=== PATIENT | male | born 1955 | race Caucasian/White ===

== ENCOUNTER 2016-09-16 05:36 | Inpatient (IN) | payer OTHER, MEDICARE ==
[2016-09-16] VITALS (20 sets, daily range): BP systolic 131–188; BP diastolic 74–99; PULSE 90–108; RESP 18–24; TEMP 98.3–101.5; O2SAT 94–100
[~2016-09-16] VITALS: Ht 170.2 cm; Wt 123.2 kg
[~2016-09-16 05:36] MED LIST: ALBU0.08 NEB; ASPI81CH CHEW; B-CO1TAB5 PO; CHOL1CAP24 PO; CYAN1CAP PO; FURO1TAB60 PO; GABA800T PO; IMDU60TA PO; IPRA0.02 NEB; KLON2TAB PO; NOVO7030P2 SQ; NOVORP2 SQ; OCEA0.653 EACH NARE; OMEP20TA PO; OXYGENTANK NAS.CANULA; OXYM.05%I EACH NARE; PAXI20TA PO; POTA-163 PO; PRED20 PO; SODI1TAB PO; ULTR50TA5 PO
[2016-09-16] MEDS ORDERED: SODIUM CHLORIDE 0.9% FLUSH 10 ML FLUSH IVF PRN (05:45)
--- NOTE | 2016-09-16 05:53 | PD ---
HPI Chief Complaint: Respiratory Distress Time Seen by Provider: 05:42 Travel History International Travel<30 days: No Contact w/Intl Traveler<30days: No Traveled to known affect area: No History of Present Illness HPI 61-year-old male with history of CAD, COPD, CHF, CABG, brought in by ambulance from home on CPAP for evaluation of shortness of breath. For last 5 days the patient has had progressively worsening shortness of breath, worsening pedal edema, and worsening abdominal distention. He is denying any chest pain. Shortness of breath is at rest. EMS noted that the patient was severely tachypneic with bibasilar rales and had an O2 saturation in the 70% on the arrived to his home. They started him on CPAP, administered IV morphine, as well as 100 mg of IV Lasix. Upon arrival to the emergency department the patient feels somewhat improved. He is still slightly tachypneic. He is denying chest pain. His submarine diver is Dr. Sanabria. Patient also reports that for the last several days he has had black/tarry stools. PFSH Past Medical History Hx Anticoagulant Therapy: No Arthritis: Yes Asthma: Yes Autoimmune Disease: No Blood Disorders: No Anxiety: Yes Depression: Yes Heart Rhythm Problems: No Cancer: No Cardiac Catheterization: Yes Cardiovascular Problems: Yes (CABG, MRSA) High Cholesterol: Yes Chemotherapy: No Chest Pain: Yes Congestive Heart Failure: Yes COPD: Yes Cerebrovascular Accident: Yes Coronary Artery Disease: Yes Diabetes: Yes (Type 2) Patient Takes Glucophage: No Diminished Hearing: No GERD: Yes Glaucoma: No Headaches: No Hepatitis: Yes Hiatal Hernia: No Hypertension: Yes Kidney Stones: Yes Musculoskeletal: Yes Neurologic: Yes Psychiatric: Yes Respiratory: Yes (Pneumonia) Myocardial Infarction: Yes Pneumonia: Yes Radiation Therapy: No Renal Failure: No Seizures: Yes Sickle Cell Disease: No Sleep Apnea: Yes Thyroid Disease: No Ulcer: No Past Surgical History Abdominal Surgery: Yes (GALBLADDER) AICD: No Cardiac Surgery: Yes Cholecystectomy: Yes Coronary Artery Bypass Graft: Yes Coronary Stent: Yes Ear Surgery: No Endocrine Surgery: No Eye Surgery: No Genitourinary Surgery: No Oral Surgery: No Pacemaker: No Thoracic Surgery: Yes Other Surgery: Yes (UVULA REMOVED PER PT) Social History Alcohol Use: Yes (ALCOHOLIC) Tobacco Use: Yes Substance Use: Yes Allergies-Medications (Allergen,Severity, Reaction): Coded Allergies: Bactrim (Verified Allergy, Severe, Hives, 04/07/16) Codeine (Verified Allergy, Severe, Hives, 04/07/16) Hydrocodone (Verified Allergy, Severe, ITCH, 04/07/16) Minocin (Verified Allergy, Severe, CLOSED THROAT, 04/07/16) Sulfa (Verified Allergy, Severe, Hives, 04/07/16) Vancomycin (Verified Allergy, Severe, Anaphylaxis, 04/07/16) Tetracycline (Verified Allergy, Unknown, Hives, 04/07/16) Reported Meds & Prescriptions Reported Meds & Active Scripts Active Oxygen tank (Oxygen) 1 Ea Tank 2 Liter CATALINA.CANULA CONTINUOUS Oxygen Concentrator Portable Gaseous 2 L/min via Nasal Cannula Continuous For 99 months Ultram (Tramadol HCl) 50 Mg Tab 50 Mg PO Q8H PRN 5 Days Potassium Chloride ER (Potassium Chloride) 20 Meq Tab 20 Meq PO DAILY Prednisone 20 Mg Tab 20 Mg PO DAILY 7 Days Lasix (Furosemide) 40 Mg Tab 40 Mg PO DAILY 30 Days Reported Afrin Nasal [place] (Oxymetazoline HCl) 0.05 % Spr 2 [place] EACH NARE BID [place] Nasal Lowes (Sodium Chloride) 0.65% Lowes 1 [place]es EACH NARE BID Aspirin 81 Mg Chew 81 Mg CHEW DAILY B-12 (Cyanocobalamin) 5,000 Mcg Cap 10,000 Mcg PO BID Vitamin D3 (Cholecalciferol) 10,000 Unit Cap 10,000 Units PO BID Super B-Complex (B-Complex W/Biotin & Folic Acid) 1 Tab 3 Tab PO TID Gabapentin 800 Mg Tab 800 Mg PO TID Klonopin (Clonazepam) 2 Mg Tab 2 Mg PO TID Paxil (Paroxetine HCl) 20 Mg Tab 20 Mg PO DAILY Novolin R Inj (Insulin Human Regular) 1,000 Unit/10 Ml Vial Unknown Dose SQ ACHS Max dose at bedtime:( )units; sugars less than 70,(0) units; sugars 150-199,(2)unit; sugars 200-249,(4)units; sugars 250-299,(7) units; sugars 300-349,(10)units; sugars greater than 349,(12)units Novolin 70-30 Inj (Insulin Human Isoph/Insulin Regular) 1,000 Unit/10 Ml Vial 45 Units SQ BID Omeprazole 20 Mg Tab 20 Mg PO BID Ipratropium Neb (Ipratropium Gordon) 0.5 Mg/2.5 Ml Amp 0.5 Mg NEB Q4HR NEB MIX WITH ALBUTEROL Albuterol Neb (Albuterol Sulfate) 2.5 Mg/3 Ml Neb 2.5 Mg NEB Q4HR NEB MIX WITH IPRATROPIUM Sodium Chloride 1 Gm Tab 1 Gm PO DAILY Review of Systems Except as stated in HPI: all other systems reviewed are Neg Physical Exam Narrative GENERAL: Well-developed, well-nourished, overweight, moderate respiratory distress, on CPAP, speaking a few words at a time. SKIN: Focused skin assessment warm/dry. Multiple abrasions to bilateral upper and lower extremities with areas of ecchymosis in various stages of healing on upper and lower extremities as well as anterior chest. HEAD: Atraumatic. Normocephalic. EYES: Pupils equal and round. No scleral icterus. No injection or drainage. ENT: Mucous membranes pink and moist. NECK: Trachea midline. No JVD. CARDIOVASCULAR: Regular rate and rhythm. RESPIRATORY: Moderate respiratory distress. Speaking a few words at a time. Tachypneic. Poor air movement bilaterally. Difficult to ascertain breath sounds secondary to body habitus. GASTROINTESTINAL: Abdomen soft, non-tender, distended. MUSCULOSKELETAL: No obvious deformities. No clubbing. No cyanosis. Significant bilateral lower extremity edema from foot to knee. NEUROLOGICAL: Awake and alert. No obvious cranial nerve deficits. Motor grossly within normal limits. Normal speech. PSYCHIATRIC: Appropriate mood and affect; insight and judgment normal. Data Data Last Documented VS Vital Signs Date Time Temp Pulse Resp B/P Pulse Ox O2 Delivery O2 Flow Rate FiO2 09/16/16 05:54 100 BiPAP 09/16/16 05:54 20 09/16/16 05:42 106 09/16/16 05:40 100 09/16/16 05:38 188/99 Orders Complete Blood Count With Diff (09/16/16 05:43) Comprehensive Metabolic Panel (09/16/16 05:43) B-Type Natriuretic Peptide (09/16/16 05:43) Act Partial Throm Time (Ptt) (09/16/16 05:43) Prothrombin Time / Inr (Pt) (09/16/16 05:43) Ckmb (Isoenzyme) Profile (09/16/16 05:43) Troponin I (09/16/16 05:43) Arterial Blood Gas (Abg) (09/16/16 05:43) Iv Access Insert/Monitor (09/16/16 05:43) Electrocardiogram (09/16/16 05:43) Ecg Monitoring (09/16/16 05:43) Oximetry (09/16/16 05:43) Oxygen Administration (09/16/16 05:43) Chest, Single Ap (09/16/16 05:43) Sodium Chloride 0.9% Flush (Ns Flush) (09/16/16 05:45) Lactic Acid (09/16/16 05:43) Blood Culture (09/16/16 05:43) Resp Bipap / Cpap Non Invas Vt (09/16/16 ) Type And Screen (09/16/16 05:43) Albuterol-Ipratropium Neb (Duoneb Neb) (09/16/16 06:00) Urinary Catheter Insert/Apply (09/16/16 06:00) CKMB (09/16/16 05:50) CKMB% (09/16/16 05:50) Labs Laboratory Tests Test 09/16/16 09/16/16 05:50 06:00 White Blood Count 9.9 TH/MM3 Red Blood Count 4.06 MIL/MM3 Hemoglobin 12.5 GM/DL Hematocrit 36.8 % Mean Corpuscular Volume 90.7 FL Mean Corpuscular Hemoglobin 30.9 PG Mean Corpuscular Hemoglobin 34.0 % Concent Red Cell Distribution Width 17.0 % Platelet Count 90 TH/MM3 Mean Platelet Volume 7.3 FL Neutrophils (%) (Auto) 90.8 % Lymphocytes (%) (Auto) 1.4 % Monocytes (%) (Auto) 7.1 % Eosinophils (%) (Auto) 0.0 % Basophils (%) (Auto) 0.7 % Neutrophils # (Auto) 9.0 TH/MM3 Lymphocytes # (Auto) 0.1 TH/MM3 Monocytes # (Auto) 0.7 TH/MM3 Eosinophils # (Auto) 0.0 TH/MM3 Basophils # (Auto) 0.1 TH/MM3 CBC Comment AUTO DIFF Prothrombin Time 15.5 SEC Prothromb Time International 1.4 RATIO Ratio Activated Partial 35.0 SEC Thromboplast Time Sodium Level 131 MEQ/L Potassium Level 3.9 MEQ/L Chloride Level 90 MEQ/L Carbon Dioxide Level 31.0 MEQ/L Anion Gap 10 MEQ/L Blood Urea Nitrogen 20 MG/DL Creatinine 1.25 MG/DL Estimat Glomerular Filtration 58 ML/MIN Rate Random Glucose 193 MG/DL Lactic Acid Level 1.8 mmol/L Calcium Level 8.4 MG/DL Total Bilirubin 2.1 MG/DL Aspartate Amino Transf 64 U/L (AST/SGOT) Alanine Aminotransferase 52 U/L (ALT/SGPT) Alkaline Phosphatase 33 U/L Total Creatine Kinase 162 U/L Creatine Kinase MB 16.0 NG/ML Troponin I 1.27 NG/ML B-Type Natriuretic Peptide 1839 PG/ML Total Protein 7.2 GM/DL Albumin 3.4 GM/DL Blood Type A NEGATIVE Antibody Screen NEGATIVE Blood Bank Comment Blood Gas Puncture Site LT RADIAL Blood Gas Patient Temperature 98.6 Blood Gas HCO3 30 mmol/L Blood Gas Base Excess 4.7 mmol/L Blood Gas Oxygen Saturation 98 % Arterial Blood pH 7.33 Arterial Blood Partial 59 mmHg Pressure CO2 Arterial Blood Partial 495 mmHG Pressure O2 Arterial Blood Oxygen Content 18.6 Vol % Arterial Blood 2.0 % Carboxyhemoglobin Arterial Blood Methemoglobin 0.6 % Blood Gas Hemoglobin 12.7 G/DL Oxygen Delivery Device BiPAP Blood Gas Inspired Oxygen 100 % MDM Medical Decision Making Medical Screen Exam Complete: Yes Emergency Medical Condition: Yes Medical Record Reviewed: Yes Interpretation(s) EKG: Sinus tachycardia, rate 106, left axis deviation, normal intervals, no acute ischemic abnormality. Differential Diagnosis Acute pulmonary edema, CHF, COPD, pneumothorax, pneumonia, anemia, ACS, PE Narrative Course Patient was switched from CPAP to BiPAP upon arrival to the emergency department. Stool is heme negative brown. Initial vital signs show heart rate 108, blood pressure 188/99 on 100% BiPAP 10/ 5. CBC shows WBC 9.9, hemoglobin 12.5, hematocrit 36.8, platelets 98, neutrophils 90.8%. CMP is remarkable for sodium 131, chloride 98, BUN 20, creatinine 1.28, GFR 58, random glucose 193, otherwise unremarkable. Lactic acid is 1.8. Troponin is 1.27. BNP is 1839. Chest x-ray: Cardiomegaly and findings of congestive heart failure. Small effusions. Troponin leak is likely secondary to CHF. The patient denies having chest pain. There are no signs of ischemia on his EKG. Patient has moderate improvement here in the emergency department on BiPAP. He is still requiring BiPAP. He'll be admitted to the ICU for further treatment and evaluation. His submarine diver is Dr. Sanabria. Case discussed with cigarette carton sealer Dr. Bailey who will admit the patient to her service. Critical Care Narrative Aggregate critical care time was 40 minutes. Time to perform other separately billable procedures was not included in the critical care time. My time did not include minutes spent treating any other patients simultaneously or on activities that did not directly contribute to the patient's treatment. The services I provided to this patient were to treat and/or prevent clinically significant deterioration that could result in: , permanent disability, worsening clinical condition, respiratory failure I provided critical care services requiring my management, as noted below: Chart data review, documentation time, medication orders and management, vital sign assessments/reviewing monitor data, ordering and reviewing lab tests, ordering and interpreting/reviewing x-rays and diagnostic studies, care of the patient and discussion of the patient with the admitting physicians. HemaPrompt Point of Care Internal Pos. & Neg. Controls: Passed Fecal Specimen Occult Blood: Negative Comment Heme-negative, brown Diagnosis Primary Impression: CHF exacerbation Qualified Code: I50.9 - Acute on chronic congestive heart failure, unspecified congestive heart failure type Additional Impression: Respiratory distress Admitting Information Admitting Physician Requests: Admit Nico Paige MD Sep 16, 2016 05:53
[2016-09-16] MEDS: RESP: ALBUTEROL 2.5 MG/IPRATROPIUM 0.5 MG NEB (SCH) INH ×6 (06:00→19:25)
[2016-09-16 06:06] LABS: BASOPHIL # 0.1 TH/MM3 (0-0.2); BASOPHIL % 0.7 % (0.0-2.0); HEMATOCRIT 36.8 % (39.0-51.0); LYMPH % 1.4 % (9.0-44.0); LYMPHOCYTE # 0.1 TH/MM3 (1.0-4.8); MEAN CELL VOLUME 90.7 FL (80.0-100.0); MEAN CORPUSCULAR HEMOGLOBIN 30.9 PG (27.0-34.0); MONO % 7.1 % (0.0-8.0); NEUT % 90.8 % (16.0-70.0); PLATELET COUNT 90 TH/MM3 (150-450); RED BLOOD COUNT 4.06 MIL/MM3 (4.50-5.90); WHITE BLOOD COUNT 9.9 TH/MM3 (4.0-11.0)
[2016-09-16 06:08] LABS: BLOOD GAS BASE EXCESS 4.7 mmol/L (-2-2); BLOOD GAS HCO3 30 mmol/L (22-26); BLOOD GAS METHEMOGLOBIN 0.6 % (0-2); BLOOD GAS O2 HGB SATURATION 98 % (90-100); BLOOD GAS OXYGEN CONTENT 18.6 Vol % (12.0-20.0); BLOOD GAS PCO2 59 mmHg (38-42); BLOOD GAS PO2 495 mmHG (61-120); BLOOD GAS TOTAL HGB 12.7 G/DL (12.0-16.0); CRITICAL VALUE YES; OXYGEN DEVICE BiPAP; TEMP CORR TO 98.6
[2016-09-16 06:09] LABS: DRAW SITE LT RADIAL; FIO2 100 %; NUMBER OF ARTERIAL PUNCTURES 1; STAT YES; ULNAR PULSE PRESENT
[2016-09-16 06:13] LABS: INTERNATIONAL NORMALIZED RATIO 1.4 RATIO; PROTHROMBIN TIME - PATIENT 15.5 SEC (9.8-11.6)
[2016-09-16 06:18] LABS: HEMO FLAGS AUTO DIFF
--- NOTE | 2016-09-16 06:21 | RADRPT ---
EXAM DATE/TIME: 09/16/2016 05:37 [facility] COMPARISON: CHEST SINGLE AP, April 16, 2016, 5:59. INDICATIONS : Shortness of breath. MEDICAL HISTORY : Hypertension. Myocardial infarction. Diabetes mellitus type II. CVA. CHF. Coronary artery disease . Liver disease. Hepatitis. COPD. SURGICAL HISTORY : CABG. Cardiac cath. Coronary stent. ENCOUNTER: Initial ACUITY: 1 day PAIN SCORE: 0/10 LOCATION: Bilateral chest FINDINGS: The cardiac silhouette is normal in transverse diameter. Median sternotomy wires are present. There a re findings of congestive heart failure with interstitial and alveolar opacity bilaterally. This is n ew when compared with the prior exam. Small bilateral pleural effusions are identified. CONCLUSION: 1. Cardiomegaly and findings of congestive heart failure. 2. Small effusions Maciel Araujo MD on September 16, 2016 at 6:19 Board Certified Radiologist. This report was verified electronically.
[2016-09-16 06:32] LABS: ANION GAP 10 MEQ/L (5-15); AST (GOT) 64 U/L (15-37); BLOOD UREA NITROGEN 20 MG/DL (7-18); CHLORIDE 90 MEQ/L (98-107); GLOMERULAR FILTRATION RATE 58 ML/MIN (>89); POTASSIUM 3.9 MEQ/L (3.5-5.1); SODIUM (NA) 131 MEQ/L (136-145)
[2016-09-16 06:36] LABS: ALKALINE PHOSPHATASE 33 U/L (45-117); ALT (GPT) 52 U/L (12-78); CREATINE KINASE 162 U/L (39-308); TOTAL BILIRUBIN ADULT 2.1 MG/DL (0.2-1.0)
[2016-09-16 07:08] LABS: PLATELET ESTIMATE SMEAR LOW (NORMAL); PLATELET MORPHOLOGY NORMAL (NORMAL); SCAN/DIFF AUTO DIFF CONFIRMED
[2016-09-16] MEDS ORDERED: MAGNESIUM SULFATE INJ 2 GM in SODIUM CHLORIDE 0.9% INJ 96 ML IV PRN (08:00)
[2016-09-16] MEDS ORDERED: RESP: ALBUTEROL 2.5 MG/IPRATROPIUM 0.5 MG NEB (PRN) INH (08:00)
[2016-09-16] MEDS ORDERED: MAGNESIUM OXIDE 400 MG TAB PO PRN (08:00)
[2016-09-16] MEDS ORDERED: ONDANSETRON HCL 4 MG/2 ML VIAL IV PRN (08:00)
[2016-09-16] MEDS ORDERED: POTASSIUM PHOSPHATE INJ 30 MMOL in SODIUM CHLOR 0.9% 250 ML INJ 250 ML IV PRN (08:00)
[2016-09-16] MEDS ORDERED: SODIUM PHOSPHATE INJ 30 MMOL in SODIUM CHLOR 0.9% 250 ML INJ 240 ML IV PRN (08:00)
[2016-09-16] MEDS ORDERED: POTASSIUM CHLOR 40 MEQ PREMIX 100 ML IV PRN ×2 (08:00)
[2016-09-16] MEDS ORDERED: POTASSIUM PHOSPHATE MONOBASIC 500 MG TAB PO/TUBE PRN (08:00)
[2016-09-16] MEDS ORDERED: MISCELLANEOUS NURSING INFORMATION XX SCH (08:00)
[2016-09-16] MEDS ORDERED: POTASSIUM CHLOR 20 MEQ PREMIX 100 ML IV PRN (08:00)
[2016-09-16] MEDS ORDERED: MAGNESIUM SULFATE INJ 4 GM in SODIUM CHLORIDE 0.9% INJ 92 ML IV PRN (08:00)
[2016-09-16] MEDS ORDERED: POTASSIUM PHOSPHATE MONOBASIC 500 MG TAB PO PRN (08:00)
[2016-09-16] MEDS ORDERED: CHLORHEXIDINE GLUCONATE 2 % 1 PACK (2 CLOTHS) TOP PRN (08:00)
[2016-09-16] MEDS ORDERED: POTASSIUM CHLORIDE 25 MEQ EFFERVESCENT TAB PO PRN (08:00)
[2016-09-16] MEDS ORDERED: GLUCAGON 1 MG/ML VIAL OTHER PRN (08:15)
[2016-09-16] MEDS ORDERED: DEXTROSE 50% IN WATER 50 ML VIAL(D50) IV PUSH PRN (08:15)
--- NOTE | 2016-09-16 08:43 | HHI.HP ---
HPI Service Critical Care Medicine Primary Care Physician Unknown Admission Diagnosis CHF exacerbation, respiratory distress Diagnosis: Travel History International Travel<30 Days: No Contact w/Intl Traveler <30 Da: No Traveled to Known Affected Are: No History of Present Illness This is a 61-year-old male with history of CAD, COPD, CHF, CABG, brought in by ambulance from home on CPAP for evaluation of shortness of breath. For last 5 days the patient had had progressive worsening SOB, worsening pedal edema, and worsening abdominal distention. He is denying any chest pain. Shortness of breath is at rest. EMS noted that the patient was severely tachypneic with bibasilar rales and had an O2 saturation in the 70% on the arrived to his home. They started him on CPAP, administered IV morphine, as well as 100 mg of IV Lasix. He had no chest pain. The patient diuresed several 100 cc, and was placed on BiPAP with an FiO2 of 50% . His airport operations officer is Dr. Sanabria. Patient also reports that for the last several days he has had black/tarry stools. Critical care medicine's consult for management. Upon arrival to the ED the patient was noted to be on BiPAP 10/550% with an O2 sat of 95%, BP 174/95 and a heart rate of 102. History PFSH Past Medical History Hx Anticoagulant Therapy: No Arthritis: Yes Asthma: Yes Autoimmune Disease: No Blood Disorders: No Anxiety: Yes Depression: Yes Heart Rhythm Problems: No Cancer: No Cardiac Catheterization: Yes Cardiovascular Problems: Yes (CABG, MRSA) High Cholesterol: Yes Chemotherapy: No Chest Pain: Yes Congestive Heart Failure: Yes COPD: Yes Cerebrovascular Accident: Yes Coronary Artery Disease: Yes Diabetes: Yes (Type 2) Patient Takes Glucophage: No Diminished Hearing: No GERD: Yes Glaucoma: No Headaches: No Hepatitis: Yes Hiatal Hernia: No Hypertension: Yes Kidney Stones: Yes Musculoskeletal: Yes Neurologic: Yes Psychiatric: Yes Respiratory: Yes (Pneumonia) Myocardial Infarction: Yes Pneumonia: Yes Radiation Therapy: No Renal Failure: No Seizures: Yes Sickle Cell Disease: No Sleep Apnea: Yes Thyroid Disease: No Ulcer: No Past Surgical History Abdominal Surgery: Yes (GALBLADDER) AICD: No Cardiac Surgery: Yes Cholecystectomy: Yes Coronary Artery Bypass Graft: Yes Coronary Stent: Yes Ear Surgery: No Endocrine Surgery: No Eye Surgery: No Genitourinary Surgery: No Oral Surgery: No Pacemaker: No Thoracic Surgery: Yes Other Surgery: Yes (UVULA REMOVED PER PT) Social History Alcohol Use: Yes (ALCOHOLIC) Tobacco Use: Yes Substance Use: Yes Allergies-Medications Allergies-Medications (Allergen,Severity, Reaction): Coded Allergies: Bactrim (Verified Allergy, Severe, Hives, 04/07/16) Codeine (Verified Allergy, Severe, Hives, 04/07/16) Hydrocodone (Verified Allergy, Severe, ITCH, 04/07/16) Minocin (Verified Allergy, Severe, CLOSED THROAT, 04/07/16) Sulfa (Verified Allergy, Severe, Hives, 04/07/16) Vancomycin (Verified Allergy, Severe, Anaphylaxis, 04/07/16) Tetracycline (Verified Allergy, Unknown, Hives, 04/07/16) Reported Meds & Prescriptions Reported Meds & Active Scripts Active Oxygen tank (Oxygen) 1 Ea Tank 2 Liter CATALINA.CANULA CONTINUOUS Oxygen Concentrator Portable Gaseous 2 L/min via Nasal Cannula Continuous For 99 months Ultram (Tramadol HCl) 50 Mg Tab 50 Mg PO Q8H PRN 5 Days Potassium Chloride ER (Potassium Chloride) 20 Meq Tab 20 Meq PO DAILY Prednisone 20 Mg Tab 20 Mg PO DAILY 7 Days Lasix (Furosemide) 40 Mg Tab 40 Mg PO DAILY 30 Days Reported Afrin Nasal [place] (Oxymetazoline HCl) 0.05 % Spr 2 Zap EACH NARE BID [place] Nasal Zap (Sodium Chloride) 0.65% Zap 1 Zap EACH NARE BID Aspirin 81 Mg Chew 81 Mg CHEW DAILY B-12 (Cyanocobalamin) 5,000 Mcg Cap 10,000 Mcg PO BID Vitamin D3 (Cholecalciferol) 10,000 Unit Cap 10,000 Units PO BID Super B-Complex (B-Complex W/Biotin & Folic Acid) 1 Tab 3 Tab PO TID Gabapentin 800 Mg Tab 800 Mg PO TID Klonopin (Clonazepam) 2 Mg Tab 2 Mg PO TID Paxil (Paroxetine HCl) 20 Mg Tab 20 Mg PO DAILY Novolin R Inj (Insulin Human Regular) 1,000 Unit/10 Ml Vial Unknown Dose SQ ACHS Max dose at bedtime:( )units; sugars less than 70,(0) units; sugars 150-199,(2)unit; sugars 200-249,(4)units; sugars 250-299,(7) units; sugars 300-349,(10)units; sugars greater than 349,(12)units Novolin 70-30 Inj (Insulin Human Isoph/Insulin Regular) 1,000 Unit/10 Ml Vial 45 Units SQ BID Omeprazole 20 Mg Tab 20 Mg PO BID Ipratropium Neb (Ipratropium [place]) 0.5 Mg/2.5 Ml Amp 0.5 Mg NEB Q4HR NEB MIX WITH ALBUTEROL Albuterol Neb (Albuterol Sulfate) 2.5 Mg/3 Ml Neb 2.5 Mg NEB Q4HR NEB MIX WITH IPRATROPIUM Sodium Chloride 1 Gm Tab 1 Gm PO DAILY ROS Review of Systems Except as stated in HPI: all other systems reviewed are Neg Physical Exam Vital Signs Vital Signs Date Time Temp Pulse Resp B/P Pulse Ox O2 Delivery O2 Flow Rate FiO2 09/16/16 08:01 100 35 09/16/16 07:50 96 Nasal Cannula 3.00 09/16/16 07:43 104 20 163/88 99 BiPAP 50 09/16/16 06:55 100 09/16/16 05:54 100 BiPAP 09/16/16 05:54 20 100 BiPAP 09/16/16 05:42 106 22 100 BiPAP 09/16/16 05:40 100 100 09/16/16 05:40 100 BiPAP 100 09/16/16 05:38 108 18 188/99 100 Physical Exam GENERAL: This is a obese gentleman appearing older than stated age in moderate respiratory distress SKIN: Warm and dry. Bilateral lower extremity cellulitis, ecchymotic bruising noted on extremities 4 HEAD: Atraumatic. Normocephalic. EYES: Pupils equal and round. No scleral icterus. No injection or drainage. ENT: No nasal bleeding or discharge. Mucous membranes pink and moist. NECK: Trachea midline. No JVD. CARDIOVASCULAR: Normal rate, regular rhythm. RESPIRATORY: No accessory muscle use. Coarse expiratory wheezing bilateral to auscultation. Breath sounds equal bilaterally. GASTROINTESTINAL: Abdomen soft, non-tender, distended. Ascites .No guarding. MUSCULOSKELETAL: Extremities without clubbing, cyanosis, or edema. No obvious deformities. NEUROLOGICAL: Awake and alert. RASS 0. No gross focal/sensory deficits. Follows commands in all 4 extremities. Laboratory Laboratory Tests Test 09/16/16 09/16/16 05:50 06:00 White Blood Count 9.9 Red Blood Count 4.06 Hemoglobin 12.5 Hematocrit 36.8 Mean Corpuscular Volume 90.7 Mean Corpuscular Hemoglobin 30.9 Mean Corpuscular Hemoglobin 34.0 Concent Red Cell Distribution Width 17.0 Platelet Count 90 Mean Platelet Volume 7.3 Neutrophils (%) (Auto) 90.8 Lymphocytes (%) (Auto) 1.4 Monocytes (%) (Auto) 7.1 Eosinophils (%) (Auto) 0.0 Basophils (%) (Auto) 0.7 Neutrophils # (Auto) 9.0 Lymphocytes # (Auto) 0.1 Monocytes # (Auto) 0.7 Eosinophils # (Auto) 0.0 Basophils # (Auto) 0.1 CBC Comment AUTO DIFF Differential Comment AUTO DIFF CONFIRMED Platelet Estimate LOW Platelet Morphology Comment NORMAL Prothrombin Time 15.5 Prothromb Time International 1.4 Ratio Activated Partial 35.0 Thromboplast Time Sodium Level 131 Potassium Level 3.9 Chloride Level 90 Carbon Dioxide Level 31.0 Anion Gap 10 Blood Urea Nitrogen 20 Creatinine 1.25 Estimat Glomerular Filtration 58 Rate Random Glucose 193 Lactic Acid Level 1.8 Calcium Level 8.4 Total Bilirubin 2.1 Aspartate Amino Transf 64 (AST/SGOT) Alanine Aminotransferase 52 (ALT/SGPT) Alkaline Phosphatase 33 Total Creatine Kinase 162 Creatine Kinase MB 16.0 Troponin I 1.27 B-Type Natriuretic Peptide 1839 Total Protein 7.2 Albumin 3.4 Blood Type A NEGATIVE Antibody Screen NEGATIVE Blood Bank Comment Blood Gas Puncture Site LT RADIAL Blood Gas Patient Temperature 98.6 Blood Gas HCO3 30 Blood Gas Base Excess 4.7 Blood Gas Oxygen Saturation 98 Arterial Blood pH 7.33 Arterial Blood Partial 59 Pressure CO2 Arterial Blood Partial 495 Pressure O2 Arterial Blood Oxygen Content 18.6 Arterial Blood 2.0 Carboxyhemoglobin Arterial Blood Methemoglobin 0.6 Blood Gas Hemoglobin 12.7 Oxygen Delivery Device BiPAP Blood Gas Inspired Oxygen 100 Date/Time Procedure Status Source Growth 09/16/16 05:55 Aerobic Blood Culture Received Blood Peripheral Pending 09/16/16 05:55 Anaerobic Blood Culture Received Blood Peripheral Pending Result Diagram: 09/16/16 0550 09/16/16 0550 Imaging Last Impressions Chest X-Ray 09/16/16 0543 Signed Impressions: Service Date/Time: Friday, September 16, 2016 05:37 - CONCLUSION: 1. Cardiomegaly and findings of congestive heart failure. 2. Small effusions Maciel Araujo MD Septic Shock Reassessment Heart: Regular rate and rhythm Lungs: Course Skin: Warm Peripheral Pulses: Bounding Right Radial Bounding Left Radial Assessment and Plan Assessment and Plan Plan by systems: Neurologic: Chronic pain syndrome Ankylosing spondylitis History of CVA Peripheral neuropathy Neurochecks per ICU protocol Patient currently takes fentanyl patches every 3 days 25 mcgs will resume Continue gabapentin 800 mg 3 times a day(home medication) Continue Klonopin 2 mg 3 times a day(home medication) Continue Paxil 20 mg daily (home medication) Respiratory: COPD exacerbation Respiratory insufficiency Hepatopulmonary syndrome Pulmonary hypertension Home O2 dependency Maintain O2 sat greater than 92% Maintain head of bed greater than 30 Currently on BiPAP 10/5/0.50, weaned to O2 via nasal cannula Bronchodilator scheduled every 6 hours, every 2 hours when necessary Since 04/2016 the patient currently is on O2 at 2 L nasal cannula at home Cardiovascular: Cardiomegaly History of CHF CAD- S/P CABG 2 Coronary stent Hypertension Cardiomegaly Will hold aspirin 81 mg daily in the setting of GI bleed 04/09/16-ECHO PASP 53mmHg. ejection fraction 55%. No RWMA Renal: Hepatorenal syndrome Insert [place] Lasix 40 mg daily IR consult for paracentesis -- Strict I/Os FEN/GI: Chronic Hyponatremia Hepatitis C Liver cirrhosis with ascites Melena GI consultedappreciate recommendations ASA 81mg held NPO except meds Monitor H&H Consider Rocephin for SBP prophylaxis Heme/ID: Anemia of chronic disease Thrombocytopenia Monitor CBC Platelet count 90, transfuse if less than 50,000 H&H q 12 hrs Endocrine: Diabetes mellitus 2 Glucose monitoring per ICU protocol, low-dose regimen Msk: Cellulitis Patient also has multiple abrasions from multiple falls bilateral lower extremity PT evaluation and treat -- SSI Prophylaxis: GI Prophylaxis Protonix DVT Prophylaxis -- SCDs No pharmacological DVT prophylaxis in the setting of GI bleeding Lines: Peripheral IVs 2. Central line if indicated Dispo: my billing statement This patient remains critically ill with one or more organ systems which are or may become a threat to life. I have spent in excess of 60 minutes discontinuously in the care and management of this patient. This time is exclusive of procedures, and includes, but is not limited to, evaluation of the patient, review of the medical record, discussions with family, consultants, nursing staff, or respiratory therapy, and documentation in the medical record. Code Status Full Discussed Condition With Dr. Paige ED physician, and patient at bedside Viv Bailey MD Sep 16, 2016 08:43
[2016-09-16] MEDS: clonazePAM 1 MG TAB PO SCH ×3 (09:00→18:00)
[2016-09-16] MEDS: PARoxetine HCL 20 MG TAB PO SCH (09:00)
[2016-09-16] MEDS: VITAMIN B CMPLX/VITC/FOLIC AC CAP PO SCH (09:00)
[2016-09-16] MEDS: GABAPENTIN 400 MG CAP PO SCH ×3 (09:00→18:00)
[2016-09-16] MEDS: CHOLECALCIFEROL (VIT D3) 5000 UNIT CAP PO SCH (09:00)
[2016-09-16] MEDS: CYANOCOBALAMIN 1,000 MCG TAB PO SCH (09:00)
[2016-09-16] MEDS: SODIUM CHLORIDE 0.9% FLUSH 10 ML FLUSH IV FLUSH SCH (09:00)
[2016-09-16] MEDS: PANTOPRAZOLE SODIUM 40 MG VIAL IV SCH (09:19)
--- NOTE | 2016-09-16 09:53 | PD.CONS ---
HPI History of Present Illness This is a 61 year old male with a past medical history of CHF, CAD, CABG X 2, COPD, O2 dependant at home, WALTER related cirrhosis, esophageal varices, anxiety , chronic hyponatremia, chronic lower extremity cellulitis, DM, GERD who presented with 5 days duration of progressively worsening shortness of breath. Patient tells me he hasn't been following with a GI physician on regular basis and it has been many years since he did that. By reports last EGD/colonoscopy was more than 2 years ago and was done by Dr. Gamble at [facility]. He had liver bx in and was told it was fatty liver. He states, he used to drink heavily but quit in April of last year. He reports black tarry stools on off for years, but he noticed predominantly few days ago, at first, they were black , hard then turn into loose and sticky, last time he had a Bm was last night. He reports nausea, but no vomiting, hematemesis, or hematochezia. He is on ASA at home. His abdomen distended. Last paracentesis was in 2012 by report. He is on diuretics at home. (Nilesh Erickson) PFSH Past Medical History CAD Chronic bronchitis Diabetes mellitus Cirrhosis and fatty liver disease Chronic lower extremity cellulitis GERD Anxiety/depression History of MRSA infection Chronic hyponatremia Past Surgical History 2 separate CABG surgeries Cardiac stents Paracentesis Cholecystectomy EGD/ colonoscopy (Nilesh Erickson) Coded Allergies: Bactrim (Verified Allergy, Severe, Hives, 04/07/16) Codeine (Verified Allergy, Severe, Hives, 04/07/16) Hydrocodone (Verified Allergy, Severe, ITCH, 04/07/16) Minocin (Verified Allergy, Severe, CLOSED THROAT, 04/07/16) Sulfa (Verified Allergy, Severe, Hives, 04/07/16) Vancomycin (Verified Allergy, Severe, Anaphylaxis, 04/07/16) Tetracycline (Verified Allergy, Unknown, Hives, 04/07/16) Medications Current Medications Medications (Trade) Dose Ordered Sig/Lyn Route Start Time Stop Time Status Last Admin (NS 1000 ml Inj) 1,000 ml @ 42 mls/hr [id number] IV 09/16/16 07:50 (NS Flush) 2 ml UNSCH PRN IV FLUSH 09/16/16 08:00 (NS Flush) 2 ml BID IV FLUSH 09/16/16 09:00 (Protonix Inj) 40 mg DAILY IV 09/16/16 09:00 09/16/16 09:19 (Zofran Inj) 4 mg Q6H PRN IV 09/16/16 08:00 Miscellaneous Information 1 [id number] XX 09/16/16 08:00 (Chlorhexidine 2% Cloth) 3 pack Taper DAILY@04 TOP 09/17/16 04:00 09/13/17 03:59 Chlorhexidine Gluconate 3 pack 3 pack UNSCH PRN TOP 09/16/16 08:00 Potassium Chloride 100 ml @ 50 mls/hr Q2H PRN IV 09/16/16 08:00 (KCl 20 Meq Premix Inj) 100 ml @ 50 mls/hr Q2H PRN IV 09/16/16 08:00 Potassium Bicarb/ Potassium Chloride 50 meq 50 meq UNSCH PRN PO 09/16/16 08:00 Potassium Chloride 100 ml @ 25 mls/hr UNSCH PRN IV 09/16/16 08:00 Potassium Chloride 100 ml @ 50 mls/hr Q2H PRN IV 09/16/16 08:00 (Magnesium Sulfate Inj/NS Inj) 100 ml @ 50 mls/hr UNSCH PRN IV 09/16/16 08:00 Magnesium Oxide 800 mg 800 mg UNSCH PRN PO 09/16/16 08:00 (Magnesium Sulfate Inj/NS Inj) 100 ml @ 50 mls/hr UNSCH PRN IV 09/16/16 08:00 Potassium Phosphate 2000 mg 2,000 mg Q4H PRN PO 09/16/16 08:00 (Sodium Phosphate Inj/NS 250 ml Inj) 250 ml @ 42 mls/hr UNSCH PRN IV 09/16/16 08:00 Potassium Phosphate 2000 mg 2,000 mg UNSCH PRN PO/TUBE 09/16/16 08:00 (Potassium Phosphate Inj/NS 250 ml Inj) 260 ml @ 42 mls/hr UNSCH PRN IV 09/16/16 08:00 (D50w (Vial) Inj) 25 ml UNSCH PRN IV PUSH 09/16/16 08:15 (Glucagon Inj) 1 mg UNSCH PRN OTHER 09/16/16 08:15 (Vitamin D3) 5,000 units DAILY PO 09/16/16 09:00 (KlonoPIN) 2 mg TID PO 09/16/16 09:00 (Vitamin B12) 1,000 mcg DAILY PO 09/16/16 09:00 (Neurontin) 800 mg TID PO 09/16/16 09:00 (Paxil) 20 mg DAILY PO 09/16/16 09:00 (Nephrocaps) 1 cap DAILY PO 09/16/16 09:00 (Duragesic 25 Mcg Patch.72 Hr) 1 patch Q3D T-DERMAL 09/17/16 09:00 (Lasix Inj) 40 mg DAILY IV PUSH 09/17/16 09:00 Miscellaneous Information 1 Q3D T-DERMAL 09/17/16 09:00 Family History Non contributory Social History used to be heavy drinker but quit in 04/2016 smokes occasional cigars No illicit drug use (Nilesh Erickson) Review of Systems Constitutional: COMPLAINS OF: Fatigue, DENIES: Chills Endocrine: DENIES: Polydipsia Eyes: DENIES: Photosensitivity Ears, nose, mouth, throat: DENIES: Hoarseness Respiratory: COMPLAINS OF: Shortness of breath Cardiovascular: COMPLAINS OF: Lower Extremity Edema Gastrointestinal: COMPLAINS OF: Black stools, Nausea, Swelling of Abdomen, Heartburn, DENIES: Abdominal pain, Bloody stools, Constipation, Diarrhea, Vomiting, Difficulty Swallowing, Anorexia, Odynophagia, Hematemesis Genitourinary: DENIES: Hematuria Musculoskeletal: COMPLAINS OF: Back pain Integumentary: DENIES: Jaundice Hematologic/lymphatic: DENIES: Bruising Immunologic/allergic: DENIES: Eczema Neurologic: DENIES: Abnormal gait Psychiatric: DENIES: Anxiety (Nilesh Erickson) GI Exam Vitals I&O Vital Signs Date Time Temp Pulse Resp B/P Pulse Ox O2 Delivery O2 Flow Rate FiO2 09/16/16 09:15 94 Nasal Cannula 4.00 09/16/16 08:01 100 35 09/16/16 07:50 96 Nasal Cannula 3.00 09/16/16 07:43 104 20 163/88 99 BiPAP 50 09/16/16 06:55 100 09/16/16 05:54 100 BiPAP 09/16/16 05:54 20 100 BiPAP 09/16/16 05:42 106 22 100 BiPAP 09/16/16 05:40 100 100 09/16/16 05:40 100 BiPAP 100 09/16/16 05:38 108 18 188/99 100 Imaging Last Impressions Chest X-Ray 09/16/16 0543 Signed Impressions: Service Date/Time: Friday, September 16, 2016 05:37 - CONCLUSION: 1. Cardiomegaly and findings of congestive heart failure. 2. Small effusions Maciel Araujo MD Laboratory Test 09/16/16 09/16/16 05:50 06:00 White Blood Count 9.9 TH/MM3 Red Blood Count 4.06 MIL/MM3 Hemoglobin 12.5 GM/DL Hematocrit 36.8 % Mean Corpuscular Volume 90.7 FL Mean Corpuscular Hemoglobin 30.9 PG Mean Corpuscular Hemoglobin 34.0 % Concent Red Cell Distribution Width 17.0 % Platelet Count 90 TH/MM3 Mean Platelet Volume 7.3 FL Neutrophils (%) (Auto) 90.8 % Lymphocytes (%) (Auto) 1.4 % Monocytes (%) (Auto) 7.1 % Eosinophils (%) (Auto) 0.0 % Basophils (%) (Auto) 0.7 % Neutrophils # (Auto) 9.0 TH/MM3 Lymphocytes # (Auto) 0.1 TH/MM3 Monocytes # (Auto) 0.7 TH/MM3 Eosinophils # (Auto) 0.0 TH/MM3 Basophils # (Auto) 0.1 TH/MM3 CBC Comment AUTO DIFF Differential Comment AUTO DIFF CONFIRMED Platelet Estimate LOW Platelet Morphology Comment NORMAL Prothrombin Time 15.5 SEC Prothromb Time International 1.4 RATIO Ratio Activated Partial 35.0 SEC Thromboplast Time Sodium Level 131 MEQ/L Potassium Level 3.9 MEQ/L Chloride Level 90 MEQ/L Carbon Dioxide Level 31.0 MEQ/L Anion Gap 10 MEQ/L Blood Urea Nitrogen 20 MG/DL Creatinine 1.25 MG/DL Estimat Glomerular Filtration 58 ML/MIN Rate Random Glucose 193 MG/DL Lactic Acid Level 1.8 mmol/L Calcium Level 8.4 MG/DL Total Bilirubin 2.1 MG/DL Aspartate Amino Transf 64 U/L (AST/SGOT) Alanine Aminotransferase 52 U/L (ALT/SGPT) Alkaline Phosphatase 33 U/L Total Creatine Kinase 162 U/L Creatine Kinase MB 16.0 NG/ML Troponin I 1.27 NG/ML B-Type Natriuretic Peptide 1839 PG/ML Total Protein 7.2 GM/DL Albumin 3.4 GM/DL Blood Type A NEGATIVE Antibody Screen NEGATIVE Blood Bank Comment Blood Gas Puncture Site LT RADIAL Blood Gas Patient Temperature 98.6 Blood Gas HCO3 30 mmol/L Blood Gas Base Excess 4.7 mmol/L Blood Gas Oxygen Saturation 98 % Arterial Blood pH 7.33 Arterial Blood Partial 59 mmHg Pressure CO2 Arterial Blood Partial 495 mmHG Pressure O2 Arterial Blood Oxygen Content 18.6 Vol % Arterial Blood 2.0 % Carboxyhemoglobin Arterial Blood Methemoglobin 0.6 % Blood Gas Hemoglobin 12.7 G/DL Oxygen Delivery Device BiPAP Blood Gas Inspired Oxygen 100 % Date/Time Procedure Status Source Growth 09/16/16 05:55 Aerobic Blood Culture Received Blood Peripheral Pending 09/16/16 05:55 Anaerobic Blood Culture Received Blood Peripheral Pending Physical Examination HEENT: normocephalic; atraumatic; no jaundice. Throat is clear. NECK: Neck is supple, no JVD, no lymphadenopathy. CHEST: Coarse expiratory wheezing bilateral to auscultation. CARDIAC: Regular rate and rhythm ABDOMEN: firm, distended, nontender;ascites; bowel sounds are present in all four quadrants. EXTREMITIES: Bilateral lower extremity cellulitis, ecchymotic bruising noted on extremities 4 SKIN: Bilateral lower extremity cellulitis, ecchymotic bruising noted on extremities 4 BIOLOGY FACULTY MEMBER: No focal deficits; alert and oriented times three. (Nilesh Erickson) Assessment and Plan Plan - Melena- 12.5/36.8. On off for years, more predominantly in the past few day , hx of WALTER related cirrhosis, hx of varices, last EGD was more than 2 years ago, on ASA at home, quit alcohol in April of last year. PPI - GERD- On Protonix - WALTER cirrhosis- On diuretics at home, no alcohol since April, AST 64, ALT 52, ALP 33, tot. bili 2.1, Lasix 40 mg daily - Thrombocytopenia/ coagulopathy due to cirrhosis. - Ascites- US ordered to assess for fluids - Multiple comorbidities, including DM, CHF, CABG, cardiac stents, COPD, hepatorenal syndrome, O2 dependant per [facility] Plan: - NPO - EGD in am if stable from respiratory stand point - US - CBC, CMP, Pt/inr, AFP in am - paracentesis therapeutic/diagnostic - Cont. Lasix - Cont. Protonix - Monitor hh - Transfuse as needed - Notify GI for active bleed - Patient seen and examined by Dr. Summers and myself and this note is written on his behalf. (Nilesh Erickson) Physician Comments patient was seen and examined, agree with above note, patient needs to be stabilized, maybe EGD Saturday unless actively bleeding (Amando Summers MD) Nilesh Erickson Sep 16, 2016 09:53 Amando Summers MD Sep 16, 2016 15:32
[2016-09-16 12:13] LABS: MAGNESIUM 1.2 MG/DL (1.5-2.5); POTASSIUM 3.5 MEQ/L (3.5-5.1)
[2016-09-16] MEDS: SODIUM CHLOR 0.9% 1000 ML INJ 1,000 ML IV SCH (12:20)
[2016-09-16 12:23] LABS: INDIRECT BILIRUBIN 0.5 MG/DL (0.0-0.8); TOTAL BILIRUBIN ADULT 1.4 MG/DL (0.2-1.0)
[2016-09-16] MEDS ORDERED: MAGNESIUM SULFATE 1 GM PREMIX 100 ML ONE (12:54)
--- NOTE | 2016-09-16 15:53 | RADRPT ---
EXAM DATE/TIME: 09/16/2016 14:53 [facility] COMPARISON: No previous studies available for comparison. INDICATIONS : Cirrhosis. MEDICAL HISTORY : Hypercholesterolemia. Gastroesophageal reflux disease. Hepatitis. CAD. COPD. CHF. HTN. CVA. Diab etic. Kidney stones. SURGICAL HISTORY : Cholecystectomy. Cardiac catheterization. Cardiac stent. Uvula removed. ENCOUNTER: Initial ACUITY: 3 days PAIN SCORE: 0/10 LOCATION: Bilateral upper quadrant MEASUREMENTS: LIVER: 18.6 cm length COMMON DUCT: 5 mm RIGHT KIDNEY: 12.4 x 5.7 x 4.3 cm SPLEEN: 17.9 cm length FINDINGS: There is a small amount of ascites. The pancreas is not well-visualized. The gallbladder has been rem vimal. Liver is heterogeneous and enlarged to 18.6 cm. Spleen is also enlarged to 17.9 cm. CONCLUSION: 1. Mild ascites with liver enlarged to 18.6 cm. Echogenic liver characteristic of hepatocellular dise ase or fatty infiltration. 2. Splenomegaly to 17.9 cm. Rl Uribe MD on September 16, 2016 at 15:48 Board Certified Radiologist. This report was verified electronically.
--- NOTE | 2016-09-16 15:54 | EKG ---
Date Performed: 09/16/2016 Time Performed: 05:42:52 PTAGE: 61 years EKG: SINUS TACHYCARDIA MARKED LEFT AXIS DEVIATION When compared to previous tracing, no signific ant change. ABNORMAL ECG PREVIOUS TRACING : 04/07/2016 13.06.52 DOCTOR: Chester Gregorio Interpretating Date/Time 09/16/2016 15:53:42
[2016-09-16 16:45] LABS: HEMATOCRIT 33.7 % (39.0-51.0)
[2016-09-16 16:49] LABS: REVIEW FLAG FINAL
[2016-09-16] MEDS ORDERED: NITROGLYCERIN 2% OINT 1 GM PACKET TOPICAL PRN (20:30)
[2016-09-16] MEDS ORDERED: ACETAMINOPHEN 325 MG TAB PO ONE (23:30)
[2016-09-17] VITALS (16 sets, daily range): BP systolic 127–194; BP diastolic 76–94; PULSE 76–96; RESP 19–22; TEMP 97.7–98.7; O2SAT 94–100
[2016-09-17] MEDS: SODIUM CHLORIDE 0.9% FLUSH 10 ML FLUSH IV FLUSH SCH ×3 (00:20→20:33)
[2016-09-17] MEDS: hydrALAZINE HCL 20 MG/ML VIAL IV PUSH PRN ×6 (01:22→23:36)
[2016-09-17 01:42] LABS: BLOOD, URINE LARGE (NEG); COMMENT (UR) CATH-CULTURE IND; CULTURE IF INDICATED CATH CULTURE IND; GLUCOSE,URINE NEG (NEG); KETONE, URINE TRACE mg/dL (NEG); NITRITE,URINE NEG (NEG); PH, URINE 6.5 (5.0-8.5); URINE COLOR DARK-RED (YELLW/STRAW)
[2016-09-17] MEDS: CHLORHEXIDINE GLUCONATE 2 % 1 PACK (2 CLOTHS) TOP SCH (03:01)
[2016-09-17] MEDS: RESP: ALBUTEROL 2.5 MG/IPRATROPIUM 0.5 MG NEB (SCH) INH ×4 (03:24→21:20)
[2016-09-17] MEDS: MORPHINE SULFATE 4 MG/ML INJ IV PUSH PRN (04:40)
[2016-09-17 05:58] LABS: AUTOMATED NEUTROPHIL # 5.4 TH/MM3 (1.8-7.7); EOSINOPHIL % 0.1 % (0.0-4.0); HEMATOCRIT 34.2 % (39.0-51.0); LYMPH % 3.5 % (9.0-44.0); LYMPHOCYTE # 0.2 TH/MM3 (1.0-4.8); MEAN CORPUSCULAR HEMOGLOBIN 29.6 PG (27.0-34.0); MEAN CORPUSCULAR HGB CONC 32.5 % (32.0-36.0); MONO % 10.1 % (0.0-8.0); NEUT % 86.3 % (16.0-70.0); PLATELET COUNT 60 TH/MM3 (150-450); RED BLOOD COUNT 3.76 MIL/MM3 (4.50-5.90); WHITE BLOOD COUNT 6.2 TH/MM3 (4.0-11.0)
[2016-09-17 06:02] LABS: HEMO FLAGS AUTO DIFF
[2016-09-17 06:11] LABS: ALKALINE PHOSPHATASE 28 U/L (45-117); ALT (GPT) 46 U/L (12-78); ANION GAP 9 MEQ/L (5-15); AST (GOT) 51 U/L (15-37); BICARBONATE 33.2 MEQ/L (21.0-32.0); BLOOD UREA NITROGEN 25 MG/DL (7-18); CHLORIDE 92 MEQ/L (98-107); GLOMERULAR FILTRATION RATE 73 ML/MIN (>89); POTASSIUM 3.4 MEQ/L (3.5-5.1); SODIUM (NA) 134 MEQ/L (136-145); TOTAL BILIRUBIN ADULT 1.6 MG/DL (0.2-1.0)
[2016-09-17 06:12] LABS: INTERNATIONAL NORMALIZED RATIO 1.2 RATIO; PROTHROMBIN TIME - PATIENT 13.2 SEC (9.8-11.6)
[2016-09-17] MEDS: POTASSIUM CHLOR 20 MEQ PREMIX 100 ML IV PRN ×2 (06:35→10:00)
[2016-09-17] MEDS: SODIUM CHLOR 0.9% 1000 ML INJ 1,000 ML IV SCH (07:39)
[2016-09-17 07:42] LABS: MAGNESIUM 1.9 MG/DL (1.5-2.5)
[2016-09-17 08:01] LABS: PLATELET ESTIMATE SMEAR LOW (NORMAL); PLATELET MORPHOLOGY NORMAL (NORMAL); SCAN/DIFF AUTO DIFF CONFIRMED
[2016-09-17] MEDS: PANTOPRAZOLE SODIUM 40 MG VIAL IV SCH (08:53)
[2016-09-17] MEDS: FUROSEMIDE 40 MG/4 ML VIAL IV PUSH SCH (08:53)
[2016-09-17] MEDS: fentaNYL 25 MCG/HR PATCH T-DERMAL SCH ×2 (08:55→10:54)
[2016-09-17] MEDS: GABAPENTIN 400 MG CAP PO SCH ×3 (09:00→18:00)
[2016-09-17] MEDS: VITAMIN B CMPLX/VITC/FOLIC AC CAP PO SCH (09:00)
[2016-09-17] MEDS: REMOVE OLD DURAGESIC (FENTANYL) PATCH T-DERMAL SCH (09:00)
[2016-09-17] MEDS: clonazePAM 1 MG TAB PO SCH ×3 (09:00→18:00)
[2016-09-17] MEDS: CHOLECALCIFEROL (VIT D3) 5000 UNIT CAP PO SCH (09:00)
[2016-09-17] MEDS: PARoxetine HCL 20 MG TAB PO SCH (09:00)
[2016-09-17] MEDS: CYANOCOBALAMIN 1,000 MCG TAB PO SCH (09:00)
--- NOTE | 2016-09-17 12:47 | HHI.CCPN ---
Subjective Remarks/Hospital Course This is a 61-year-old male with history of CAD, COPD, CHF, CABG, brought in by ambulance from home on CPAP for evaluation of shortness of breath. For last 5 days the patient had had progressive worsening SOB, worsening pedal edema, and worsening abdominal distention. He is denying any chest pain. Shortness of breath is at rest. EMS noted that the patient was severely tachypneic with bibasilar rales and had an O2 saturation in the 70% on the arrived to his home. They started him on CPAP, administered IV morphine, as well as 100 mg of IV Lasix. He had no chest pain. The patient diuresed several 100 cc, and was placed on BiPAP with an FiO2 of 50% . His massage therapy instructor is Dr. Sanabria. Patient also reports that for the last several days he has had black/tarry stools. Critical care medicine's consult for management. Upon arrival to the ED the patient was noted to be on BiPAP 10/550% with an O2 sat of 95%, BP 174/95 and a heart rate of 102. 09/17 Patient is on 3L oxygen with good sats. T:101.0 last night. For US guided thoracentesis today. Objective Vital Signs Date Time Temp Pulse Resp B/P Pulse Ox O2 Delivery O2 Flow Rate FiO2 09/17/16 08:47 97 Nasal Cannula 3.00 09/17/16 06:00 90 09/17/16 04:00 98.4 19 158/77 09/16/16 22:34 25 Intake and Output 09/16/16 09/16/16 09/17/16 08:00 16:00 00:00 Intake Total 585 ml 360 ml Output Total 1550 ml 900 ml Balance -965 ml -540 ml Result Diagram: 09/17/16 0436 09/17/16 0436 Other Results Laboratory Tests Test 09/16/16 09/17/16 09/17/16 16:09 00:00 04:36 Hemoglobin 11.2 GM/DL 11.1 GM/DL Hematocrit 33.7 % 34.2 % Urine Color DARK-RED Urine Turbidity HAZY Urine pH 6.5 Urine Specific [place] 1.022 Urine Protein 300 mg/dL Urine Glucose (UA) NEG mg/dL Urine Ketones TRACE mg/dL Urine Occult Blood LARGE Urine Nitrite NEG Urine Bilirubin NEG Urine Urobilinogen 2.0 MG/DL Urine Leukocyte Esterase LARGE Urine RBC /hpf Urine WBC 182 /hpf Microscopic Urinalysis Comment CATH-CULTURE IND White Blood Count 6.2 TH/MM3 Red Blood Count 3.76 MIL/MM3 Mean Corpuscular Volume 91.0 FL Mean Corpuscular Hemoglobin 29.6 PG Mean Corpuscular Hemoglobin 32.5 % Concent Red Cell Distribution Width 17.0 % Platelet Count 60 TH/MM3 Mean Platelet Volume 8.0 FL Neutrophils (%) (Auto) 86.3 % Lymphocytes (%) (Auto) 3.5 % Monocytes (%) (Auto) 10.1 % Eosinophils (%) (Auto) 0.1 % Basophils (%) (Auto) 0.0 % Neutrophils # (Auto) 5.4 TH/MM3 Lymphocytes # (Auto) 0.2 TH/MM3 Monocytes # (Auto) 0.6 TH/MM3 Eosinophils # (Auto) 0.0 TH/MM3 Basophils # (Auto) 0.0 TH/MM3 CBC Comment AUTO DIFF Differential Comment AUTO DIFF CONFIRMED Platelet Estimate LOW Platelet Morphology Comment NORMAL Prothrombin Time 13.2 SEC Prothromb Time International 1.2 RATIO Ratio Sodium Level 134 MEQ/L Potassium Level 3.4 MEQ/L Chloride Level 92 MEQ/L Carbon Dioxide Level 33.2 MEQ/L Anion Gap 9 MEQ/L Blood Urea Nitrogen 25 MG/DL Creatinine 1.03 MG/DL Estimat Glomerular Filtration 73 ML/MIN Rate Random Glucose 153 MG/DL Calcium Level 8.3 MG/DL Magnesium Level 1.9 MG/DL Total Bilirubin 1.6 MG/DL Aspartate Amino Transf 51 U/L (AST/SGOT) Alanine Aminotransferase 46 U/L (ALT/SGPT) Alkaline Phosphatase 28 U/L Total Protein 6.4 GM/DL Albumin 3.1 GM/DL Tumor Marker Alpha Fetoprotein 2.8 NG/ML Imaging Last Impressions Chest X-Ray 09/16/16 0543 Signed Impressions: Service Date/Time: Friday, September 16, 2016 05:37 - CONCLUSION: 1. Cardiomegaly and findings of congestive heart failure. 2. Small effusions Maciel Araujo MD Liver Ultrasound 09/16/16 0000 Signed Impressions: Service Date/Time: Friday, September 16, 2016 14:53 - CONCLUSION: 1. Mild ascites with liver enlarged to 18.6 cm. Echogenic liver characteristic of hepatocellular disease or fatty infiltration. 2. Splenomegaly to 17.9 cm. Rl Uribe MD Objective Remarks GENERAL: Patient is 61 yo lying in bed in NAD SKIN: Warm and dry. HEAD: Normocephalic. EYES: No scleral icterus. No injection or drainage. NECK: Supple, trachea midline. No JVD or lymphadenopathy. CARDIOVASCULAR: Regular rate and rhythm without murmurs, gallops, or rubs. RESPIRATORY: Breath sounds equal bilaterally. No accessory muscle use. GASTROINTESTINAL: Abdomen soft, non-tender, nondistended. MUSCULOSKELETAL: No cyanosis, trace edema. Neuro: Awake and alert. A/P Assessment and Plan Plan by systems: Neurologic: Chronic pain syndrome Ankylosing spondylitis History of CVA Peripheral neuropathy Neurochecks per ICU protocol Continue gabapentin 800 mg 3 times a day(home medication) Continue Klonopin 2 mg 3 times a day(home medication) Continue Paxil 20 mg daily (home medication) Respiratory: COPD exacerbation Respiratory insufficiency Hepatopulmonary syndrome Pulmonary hypertension Home O2 dependency Continue with oxygen keep sat > 92% Maintain head of bed greater than 30 NIPPV PRN for resp distress Bronchodilator scheduled every 6 hours, every 2 hours when necessary Cardiovascular: Cardiomegaly History of CHF CAD- S/P CABG 2 Coronary stent Hypertension Cardiomegaly Monitor HR and BP keep MAP>65mmHg 04/09/16-ECHO PASP 53mmHg. ejection fraction 55%. No RWMA Renal: Hepatorenal syndrome Monitor renal function, I/O's, electrolytes replacement as needed On Lasix 40mg daily FEN/GI: Chronic Hyponatremia Hepatitis C Liver cirrhosis with ascites [facility] is following, for possible EGD per GI Continue with Protonix Consider Rocephin for SBP prophylaxis Heme/ID: Anemia of chronic disease Thrombocytopenia Monitor CBC & Coags Endocrine: Diabetes mellitus 2 SSI ( Low scale) for glycemic control Msk: Cellulitis Patient also has multiple abrasions from multiple falls bilateral lower extremity PT evaluation and treat -- SSI Prophylaxis: GI Prophylaxis Protonix DVT Prophylaxis -- SCDs No pharmacological DVT prophylaxis in the setting of GI bleeding Lines: Peripheral IVs 2. Will sign off and transfer care to [facility] Level 3 Zay Og MD Sep 17, 2016 12:47
[2016-09-17] MEDS ORDERED: GLUCAGON 1 MG/ML VIAL OTHER PRN (13:15)
[2016-09-17] MEDS ORDERED: DEXTROSE 50% IN WATER 50 ML VIAL(D50) IV PUSH PRN (13:15)
--- NOTE | 2016-09-17 13:28 | RADRPT ---
EXAM DATE/TIME: 09/17/2016 11:07 [facility] COMPARISON: No previous studies available for comparison. INDICATIONS : Ascites. MEDICAL HISTORY : Myocardial infarction. CVA. Seizures. Arthritis. GERD. ETOH. SURGICAL HISTORY : CABG Cholecystectomy. Uvula removed. ENCOUNTER: Initial ACUITY: 1 day PAIN SCORE: 0/10 LOCATION: Right lower quadrant FLUID: Total volume of 2,700 cc of cloudy, yellow fluid was removed. Fluid was sent to lab for ordered studies. Post procedure scanning reveals no hematoma or other complication. TECHNIQUE: 1. Ultrasound guidance for abdominal paracentesis. 2. Paracentesis. The risks, benefits, and alternatives to ultrasound guided paracentesis were explained to the patient in detail including the risk of bleeding and infection. Written and verbal informed consent was obt ained. With the patient on the ultrasound table, ultrasound imaging was used to select the most appropriate approach for paracentesis. Overlying skin was prepped and draped in the usual sterile fashion and wi th a local anesthetic, a dermatotomy was made with an 11 blade scalpel. A 6 [place] [id number] ca theter was introduced into the peritoneal cavity and fluid was collected. The patient tolerated the procedure well and left the ultrasound suite in stable condition. CONCLUSION: Uncomplicated ultrasound guided paracentesis. Eliezer Sanders MD on September 17, 2016 at 13:26 Board Certified Radiologist. This report was verified electronically.
[2016-09-17 13:30] LABS: PERITONEAL WBC 545 /MM3 (0-10)
[2016-09-17 13:31] LABS: PERITONEAL HISTIOCYTES 24 %; PERITONEAL LYMPHS 28 %; PERITONEAL MESOTHELIAL 3 %; PERITONEAL MONOS 12 %; PERITONEAL POLYS(SEGS) 33 %
[2016-09-17] MEDS: INSULIN NovoLIN REGULAR SUPPLEMENTAL SCALE SQ SCH ×2 (14:00→20:25)
--- NOTE | 2016-09-17 16:45 | HHI.GIFU ---
Subjective Remarks Pt resting in bed. Confused, incoherent speech. Per RN no BM in 2 days, no sign of bleeding. He has red urine after repeatedly fussing with his goldstein. (Gris Red) Objective Vitals I&O Vital Signs Date Time Temp Pulse Resp B/P Pulse Ox O2 Delivery O2 Flow Rate FiO2 09/17/16 16:27 82 09/17/16 16:18 100 Nasal Cannula 4.00 09/17/16 14:00 80 09/17/16 12:00 82 09/17/16 12:00 95 Nasal Cannula 4.00 09/17/16 10:00 77 09/17/16 09:55 20 09/17/16 08:47 97 Nasal Cannula 3.00 09/17/16 08:00 76 09/17/16 08:00 95 Nasal Cannula 3.00 09/17/16 08:00 92 Nasal Cannula 4.00 09/17/16 06:00 90 09/17/16 04:00 98.4 88 19 158/77 98 09/17/16 04:00 88 09/17/16 04:00 98 Nasal Cannula 4.00 09/17/16 02:00 92 09/17/16 00:00 96 09/17/16 00:00 94 Nasal Cannula 3.00 09/17/16 00:00 98.4 96 22 161/83 94 09/16/16 23:47 97 Nasal Cannula 4.00 09/16/16 22:34 99 25 09/16/16 22:00 90 09/16/16 20:00 91 09/16/16 20:00 101.5 91 21 146/83 96 09/16/16 20:00 96 Nasal Cannula 3.00 09/16/16 19:25 95 35 09/16/16 19:00 96 Nasal Cannula 3.00 09/16/16 18:00 98 09/16/16 18:00 98 21 171/85 95 09/16/16 17:00 96 21 170/80 95 I/O 09/16/16 09/16/16 09/16/16 09/17/16 09/17/16 09/17/16 07:00 15:00 23:00 07:00 15:00 23:00 Intake Total 585 ml 360 ml 207 ml 800 ml Output Total 1550 ml 900 ml 250 ml 1900 ml Balance -965 ml -540 ml -43 ml -1100 ml Intake Oral 0 ml 0 ml 0 ml 480 ml IV Total 585 ml 360 ml 207 ml 320 ml Output Urine Total 1550 ml 900 ml 250 ml 1900 ml # Voids 0 # Bowel Movements 0 0 0 0 Laboratory Laboratory Tests Test 09/17/16 09/17/16 09/17/16 00:00 04:36 11:45 Urine Color DARK-RED Urine Turbidity HAZY Urine pH 6.5 Urine Specific Parmelee 1.022 Urine Protein 300 Urine Glucose (UA) NEG Urine Ketones TRACE Urine Occult Blood LARGE Urine Nitrite NEG Urine Bilirubin NEG Urine Urobilinogen 2.0 Urine Leukocyte Esterase LARGE Urine RBC Urine WBC 182 Microscopic Urinalysis Comment CATH-CULTURE IND White Blood Count 6.2 Red Blood Count 3.76 Hemoglobin 11.1 Hematocrit 34.2 Mean Corpuscular Volume 91.0 Mean Corpuscular Hemoglobin 29.6 Mean Corpuscular Hemoglobin 32.5 Concent Red Cell Distribution Width 17.0 Platelet Count 60 Mean Platelet Volume 8.0 Neutrophils (%) (Auto) 86.3 Lymphocytes (%) (Auto) 3.5 Monocytes (%) (Auto) 10.1 Eosinophils (%) (Auto) 0.1 Basophils (%) (Auto) 0.0 Neutrophils # (Auto) 5.4 Lymphocytes # (Auto) 0.2 Monocytes # (Auto) 0.6 Eosinophils # (Auto) 0.0 Basophils # (Auto) 0.0 CBC Comment AUTO DIFF Differential Comment AUTO DIFF CONFIRMED Platelet Estimate LOW Platelet Morphology Comment NORMAL Prothrombin Time 13.2 Prothromb Time International 1.2 Ratio Sodium Level 134 Potassium Level 3.4 Chloride Level 92 Carbon Dioxide Level 33.2 Anion Gap 9 Blood Urea Nitrogen 25 Creatinine 1.03 Estimat Glomerular Filtration 73 Rate Random Glucose 153 Calcium Level 8.3 Magnesium Level 1.9 Total Bilirubin 1.6 Aspartate Amino Transf 51 (AST/SGOT) Alanine Aminotransferase 46 (ALT/SGPT) Alkaline Phosphatase 28 Total Protein 6.4 Albumin 3.1 Tumor Marker Alpha Fetoprotein 2.8 Peritoneal Fluid WBC 545 Peritoneal Fluid RBC 1937 Peritoneal Fluid Neutrophils 33 Peritoneal Fluid Lymphocytes 28 Peritoneal Fluid Monocytes 12 Peritoneal Fluid Mesothelial 3 Cells Peritoneal Fluid Histiocytes 24 Peritoneal Fluid Total Protein 2.1 Peritoneal Fluid Albumin 1.2 Peritoneal Fluid LDH 84 Peritoneal Fluid Glucose 156 Peritoneal Fluid Amylase 5 Date/Time Procedure Status Source Growth 09/17/16 11:45 Gram Stain - Final Resulted Fluid Peritoneal Fluid 09/17/16 11:45 Body Fluid Culture Resulted Fluid Peritoneal Fluid Pending 09/17/16 00:00 Urine Culture Received Urine Catheterized Urine Pending 09/16/16 05:55 Aerobic Blood Culture - Preliminary Resulted Blood Peripheral Gram Positive Cocci 09/16/16 05:55 Anaerobic Blood Culture - Preliminary Resulted Gram Positive Cocci Imaging Last Impressions Cyst Biopsy Asp-Paracentesis US 09/17/16 0000 Signed Impressions: Service Date/Time: Saturday, September 17, 2016 11:07 - CONCLUSION: Uncomplicated ultrasound guided paracentesis. Eliezer Sanders MD Chest X-Ray 09/16/16 0543 Signed Impressions: Service Date/Time: Friday, September 16, 2016 05:37 - CONCLUSION: 1. Cardiomegaly and findings of congestive heart failure. 2. Small effusions Maciel Araujo MD Liver Ultrasound 09/16/16 0000 Signed Impressions: Service Date/Time: Friday, September 16, 2016 14:53 - CONCLUSION: 1. Mild ascites with liver enlarged to 18.6 cm. Echogenic liver characteristic of hepatocellular disease or fatty infiltration. 2. Splenomegaly to 17.9 cm. Rl Uribe MD Physical Exam HEENT: EOMI; normocephalic; atraumatic; no jaundice NECK: Neck is supple, CHEST: Congested, getting breathing treatment CARDIAC: Regular rate and rhythm with no murmur gallop or rubs. ABDOMEN: Soft, distended, nontender; bowel sounds are present in all four quadrants. EXTREMITIES: BLE cellulitis SKIN: Normal; no jaundice. ELOCUTION TEACHER: lethargic, oriented to self and location (Gris Red TOOL ANALYST) Assessment and Plan Plan - Melena- no BM in 2 days hh 11.1/34.2. On off for years, more predominantly in the past few day, hx of WALTER related cirrhosis, hx of varices, last EGD was more than 2 years ago, on ASA at home, quit alcohol in April of last year. PPI - GERD- On Protonix - WALTER cirrhosis- On diuretics at home, no alcohol since April, AST 46, ALT 51, ALP 28, tot. bili 1.6, Lasix 40 mg daily - Thrombocytopenia/ coagulopathy due to cirrhosis. AFP 2.8 - Ascites- s/p paracentesis 2.7L removed. Liver US 09/16/16 ---> 1. Mild ascites with liver enlarged to 18.6 cm. Echogenic liver characteristic of hepatocellular disease or fatty infiltration. 2. Splenomegaly to 17.9 cm. - Multiple comorbidities, including DM, CHF, CABG, cardiac stents, COPD, hepatorenal syndrome, O2 dependant per [facility] Plan: - NPO - EGD in am if stable from respiratory stand point - CBC, CMP - Cont. Lasix - Cont. Protonix - Monitor hh - Transfuse as needed - Notify GI for active bleed - Patient seen and examined by Dr. Schwartz and myself and this note is written on her behalf. (Gris Red) Physician Comments seen, examined agree with above (Deandra Schwartz MD) Gris Red Sep 17, 2016 16:45 Deandra Schwartz MD Sep 23, 2016 15:37
[2016-09-17 17:19] LABS: HEMATOCRIT 35.9 % (39.0-51.0)
[2016-09-17 17:23] LABS: REVIEW FLAG FINAL
[2016-09-18] VITALS (21 sets, daily range): BP systolic 134–200; BP diastolic 63–97; PULSE 61–101; RESP 20–28; TEMP 96.6–97.9; O2SAT 93–100
[2016-09-18] MEDS: INSULIN NovoLIN REGULAR SUPPLEMENTAL SCALE SQ SCH ×4 (02:00→20:00)
[2016-09-18] MEDS: MORPHINE SULFATE 4 MG/ML INJ IV PUSH PRN (02:01)
[2016-09-18] MEDS: hydrALAZINE HCL 20 MG/ML VIAL IV PUSH PRN ×3 (03:05→07:57)
[2016-09-18] MEDS: CHLORHEXIDINE GLUCONATE 2 % 1 PACK (2 CLOTHS) TOP SCH (04:00)
[2016-09-18] MEDS: RESP: ALBUTEROL 2.5 MG/IPRATROPIUM 0.5 MG NEB (SCH) INH ×4 (04:14→21:48)
[2016-09-18 04:17] LABS: AUTOMATED NEUTROPHIL # 5.1 TH/MM3 (1.8-7.7); BASOPHIL % 0.1 % (0.0-2.0); HEMATOCRIT 36.1 % (39.0-51.0); HEMATOCRIT 36.2 % (39.0-51.0); LYMPH % 2.4 % (9.0-44.0); LYMPHOCYTE # 0.1 TH/MM3 (1.0-4.8); MEAN CELL VOLUME 90.8 FL (80.0-100.0); MEAN CORPUSCULAR HEMOGLOBIN 30.4 PG (27.0-34.0); MEAN CORPUSCULAR HGB CONC 33.5 % (32.0-36.0); MONO % 11.7 % (0.0-8.0); NEUT % 85.8 % (16.0-70.0); PLATELET COUNT 64 TH/MM3 (150-450); RED BLOOD COUNT 3.98 MIL/MM3 (4.50-5.90); RED CELL DISTRIBUTION WIDTH 16.9 % (11.6-17.2)
[2016-09-18 04:24] LABS: HEMO FLAGS AUTO DIFF; REVIEW FLAG FINAL
[2016-09-18 04:46] LABS: ALKALINE PHOSPHATASE 32 U/L (45-117); ALT (GPT) 55 U/L (12-78); ANION GAP 8 MEQ/L (5-15); AST (GOT) 51 U/L (15-37); BICARBONATE 34.4 MEQ/L (21.0-32.0); BLOOD UREA NITROGEN 28 MG/DL (7-18); CHLORIDE 96 MEQ/L (98-107); GLOMERULAR FILTRATION RATE 86 ML/MIN (>89); MAGNESIUM 1.7 MG/DL (1.5-2.5); POTASSIUM 3.4 MEQ/L (3.5-5.1); SODIUM (NA) 138 MEQ/L (136-145); TOTAL BILIRUBIN ADULT 1.6 MG/DL (0.2-1.0)
[2016-09-18] MEDS: SODIUM CHLORIDE 0.9% FLUSH 10 ML FLUSH IV FLUSH PRN (05:28)
[2016-09-18] MEDS: POTASSIUM CHLOR 20 MEQ PREMIX 100 ML IV PRN ×2 (06:18→06:19)
[2016-09-18 07:07] LABS: PLATELET ESTIMATE SMEAR LOW (NORMAL); PLATELET MORPHOLOGY NORMAL (NORMAL); SCAN/DIFF AUTO DIFF CONFIRMED
[2016-09-18] MEDS: SODIUM CHLOR 0.9% 1000 ML INJ 1,000 ML IV SCH ×2 (07:28→13:38)
[2016-09-18] MEDS: traMADol HCL 50 MG TAB PO PRN (08:05)
[2016-09-18] MEDS: PANTOPRAZOLE SODIUM 40 MG VIAL IV SCH (08:10)
[2016-09-18] MEDS: clonazePAM 1 MG TAB PO SCH ×3 (08:10→17:32)
[2016-09-18] MEDS: PARoxetine HCL 20 MG TAB PO SCH (08:10)
[2016-09-18] MEDS: FUROSEMIDE 40 MG/4 ML VIAL IV PUSH SCH ×2 (08:10→17:32)
[2016-09-18] MEDS: GABAPENTIN 400 MG CAP PO SCH ×3 (08:10→17:33)
[2016-09-18] MEDS: CHOLECALCIFEROL (VIT D3) 5000 UNIT CAP PO SCH (08:10)
[2016-09-18] MEDS: SODIUM CHLORIDE 0.9% FLUSH 10 ML FLUSH IV FLUSH SCH ×2 (08:10→20:40)
[2016-09-18] MEDS: VITAMIN B CMPLX/VITC/FOLIC AC CAP PO SCH (08:11)
[2016-09-18] MEDS: CYANOCOBALAMIN 1,000 MCG TAB PO SCH (09:00)
[2016-09-18] MEDS ORDERED: LABETALOL HCL 100 MG/20 ML VIAL IV PUSH PRN (11:30)
[2016-09-18] MEDS ORDERED: ENALAPRILAT 1.25 MG/ML VIAL IV PUSH PRN (11:30)
[2016-09-18 13:33] LABS: BLOOD GAS BASE EXCESS 9.8 mmol/L (-2-2); BLOOD GAS HCO3 35 mmol/L (22-26); BLOOD GAS METHEMOGLOBIN 1.1 % (0-2); BLOOD GAS O2 HGB SATURATION 93 % (90-100); BLOOD GAS OXYGEN CONTENT 15.9 Vol % (12.0-20.0); BLOOD GAS PCO2 60 mmHg (38-42); BLOOD GAS PO2 89 mmHg (61-120); BLOOD GAS TOTAL HGB 12.1 G/DL (12.0-16.0); TEMP CORR TO 98.6
[2016-09-18 13:34] LABS: CRITICAL VALUE YES; DRAW SITE RT RADIAL; LITER FLOW 3 L/M; NUMBER OF ARTERIAL PUNCTURES 1; OXYGEN DEVICE NASAL CANNULA; STAT YES; ULNAR PULSE PRESENT
[2016-09-18] MEDS ORDERED: PROPOFOL 200 MG/20 ML AMP IV ONE (14:40)
--- NOTE | 2016-09-18 14:47 | GIPROC ---
[facility] [address] [facility]. [facility], [address] EGD PROCEDURE REPORT EXAM DATE: 09/18/2016 PATIENT NAME: Sawyer Badillo MR #: [id number] BIRTHDATE: 1955 ATTENDING: Deandra Schwartz MD ORDER #: [id number] SUPPORT REPRESENTATIVE: Martinez Armenta Schulman, Neal, and Rossi Martino STATUS: inpatient INDICATIONS: The patient is a 61 yr old male here for an EGD due to anemia PROCEDURE PERFORMED: EGD, diagnostic MEDICATIONS: Per Anesthesia and None. TOPICAL ANESTHETIC: none CONSENT: The patient understands the risks and benefits of the procedure and understands that these risks include, but are not limited to: sedation, allergic reaction, infection, perforation and/or bleeding. Alternative means of evaluation and treatment include, among others: physical exam, x-rays, and/or surgical intervention. The patient elects to proceed with this endoscopic procedure. medical equipment was checked for proper function. Hand hygiene and appropriate measures for infection prevention was taken. After the risks, benefits and alternatives of the procedure were thoroughly explained, Informed consent was verified, confirmed and timeout was successfully executed by the treatment team. The patient was anesthetized with topical anesthesia and the Pentax [id number] endoscope was introduced through the mouth and advanced to the second portion of the duodenum. Retroflexed views revealed a hiatal hernia The gastroscope was then slowly withdrawn and removed. Gastric varices short segments Mckinney's -no biopsy due to low platelets. ADVERSE EVENTS: There were no complications. IMPRESSIONS: 1. Gastric varices short segments Mckinney's -no biopsy due to low platelets 2. Retroflexed views revealed a hiatal hernia RECOMMENDATIONS: 1. Anti-reflux regimen 2. Continue PPI 3. Egd in 4-6 weeks PATIENT CONDITION: stable DISPOSITION: Inpatient REPEAT EXAM: Return 6 weeks EGD Deandra Schwartz MD eSigned: Deandra Schwartz MD 09/18/2016 2:46 PM cc:
[2016-09-18] MEDS ORDERED: DO NOT ADM ANY ANTICOAGULANT DRUGS PRN (14:56)
[2016-09-18] MEDS ORDERED: *RESP: ALBUTEROL 2.5 MG/3 ML NEB (PRN) PERIprocedural Use ONLY NEB ONE (14:59)
--- NOTE | 2016-09-18 16:25 | HHI.PR ---
Subjective Remarks Follow-up for respiratory distress Patient continues to have shortness of breathing. Positive for productive cough. Otherwise no other complaints besides his chronic lower back pain. Remains afebrile. Objective Vitals Vital Signs Date Time Temp Pulse Resp B/P Pulse Ox O2 Delivery O2 Flow Rate FiO2 09/18/16 15:15 75 24 145/79 94 Bi-Pap 35 09/18/16 15:03 93 35 09/18/16 15:00 77 24 124/79 88 Bi-Pap 35 09/18/16 14:53 97.4 76 24 124/72 86 Simple Mask 6 09/18/16 12:00 Bi-Pap 4.00 50 09/18/16 12:00 97.0 93 28 200/90 100 09/18/16 12:00 93 09/18/16 11:50 100 50 09/18/16 10:00 90 09/18/16 09:05 22 09/18/16 08:48 99 BiPAP 50 09/18/16 08:45 99 50 09/18/16 08:00 97 09/18/16 08:00 Bi-Pap 4.00 50 09/18/16 08:00 97.9 97 22 199/97 94 09/18/16 06:00 94 09/18/16 04:14 98 50 09/18/16 04:00 96.8 96 20 182/87 98 09/18/16 04:00 96 09/18/16 04:00 98 Bi-Pap 50 09/18/16 02:00 101 09/18/16 00:00 97.8 92 24 166/84 97 09/18/16 00:00 97 Nasal Cannula 4.00 09/18/16 00:00 92 09/17/16 23:00 95 Nasal Cannula 4.00 09/17/16 22:00 92 09/17/16 21:21 100 50 09/17/16 20:00 89 09/17/16 20:00 100 Bi-Pap 50 09/17/16 20:00 97.7 89 19 194/94 100 09/17/16 19:00 100 Bi-Pap 50 09/17/16 18:00 85 09/17/16 16:46 99 50 09/17/16 16:27 82 09/17/16 16:18 100 Nasal Cannula 4.00 I/O 4/1709/17/16 09/17/16 09/18/16 09/18/16 09/18/16 07:00 15:00 23:00 07:00 15:00 23:00 Intake Total 207 ml 800 ml 1259 ml 290 ml 682 ml 0 ml Output Total 250 ml 1900 ml 650 ml 450 ml 2000 ml 0 ml Balance -43 ml -1100 ml 609 ml -160 ml -1318 ml 0 ml Intake Oral 0 ml 480 ml 560 ml 0 ml 30 ml 0 ml IV Total 207 ml 320 ml 699 ml 290 ml 552 ml 0 ml Other 100 ml Output Urine Total 250 ml 1900 ml 650 ml 450 ml 2000 ml 0 ml Estimated Blood Loss 0 ml Other 0 ml # Bowel Movements 0 0 Result Diagram: 09/18/16 0355 09/18/16 0355 Objective Remarks GENERAL: Patient in bed in no acute distress NECK: Supple, trachea midline. No JVD or lymphadenopathy. CARDIOVASCULAR: Regular rate and rhythm without murmurs, gallops, or rubs. RESPIRATORY: Diffuse rhonchi and crackles GASTROINTESTINAL: Abdomen soft, non-tender, nondistended. MUSCULOSKELETAL: No cyanosis, trace edema. Neuro: Patient is awake but seems lethargic. He does answer questions you have to be very specific. Medications and IVs Current Medications Sodium Chloride (NS Flush) 2 ml UNSCH PRN IVF FLUSH AFTER USING IV ACCESS; Start 09/16/16 at 05:45; Stop 09/16/16 at 08:20; Status DC Albuterol/ Ipratropium 1 ampule 1 ampule Q15M INH Last administered on 06:21; Start 09/16/16 at 06:00; Stop 09/16/16 at 06:31; Status DC Sodium Chloride (NS 1000 ml Inj) 1,000 ml @ 42 mls/hr [id number] IV Last administered on 09/18/16 13:38; Start 09/16/16 at 07:50; Stop 09/18/16 at 14:22 ; Status DC Sodium Chloride (NS Flush) 2 ml UNSCH PRN IV FLUSH FLUSH AFTER USING IV ACCESS Last administered on 09/18/16 05:28; Start 09/16/16 at 08:00 Sodium Chloride (NS Flush) 2 ml BID IV FLUSH Last administered on 09/18/16 08: 10; Start 09/16/16 at 09:00 Pantoprazole Sodium (Protonix Inj) 40 mg DAILY IV Last administered on 08:10; Start 09/16/16 at 09:00 Ondansetron HCl (Zofran Inj) 4 mg Q6H PRN IV NAUSEA OR VOMITING; Start at 08:00 Albuterol/ Ipratropium (Duoneb Neb) 1 ampule Q6HR NEB INH Last administered on 09/18/16 08:35; Start 09/16/16 at 10:00 Albuterol/ Ipratropium (Duoneb Neb) 1 ampule Q2HR NEB PRN INH WHEEZING Last administered on 09/17/16 11:45; Start 09/16/16 at 08:00 Miscellaneous Information 1 Q361D XX ; Start 09/16/16 at 08:00 Chlorhexidine Gluconate (Chlorhexidine 2% Cloth) 3 pack Taper DAILY@04 TOP Last administered on 09/18/16 04:00; Start 09/17/16 at 04:00; Stop 09/13/17 at 03:59 Chlorhexidine Gluconate 3 pack 3 pack UNSCH PRN TOP HYGIENIC CARE; Start at 08:00 Potassium Chloride 100 ml @ 50 mls/hr Q2H PRN IV For Potassium 2.8 - 3.2 mEq/L ; Start 09/16/16 at 08:00 Potassium Chloride (KCl 20 Meq Premix Inj) 100 ml @ 50 mls/hr Q2H PRN IV For Potassium 2.8 - 3.2 mEq/L; Start 09/16/16 at 08:00 Potassium Bicarb/ Potassium Chloride 50 meq 50 meq UNSCH PRN PO For Potassium 3.3 - 3.5 mEq/L; Start 09/16/16 at 08:00 Potassium Chloride 100 ml @ 25 mls/hr UNSCH PRN IV For Potassium 3.3 - 3.5 mEq /L; Start 09/16/16 at 08:00 Potassium Chloride 100 ml @ 50 mls/hr Q2H PRN IV For Potassium 3.3 - 3.5 mEq/ L Last administered on 09/18/16 06:19; Start 09/16/16 at 08:00 Magnesium Sulfate/ Sodium Chloride (Magnesium Sulfate Inj/NS Inj) 100 ml @ 50 mls/hr UNSCH PRN IV For Magnesium 0.9 - 1.1 mg/dL; Start 09/16/16 at 08:00 Magnesium Oxide 800 mg 800 mg UNSCH PRN PO For Magnesium 1.2 - 1.6 mg/dL; Start 09/16/16 at 08:00 Magnesium Sulfate/ Sodium Chloride (Magnesium Sulfate Inj/NS Inj) 100 ml @ 50 mls/hr UNSCH PRN IV For Magnesium 1.2 - 1.6 mg/dL; Start 09/16/16 at 08:00 Potassium Phosphate 2000 mg 2,000 mg Q4H PRN PO For Phosphorus < 2.5 mg/dL; Start 09/16/16 at 08:00 Sodium Phosphate/ Sodium Chloride (Sodium Phosphate Inj/NS 250 ml Inj) 250 ml @ 42 mls/hr UNSCH PRN IV For Phosphorus < 2.5 mg/dL; Start 09/16/16 at 08:00 Potassium Phosphate 2000 mg 2,000 mg UNSCH PRN PO/TUBE SEE LABEL COMMENTS; Start 09/16/16 at 08:00 Potassium Phosphate/Sodium Chloride (Potassium Phosphate Inj/NS 250 ml Inj) 260 ml @ 42 mls/hr UNSCH PRN IV SEE LABEL COMMENTS; Start 09/16/16 at 08:00 Dextrose (D50w (Vial) Inj) 25 ml UNSCH PRN IV PUSH HYPOGLYCEMIA-SEE COMMENTS; Start 09/16/16 at 08:15; Stop 09/17/16 at 13:17; Status DC Glucagon (Glucagon Inj) 1 mg UNSCH PRN OTHER HYPOGLYCEMIA-SEE COMMENTS; Start 09/16/16 at 08:15; Stop 09/17/16 at 13:17; Status DC Cholecalciferol (Vitamin D3) 5,000 units DAILY PO Last administered on 08:10; Start 09/16/16 at 09:00 Clonazepam (KlonoPIN) 2 mg TID PO Last administered on 09/18/16 12:34; Start 09/16/16 at 09:00 Cyanocobalamin (Vitamin B12) 1,000 mcg DAILY PO ; Start 09/16/16 at 09:00 Gabapentin (Neurontin) 800 mg TID PO Last administered on 09/18/16 12:34; Start 09/16/16 at 09:00 Paroxetine HCl (Paxil) 20 mg DAILY PO Last administered on 09/18/16 08:10; Start 09/16/16 at 09:00 Vitamin B Complex/ Vit C/Folic Acid (Nephrocaps) 1 cap DAILY PO Last administered on 09/18/16 08:11; Start 09/16/16 at 09:00 Fentanyl (Duragesic 25 Mcg Patch.72 Hr) 1 patch Q3D T-DERMAL Last administered on 09/17/16 10:54; Start 09/17/16 at 09:00 Furosemide (Lasix Inj) 40 mg DAILY IV PUSH Last administered on 09/18/16 08:10 ; Start 09/17/16 at 09:00; Stop 09/18/16 at 14:23; Status DC Miscellaneous Information 1 1 Q3D T-DERMAL ; Start 09/17/16 at 09:00 Magnesium Sulfate/ Dextrose (Magnesium Sulfate 1 Gm Premix) 100 ml @ As Directed STK-MED ONCE .ROUTE Last administered on 09/16/16 12:54; Start at 12:54; Stop 09/16/16 at 12:55; Status DC Fentanyl Citrate (fentaNYL INJ) 50 mcg NOW ONCE IV Last administered on 13:30; Start 09/16/16 at 13:30; Stop 09/16/16 at 13:31; Status DC Hydralazine HCl (Apresoline Inj) 10 mg Q1HR PRN IV PUSH SBP>160, DBP>90 Last administered on 09/18/16 07:57; Start 09/16/16 at 20:30 Nitroglycerin (Nitroglycerin 2% Oint) 2 inch Q6HR PRN TOPICAL SBP>160, DBP>90; Start 09/16/16 at 20:30 Acetaminophen (Tylenol) 650 mg ONCE ONCE PO Last administered on 09/17/16 00: 21; Start 09/16/16 at 23:30; Stop 09/16/16 at 23:31; Status DC Tramadol HCl (Ultram) 50 mg Q8H PRN PO PAIN Last administered on 09/18/16 08: 05; Start 09/17/16 at 04:30 Morphine Sulfate (Morphine Inj) 2 mg Q3H PRN IV PUSH BREAKTHROUGH PAIN Last administered on 09/18/16 02:01; Start 09/17/16 at 04:30 Dextrose (D50w (Vial) Inj) 25 ml UNSCH PRN IV PUSH HYPOGLYCEMIA-SEE COMMENTS; Start 09/17/16 at 13:15 Glucagon (Glucagon Inj) 1 mg UNSCH PRN OTHER HYPOGLYCEMIA-SEE COMMENTS; Start 09/17/16 at 13:15 Insulin Human Regular (NovoLIN R SUPPLEMENTAL SCALE) 1 Q6H SQ Last administered on 09/18/16t 02:00; Start 09/17/16 at 14:00 Labetalol HCl (Trandate Inj) 10 mg Q4H PRN IV PUSH SBP>180 or DBP >100 Last administered on 09/18/16t 12:34; Start 09/18/16 at 11:30 Enalaprilat (Vasotec Inj) 1.25 mg Q6H PRN IV PUSH sbp>180 or DBP>100; Start at 11:30 Furosemide (Lasix Inj) 40 mg BID@,18 IV PUSH ; Start 09/18/16 at 18:00 Metoprolol Tartrate (Lopressor) 25 mg Q12HR PO ; Start 09/18/16 at 14:30 Lisinopril (Prinivil) 10 mg DAILY PO ; Start 09/18/16 at 14:30 Albuterol Sulfate (*ALBUTEROL NEB PERIprocedure ONLY) 2.5 mg STK-MED ONCE NEB ; Start 09/18/16 at 14:59; Stop 09/18/16 at 15:00; Status DC Miscellaneous Information ALL NURSING DEPARTME... UNSCH PRN .XX SEE LABEL COMMENTS; Start 09/18/16 at 14:56; Stop 09/19/16 at 14:55 A/P Assessment and Plan This is a 61-year-old male with a past medical history of CHF, cardiomegaly, coronary artery disease status post CABG, COPD who presented with respiratory failure Acute on chronic Respiratory failure with hypoxia -Most likely secondary due to combination of COPD exacerbation and CHF exacerbation. -Patient is on BiPAP when necessary. -ABG obtained with mild improvement. -See treatment as below. COPD exacerbation oxygen dependent -Continue with nebulizer. CHF exacerbation -Patient does have good urine output but he continues to be in respiratory distress. Will increase Lasix to 40 mg IV twice a day. -Strict ins and outs. -Continue to monitor closely. -Continue with BiPAP. Melena -Patient is going down for EGD today. -Continue her Protonix. Hepatitis C/liver cirrhosis with ascites -GI consulted Anemia of chronic disease -Continue to monitor. Patient will have a EGD done today. Thrombocytopenia -Most likely secondary to liver disease. -Continue to monitor. Type 2 diabetes complicated by peripheral neuropathy -on SSI ( Low scale) for glycemic control Peripheral neuropathy -Patient on gabapentin. Chronic pain syndrome -Patient on gabapentin, Klonopin, and Paxil. Pulmonary hypertension/Cardiomegaly/CAD- S/P CABG 2/Coronary stent/Hypertension /history of CVA. -Continue to Monitor HR and BP keep MAP>65mmHg -04/09/16-ECHO PASP 53mmHg. ejection fraction 55% -Blood pressure uncontrolled will add metoprolol and lisinopril. DVT Prophylaxis -At the moment chemoprophylaxis contraindicated secondary to possible GI bleed. -Continue with SCDs. Discharge Planning Patient continues to require close monitoring in the ICU. He continues to require BiPAP. Marisol Crowder MD Sep 18, 2016 16:25
[2016-09-18] MEDS: METOPROLOL TARTRATE 25 MG TAB PO SCH ×2 (17:32→20:40)
[2016-09-18] MEDS: LISINOPRIL 10 MG TAB PO SCH (17:32)
[2016-09-18 18:05] LABS: HEMATOCRIT 36.1 % (39.0-51.0)
[2016-09-18 18:06] LABS: REVIEW FLAG FINAL
[2016-09-19] VITALS (13 sets, daily range): BP systolic 145–166; BP diastolic 68–74; PULSE 62–76; RESP 19–26; TEMP 97.2–98.1; O2SAT 94–100
[2016-09-19] MEDS: MORPHINE SULFATE 4 MG/ML INJ IV PUSH PRN ×5 (00:23→20:38)
[2016-09-19] MEDS: INSULIN NovoLIN REGULAR SUPPLEMENTAL SCALE SQ SCH ×4 (02:00→20:00)
[2016-09-19] MEDS: CHLORHEXIDINE GLUCONATE 2 % 1 PACK (2 CLOTHS) TOP SCH (02:08)
[2016-09-19] MEDS: RESP: ALBUTEROL 2.5 MG/IPRATROPIUM 0.5 MG NEB (SCH) INH ×4 (03:48→20:24)
[2016-09-19 05:13] LABS: HEMATOCRIT 37.8 % (39.0-51.0); MEAN CELL VOLUME 91.9 FL (80.0-100.0); MEAN CORPUSCULAR HEMOGLOBIN 29.9 PG (27.0-34.0); MEAN CORPUSCULAR HGB CONC 32.6 % (32.0-36.0); PLATELET COUNT 69 TH/MM3 (150-450); RED BLOOD COUNT 4.12 MIL/MM3 (4.50-5.90); RED CELL DISTRIBUTION WIDTH 17.2 % (11.6-17.2); WHITE BLOOD COUNT 5.7 TH/MM3 (4.0-11.0)
[2016-09-19 05:16] LABS: REVIEW FLAG FINAL
[2016-09-19 05:40] LABS: BICARBONATE 37.9 MEQ/L (21.0-32.0); POTASSIUM 3.4 MEQ/L (3.5-5.1)
[2016-09-19] MEDS: POTASSIUM CHLOR 20 MEQ PREMIX 100 ML IV PRN ×2 (06:32→06:33)
[2016-09-19] MEDS: SODIUM CHLORIDE 0.9% FLUSH 10 ML FLUSH IV FLUSH PRN ×4 (06:43→18:41)
[2016-09-19] MEDS: FUROSEMIDE 40 MG/4 ML VIAL IV PUSH SCH ×2 (08:34→18:41)
[2016-09-19] MEDS: PANTOPRAZOLE SODIUM 40 MG VIAL IV SCH (08:34)
[2016-09-19] MEDS: VITAMIN B CMPLX/VITC/FOLIC AC CAP PO SCH (08:35)
[2016-09-19] MEDS: traMADol HCL 50 MG TAB PO PRN ×2 (08:35→18:38)
[2016-09-19] MEDS: CHOLECALCIFEROL (VIT D3) 5000 UNIT CAP PO SCH (08:35)
[2016-09-19] MEDS: clonazePAM 1 MG TAB PO SCH ×3 (08:36→18:39)
[2016-09-19] MEDS: PARoxetine HCL 20 MG TAB PO SCH (08:36)
[2016-09-19] MEDS: GABAPENTIN 400 MG CAP PO SCH ×3 (08:36→18:39)
[2016-09-19] MEDS: LISINOPRIL 10 MG TAB PO SCH (08:36)
[2016-09-19] MEDS: CYANOCOBALAMIN 1,000 MCG TAB PO SCH (08:36)
[2016-09-19] MEDS: SODIUM CHLORIDE 0.9% FLUSH 10 ML FLUSH IV FLUSH SCH ×2 (08:37→20:37)
--- NOTE | 2016-09-19 13:37 | HHI.PR ---
Subjective Remarks Follow-up for GI bleed, lethargy, and respiratory failure Patient stated that his breathing has improved a lot. He stated that he continues to have cough with sputum production. Patient showed me his sputum production which was yellow in color. Patient also complained about his chronic pain and is asking for pain medication. Otherwise no other complaints. Patient remains afebrile. Objective Vitals Vital Signs Date Time Temp Pulse Resp B/P Pulse Ox O2 Delivery O2 Flow Rate FiO2 09/19/16 10:38 94 Nasal Cannula 5.00 09/19/16 07:53 97.7 09/19/16 06:00 69 09/19/16 04:03 96 40 09/19/16 04:00 72 09/19/16 04:00 97.2 72 26 166/72 100 09/19/16 04:00 100 Bi-Pap 50 09/19/16 02:00 66 09/19/16 00:00 98 Bi-Pap 50 09/19/16 00:00 72 09/19/16 00:00 97.5 72 22 147/74 98 09/18/16 22:04 96 40 09/18/16 22:00 61 09/18/16 21:49 96 BiPAP 40 09/18/16 20:00 64 09/18/16 20:00 100 Bi-Pap 50 09/18/16 20:00 96.6 64 20 134/63 100 09/18/16 19:06 100 50 09/18/16 18:00 76 09/18/16 16:52 96 35 09/18/16 16:00 97.0 79 26 146/78 94 09/18/16 16:00 Bi-Pap 6.00 35 09/18/16 16:00 79 09/18/16 15:15 75 24 145/79 94 Bi-Pap 35 09/18/16 15:03 93 35 09/18/16 15:00 77 24 124/79 88 Bi-Pap 35 09/18/16 14:53 97.4 76 24 124/72 86 Simple Mask 6 09/18/16 14:00 76 I/O 09/18/16 09/18/16 09/18/16 09/19/16 09/19/16 09/19/16 07:00 15:00 23:00 07:00 15:00 23:00 Intake Total 290 ml 707 ml 100 ml 100 ml Output Total 450 ml 2000 ml 1000 ml 400 ml Balance -160 ml -1293 ml -900 ml -300 ml Intake Oral 0 ml 55 ml 100 ml 100 ml IV Total 290 ml 552 ml 0 ml Other 100 ml Output Urine Total 450 ml 2000 ml 1000 ml 400 ml Estimated Blood Loss 0 ml Other 0 ml Result Diagram: 09/19/169 09/19/16328 Objective Remarks GENERAL: Patient in bed in no acute distress NECK: Supple, trachea midline. No JVD or lymphadenopathy. CARDIOVASCULAR: Regular rate and rhythm without murmurs, gallops, or rubs. RESPIRATORY: Diffuse rhonchi and expiratory wheezing. GASTROINTESTINAL: Abdomen soft, non-tender, nondistended. MUSCULOSKELETAL: No cyanosis, trace edema. Neuro: Patient is awake and alert and AAO 3. Medications and IVs Current Medications Sodium Chloride (NS Flush) 2 ml UNSCH PRN IVF FLUSH AFTER USING IV ACCESS; Start 09/16/16 at 05:45; Stop 09/16/16 at 08:20; Status DC Albuterol/ Ipratropium 1 ampule 1 ampule Q15M INH Last administered on 06:21; Start 09/16/16 at 06:00; Stop 09/16/16 at 06:31; Status DC Sodium Chloride (NS 1000 ml Inj) 1,000 ml @ 42 mls/hr [id number] IV Last administered on 09/18/16 13:38; Start 09/16/16 at 07:50; Stop 09/18/16 at 14:22 ; Status DC Sodium Chloride (NS Flush) 2 ml UNSCH PRN IV FLUSH FLUSH AFTER USING IV ACCESS Last administered on 09/19/16 10:44; Start 09/16/16 at 08:00 Sodium Chloride (NS Flush) 2 ml BID IV FLUSH Last administered on 09/19/16 08: 37; Start 09/16/16 at 09:00 Pantoprazole Sodium (Protonix Inj) 40 mg DAILY IV Last administered on 08:34; Start 09/16/16 at 09:00 Ondansetron HCl (Zofran Inj) 4 mg Q6H PRN IV NAUSEA OR VOMITING; Start at 08:00 Albuterol/ Ipratropium (Duoneb Neb) 1 ampule Q6HR NEB INH Last administered on 09/19/16 10:37; Start 09/16/16 at 10:00; Stop 09/19/16 at 13:27; Status DC Albuterol/ Ipratropium (Duoneb Neb) 1 ampule Q2HR NEB PRN INH WHEEZING Last administered on 09/17/16 11:45; Start 09/16/16 at 08:00; Stop 09/19/16 at 13:27 ; Status DC Miscellaneous Information 1 Q361D XX ; Start 09/16/16 at 08:00 Chlorhexidine Gluconate (Chlorhexidine 2% Cloth) 3 pack Taper DAILY@04 TOP Last administered on 09/19/16 02:08; Start 09/17/16 at 04:00; Stop 09/13/17 at 03:59 Chlorhexidine Gluconate 3 pack 3 pack UNSCH PRN TOP HYGIENIC CARE; Start at 08:00 Potassium Chloride 100 ml @ 50 mls/hr Q2H PRN IV For Potassium 2.8 - 3.2 mEq/L ; Start 09/16/16 at 08:00 Potassium Chloride (KCl 20 Meq Premix Inj) 100 ml @ 50 mls/hr Q2H PRN IV For Potassium 2.8 - 3.2 mEq/L; Start 09/16/16 at 08:00 Potassium Bicarb/ Potassium Chloride 50 meq 50 meq UNSCH PRN PO For Potassium 3.3 - 3.5 mEq/L; Start 09/16/16 at 08:00 Potassium Chloride 100 ml @ 25 mls/hr UNSCH PRN IV For Potassium 3.3 - 3.5 mEq /L; Start 09/16/16 at 08:00 Potassium Chloride 100 ml @ 50 mls/hr Q2H PRN IV For Potassium 3.3 - 3.5 mEq/ L Last administered on 09/19/16 06:33; Start 09/16/16 at 08:00 Magnesium Sulfate/ Sodium Chloride (Magnesium Sulfate Inj/NS Inj) 100 ml @ 50 mls/hr UNSCH PRN IV For Magnesium 0.9 - 1.1 mg/dL; Start 09/16/16 at 08:00 Magnesium Oxide 800 mg 800 mg UNSCH PRN PO For Magnesium 1.2 - 1.6 mg/dL; Start 09/16/16 at 08:00 Magnesium Sulfate/ Sodium Chloride (Magnesium Sulfate Inj/NS Inj) 100 ml @ 50 mls/hr UNSCH PRN IV For Magnesium 1.2 - 1.6 mg/dL; Start 09/16/16 at 08:00 Potassium Phosphate 2000 mg 2,000 mg Q4H PRN PO For Phosphorus < 2.5 mg/dL; Start 09/16/16 at 08:00 Sodium Phosphate/ Sodium Chloride (Sodium Phosphate Inj/NS 250 ml Inj) 250 ml @ 42 mls/hr UNSCH PRN IV For Phosphorus < 2.5 mg/dL; Start 09/16/16 at 08:00 Potassium Phosphate 2000 mg 2,000 mg UNSCH PRN PO/TUBE SEE LABEL COMMENTS; Start 09/16/16 at 08:00 Potassium Phosphate/Sodium Chloride (Potassium Phosphate Inj/NS 250 ml Inj) 260 ml @ 42 mls/hr UNSCH PRN IV SEE LABEL COMMENTS; Start 09/16/16 at 08:00 Dextrose (D50w (Vial) Inj) 25 ml UNSCH PRN IV PUSH HYPOGLYCEMIA-SEE COMMENTS; Start 09/16/16 at 08:15; Stop 09/17/16 at 13:17; Status DC Glucagon (Glucagon Inj) 1 mg UNSCH PRN OTHER HYPOGLYCEMIA-SEE COMMENTS; Start 09/16/16 at 08:15; Stop 09/17/16 at 13:17; Status DC Cholecalciferol (Vitamin D3) 5,000 units DAILY PO Last administered on 08:35; Start 09/16/16 at 09:00 Clonazepam (KlonoPIN) 2 mg TID PO Last administered on 09/19/16 08:36; Start 09/16/16 at 09:00 Cyanocobalamin (Vitamin B12) 1,000 mcg DAILY PO Last administered on 09/19/16 08:36; Start 09/16/16 at 09:00 Gabapentin (Neurontin) 800 mg TID PO Last administered on 09/19/16 08:36; Start 09/16/16 at 09:00 Paroxetine HCl (Paxil) 20 mg DAILY PO Last administered on 09/19/16 08:36; Start 09/16/16 at 09:00 Vitamin B Complex/ Vit C/Folic Acid (Nephrocaps) 1 cap DAILY PO Last administered on 09/19/16 08:35; Start 09/16/16 at 09:00 Fentanyl (Duragesic 25 Mcg Patch.72 Hr) 1 patch Q3D T-DERMAL Last administered on 09/17/16 10:54; Start 09/17/16 at 09:00 Furosemide (Lasix Inj) 40 mg DAILY IV PUSH Last administered on 09/18/16 08:10 ; Start 09/17/16 at 09:00; Stop 09/18/16 at 14:23; Status DC Miscellaneous Information 1 1 Q3D T-DERMAL ; Start 09/17/16 at 09:00 Magnesium Sulfate/ Dextrose (Magnesium Sulfate 1 Gm Premix) 100 ml @ As Directed STK-MED ONCE .ROUTE Last administered on 09/16/16 12:54; Start at 12:54; Stop 09/16/16 at 12:55; Status DC Fentanyl Citrate (fentaNYL INJ) 50 mcg NOW ONCE IV Last administered on 13:30; Start 09/16/16 at 13:30; Stop 09/16/16 at 13:31; Status DC Hydralazine HCl (Apresoline Inj) 10 mg Q1HR PRN IV PUSH SBP>160, DBP>90 Last administered on 09/18/16 07:57; Start 09/16/16 at 20:30 Nitroglycerin (Nitroglycerin 2% Oint) 2 inch Q6HR PRN TOPICAL SBP>160, DBP>90; Start 09/16/16 at 20:30 Acetaminophen (Tylenol) 650 mg ONCE ONCE PO Last administered on 09/17/16 00: 21; Start 09/16/16 at 23:30; Stop 09/16/16 at 23:31; Status DC Tramadol HCl (Ultram) 50 mg Q8H PRN PO PAIN Last administered on 09/19/16 08: 35; Start 09/17/16 at 04:30 Morphine Sulfate (Morphine Inj) 2 mg Q3H PRN IV PUSH BREAKTHROUGH PAIN Last administered on 09/19/16 10:44; Start 09/17/16 at 04:30 Dextrose (D50w (Vial) Inj) 25 ml UNSCH PRN IV PUSH HYPOGLYCEMIA-SEE COMMENTS; Start 09/17/16 at 13:15 Glucagon (Glucagon Inj) 1 mg UNSCH PRN OTHER HYPOGLYCEMIA-SEE COMMENTS; Start 09/17/16 at 13:15 Insulin Human Regular (NovoLIN R SUPPLEMENTAL SCALE) 1 Q6H SQ Last administered on 09/18/16 02:00; Start 09/17/16 at 14:00 Labetalol HCl (Trandate Inj) 10 mg Q4H PRN IV PUSH SBP>180 or DBP >100 Last administered on 09/18/16 12:34; Start 09/18/16 at 11:30 Enalaprilat (Vasotec Inj) 1.25 mg Q6H PRN IV PUSH sbp>180 or DBP>100; Start at 11:30 Furosemide (Lasix Inj) 40 mg BID@,18 IV PUSH Last administered on 09/19/16 08:34; Start 09/18/16 at 18:00 Metoprolol Tartrate (Lopressor) 25 mg Q12HR PO Last administered on 09/18/16 20:40; Start 09/18/16 at 14:30 Lisinopril (Prinivil) 10 mg DAILY PO Last administered on 09/19/16 08:36; Start 09/18/16 at 14:30 Albuterol Sulfate (*ALBUTEROL NEB PERIprocedure ONLY) 2.5 mg STK-MED ONCE NEB ; Start 09/18/16 at 14:59; Stop 09/18/16 at 15:00; Status DC Miscellaneous Information ALL NURSING DEPARTME... UNSCH PRN .XX SEE LABEL COMMENTS; Start 09/18/16 at 14:56; Stop 09/19/16 at 14:55 Propofol (Diprivan 200 Mg/20 ml Inj) 50 mg STK-MED ONCE IV ; Start 09/18/16 at 14:40; Stop 09/18/16 at 17:43; Status DC Acetaminophen (Tylenol) 500 mg Q4H PRN PO pain 1-10; Start 09/19/16 at 13:30; Status UNV Albuterol/ Ipratropium (Duoneb Neb) 1 ampule Q4HR WHILE AWAKE NEB INH ; Start 09/19/16 at 16:00; Status UNV Albuterol Sulfate (Albuterol Neb) 2.5 mg Q2HR NEB PRN NEB wheezing; Start 09/19 at 13:30; Status UNV A/P Assessment and Plan This is a 61-year-old male with a past medical history of CHF, cardiomegaly, coronary artery disease status post CABG, COPD who presented with respiratory failure Acute on chronic Respiratory failure with hypoxia -Most likely secondary due to combination of COPD exacerbation and CHF exacerbation. -Patient is on BiPAP when necessary. -ABG obtained with mild improvement. -See treatment as below. COPD exacerbation oxygen dependent -Patient does have increased sputum production from his baseline and continue to have rhonchi/wheezing. -Will add azithromycin. Chest x-ray suggests CHF. Will get a sputum Gram stain and culture. -Patient declined any treatment with steroids due to side effects and stated that since his breathing is improving he wants to hold off on any steroid treatment. -We will increase frequency of DuoNeb nebs to every 4 hours. Albuterol every 2 hours when necessary for wheezing. CHF exacerbation -Patient has good urine output. The increased dose of Lasix yesterday did improve his respiratory status. -Continue with current dosage and may consider decreasing dose tomorrow if he continues to do well. -Strict ins and outs. -Continue to monitor closely. -Continue with BiPAP. Melena -Status post EGD done on 09/18/16 showing gastric varices with short Mckinney's. Unable to do biopsy due to thrombocytopenia. -At the moment asymptomatic and hemoglobin is stable. -Continue to trend H&H. Hepatitis C/liver cirrhosis with ascites -GI consulted -Status post paracentesis with peritoneal fluid culture so far negative. Anemia of chronic disease -Continue to monitor. -Stable. Continue to monitor H&H. Thrombocytopenia -Most likely secondary to liver disease. -Stable. -Continue to monitor. Type 2 diabetes complicated by peripheral neuropathy -on SSI ( Low scale) for glycemic control Peripheral neuropathy -Patient on gabapentin. Chronic pain syndrome -Patient on gabapentin, Klonopin, and Paxil. -Patient told that this is chronic pain and is to be managed as outpatient. Will add Tylenol. Pulmonary hypertension/Cardiomegaly/CAD- S/P CABG 2/Coronary stent/Hypertension /history of CVA. -Continue to Monitor HR and BP keep MAP>65mmHg -04/09/16-ECHO PASP 53mmHg. ejection fraction 55% -Blood pressure improving with lisinopril and metoprolol. Will increase metoprolol to 50 mg by mouth twice a day. DVT Prophylaxis -Continue with SCDs. Discharge Planning Patient continues to require intermittent use of BiPAP will continue to monitor in ICU and he continues to well can downgrade tomorrow. Marisol Crowder MD Sep 19, 2016 13:37
[2016-09-19] MEDS ORDERED: RESP: ALBUTEROL 2.5 MG/3 ML NEB (PRN) INH (13:45)
[2016-09-19] MEDS ORDERED: AZITHROMYCIN 250 MG TAB PO ONE (14:00)
[2016-09-19] MEDS: METOPROLOL TARTRATE 50 MG TAB PO SCH (20:37)
[2016-09-20] VITALS (11 sets, daily range): BP systolic 120–169; BP diastolic 56–74; PULSE 63–69; RESP 16–22; TEMP 96.7–98.8; O2SAT 93–100
[2016-09-20] MEDS: MORPHINE SULFATE 4 MG/ML INJ IV PUSH PRN ×7 (00:35→23:14)
[2016-09-20] MEDS: ACETAMINOPHEN 500 MG CPLT PO PRN ×2 (00:35→05:44)
[2016-09-20] MEDS: INSULIN NovoLIN REGULAR SUPPLEMENTAL SCALE SQ SCH ×4 (02:00→20:00)
[2016-09-20] MEDS: CHLORHEXIDINE GLUCONATE 2 % 1 PACK (2 CLOTHS) TOP SCH (04:00)
[2016-09-20] MEDS: RESP: ALBUTEROL 2.5 MG/IPRATROPIUM 0.5 MG NEB (SCH) INH ×4 (06:32→19:54)
[2016-09-20 06:43] LABS: HEMATOCRIT 36.5 % (39.0-51.0); MEAN CELL VOLUME 91.9 FL (80.0-100.0); MEAN CORPUSCULAR HEMOGLOBIN 30.2 PG (27.0-34.0); MEAN CORPUSCULAR HGB CONC 32.9 % (32.0-36.0); PLATELET COUNT 62 TH/MM3 (150-450); RED BLOOD COUNT 3.97 MIL/MM3 (4.50-5.90); RED CELL DISTRIBUTION WIDTH 16.9 % (11.6-17.2); WHITE BLOOD COUNT 4.3 TH/MM3 (4.0-11.0)
[2016-09-20 07:02] LABS: BICARBONATE 41.3 MEQ/L (21.0-32.0); POTASSIUM 3.3 MEQ/L (3.5-5.1)
[2016-09-20 07:06] LABS: REVIEW FLAG FINAL
[2016-09-20] MEDS: fentaNYL 25 MCG/HR PATCH T-DERMAL SCH (08:28)
[2016-09-20] MEDS: REMOVE OLD DURAGESIC (FENTANYL) PATCH T-DERMAL SCH (08:28)
[2016-09-20] MEDS: PANTOPRAZOLE SODIUM 40 MG VIAL IV SCH (08:28)
[2016-09-20] MEDS: PARoxetine HCL 20 MG TAB PO SCH (08:29)
[2016-09-20] MEDS: clonazePAM 1 MG TAB PO SCH ×3 (08:29→17:28)
[2016-09-20] MEDS: METOPROLOL TARTRATE 50 MG TAB PO SCH ×2 (08:29→20:39)
[2016-09-20] MEDS: CYANOCOBALAMIN 1,000 MCG TAB PO SCH (08:29)
[2016-09-20] MEDS: VITAMIN B CMPLX/VITC/FOLIC AC CAP PO SCH (08:29)
[2016-09-20] MEDS: GABAPENTIN 400 MG CAP PO SCH ×3 (08:29→17:28)
[2016-09-20] MEDS: AZITHROMYCIN 250 MG TAB PO SCH (08:29)
[2016-09-20] MEDS: LISINOPRIL 10 MG TAB PO SCH (08:29)
[2016-09-20] MEDS: CHOLECALCIFEROL (VIT D3) 5000 UNIT CAP PO SCH (08:29)
[2016-09-20] MEDS: FUROSEMIDE 40 MG/4 ML VIAL IV PUSH SCH ×2 (08:30→17:28)
[2016-09-20] MEDS: POTASSIUM CHLOR 20 MEQ PREMIX 100 ML IV PRN ×2 (08:30→10:27)
[2016-09-20] MEDS: SODIUM CHLORIDE 0.9% FLUSH 10 ML FLUSH IV FLUSH SCH ×2 (08:31→20:39)
[2016-09-20] MEDS: traMADol HCL 50 MG TAB PO PRN ×2 (08:38→16:16)
--- NOTE | 2016-09-20 13:59 | HHI.PR ---
Subjective Remarks Patient reports that he is feeling better today. He is breathing easier. No chest pain. Eating well. Objective Vitals Vital Signs Date Time Temp Pulse Resp B/P Pulse Ox O2 Delivery O2 Flow Rate FiO2 09/20/16 12:00 66 09/20/16 12:00 98.0 63 21 145/67 98 09/20/16 10:28 96 Nasal Cannula 2.00 09/20/16 10:00 64 09/20/16 08:00 63 09/20/16 08:00 95 Nasal Cannula 4.00 09/20/16 08:00 97.9 67 16 144/72 95 09/20/16 06:00 69 09/20/16 04:00 64 09/20/16 04:00 98 Nasal Cannula 4.00 09/20/16 04:00 98.8 64 22 154/74 98 09/20/16 02:00 63 09/20/16 00:00 63 09/20/16 00:00 98.1 63 19 148/74 100 09/20/16 00:00 100 Nasal Cannula 4.00 09/19/16 22:00 62 09/19/16 20:24 97 Nasal Cannula 4.00 09/19/16 20:00 72 09/19/16 20:00 98 Nasal Cannula 4.00 09/19/16 20:00 98.1 72 19 149/70 98 09/19/16 16:00 Nasal Cannula 4.00 09/19/16 16:00 97.8 72 26 145/68 99 I/O 09/19/16 09/19/16 09/19/16 09/20/16 09/20/16 09/20/16 07:00 15:00 23:00 07:00 15:00 23:00 Intake Total 100 ml 480 ml 500 ml 850 ml Output Total 400 ml 1350 ml 1000 ml 550 ml Balance -300 ml -870 ml -500 ml 300 ml Intake Oral 100 ml 480 ml 500 ml 850 ml Output Urine Total 400 ml 1350 ml 1000 ml 550 ml # Bowel Movements 0 Result Diagram: 09/20/16 0540 09/20/16 0540 Imaging Last Impressions Cyst Biopsy Asp-Paracentesis US 09/17/16 0000 Signed Impressions: Service Date/Time: Saturday, September 17, 2016 11:07 - CONCLUSION: Uncomplicated ultrasound guided paracentesis. Eliezer Sanders MD Chest X-Ray 09/16/16 0543 Signed Impressions: Service Date/Time: Friday, September 16, 2016 05:37 - CONCLUSION: 1. Cardiomegaly and findings of congestive heart failure. 2. Small effusions Maciel Araujo MD Liver Ultrasound 09/16/16 0000 Signed Impressions: Service Date/Time: Friday, September 16, 2016 14:53 - CONCLUSION: 1. Mild ascites with liver enlarged to 18.6 cm. Echogenic liver characteristic of hepatocellular disease or fatty infiltration. 2. Splenomegaly to 17.9 cm. Rl Uribe MD Objective Remarks GENERAL: Obese male in no acute distress. CARDIOVASCULAR: Normal rate and regular rhythm without murmurs, gallops, or rubs. RESPIRATORY: Air movement is fair. There is diffuse rhonchi and faint expiratory wheezing. GASTROINTESTINAL: Abdomen soft, non-tender, non-distended. Normal active bowel sounds MUSCULOSKELETAL: Bilateral lower extremity with 1+ edema. NEURO: Alert & Oriented x4 to person, place, time, situation. Moves all ext x4 PSYCH: Appropriate mood and affect. A/P Assessment and Plan 61-year-old male with a past medical history of CHF, cardiomegaly, coronary artery disease status post CABG, COPD who presented with respiratory failure Acute on chronic Respiratory failure with hypoxia -Most likely secondary due to combination of COPD exacerbation and CHF exacerbation. -Patient improving. No longer requiring Bipap -See treatment as below. COPD exacerbation oxygen dependent -Patient does have increased sputum production from his baseline and continue to have rhonchi/wheezing. -On azithromycin. Chest x-ray suggests CHF. Sputum Gram stain and culture ordered. -Patient declined any treatment with steroids due to side effects and stated that since his breathing is improving he wants to hold off on any steroid treatment. -Continue DuoNeb nebs to every 4 hours. Albuterol every 2 hours when necessary for wheezing. CHF exacerbation -Patient has good urine output. Continue IV Lasix today. Consider transitioning to whole tomorrow. -Strict ins and outs. -Continue to monitor closely. Melena -Status post EGD done on 09/18/16 showing gastric varices with short Mckinney's. Unable to do biopsy due to thrombocytopenia. -At the moment asymptomatic and hemoglobin is stable. -Monitor. Hepatitis C/liver cirrhosis with ascites -GI consulted -Status post paracentesis with peritoneal fluid culture so far negative. Anemia of chronic disease -Continue to monitor. -Stable. Continue to monitor H&H. Thrombocytopenia -Most likely secondary to liver disease. -Stable. -Continue to monitor. Type 2 diabetes complicated by peripheral neuropathy -on SSI ( Low scale) for glycemic control Peripheral neuropathy -Patient on gabapentin. Hypokalemia: Replace and monitor. Scheduled K replacement for Lasix Chronic pain syndrome -Patient on gabapentin, Klonopin, and Paxil. -Patient told that this is chronic pain and is to be managed as outpatient. Tylenol. Pulmonary hypertension/Cardiomegaly/CAD- S/P CABG 2/Coronary stent/Hypertension /history of CVA. -Continue to Monitor HR and BP keep MAP>65mmHg -04/09/16-ECHO PASP 53mmHg. ejection fraction 55% -Blood pressure improving with lisinopril and metoprolol. metoprolol to 50 mg by mouth twice a day. DVT Prophylaxis -Continue with SCDs. Discharge Planning Transferred to medical floor today. Discharge pending clinical improvement. Will likely need SNF placement. Corie Gallo MD Sep 20, 2016 13:59
[2016-09-21] VITALS (8 sets, daily range): BP systolic 138–151; BP diastolic 60–76; PULSE 57–70; RESP 16–18; TEMP 96.8–98; O2SAT 93–100
[2016-09-21] MEDS: INSULIN NovoLIN REGULAR SUPPLEMENTAL SCALE SQ SCH ×3 (03:36→22:32)
[2016-09-21] MEDS: traMADol HCL 50 MG TAB PO PRN ×2 (03:39→16:27)
[2016-09-21] MEDS: CHLORHEXIDINE GLUCONATE 2 % 1 PACK (2 CLOTHS) TOP SCH (04:00)
[2016-09-21] MEDS: MORPHINE SULFATE 4 MG/ML INJ IV PUSH PRN ×5 (04:38→22:28)
[2016-09-21 07:46] LABS: HEMATOCRIT 36.7 % (39.0-51.0); MEAN CELL VOLUME 91.7 FL (80.0-100.0); MEAN CORPUSCULAR HEMOGLOBIN 29.1 PG (27.0-34.0); MEAN CORPUSCULAR HGB CONC 31.8 % (32.0-36.0); PLATELET COUNT 57 TH/MM3 (150-450); RED CELL DISTRIBUTION WIDTH 16.5 % (11.6-17.2); WHITE BLOOD COUNT 3.7 TH/MM3 (4.0-11.0)
[2016-09-21 07:52] LABS: REVIEW FLAG FINAL
[2016-09-21] MEDS: RESP: ALBUTEROL 2.5 MG/IPRATROPIUM 0.5 MG NEB (SCH) INH ×4 (08:07→20:32)
[2016-09-21] MEDS ORDERED: AZIT250T3 PO (08:16)
[2016-09-21] MEDS ORDERED: FENT25T T-DERMAL (08:16)
[2016-09-21] MEDS ORDERED: LISI10TA3 PO (08:16)
[2016-09-21] MEDS ORDERED: ULTR50TA5 PO (08:16)
[2016-09-21] MEDS ORDERED: KLON2TAB PO (08:16)
[2016-09-21 08:43] LABS: BICARBONATE 38.9 MEQ/L (21.0-32.0); POTASSIUM 3.5 MEQ/L (3.5-5.1)
[2016-09-21] MEDS: POTASSIUM CHLORIDE 20 MEQ CONTROLLED RELEASE TAB PO SCH ×2 (09:00→22:28)
[2016-09-21] MEDS: AZITHROMYCIN 250 MG TAB PO SCH (09:28)
[2016-09-21] MEDS: PANTOPRAZOLE SODIUM 40 MG VIAL IV SCH (09:28)
[2016-09-21] MEDS: VITAMIN B CMPLX/VITC/FOLIC AC CAP PO SCH (09:28)
[2016-09-21] MEDS: SODIUM CHLORIDE 0.9% FLUSH 10 ML FLUSH IV FLUSH SCH ×2 (09:28→22:28)
[2016-09-21] MEDS: FUROSEMIDE 40 MG/4 ML VIAL IV PUSH SCH ×2 (09:28→17:41)
[2016-09-21] MEDS: LISINOPRIL 10 MG TAB PO SCH (09:29)
[2016-09-21] MEDS: GABAPENTIN 400 MG CAP PO SCH ×3 (09:29→17:40)
[2016-09-21] MEDS: PARoxetine HCL 20 MG TAB PO SCH (09:29)
[2016-09-21] MEDS: METOPROLOL TARTRATE 50 MG TAB PO SCH ×2 (09:29→21:00)
[2016-09-21] MEDS: CHOLECALCIFEROL (VIT D3) 5000 UNIT CAP PO SCH (09:29)
[2016-09-21] MEDS: CYANOCOBALAMIN 1,000 MCG TAB PO SCH (09:29)
[2016-09-21] MEDS: clonazePAM 1 MG TAB PO SCH ×3 (09:29→17:40)
--- NOTE | 2016-09-21 12:43 | HHI.PR ---
Subjective Remarks Seen earlier today. Patient says she wants more pain meds asking for dilaudid. However he appears comfortable in not acute distress. Coughing less, no much sputum production. No cp, sob, n/v. Has constipation. No fevers or chills. Objective Vitals Vital Signs Date Time Temp Pulse Resp B/P Pulse Ox O2 Delivery O2 Flow Rate FiO2 09/21/16 08:07 97 Nasal Cannula 3.00 09/21/16 04:41 19 09/21/16 04:00 97.7 66 16 151/69 97 09/21/16 00:00 96.8 70 17 141/76 100 09/20/16 20:00 67 09/20/16 20:00 96.7 67 17 120/56 97 09/20/16 19:55 93 Nasal Cannula 3.00 09/20/16 16:00 63 09/20/16 16:00 98.0 63 22 169/70 100 09/20/16 15:00 95 Nasal Cannula 2.00 I/O 09/20/16 09/20/16 09/20/16 09/21/16 09/21/16 09/21/16 07:00 15:00 23:00 07:00 15:00 23:00 Intake Total 850 ml 860 ml 240 ml 480 ml Output Total 550 ml 1300 ml 1000 ml Balance 300 ml -440 ml -760 ml 480 ml Intake Oral 850 ml 600 ml 240 ml 480 ml IV Total 260 ml 0 ml Output Urine Total 550 ml 1300 ml 1000 ml # Bowel Movements 0 Result Diagram: 09/21/16 0720 09/21/16 0720 Imaging Last Impressions Cyst Biopsy Asp-Paracentesis US 09/17/16 0000 Signed Impressions: Service Date/Time: Saturday, September 17, 2016 11:07 - CONCLUSION: Uncomplicated ultrasound guided paracentesis. Eliezer Sanders MD Chest X-Ray 09/16/16 0543 Signed Impressions: Service Date/Time: Friday, September 16, 2016 05:37 - CONCLUSION: 1. Cardiomegaly and findings of congestive heart failure. 2. Small effusions Maciel Aruajo MD Liver Ultrasound 09/16/16 0000 Signed Impressions: Service Date/Time: Friday, September 16, 2016 14:53 - CONCLUSION: 1. Mild ascites with liver enlarged to 18.6 cm. Echogenic liver characteristic of hepatocellular disease or fatty infiltration. 2. Splenomegaly to 17.9 cm. Rl Uribe MD Objective Remarks GENERAL: Obese male appearing older than the stated age, in no acute distress. CARDIOVASCULAR: Normal rate and regular rhythm without murmurs, gallops, or rubs. RESPIRATORY: On NC. Decreased breath sounds. There is diffuse rhonchi and faint expiratory wheezing. GASTROINTESTINAL: Abdomen soft, non-tender, non-distended. Normal active bowel sounds MUSCULOSKELETAL: Bilateral lower extremity with 1+ edema. NEURO: Alert & Oriented x4 to person, place, time, situation. Moves all ext x4 PSYCH: Appropriate mood and affect. A/P Assessment and Plan 61-year-old male with a past medical history of CHF, cardiomegaly, coronary artery disease status post CABG, COPD who presented with respiratory failure Acute on chronic Respiratory failure with hypoxia -Most likely secondary due to combination of COPD exacerbation and CHF exacerbation. -Patient improving. No longer requiring Bipap -See treatment as below. COPD exacerbation oxygen dependent -Patient does have increased sputum production from his baseline and continue to have rhonchi/wheezing. -On azithromycin. Chest x-ray suggests CHF. Sputum Gram stain and culture ordered. -Patient declined any treatment with steroids due to side effects and stated that since his breathing is improving he wants to hold off on any steroid treatment. -Continue DuoNeb nebs to every 4 hours. Albuterol every 2 hours when necessary for wheezing. Bacteremia: noted blood cx positive staph coagulase 09/16/16. Will ask ID specialist for abx recommendations. Will repeat blood cx. 09/21. CHF exacerbation -Patient has good urine output. Continue IV Lasix today. Consider transitioning to whole tomorrow. -Strict ins and outs. -Continue to monitor closely. Melena -Status post EGD done on 09/18/16 showing gastric varices with short Mckinney's. Unable to do biopsy due to thrombocytopenia. -At the moment asymptomatic and hemoglobin is stable. -Monitor. Hepatitis C/liver cirrhosis with ascites -GI consulted -Status post paracentesis with peritoneal fluid culture so far negative. Anemia of chronic disease -Continue to monitor. -Stable. Continue to monitor H&H. Thrombocytopenia -Most likely secondary to liver disease. -Stable. -Continue to monitor. Type 2 diabetes complicated by peripheral neuropathy -on SSI ( Low scale) for glycemic control Peripheral neuropathy -Patient on gabapentin. Hypokalemia: Replace and monitor. Scheduled K replacement for Lasix Chronic pain syndrome -Patient on gabapentin, Klonopin, and Paxil. -Patient told that this is chronic pain and is to be managed as outpatient. Tylenol. Pulmonary hypertension/Cardiomegaly/CAD- S/P CABG 2/Coronary stent/Hypertension /history of CVA. -Continue to Monitor HR and BP keep MAP>65mmHg -04/09/16-ECHO PASP 53mmHg. ejection fraction 55% -Blood pressure improving with lisinopril and metoprolol. metoprolol to 50 mg by mouth twice a day. DVT Prophylaxis -Continue with SCDs. Discharge Planning Discharge pending clinical improvement. Will likely need SNF placement. Rosa Guo MD Sep 21, 2016 12:43
--- NOTE | 2016-09-21 21:07 | PD.ID.CON ---
History of Present Illness Service ID Consult Requested By Dr Guo Reason for Consult bacteremia, sepsis Primary Care Physician Unknown Diagnoses: History of Present Illness This is a 61-year-old male with history of CAD, COPD, CHF, CABG, brought in by ambulance from home on CPAP for evaluation of shortness of breath. He is a very poor historian and tells me he came to the hospital because he cant walk x 6 mos He also having SOB, productive cough with thick yellow phlegm Pt had a fever on admission up to 101.5 and had blood clx done which are all + for coag neg staph Pt is on azithromycin He is currently afebrile and has normal WBC He was found to have ascites and it was tapped Pt has no growth on his asctic fluid clx Review of Systems Respiratory: COMPLAINS OF: Cough, Sputum production, Shortness of breath Neurologic: COMPLAINS OF: Abnormal gait, Poor Balance Except as stated in HPI: all other systems reviewed are Neg Past Family Social History Allergies: Coded Allergies: Bactrim (Verified Allergy, Severe, Hives, 04/07/16) Codeine (Verified Allergy, Severe, Hives, 04/07/16) Hydrocodone (Verified Allergy, Severe, ITCH, 04/07/16) Minocin (Verified Allergy, Severe, CLOSED THROAT, 04/07/16) Sulfa (Verified Allergy, Severe, Hives, 04/07/16) Vancomycin (Verified Allergy, Severe, Anaphylaxis, 04/07/16) Tetracycline (Verified Allergy, Unknown, Hives, 04/07/16) Past Medical History CAD Chronic bronchitis Diabetes mellitus Cirrhosis and fatty liver disease Chronic lower extremity cellulitis GERD Anxiety/depression History of MRSA infection Chronic hyponatremia Past Surgical History 2 separate CABG surgeries Cardiac stents Paracentesis Cholecystectomy EGD/ colonoscopy Active Ordered Medications Medications where reviewed in EMR Antibiotics Include: azithromycin Family History Non contributory Social History used to be heavy drinker quit 6 mos ago smokes occasional cigars No illicit drug use Physical Exam Vital Signs Vital Signs Date Time Temp Pulse Resp B/P Pulse Ox O2 Delivery O2 Flow Rate FiO2 09/21/16 20:33 98 Nasal Cannula 3.00 09/21/16 16:00 98.0 60 18 150/68 96 09/21/16 12:00 97.9 70 18 143/60 93 09/21/16 09:26 3.00 09/21/16 08:07 97 Nasal Cannula 3.00 4/21/17 08:00 97.6 63 18 146/71 94 09/21/16 04:41 19 09/21/16 04:00 97.7 66 16 151/69 97 09/21/16 00:30 97 Nasal Cannula 3.00 50 09/21/16 00:00 96.8 70 17 141/76 100 Physical Exam CONSTITUTIONAL/GENERAL: This is an obese patient, in no apparent distress. TUBES/LINES/DRAINS: SKIN: No jaundice, rashes, or lesions. Skin temperature appropriate. Not diaphoretic. HEAD: Atraumatic. Normocephalic. EYES: Pupils equal and round and reactive. Extraocular motions intact. No scleral icterus. No injection or drainage. Fundi not examined. ENT: Hearing grossly normal. Nose without bleeding or purulent drainage. Oral mucosae moist NECK: Trachea midline. Supple, nontender. CARDIOVASCULAR: Regular rate and rhythm without murmurs, gallops, or rubs. No JVD. Peripheral pulses symmetric. RESPIRATORY/CHEST: Symmetric, unlabored respirations. Clear to auscultation. Breath sounds equally diminished bilaterally. No wheezes, rales, or rhonchi. GASTROINTESTINAL: Abdomen soft, non-tender, markedly distended. No hepato- splenomegaly, or palpable masses. No guarding. Bowel sounds present. GENITOURINARY: Without palpable bladder distension. Calabrese catheter in place with clear yellow urine MUSCULOSKELETAL: Extremities without clubbing, cyanosis, + 1+ BLE edema with chronic discoloration No joint tenderness or effusion noted. No calf tenderness. No mottling or clubbing. LYMPHATICS: No palpable cervical or supraclavicular adenopathy. NEUROLOGICAL: Awake and alert. Motor and sensory grossly within normal limits. Follows commands. Normal speech. Moves all extremities. PSYCHIATRIC: No obvious anxiety/depression. no apparent hallucinations or other psychotic thought process. Laboratory Laboratory Tests Test 09/21/16 07:20 White Blood Count 3.7 Red Blood Count 4.00 Hemoglobin 11.6 Hematocrit 36.7 Mean Corpuscular Volume 91.7 Mean Corpuscular Hemoglobin 29.1 Mean Corpuscular Hemoglobin 31.8 Concent Red Cell Distribution Width 16.5 Platelet Count 57 Mean Platelet Volume 8.2 Sodium Level 138 Potassium Level 3.5 Chloride Level 92 Carbon Dioxide Level 38.9 Anion Gap 7 Blood Urea Nitrogen 35 Creatinine 1.11 Estimat Glomerular Filtration 67 Rate Random Glucose 194 Calcium Level 8.7 B-Type Natriuretic Peptide 1511 Date/Time Procedure Status Source Growth 09/21/16 12:26 Aerobic Blood Culture Received Blood Peripheral Pending 09/21/16 12:26 Anaerobic Blood Culture Received Blood Peripheral Pending 09/17/16 11:45 Gram Stain - Final Complete Fluid Peritoneal Fluid 09/17/16 11:45 Body Fluid Culture - Final Complete Fluid Peritoneal Fluid NO GROWTH IN 72 HRS.--AEROBICALLY OR ... 09/17/16 00:00 Urine Culture - Final Complete Urine Catheterized Urine NO GROWTH IN 48 HOURS. Result Diagram: 09/21/1620 09/21/16 0720 Imaging Last Impressions Cyst Biopsy Asp-Paracentesis US 09/17/16 0000 Signed Impressions: Service Date/Time: Saturday, September 17, 2016 11:07 - CONCLUSION: Uncomplicated ultrasound guided paracentesis. Eliezer Sanders MD Chest X-Ray 09/16/16 0543 Signed Impressions: Service Date/Time: Friday, September 16, 2016 05:37 - CONCLUSION: 1. Cardiomegaly and findings of congestive heart failure. 2. Small effusions Maciel Araujo MD Liver Ultrasound 09/16/16 0000 Signed Impressions: Service Date/Time: Friday, September 16, 2016 14:53 - CONCLUSION: 1. Mild ascites with liver enlarged to 18.6 cm. Echogenic liver characteristic of hepatocellular disease or fatty infiltration. 2. Splenomegaly to 17.9 cm. Rl Uribe MD Assessment and Plan Assessment and Plan Multiple med problems Probably AECB with productive cough - presenting fever likely 2/2 bronchtis Coag - neg stgaph bacteremia, different morphologies, no presdiposing condiitons (no central lines, prosthetic valves or paceer/AICD) cw contamination Sterile ascites, PMN<250 and Gstain/clx neg - cont azithro for AECB - no need to Rx pseudobacfteremia - fu repeat blood clx Madhuri Dawn MD Sep 21, 2016 21:07
[2016-09-22] VITALS (7 sets, daily range): BP systolic 134–153; BP diastolic 61–75; PULSE 63–74; RESP 16–19; TEMP 96.5–98; O2SAT 95–98
[2016-09-22] MEDS: MORPHINE SULFATE 4 MG/ML INJ IV PUSH PRN ×3 (01:52→15:29)
[2016-09-22] MEDS: SODIUM CHLORIDE 0.9% FLUSH 10 ML FLUSH IV FLUSH PRN ×2 (01:52→06:25)
[2016-09-22] MEDS: INSULIN NovoLIN REGULAR SUPPLEMENTAL SCALE SQ SCH ×4 (01:52→20:34)
[2016-09-22] MEDS: CHLORHEXIDINE GLUCONATE 2 % 1 PACK (2 CLOTHS) TOP SCH (03:31)
[2016-09-22 07:38] LABS: AUTOMATED NEUTROPHIL # 2.3 TH/MM3 (1.8-7.7); BASOPHIL % 0.2 % (0.0-2.0); EOSINOPHIL # 0.1 TH/MM3 (0-0.4); EOSINOPHIL % 2.5 % (0.0-4.0); HEMATOCRIT 35.9 % (39.0-51.0); LYMPH % 9.4 % (9.0-44.0); LYMPHOCYTE # 0.3 TH/MM3 (1.0-4.8); MEAN CELL VOLUME 91.6 FL (80.0-100.0); MEAN CORPUSCULAR HEMOGLOBIN 29.2 PG (27.0-34.0); MEAN CORPUSCULAR HGB CONC 31.9 % (32.0-36.0); MONO % 20.2 % (0.0-8.0); NEUT % 67.7 % (16.0-70.0); PLATELET COUNT 55 TH/MM3 (150-450); RED BLOOD COUNT 3.92 MIL/MM3 (4.50-5.90); RED CELL DISTRIBUTION WIDTH 16.3 % (11.6-17.2); WHITE BLOOD COUNT 3.4 TH/MM3 (4.0-11.0)
[2016-09-22 07:46] LABS: HEMO FLAGS AUTO DIFF
[2016-09-22 08:12] LABS: BICARBONATE 41.6 MEQ/L (21.0-32.0); MAGNESIUM 1.2 MG/DL (1.5-2.5); POTASSIUM 3.6 MEQ/L (3.5-5.1)
[2016-09-22] MEDS: RESP: ALBUTEROL 2.5 MG/IPRATROPIUM 0.5 MG NEB (SCH) INH ×4 (08:22→20:44)
[2016-09-22 09:18] LABS: PLATELET ESTIMATE SMEAR LOW (NORMAL); PLATELET MORPHOLOGY NORMAL (NORMAL); SCAN/DIFF AUTO DIFF CONFIRMED
[2016-09-22] MEDS: METOPROLOL TARTRATE 50 MG TAB PO SCH ×2 (09:47→20:28)
[2016-09-22] MEDS: clonazePAM 1 MG TAB PO SCH ×3 (09:47→17:41)
[2016-09-22] MEDS: GABAPENTIN 400 MG CAP PO SCH ×3 (09:47→17:42)
[2016-09-22] MEDS: CHOLECALCIFEROL (VIT D3) 5000 UNIT CAP PO SCH (09:47)
[2016-09-22] MEDS: AZITHROMYCIN 250 MG TAB PO SCH (09:47)
[2016-09-22] MEDS: PARoxetine HCL 20 MG TAB PO SCH (09:47)
[2016-09-22] MEDS: FUROSEMIDE 40 MG/4 ML VIAL IV PUSH SCH ×2 (09:47→17:41)
[2016-09-22] MEDS: POTASSIUM CHLORIDE 20 MEQ CONTROLLED RELEASE TAB PO SCH ×2 (09:47→20:28)
[2016-09-22] MEDS: VITAMIN B CMPLX/VITC/FOLIC AC CAP PO SCH (09:47)
[2016-09-22] MEDS: PANTOPRAZOLE SODIUM 40 MG VIAL IV SCH (09:47)
[2016-09-22] MEDS: CYANOCOBALAMIN 1,000 MCG TAB PO SCH (09:47)
[2016-09-22] MEDS: LISINOPRIL 10 MG TAB PO SCH (09:48)
[2016-09-22] MEDS: SODIUM CHLORIDE 0.9% FLUSH 10 ML FLUSH IV FLUSH SCH ×2 (09:48→20:29)
--- NOTE | 2016-09-22 11:50 | HHI.DS ---
Discharge Summary Admission Date Sep 16, 2016 at 07:11 Discharge Date: Sep 25, 2016 Admitting Diagnosis CHF exacerbation, respiratory distress (1) Respiratory distress ICD Code: R06.00 Diagnosis: Principal (2) Pleural effusion ICD Code: J90 Diagnosis: Secondary (3) CHF exacerbation ICD Code: I50.9 Diagnosis: Principal (4) COPD exacerbation ICD Code: J44.1 Diagnosis: Principal (5) Cirrhosis of liver with ascites ICD Code: K74.60 Diagnosis: Secondary (6) Diabetes ICD Code: E11.9 Diagnosis: Secondary (7) Lactic acidosis ICD Code: E87.2 Diagnosis: Secondary (8) Coronary artery disease ICD Code: I25.10 Diagnosis: Secondary (9) Back pain ICD Code: M54.9 Diagnosis: Secondary (10) Chronic pain ICD Code: G89.29 Diagnosis: Secondary Procedures none Brief History - From Admission This is a 61-year-old male with history of CAD, COPD, CHF, CABG, brought in by ambulance from home on CPAP for evaluation of shortness of breath. For last 5 days the patient had had progressive worsening SOB, worsening pedal edema, and worsening abdominal distention. He is denying any chest pain. Shortness of breath is at rest. EMS noted that the patient was severely tachypneic with bibasilar rales and had an O2 saturation in the 70% on the arrived to his home. They started him on CPAP, administered IV morphine, as well as 100 mg of IV Lasix. He had no chest pain. The patient diuresed several 100 cc, and was placed on BiPAP with an FiO2 of 50% . His hairspring assembler is Dr. Sanabria. Patient also reports that for the last several days he has had black/tarry stools. Critical care medicine's consult for management. Upon arrival to the ED the patient was noted to be on BiPAP 10/550% with an O2 sat of 95%, BP 174/95 and a heart rate of 102. History PFSH Past Medical History Hx Anticoagulant Therapy: No Arthritis: Yes Asthma: Yes Autoimmune Disease: No Blood Disorders: No Anxiety: Yes Depression: Yes Heart Rhythm Problems: No Cancer: No Cardiac Catheterization: Yes Cardiovascular Problems: Yes (CABG, MRSA) High Cholesterol: Yes Chemotherapy: No Chest Pain: Yes Congestive Heart Failure: Yes COPD: Yes Cerebrovascular Accident: Yes Coronary Artery Disease: Yes Diabetes: Yes (Type 2) Patient Takes Glucophage: No Diminished Hearing: No GERD: Yes Glaucoma: No Headaches: No Hepatitis: Yes Hiatal Hernia: No Hypertension: Yes Kidney Stones: Yes Musculoskeletal: Yes Neurologic: Yes Psychiatric: Yes Respiratory: Yes (Pneumonia) Myocardial Infarction: Yes Pneumonia: Yes Radiation Therapy: No Renal Failure: No Seizures: Yes Sickle Cell Disease: No Sleep Apnea: Yes Thyroid Disease: No Ulcer: No Past Surgical History Abdominal Surgery: Yes (GALBLADDER) AICD: No Cardiac Surgery: Yes Cholecystectomy: Yes Coronary Artery Bypass Graft: Yes Coronary Stent: Yes Ear Surgery: No Endocrine Surgery: No Eye Surgery: No Genitourinary Surgery: No Oral Surgery: No Pacemaker: No Thoracic Surgery: Yes Other Surgery: Yes (UVULA REMOVED PER PT) Social History Alcohol Use: Yes (ALCOHOLIC) Tobacco Use: Yes Substance Use: Yes Allergies-Medications Allergies-Medications (Allergen,Severity, Reaction): Coded Allergies: Bactrim (Verified Allergy, Severe, Hives, 04/07/16) Codeine (Verified Allergy, Severe, Hives, 04/07/16) Hydrocodone (Verified Allergy, Severe, ITCH, 04/07/16) Minocin (Verified Allergy, Severe, CLOSED THROAT, 04/07/16) Sulfa (Verified Allergy, Severe, Hives, 04/07/16) Vancomycin (Verified Allergy, Severe, Anaphylaxis, 04/07/16) Tetracycline (Verified Allergy, Unknown, Hives, 04/07/16) Reported Meds & Prescriptions Reported Meds & Active Scripts Active Oxygen tank (Oxygen) 1 Ea Tank 2 Liter CATALINA.CANULA CONTINUOUS Oxygen Concentrator Portable Gaseous 2 L/min via Nasal Cannula Continuous For 99 months Ultram (Tramadol HCl) 50 Mg Tab 50 Mg PO Q8H PRN 5 Days Potassium Chloride ER (Potassium Chloride) 20 Meq Tab 20 Meq PO DAILY Prednisone 20 Mg Tab 20 Mg PO DAILY 7 Days Lasix (Furosemide) 40 Mg Tab 40 Mg PO DAILY 30 Days Reported Afrin Nasal [place] (Oxymetazoline HCl) 0.05 % Spr 2 [place] EACH NARE BID [place] Nasal [place] (Sodium Chloride) 0.65% [place] 1 [place] EACH NARE BID Aspirin 81 Mg Chew 81 Mg CHEW DAILY B-12 (Cyanocobalamin) 5,000 Mcg Cap 10,000 Mcg PO BID Vitamin D3 (Cholecalciferol) 10,000 Unit Cap 10,000 Units PO BID Super B-Complex (B-Complex W/Biotin & Folic Acid) 1 Tab 3 Tab PO TID Gabapentin 800 Mg Tab 800 Mg PO TID Klonopin (Clonazepam) 2 Mg Tab 2 Mg PO TID Paxil (Paroxetine HCl) 20 Mg Tab 20 Mg PO DAILY Novolin R Inj (Insulin Human Regular) 1,000 Unit/10 Ml Vial Unknown Dose SQ ACHS Max dose at bedtime:( )units; sugars less than 70,(0) units; sugars 150-199,(2)unit; sugars 200-249,(4)units; sugars 250-299,(7) units; sugars 300-349,(10)units; sugars greater than 349,(12)units Novolin 70-30 Inj (Insulin Human Isoph/Insulin Regular) 1,000 Unit/10 Ml Vial 45 Units SQ BID Omeprazole 20 Mg Tab 20 Mg PO BID Ipratropium Neb (Ipratropium [place]) 0.5 Mg/2.5 Ml Amp 0.5 Mg NEB Q4HR NEB MIX WITH ALBUTEROL Albuterol Neb (Albuterol Sulfate) 2.5 Mg/3 Ml Neb 2.5 Mg NEB Q4HR NEB MIX WITH IPRATROPIUM Sodium Chloride 1 Gm Tab 1 Gm PO DAILY ROS Review of Systems Except as stated in HPI: all other systems reviewed are Neg CBC/BMP: 09/22/16 0656 09/22/16 0656 Significant Findings Laboratory Tests Test 09/20/16 09/21/16 09/22/16 05:40 07:20 06:56 Red Blood Count 3.97 MIL/MM3 4.00 MIL/MM3 3.92 MIL/MM3 (4.50-5.90) (4.50-5.90) (4.50-5.90) Hemoglobin 12.0 GM/DL 11.6 GM/DL 11.4 GM/DL (13.0-17.0) (13.0-17.0) (13.0-17.0) Hematocrit 36.5 % 36.7 % 35.9 % (39.0-51.0) (39.0-51.0) (39.0-51.0) Platelet Count 62 TH/MM3 57 TH/MM3 55 TH/MM3 (150-450) (150-450) (150-450) Potassium Level 3.3 MEQ/L (3.5-5.1) Chloride Level 94 MEQ/L 92 MEQ/L 90 MEQ/L (98-107) (98-107) (98-107) Carbon Dioxide Level 41.3 MEQ/L 38.9 MEQ/L 41.6 MEQ/L (21.0-32.0) (21.0-32.0) (21.0-32.0) Anion Gap 4 MEQ/L (5-15) Blood Urea Nitrogen 39 MG/DL (7-18) 35 MG/DL (7-18) 31 MG/DL (7-18) Estimat Glomerular Filtration 69 ML/MIN (>89) 67 ML/MIN (>89) 77 ML/MIN (>89) Rate Random Glucose 138 MG/DL 194 MG/DL 131 MG/DL (74-106) (74-106) (74-106) Calcium Level 8.3 MG/DL (8.5-10.1) White Blood Count 3.7 TH/MM3 3.4 TH/MM3 (4.0-11.0) (4.0-11.0) Mean Corpuscular Hemoglobin 31.8 % 31.9 % Concent (32.0-36.0) (32.0-36.0) B-Type Natriuretic Peptide 1511 PG/ML (0-100) Monocytes (%) (Auto) 20.2 % (0.0-8.0) Lymphocytes # (Auto) 0.3 TH/MM3 (1.0-4.8) Platelet Estimate LOW (NORMAL) Magnesium Level 1.2 MG/DL (1.5-2.5) Imaging Last Impressions Abdomen/Pelvis CT 09/23/16 0000 Signed Impressions: Service Date/Time: Friday, September 23, 2016 20:15 - CONCLUSION: 1. Findings are characteristic of cirrhosis with enlargement left lobe liver, nodular surface to the right lower liver, marked splenomegaly, a few esophageal varices, and marked ascites. 2. Bilateral pleural effusions, right significantly greater than left. 3. No dilated loops of small or large bowel. 4. Fractures of the left 1st through 3rd transverse processes. Mati Mahajan MD Cyst Biopsy Asp-Paracentesis US 09/17/16 0000 Signed Impressions: Service Date/Time: Saturday, September 17, 2016 11:07 - CONCLUSION: Uncomplicated ultrasound guided paracentesis. Eliezer Sanders MD Chest X-Ray 09/16/16 0543 Signed Impressions: Service Date/Time: Friday, September 16, 2016 05:37 - CONCLUSION: 1. Cardiomegaly and findings of congestive heart failure. 2. Small effusions Maciel Araujo MD Liver Ultrasound 09/16/16 0000 Signed Impressions: Service Date/Time: Friday, September 16, 2016 14:53 - CONCLUSION: 1. Mild ascites with liver enlarged to 18.6 cm. Echogenic liver characteristic of hepatocellular disease or fatty infiltration. 2. Splenomegaly to 17.9 cm. Rl Uribe MD PE at Discharge GENERAL: Obese male appearing older than the stated age, in no acute distress. CARDIOVASCULAR: Normal rate and regular rhythm without murmurs, gallops, or rubs. RESPIRATORY: On NC. Decreased breath sounds. There is diffuse rhonchi and faint expiratory wheezing. GASTROINTESTINAL: Abdomen soft, non-tender, non-distended. Normal active bowel sounds MUSCULOSKELETAL: Bilateral lower extremity with 1+ edema. NEURO: Alert & Oriented x4 to person, place, time, situation. Moves all ext x4 PSYCH: Appropriate mood and affect. Hospital Course 61-year-old male with a past medical history of CHF, cardiomegaly, coronary artery disease status post CABG, COPD who presented with respiratory failure Acute on chronic Respiratory failure with hypoxia. Resolving -Most likely secondary due to combination of COPD exacerbation and CHF exacerbation. -Patient improving. No longer requiring Bipap -See treatment as below. COPD exacerbation oxygen dependent pleural effusions -Patient does have increased sputum production from his baseline and continue to have rhonchi/wheezing. -On azithromycin. Chest x-ray suggests CHF. -Patient declined any treatment with steroids due to side effects and stated that since his breathing is improving he wants to hold off on any steroid treatment. -Continue DuoNeb for wheezing. To follow up as OP with pulm Bacteremia: noted blood cx positive staph coagulase 09/16/16. ID specialist for abx recommendations. Repeat blood cx. 09/21. ID recommends azithromycin CHF exacerbation Pleural effusions -Patient has good urine output. Continue lasix, and aldactone -Strict ins and outs. -Continue to monitor closely. Melena -Status post EGD done on 09/18/16 showing gastric varices with short Mckinney's. Unable to do biopsy due to thrombocytopenia. Has gastric varices as well. -At the moment asymptomatic and hemoglobin is stable. -Monitor. Hepatitis C/liver cirrhosis with ascites -GI consulted -Status post paracentesis with peritoneal fluid culture so far negative. - Lasix and aldactone Anemia of chronic disease -Continue to monitor. -Stable. Continue to monitor H&H. Thrombocytopenia -Most likely secondary to liver disease. -Stable. -Continue to monitor. Type 2 diabetes complicated by peripheral neuropathy -on SSI ( Low scale) for glycemic control Peripheral neuropathy -Patient on gabapentin. Hypokalemia: Replace and monitor. Scheduled K replacement for Lasix Chronic pain syndrome Transverse process fracture -Patient on gabapentin, fentanyl patch, toradol, patient also with cirrhosis. Also on Klonopin, and Paxil. -Patient follows as OP with pain management. Adviced to follow up as OP Pulmonary hypertension/Cardiomegaly/CAD- S/P CABG 2/Coronary stent/Hypertension /history of CVA. -Continue to Monitor HR and BP keep MAP>65mmHg -04/09/16-ECHO PASP 53mmHg. ejection fraction 55% -Blood pressure improving with lisinopril and metoprolol. metoprolol to 50 mg by mouth twice a day. DVT Prophylaxis -Continue with SCDs. Discharge Planning Plan to DC to SNF. To follow up as OP with PCP and consultants Discussed with Dr Purcell neurosurgery, cleared the patient for DC . To follow as OP with pain management Pt Condition on Discharge: Stable Discharge Disposition: Discharge to SNF Discharge Time: > 30 minutes Discharge Instructions DIET: Follow Instructions for: Heart Healthy Diet, Diabetic Diet Activities you can perform: Regular-No Restrictions Follow up Referrals: Gastroenterology - 2 Weeks Pain Management - 3-5 Days PCP Follow-up - 3-5 Days Pulmonology - 2-3 Days New Medications: Magnesium Oxide (Magnesium Oxide) 400 Mg Tab 400 MG PO DAILY Nutritional Supplement #7 Ref 0 TAB Spironolactone (Aldactone) 100 Mg Tab 100 MG PO DAILY ascites #30 Ref 0 TAB Azithromycin (Azithromycin) 250 Mg Tab 250 MG PO DAILY pna #5 TAB Fentanyl Patch 72 HR (Duragesic Patch 72 HR) 25 Mcg/Hr Patch 1 PATCH T-DERMAL Q3D Pain Management #6 PATCH Lisinopril (Lisinopril) 10 Mg Tab 10 MG PO DAILY Blood Pressure Management #10 TAB Continued Medications: Albuterol Neb (Albuterol Neb) 2.5 Mg/3 Ml Neb 2.5 MG NEB Q4HR NEB MIX WITH IPRATROPIUM NEBULE Aspirin (Aspirin) 81 Mg Chew 81 MG CHEW DAILY TAB B-Complex W/Biotin & Folic Acid (Super B-Complex) 1 Tab 3 TAB PO TID Cholecalciferol (Vitamin D3) 10,000 Unit Cap 75420 UNITS PO BID Nutritional Supplement Clonazepam (Klonopin) 2 Mg Tab 2 MG PO TID Anxiety and/or Insomnia #20 TAB (This prescription has been renewed) Cyanocobalamin (B-12) 5,000 Mcg Cap 46036 MCG PO BID Nutritional Supplement Furosemide (Lasix) 40 Mg Tab 40 MG PO DAILY ascites Days 30 TAB Gabapentin (Gabapentin) 800 Mg Tab 800 MG PO TID TAB Insulin Human Isophane-Regular 70-30 Inj (Novolin 70-30 Inj) 1,000 Unit/10 Ml Vial 45 UNITS SQ BID Blood Sugar Management ML Insulin Human Regular Inj (Novolin R Inj) 1,000 Unit/10 Ml Vial Unknown Dose SQ ACHS Max dose at bedtime:( )units; sugars less than 70,(0) units ; sugars 150-199,(2)unit; sugars 200-249,(4)units; sugars 250-299,(7) units; sugars 300-349,(10)units; sugars greater than 349,(12)units Blood Sugar Management ML Ipratropium Neb (Ipratropium Neb) 0.5 Mg/2.5 Ml Amp 0.5 MG NEB Q4HR NEB MIX WITH ALBUTEROL NEBULE Omeprazole (Omeprazole) 20 Mg Tab 20 MG PO BID TAB Oxymetazoline Hcl (Afrin Nasal [place]) 0.05 % Spr 2 [place] EACH NARE BID Paroxetine (Paxil) 20 Mg Tab 20 MG PO DAILY TAB Potassium Chloride ER (Potassium Chloride ER) 20 Meq Tab 20 MEQ PO DAILY Electrolyte Replacement #30 Ref 0 TAB Prednisone (Prednisone) 20 Mg Tab 20 MG PO DAILY copd Days 7 TAB Saline Nasal ([place] Nasal [place]) 0.65% [place] 1 SPRAY EACH NARE BID NASAL CONGESTION BOTTLE Sodium Chloride (Sodium Chloride) 1 Gm Tab 1 GM PO DAILY Electrolyte Replacement TAB Tramadol (Ultram) 50 Mg Tab 50 MG PO Q8H PRN pain 5-10 #20 TAB (This prescription has been renewed) Rosa Guo MD Sep 22, 2016 11:50
[2016-09-22] MEDS ORDERED: ALDA100T PO (11:55)
[2016-09-22] MEDS ORDERED: MAGNESIUM OXIDE 400 MG TAB PO ONE (12:00)
[2016-09-22] MEDS ORDERED: SPIRONOLACTONE 100 MG TAB PO ONE (12:15)
[2016-09-22] MEDS: traMADol HCL 50 MG TAB PO PRN ×2 (12:37→20:53)
[2016-09-22] MEDS: MAGNESIUM OXIDE 400 MG TAB PO SCH ×2 (12:39→20:31)
--- NOTE | 2016-09-22 19:10 | HHI.PR ---
Subjective Remarks Patient is taling only IV pain meds, discussed with the ni=calvin and the patient , will taper down IV pain meds. Patient is breathing better. No chest pain. Has sob, however improving. No n/v/d/c. Had chronic joint pain. Objective Vitals Vital Signs Date Time Temp Pulse Resp B/P Pulse Ox O2 Delivery O2 Flow Rate FiO2 09/22/16 18:06 99 Nasal Cannula 3.00 09/22/16 17:11 22 09/22/16 16:00 98.0 64 18 153/75 95 09/22/16 14:00 22 09/22/16 12:00 97.9 74 16 142/70 96 09/22/16 08:22 98 Nasal Cannula 3.00 09/22/16 08:00 97.6 65 18 138/61 97 09/22/16 04:00 96.5 63 16 134/70 97 09/22/16 00:00 96.7 63 16 146/67 97 09/21/16 23:00 98 Nasal Cannula 3.00 09/21/16 20:33 98 Nasal Cannula 3.00 09/21/16 20:00 97.0 57 16 138/63 97 I/O 09/21/16 09/21/16 09/21/16 09/22/16 09/22/16 09/22/16 07:00 15:00 23:00 07:00 15:00 23:00 Intake Total 480 ml 840 ml 480 ml 720 ml 960 ml Output Total 1100 ml 1000 ml 1050 ml 1500 ml Balance 480 ml -260 ml -520 ml -330 ml -540 ml Intake Oral 480 ml 840 ml 480 ml 720 ml 960 ml Output Urine Total 1100 ml 1000 ml 1050 ml 1500 ml # Bowel Movements 1 0 Result Diagram: 09/22/16 0656 09/22/16 0656 Imaging Last Impressions Cyst Biopsy Asp-Paracentesis US 09/17/16 0000 Signed Impressions: Service Date/Time: Saturday, September 17, 2016 11:07 - CONCLUSION: Uncomplicated ultrasound guided paracentesis. Eliezer Sanders MD Chest X-Ray 09/16/16 0543 Signed Impressions: Service Date/Time: Friday, September 16, 2016 05:37 - CONCLUSION: 1. Cardiomegaly and findings of congestive heart failure. 2. Small effusions Maciel Araujo MD Liver Ultrasound 09/16/16 0000 Signed Impressions: Service Date/Time: Friday, September 16, 2016 14:53 - CONCLUSION: 1. Mild ascites with liver enlarged to 18.6 cm. Echogenic liver characteristic of hepatocellular disease or fatty infiltration. 2. Splenomegaly to 17.9 cm. Rl Uribe MD Objective Remarks GENERAL: Obese male appearing older than the stated age, in no acute distress. CARDIOVASCULAR: Normal rate and regular rhythm without murmurs, gallops, or rubs. RESPIRATORY: On NC. Decreased breath sounds. There is diffuse rhonchi and faint expiratory wheezing. GASTROINTESTINAL: Abdomen soft, non-tender, non-distended. Normal active bowel sounds MUSCULOSKELETAL: Bilateral lower extremity with 1+ edema. NEURO: Alert & Oriented x4 to person, place, time, situation. Moves all ext x4 PSYCH: Appropriate mood and affect. A/P Assessment and Plan 61-year-old male with a past medical history of CHF, cardiomegaly, coronary artery disease status post CABG, COPD who presented with respiratory failure Acute on chronic Respiratory failure with hypoxia. Resolving -Most likely secondary due to combination of COPD exacerbation and CHF exacerbation. -Patient improving. No longer requiring Bipap -See treatment as below. COPD exacerbation oxygen dependent -Patient does have increased sputum production from his baseline and continue to have rhonchi/wheezing. -On azithromycin. Chest x-ray suggests CHF. Sputum Gram stain and culture ordered. -Patient declined any treatment with steroids due to side effects and stated that since his breathing is improving he wants to hold off on any steroid treatment. -Continue DuoNeb for wheezing. Bacteremia: noted blood cx positive staph coagulase 09/16/16. Will ask ID specialist for abx recommendations. Will repeat blood cx. 09/21. ID recommends azithromycin CHF exacerbation -Patient has good urine output. Continue lasix. -Strict ins and outs. -Continue to monitor closely. Melena -Status post EGD done on 09/18/16 showing gastric varices with short Mckinney's. Unable to do biopsy due to thrombocytopenia. Has gastric varices as well. -At the moment asymptomatic and hemoglobin is stable. -Monitor. Hepatitis C/liver cirrhosis with ascites -GI consulted -Status post paracentesis with peritoneal fluid culture so far negative. - Lasix and aldactone Anemia of chronic disease -Continue to monitor. -Stable. Continue to monitor H&H. Thrombocytopenia -Most likely secondary to liver disease. -Stable. -Continue to monitor. Type 2 diabetes complicated by peripheral neuropathy -on SSI ( Low scale) for glycemic control Peripheral neuropathy -Patient on gabapentin. Hypokalemia: Replace and monitor. Scheduled K replacement for Lasix Chronic pain syndrome -Patient on gabapentin, Klonopin, and Paxil. -Patient told that this is chronic pain and is to be managed as outpatient. Tylenol. Pulmonary hypertension/Cardiomegaly/CAD- S/P CABG 2/Coronary stent/Hypertension /history of CVA. -Continue to Monitor HR and BP keep MAP>65mmHg -04/09/16-ECHO PASP 53mmHg. ejection fraction 55% -Blood pressure improving with lisinopril and metoprolol. metoprolol to 50 mg by mouth twice a day. DVT Prophylaxis -Continue with SCDs. Discharge Planning Discharge pending clinical improvement. Plan to DC to SNF. Case management following for DC plan Rosa Guo MD Sep 22, 2016 19:10
[2016-09-23] VITALS (8 sets, daily range): BP systolic 139–167; BP diastolic 62–88; PULSE 60–72; RESP 17–19; TEMP 97.4–98.6; O2SAT 93–97
[2016-09-23] MEDS: MORPHINE SULFATE 4 MG/ML INJ IV PUSH PRN ×3 (01:03→17:13)
[2016-09-23] MEDS: INSULIN NovoLIN REGULAR SUPPLEMENTAL SCALE SQ SCH ×4 (02:25→19:30)
[2016-09-23] MEDS: CHLORHEXIDINE GLUCONATE 2 % 1 PACK (2 CLOTHS) TOP SCH (04:00)
[2016-09-23] MEDS: traMADol HCL 50 MG TAB PO PRN ×2 (05:23→15:44)
[2016-09-23 07:22] LABS: AUTOMATED NEUTROPHIL # 2.6 TH/MM3 (1.8-7.7); BASOPHIL % 0.3 % (0.0-2.0); EOSINOPHIL # 0.1 TH/MM3 (0-0.4); EOSINOPHIL % 1.5 % (0.0-4.0); HEMATOCRIT 33.6 % (39.0-51.0); LYMPH % 8.4 % (9.0-44.0); LYMPHOCYTE # 0.3 TH/MM3 (1.0-4.8); MEAN CELL VOLUME 90.1 FL (80.0-100.0); MEAN CORPUSCULAR HEMOGLOBIN 29.8 PG (27.0-34.0); MEAN CORPUSCULAR HGB CONC 33.1 % (32.0-36.0); MONO % 19.8 % (0.0-8.0); PLATELET COUNT 56 TH/MM3 (150-450); RED BLOOD COUNT 3.73 MIL/MM3 (4.50-5.90); RED CELL DISTRIBUTION WIDTH 16.5 % (11.6-17.2); WHITE BLOOD COUNT 3.8 TH/MM3 (4.0-11.0)
[2016-09-23 07:25] LABS: HEMO FLAGS AUTO DIFF
[2016-09-23 07:42] LABS: BICARBONATE 41.6 MEQ/L (21.0-32.0); MAGNESIUM 1.2 MG/DL (1.5-2.5); POTASSIUM 3.9 MEQ/L (3.5-5.1)
--- NOTE | 2016-09-23 08:14 | HHI.PR ---
Subjective Remarks Patient appears in nad. Denies chest pain. SOB at baseline. No n/v. Pain at baseline, will continue to taper down IV pain meds. With on/offf wheezing. He is refusing steroid use. Cough nonproductive. Objective Vitals Vital Signs Date Time Temp Pulse Resp B/P Pulse Ox O2 Delivery O2 Flow Rate FiO2 09/23/16 04:00 97.6 72 17 152/73 96 09/23/16 00:00 97.6 66 18 150/73 97 09/22/16 20:48 Nasal Cannula 3.00 09/22/16 20:00 97.5 64 19 152/69 97 09/22/16 20:00 Nasal Cannula 3.00 09/22/16 18:06 99 Nasal Cannula 3.00 09/22/16 17:11 22 09/22/16 16:00 98.0 64 18 153/75 95 09/22/16 14:00 22 09/22/16 12:00 97.9 74 16 142/70 96 09/22/16 08:22 98 Nasal Cannula 3.00 I/O 09/22/16 09/22/16 09/22/16 09/23/16 09/23/16 09/23/16 07:00 15:00 23:00 07:00 15:00 23:00 Intake Total 720 ml 960 ml 240 ml 480 ml Output Total 1050 ml 1500 ml 1200 ml 350 ml Balance -330 ml -540 ml -960 ml 130 ml Intake Oral 720 ml 960 ml 240 ml 480 ml Output Urine Total 1050 ml 1500 ml 1200 ml 350 ml # Bowel Movements 0 0 0 Result Diagram: 09/23/16 0650 09/23/16 0650 Imaging Last Impressions Cyst Biopsy Asp-Paracentesis US 09/17/16 0000 Signed Impressions: Service Date/Time: Saturday, September 17, 2016 11:07 - CONCLUSION: Uncomplicated ultrasound guided paracentesis. Eliezer Sanders MD Chest X-Ray 09/16/16 0543 Signed Impressions: Service Date/Time: Friday, September 16, 2016 05:37 - CONCLUSION: 1. Cardiomegaly and findings of congestive heart failure. 2. Small effusions Maciel Araujo MD Liver Ultrasound 09/16/16 0000 Signed Impressions: Service Date/Time: Friday, September 16, 2016 14:53 - CONCLUSION: 1. Mild ascites with liver enlarged to 18.6 cm. Echogenic liver characteristic of hepatocellular disease or fatty infiltration. 2. Splenomegaly to 17.9 cm. Rl Uribe MD Objective Remarks GENERAL: Obese male appearing older than the stated age, in no acute distress. CARDIOVASCULAR: Normal rate and regular rhythm without murmurs, gallops, or rubs. RESPIRATORY: On NC. Decreased breath sounds. There is diffuse rhonchi and faint expiratory wheezing. GASTROINTESTINAL: Abdomen soft, non-tender, non-distended. Normal active bowel sounds MUSCULOSKELETAL: Bilateral lower extremity with 1+ edema. NEURO: Alert & Oriented x4 to person, place, time, situation. Moves all ext x4 PSYCH: Appropriate mood and affect. A/P Assessment and Plan 61-year-old male with a past medical history of CHF, cardiomegaly, coronary artery disease status post CABG, COPD who presented with respiratory failure Acute on chronic Respiratory failure with hypoxia. Resolving -Most likely secondary due to combination of COPD exacerbation and CHF exacerbation. -Patient improving. No longer requiring Bipap -See treatment as below. COPD exacerbation oxygen dependent -Patient does have increased sputum production from his baseline and continue to have rhonchi/wheezing. -On azithromycin. Chest x-ray suggests CHF. Sputum Gram stain and culture ordered. -Patient declined any treatment with steroids due to side effects and stated that since his breathing is improving he wants to hold off on any steroid treatment. -Continue DuoNeb for wheezing. Bacteremia: noted blood cx positive staph coagulase 09/16/16. Will ask ID specialist for abx recommendations. Will repeat blood cx. 09/21. ID recommends azithromycin CHF exacerbation -Patient has good urine output. Continue lasix. -Strict ins and outs. -Continue to monitor closely. Melena -Status post EGD done on 09/18/16 showing gastric varices with short Mckinney's. Unable to do biopsy due to thrombocytopenia. Has gastric varices as well. -At the moment asymptomatic and hemoglobin is stable. -Monitor. Hepatitis C/liver cirrhosis with ascites -GI consulted -Status post paracentesis with peritoneal fluid culture so far negative. - Lasix and aldactone Anemia of chronic disease -Continue to monitor. -Stable. Continue to monitor H&H. Thrombocytopenia -Most likely secondary to liver disease. -Stable. -Continue to monitor. Type 2 diabetes complicated by peripheral neuropathy -on SSI ( Low scale) for glycemic control Peripheral neuropathy -Patient on gabapentin. Hypokalemia: Replace and monitor. Scheduled K replacement for Lasix Chronic pain syndrome -Patient on gabapentin, Klonopin, and Paxil. -Patient told that this is chronic pain and is to be managed as outpatient. Tylenol. Pulmonary hypertension/Cardiomegaly/CAD- S/P CABG 2/Coronary stent/Hypertension /history of CVA. -Continue to Monitor HR and BP keep MAP>65mmHg -04/09/16-ECHO PASP 53mmHg. ejection fraction 55% -Blood pressure improving with lisinopril and metoprolol. metoprolol to 50 mg by mouth twice a day. DVT Prophylaxis -Continue with SCDs. Discharge Planning Plan to DC to SNF. Case management following for DC plan Rosa Guo MD Sep 23, 2016 08:13
[2016-09-23 08:41] LABS: PLATELET ESTIMATE SMEAR LOW (NORMAL); PLATELET MORPHOLOGY NORMAL (NORMAL); SCAN/DIFF AUTO DIFF CONFIRMED
[2016-09-23] MEDS: REMOVE OLD DURAGESIC (FENTANYL) PATCH T-DERMAL SCH (09:00)
[2016-09-23] MEDS: SODIUM CHLORIDE 0.9% FLUSH 10 ML FLUSH IV FLUSH SCH ×2 (09:00→19:30)
[2016-09-23] MEDS: RESP: ALBUTEROL 2.5 MG/IPRATROPIUM 0.5 MG NEB (SCH) INH ×2 (09:06→12:10)
[2016-09-23] MEDS: CYANOCOBALAMIN 1,000 MCG TAB PO SCH (09:11)
[2016-09-23] MEDS: VITAMIN B CMPLX/VITC/FOLIC AC CAP PO SCH (09:12)
[2016-09-23] MEDS: MAGNESIUM OXIDE 400 MG TAB PO SCH ×2 (09:12→19:30)
[2016-09-23] MEDS: PARoxetine HCL 20 MG TAB PO SCH (09:12)
[2016-09-23] MEDS: clonazePAM 1 MG TAB PO SCH ×3 (09:12→17:05)
[2016-09-23] MEDS: METOPROLOL TARTRATE 50 MG TAB PO SCH ×2 (09:12→19:29)
[2016-09-23] MEDS: POTASSIUM CHLORIDE 20 MEQ CONTROLLED RELEASE TAB PO SCH ×2 (09:12→19:29)
[2016-09-23] MEDS: LISINOPRIL 10 MG TAB PO SCH (09:13)
[2016-09-23] MEDS: GABAPENTIN 400 MG CAP PO SCH ×3 (09:13→17:05)
[2016-09-23] MEDS: FUROSEMIDE 40 MG/4 ML VIAL IV PUSH SCH ×2 (09:13→17:08)
[2016-09-23] MEDS: PANTOPRAZOLE SODIUM 40 MG VIAL IV SCH (09:13)
[2016-09-23] MEDS: AZITHROMYCIN 250 MG TAB PO SCH (09:13)
[2016-09-23] MEDS: fentaNYL 25 MCG/HR PATCH T-DERMAL SCH (09:19)
[2016-09-23] MEDS: CHOLECALCIFEROL (VIT D3) 5000 UNIT CAP PO SCH (09:32)
[2016-09-23] MEDS: SPIRONOLACTONE 100 MG TAB PO SCH (09:32)
[2016-09-23] MEDS ORDERED: MAGN400T2 PO (10:33)
[2016-09-23] MEDS: MAGNESIUM SULFATE 1 GM PREMIX 100 ML IV SCH ×2 (11:18→12:38)
--- NOTE | 2016-09-23 15:51 | HHI.GIFU ---
GI Follow-up Note Consult Follow-up Subjective: Patient laying in bed comfortably, more alert, asking for pain medications.Ascites s/p paracentesis, portal hypertension, no sbp.EGD -gastric varices, no indication of active gi bleeding.Feeling better, no nausea, vomiting , abdominal pain Objective: PHYSICAL EXAMINATION: Vitals signs stable No fever Vital Signs Date Time Temp Pulse Resp B/P Pulse Ox O2 Delivery O2 Flow Rate FiO2 09/23/16 12:14 Nasal Cannula 3.00 50 09/23/16 12:00 98.6 66 18 162/88 97 09/23/16 09:06 97 Nasal Cannula 3.00 09/23/16 08:00 97.4 64 18 167/72 93 HEENT: Pupils round and reactive to light; normocephalic; atraumatic; no jaundice. Throat is clear. NECK: Neck is supple, no JVD, no lymphadenopathy. CHEST: Chest is clear to auscultation and percussion. CARDIAC: Regular rate and rhythm with no murmur gallop or rubs. ABDOMEN: Soft, nondistended, nontender; hepatomegaly-indurate ; bowel sounds are present in all four quadrants, obese EXTREMITIES: No clubbing, cyanosis, or edema. 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 Available Data (labs, X- Rays, Procedues) : Laboratory Tests Test 09/22/16 09/23/16 09/23/16 06:56 06:50 14:10 White Blood Count 3.4 TH/MM3 3.8 TH/MM3 Red Blood Count 3.92 MIL/MM3 3.73 MIL/MM3 Hemoglobin 11.4 GM/DL 11.1 GM/DL Hematocrit 35.9 % 33.6 % Mean Corpuscular Volume 91.6 FL 90.1 FL Mean Corpuscular Hemoglobin 29.2 PG 29.8 PG Mean Corpuscular Hemoglobin 31.9 % 33.1 % Concent Red Cell Distribution Width 16.3 % 16.5 % Platelet Count 55 TH/MM3 56 TH/MM3 Mean Platelet Volume 9.7 FL 9.2 FL Neutrophils (%) (Auto) 67.7 % 70.0 % Lymphocytes (%) (Auto) 9.4 % 8.4 % Monocytes (%) (Auto) 20.2 % 19.8 % Eosinophils (%) (Auto) 2.5 % 1.5 % Basophils (%) (Auto) 0.2 % 0.3 % Neutrophils # (Auto) 2.3 TH/MM3 2.6 TH/MM3 Lymphocytes # (Auto) 0.3 TH/MM3 0.3 TH/MM3 Monocytes # (Auto) 0.7 TH/MM3 0.7 TH/MM3 Eosinophils # (Auto) 0.1 TH/MM3 0.1 TH/MM3 Basophils # (Auto) 0.0 TH/MM3 0.0 TH/MM3 CBC Comment AUTO DIFF AUTO DIFF Differential Comment AUTO DIFF AUTO DIFF CONFIRMED CONFIRMED Platelet Estimate LOW LOW Platelet Morphology Comment NORMAL NORMAL Sodium Level 138 MEQ/L 137 MEQ/L Potassium Level 3.6 MEQ/L 3.9 MEQ/L Chloride Level 90 MEQ/L 91 MEQ/L Carbon Dioxide Level 41.6 MEQ/L 41.6 MEQ/L Anion Gap 6 MEQ/L 4 MEQ/L Blood Urea Nitrogen 31 MG/DL 29 MG/DL Creatinine 0.98 MG/DL 0.91 MG/DL Estimat Glomerular Filtration 77 ML/MIN 84 ML/MIN Rate Random Glucose 131 MG/DL 149 MG/DL Calcium Level 9.1 MG/DL 8.9 MG/DL Magnesium Level 1.2 MG/DL 1.2 MG/DL Phosphorus Level 3.8 MG/DL 3.4 MG/DL ASSESSMENT/PLAN: liver cirrhosis secondary etoh abuse melena-egd gastric varices -no active bleeding -hb stable ascites-portal hypertension multiple comorbidities Recommendations 2 gm sodium diet avoid etoh/hepatotoxics alfafetoprotein ct abdomen/pelvis -indurated liver/gastric varices It was a pleasure seeing Sawyer Badillo Thank you for this consult. Entered by: Deandra Lala MD Sep 23, 2016 15:51
[2016-09-23] MEDS ORDERED: DIATRIZOATE MEGLUM/DIATRIZOATE SOD 9 ML CUP PO ONE (16:30)
[2016-09-23] MEDS ORDERED: IOHEXOL 350 MG/ML 10 ML VIAL (for RAD DIAG) IV ONE (20:20)
--- NOTE | 2016-09-23 21:14 | RADRPT ---
EXAM DATE/TIME: 09/23/2016 20:15 [facility] COMPARISON: No previous studies available for comparison. INDICATIONS : Cirrhosis, indurated liver. IV CONTRAST: 95 cc Omnipaque 350 (iohexol) IV ORAL CONTRAST: Prescribed oral contrast ingested. RADIATION DOSE: 21.68 CTDIvol (mGy) MEDICAL HISTORY : Hepatitis. Cardiovascular disease Seizures.Hypertension. Diabetes. Liver disease. CVA. Congestive hea rt failure. SURGICAL HISTORY : CABG Cholecystectomy. ENCOUNTER: Initial ACUITY: 1 day PAIN SCALE: 3/10 LOCATION: Right upper quadrant TECHNIQUE: Volumetric scanning of the abdomen and pelvis was performed. Using automated exposure control and ad justment of the mA and/or kV according to patient size, radiation dose was kept as low as reasonably achievable to obtain optimal diagnostic quality images. FINDINGS: There is a large right pleural effusion and moderate-sized left pleural effusion with a right pleural effusion measuring almost 8 cm in AP dimension. There is associated segmental collapse in the right lower lung and compressive atelectasis of the posterior left lower lobe. In the abdomen, there is moderate ascites tracking along liver, down both paracolic gutters mesentery and a significant amount of ascites in the pelvis causing protuberant abdomen. Oral contrast passes through to the right colon. No dilated loops of small or large bowel. There is enlargement of the left lobe liver and a nodular consistency to the surface of the right lob e of the liver. No focal lesions seen with in the liver. Cholecystectomy. Marked splenomegaly with superior/inferior dimension of the spleen measuring 18.7 cm. No significant retroperitoneal varices seen. There are a few small paraesophageal varices. The pancreas is normal in configuration. The left kidney is inferiorly displaced from the splenomega ly. No evidence of mass or hydronephrosis in either kidney. Old catheter present within a nondisten ded urinary bladder. Inguinal region is unremarkable. Wide windows for bony detail demonstrate minimally displaced fractures of the left 1st, 2nd, and 3rd transverse processes. No bridging callus and no surrounding soft tissue thickening. CONCLUSION: 1. Findings are characteristic of cirrhosis with enlargement left lobe liver, nodular surface to the right lower liver, marked splenomegaly, a few esophageal varices, and marked ascites. 2. Bilateral pleural effusions, right significantly greater than left. 3. No dilated loops of small or large bowel. 4. Fractures of the left 1st through 3rd transverse processes. Mati Mahajan MD on September 23, 2016 at 21:05 Board Certified Radiologist. This report was verified electronically.
[2016-09-23] MEDS ORDERED: RESP: ALBUTEROL 2.5 MG/3 ML NEB (PRN) INH (21:45)
[2016-09-24] VITALS (8 sets, daily range): BP systolic 117–169; BP diastolic 57–77; PULSE 58–75; RESP 17–22; TEMP 96.9–97.7; O2SAT 92–98
[2016-09-24] MEDS: INSULIN NovoLIN REGULAR SUPPLEMENTAL SCALE SQ SCH ×4 (02:08→21:12)
[2016-09-24] MEDS: traMADol HCL 50 MG TAB PO PRN ×3 (02:10→18:24)
[2016-09-24] MEDS: MORPHINE SULFATE 4 MG/ML INJ IV PUSH PRN (03:21)
[2016-09-24] MEDS: CHLORHEXIDINE GLUCONATE 2 % 1 PACK (2 CLOTHS) TOP SCH (03:24)
--- NOTE | 2016-09-24 07:13 | HHI.PR ---
Subjective Remarks Says he has back pain. SOB improved, no cough. Denies chest pain or lightheadedness. No n/v/d/c. Objective Vitals Vital Signs Date Time Temp Pulse Resp B/P Pulse Ox O2 Delivery O2 Flow Rate FiO2 09/24/16 04:00 97.2 64 17 169/70 98 09/24/16 00:00 97.2 62 18 140/66 97 09/23/16 21:30 96 Nasal Cannula 3.00 09/23/16 20:00 3.00 09/23/16 20:00 97.4 60 19 143/62 97 09/23/16 17:57 Nasal Cannula 3.00 50 09/23/16 16:00 97.4 69 18 139/63 94 09/23/16 12:14 Nasal Cannula 3.00 50 09/23/16 12:00 98.6 66 18 162/88 97 09/23/16 09:06 97 Nasal Cannula 3.00 09/23/16 08:00 97.4 64 18 167/72 93 I/O 09/23/16 09/23/16 09/23/16 09/24/16 09/24/16 09/24/16 07:00 15:00 23:00 07:00 15:00 23:00 Intake Total 480 ml 1080 ml 960 ml 480 ml Output Total 350 ml 1500 ml 2000 ml 800 ml Balance 130 ml -420 ml -1040 ml -320 ml Intake Oral 480 ml 1080 ml 960 ml 480 ml Output Urine Total 350 ml 1500 ml 2000 ml 800 ml # Bowel Movements 0 0 1 0 Result Diagram: 09/23/16 0650 09/23/16 0650 Imaging Last Impressions Abdomen/Pelvis CT 09/23/16 0000 Signed Impressions: Service Date/Time: Friday, September 23, 2016 20:15 - CONCLUSION: 1. Findings are characteristic of cirrhosis with enlargement left lobe liver, nodular surface to the right lower liver, marked splenomegaly, a few esophageal varices, and marked ascites. 2. Bilateral pleural effusions, right significantly greater than left. 3. No dilated loops of small or large bowel. 4. Fractures of the left 1st through 3rd transverse processes. Mati Mahajan MD Cyst Biopsy Asp-Paracentesis US 09/17/16 0000 Signed Impressions: Service Date/Time: Saturday, September 17, 2016 11:07 - CONCLUSION: Uncomplicated ultrasound guided paracentesis. Eliezer Sanders MD Chest X-Ray 09/16/16 0543 Signed Impressions: Service Date/Time: Friday, September 16, 2016 05:37 - CONCLUSION: 1. Cardiomegaly and findings of congestive heart failure. 2. Small effusions Maciel Araujo MD Liver Ultrasound 09/16/16 0000 Signed Impressions: Service Date/Time: Friday, September 16, 2016 14:53 - CONCLUSION: 1. Mild ascites with liver enlarged to 18.6 cm. Echogenic liver characteristic of hepatocellular disease or fatty infiltration. 2. Splenomegaly to 17.9 cm. Rl Uribe MD Objective Remarks GENERAL: Obese male appearing older than the stated age, in no acute distress. CARDIOVASCULAR: Normal rate and regular rhythm without murmurs, gallops, or rubs. RESPIRATORY: On NC. Decreased breath sounds. There is diffuse rhonchi and faint expiratory wheezing. GASTROINTESTINAL: Abdomen soft, non-tender, non-distended. Normal active bowel sounds MUSCULOSKELETAL: Bilateral lower extremity with 1+ edema. NEURO: Alert & Oriented x4 to person, place, time, situation. Moves all ext x4 PSYCH: Appropriate mood and affect. A/P Assessment and Plan 61-year-old male with a past medical history of CHF, cardiomegaly, coronary artery disease status post CABG, COPD who presented with respiratory failure Acute on chronic Respiratory failure with hypoxia. Resolving -Most likely secondary due to combination of COPD exacerbation and CHF exacerbation. -Patient improving. No longer requiring Bipap -See treatment as below. COPD exacerbation oxygen dependent -Patient does have increased sputum production from his baseline and continue to have rhonchi/wheezing. -On azithromycin. Chest x-ray suggests CHF. Sputum Gram stain and culture ordered. -Patient declined any treatment with steroids due to side effects and stated that since his breathing is improving he wants to hold off on any steroid treatment. -Continue DuoNeb for wheezing. Bacteremia: noted blood cx positive staph coagulase 09/16/16. Will ask ID specialist for abx recommendations. Will repeat blood cx. 09/21. ID recommends azithromycin CHF exacerbation -Patient has good urine output. Continue lasix. -Strict ins and outs. -Continue to monitor closely. Melena -Status post EGD done on 09/18/16 showing gastric varices with short Mckinney's. Unable to do biopsy due to thrombocytopenia. Has gastric varices as well. -At the moment asymptomatic and hemoglobin is stable. -Monitor. Hepatitis C/liver cirrhosis with ascites -GI consulted -Status post paracentesis with peritoneal fluid culture so far negative. - Lasix and aldactone Anemia of chronic disease -Continue to monitor. -Stable. Continue to monitor H&H. Thrombocytopenia -Most likely secondary to liver disease. -Stable. -Continue to monitor. Type 2 diabetes complicated by peripheral neuropathy -on SSI ( Low scale) for glycemic control Peripheral neuropathy -Patient on gabapentin. Hypokalemia: Replace and monitor. Scheduled K replacement for Lasix Chronic pain syndrome -Patient on gabapentin, Klonopin, and Paxil. -Patient told that this is chronic pain and is to be managed as outpatient. Tylenol. Pulmonary hypertension/Cardiomegaly/CAD- S/P CABG 2/Coronary stent/Hypertension /history of CVA. -Continue to Monitor HR and BP keep MAP>65mmHg -04/09/16-ECHO PASP 53mmHg. ejection fraction 55% -Blood pressure improving with lisinopril and metoprolol. metoprolol to 50 mg by mouth twice a day. DVT Prophylaxis -Continue with SCDs. Discharge Planning Plan to DC to SNF. Case management following for DC plan Rosa Guo MD Sep 24, 2016 07:13
[2016-09-24] MEDS: RESP: ALBUTEROL 2.5 MG/IPRATROPIUM 0.5 MG NEB (SCH) NEB ×4 (08:52→19:10)
[2016-09-24] MEDS: SODIUM CHLORIDE 0.9% FLUSH 10 ML FLUSH IV FLUSH SCH ×2 (08:57→19:57)
[2016-09-24] MEDS: PANTOPRAZOLE SOD 40 MG DELAYED RELEASE TAB PO SCH (08:57)
[2016-09-24] MEDS: GABAPENTIN 400 MG CAP PO SCH ×3 (08:58→18:25)
[2016-09-24] MEDS: POTASSIUM CHLORIDE 20 MEQ CONTROLLED RELEASE TAB PO SCH ×2 (08:58→19:57)
[2016-09-24] MEDS: VITAMIN B CMPLX/VITC/FOLIC AC CAP PO SCH (08:58)
[2016-09-24] MEDS: clonazePAM 1 MG TAB PO SCH ×3 (08:58→18:24)
[2016-09-24] MEDS: CYANOCOBALAMIN 1,000 MCG TAB PO SCH (08:59)
[2016-09-24] MEDS: CHOLECALCIFEROL (VIT D3) 5000 UNIT CAP PO SCH (08:59)
[2016-09-24] MEDS: PARoxetine HCL 20 MG TAB PO SCH (08:59)
[2016-09-24] MEDS: MAGNESIUM OXIDE 400 MG TAB PO SCH ×2 (08:59→19:57)
[2016-09-24] MEDS: FUROSEMIDE 40 MG/4 ML VIAL IV PUSH SCH ×2 (08:59→18:24)
[2016-09-24] MEDS: AZITHROMYCIN 250 MG TAB PO SCH (08:59)
[2016-09-24] MEDS: SPIRONOLACTONE 100 MG TAB PO SCH (09:07)
[2016-09-24] MEDS: METOPROLOL TARTRATE 50 MG TAB PO SCH ×2 (09:07→19:57)
[2016-09-24] MEDS: LISINOPRIL 10 MG TAB PO SCH (09:08)
[2016-09-24 09:48] LABS: AUTOMATED NEUTROPHIL # 2.3 TH/MM3 (1.8-7.7); BASOPHIL % 0.2 % (0.0-2.0); EOSINOPHIL # 0.1 TH/MM3 (0-0.4); EOSINOPHIL % 2.2 % (0.0-4.0); HEMATOCRIT 33.5 % (39.0-51.0); LYMPH % 10.8 % (9.0-44.0); LYMPHOCYTE # 0.4 TH/MM3 (1.0-4.8); MEAN CELL VOLUME 90.1 FL (80.0-100.0); MEAN CORPUSCULAR HEMOGLOBIN 30.2 PG (27.0-34.0); MEAN CORPUSCULAR HGB CONC 33.5 % (32.0-36.0); MONO % 22.5 % (0.0-8.0); NEUT % 64.3 % (16.0-70.0); PLATELET COUNT 64 TH/MM3 (150-450); RED BLOOD COUNT 3.72 MIL/MM3 (4.50-5.90); RED CELL DISTRIBUTION WIDTH 16.2 % (11.6-17.2); WHITE BLOOD COUNT 3.5 TH/MM3 (4.0-11.0)
[2016-09-24 09:51] LABS: HEMO FLAGS AUTO DIFF
[2016-09-24 10:00] LABS: BICARBONATE 40.2 MEQ/L (21.0-32.0); MAGNESIUM 1.4 MG/DL (1.5-2.5)
[2016-09-24 10:24] LABS: PLATELET ESTIMATE SMEAR LOW (NORMAL); PLATELET MORPHOLOGY NORMAL (NORMAL); SCAN/DIFF AUTO DIFF CONFIRMED
[2016-09-24] MEDS: MAGNESIUM SULFATE 1 GM PREMIX 100 ML IV SCH ×2 (19:57→21:12)
[2016-09-24] MEDS ORDERED: MORPHINE SULFATE 4 MG/ML INJ IV PUSH ONE (20:00)
--- NOTE | 2016-09-24 21:07 | HHI.GIFU ---
Subjective Remarks Patient comfortable in bed denies any bleeding denies any pain Objective Vitals I&O Vital Signs Date Time Temp Pulse Resp B/P Pulse Ox O2 Delivery O2 Flow Rate FiO2 09/24/16 16:00 97.7 58 22 138/65 92 09/24/16 15:26 98 Nasal Cannula 3.00 09/24/16 12:00 97.1 75 22 136/63 94 09/24/16 09:15 97 Nasal Cannula 3.00 50 09/24/16 08:52 98 Nasal Cannula 3.00 09/24/16 08:00 96.9 64 20 169/77 95 09/24/16 04:00 97.2 64 17 169/70 98 09/24/16 00:00 97.2 62 18 140/66 97 09/23/16 21:30 96 Nasal Cannula 3.00 I/O 09/23/16 09/23/16 09/23/16 09/24/16 09/24/16 09/24/16 07:00 15:00 23:00 07:00 15:00 23:00 Intake Total 480 ml 1080 ml 960 ml 480 ml 840 ml 720 ml Output Total 350 ml 1500 ml 2000 ml 800 ml 2500 ml 3500 ml Balance 130 ml -420 ml -1040 ml -320 ml -1660 ml -2780 ml Intake Oral 480 ml 1080 ml 960 ml 480 ml 840 ml 720 ml Output Urine Total 350 ml 1500 ml 2000 ml 800 ml 2500 ml 3500 ml # Bowel Movements 0 0 1 0 1 1 Laboratory Laboratory Tests Test 09/24/16 07:53 White Blood Count 3.5 Red Blood Count 3.72 Hemoglobin 11.2 Hematocrit 33.5 Mean Corpuscular Volume 90.1 Mean Corpuscular Hemoglobin 30.2 Mean Corpuscular Hemoglobin 33.5 Concent Red Cell Distribution Width 16.2 Platelet Count 64 Mean Platelet Volume 9.6 Neutrophils (%) (Auto) 64.3 Lymphocytes (%) (Auto) 10.8 Monocytes (%) (Auto) 22.5 Eosinophils (%) (Auto) 2.2 Basophils (%) (Auto) 0.2 Neutrophils # (Auto) 2.3 Lymphocytes # (Auto) 0.4 Monocytes # (Auto) 0.8 Eosinophils # (Auto) 0.1 Basophils # (Auto) 0.0 CBC Comment AUTO DIFF Differential Comment AUTO DIFF CONFIRMED Platelet Estimate LOW Platelet Morphology Comment NORMAL Sodium Level 134 Potassium Level 4.0 Chloride Level 86 Carbon Dioxide Level 40.2 Anion Gap 8 Blood Urea Nitrogen 24 Creatinine 0.96 Estimat Glomerular Filtration 79 Rate Random Glucose 129 Calcium Level 9.5 Phosphorus Level 3.9 Magnesium Level 1.4 B-Type Natriuretic Peptide 885 Date/Time Procedure Status Source Growth 09/21/16 12:26 Aerobic Blood Culture - Preliminary Resulted Blood Peripheral NO GROWTH IN 3 DAYS 09/21/16 12:26 Anaerobic Blood Culture - Preliminary Resulted Blood Peripheral NO GROWTH IN 3 DAYS Imaging Last Impressions Abdomen/Pelvis CT 09/23/16 0000 Signed Impressions: Service Date/Time: Friday, September 23, 2016 20:15 - CONCLUSION: 1. Findings are characteristic of cirrhosis with enlargement left lobe liver, nodular surface to the right lower liver, marked splenomegaly, a few esophageal varices, and marked ascites. 2. Bilateral pleural effusions, right significantly greater than left. 3. No dilated loops of small or large bowel. 4. Fractures of the left 1st through 3rd transverse processes. Mati Mahajan MD Cyst Biopsy Asp-Paracentesis US 09/17/16 0000 Signed Impressions: Service Date/Time: Saturday, September 17, 2016 11:07 - CONCLUSION: Uncomplicated ultrasound guided paracentesis. Eliezer Sanders MD Chest X-Ray 09/16/16 0543 Signed Impressions: Service Date/Time: Friday, September 16, 2016 05:37 - CONCLUSION: 1. Cardiomegaly and findings of congestive heart failure. 2. Small effusions Maciel Araujo MD Liver Ultrasound 09/16/16 0000 Signed Impressions: Service Date/Time: Friday, September 16, 2016 14:53 - CONCLUSION: 1. Mild ascites with liver enlarged to 18.6 cm. Echogenic liver characteristic of hepatocellular disease or fatty infiltration. 2. Splenomegaly to 17.9 cm. Rl Uribe MD Physical Exam HEENT: Normocephalic clear throat NECK: Neck is supple, CHEST: Congested, getting breathing treatment CARDIAC: Regular rate and rhythm with no murmur gallop or rubs. ABDOMEN: Soft, nondistended, nontender; bowel sounds are present in all four quadrants. EXTREMITIES: BLE cellulitis SKIN: Normal; no jaundice. 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 bili 1.6, Lasix 40 mg daily - Thrombocytopenia/ coagulopathy due to cirrhosis. AFP 2.8 - Ascites- s/p paracentesis - Multiple comorbidities, including DM, CHF, CABG, cardiac stents, COPD, hepatorenal syndrome, O2 dependant per [facility] Plan: -Low-salt diet -Continue with current supportive care -Monitor labs - Cont. diuretics - Cont. Protonix - Transfuse as needed - Notify GI for active bleed -Patient follow up with GI post discharge -Recommend nonselective beta ganesh -We will sign off Dustin El MD Sep 24, 2016 21:06
[2016-09-25] VITALS: BP 130/62; PULSE 59; RESP 20; TEMP 96.3; O2SAT 94
[2016-09-25] MEDS: INSULIN NovoLIN REGULAR SUPPLEMENTAL SCALE SQ SCH ×2 (01:27→08:00)
[2016-09-25] MEDS: traMADol HCL 50 MG TAB PO PRN (01:33)
[2016-09-25] MEDS ORDERED: MORPHINE SULFATE 4 MG/ML INJ IV PUSH ONE (02:30)
[2016-09-25] MEDS: CHLORHEXIDINE GLUCONATE 2 % 1 PACK (2 CLOTHS) TOP SCH (03:44)
[2016-09-25 04:00] VITALS: BP 153/66; PULSE 58; RESP 18; TEMP 96.3; O2SAT 93
[2016-09-25] MEDS: MORPHINE SULFATE 4 MG/ML INJ IV PUSH PRN (06:32)
[2016-09-25 07:26] LABS: AUTOMATED NEUTROPHIL # 2.5 TH/MM3 (1.8-7.7); BASOPHIL % 0.4 % (0.0-2.0); EOSINOPHIL # 0.1 TH/MM3 (0-0.4); EOSINOPHIL % 1.8 % (0.0-4.0); HEMATOCRIT 33.4 % (39.0-51.0); LYMPH % 11.4 % (9.0-44.0); LYMPHOCYTE # 0.4 TH/MM3 (1.0-4.8); MEAN CELL VOLUME 88.9 FL (80.0-100.0); MEAN CORPUSCULAR HEMOGLOBIN 29.5 PG (27.0-34.0); MEAN CORPUSCULAR HGB CONC 33.2 % (32.0-36.0); MONO % 22.1 % (0.0-8.0); NEUT % 64.3 % (16.0-70.0); PLATELET COUNT 64 TH/MM3 (150-450); RED BLOOD COUNT 3.76 MIL/MM3 (4.50-5.90); RED CELL DISTRIBUTION WIDTH 16.5 % (11.6-17.2); WHITE BLOOD COUNT 3.9 TH/MM3 (4.0-11.0)
[2016-09-25 07:30] LABS: HEMO FLAGS AUTO DIFF
--- NOTE | 2016-09-25 07:48 | HHI.PR ---
Subjective Remarks Patient is sleepy. Per overnight nurse, he was asking for pain meds morphine IV only all night. Denies chest pain. SOB is improving. Less wheezing. No fevers or chills. Some nonproductive cough. Objective Vitals Vital Signs Date Time Temp Pulse Resp B/P Pulse Ox O2 Delivery O2 Flow Rate FiO2 09/25/16 04:00 96.3 58 18 153/66 93 09/25/16 00:00 96.3 59 20 130/62 94 09/24/16 20:00 96.9 60 20 117/57 92 09/24/16 20:00 Nasal Cannula 3.00 09/24/16 16:00 97.7 58 22 138/65 92 09/24/16 15:26 98 Nasal Cannula 3.00 09/24/16 12:00 97.1 75 22 136/63 94 09/24/16 09:15 97 Nasal Cannula 3.00 50 09/24/16 08:52 98 Nasal Cannula 3.00 09/24/16 08:00 96.9 64 20 169/77 95 I/O 09/24/16 09/24/16 09/24/16 09/25/16 09/25/16 09/25/16 07:00 15:00 23:00 07:00 15:00 23:00 Intake Total 480 ml 840 ml 1200 ml 720 ml Output Total 800 ml 2500 ml 4200 ml 750 ml Balance -320 ml -1660 ml -3000 ml -30 ml Intake Oral 480 ml 840 ml 1200 ml 720 ml Output Urine Total 800 ml 2500 ml 4200 ml 750 ml # Bowel Movements 0 1 1 Result Diagram: 09/25/16 0647 09/24/16 0753 Imaging Last Impressions Abdomen/Pelvis CT 09/23/16 0000 Signed Impressions: Service Date/Time: Friday, September 23, 2016 20:15 - CONCLUSION: 1. Findings are characteristic of cirrhosis with enlargement left lobe liver, nodular surface to the right lower liver, marked splenomegaly, a few esophageal varices, and marked ascites. 2. Bilateral pleural effusions, right significantly greater than left. 3. No dilated loops of small or large bowel. 4. Fractures of the left 1st through 3rd transverse processes. Mati Mahajan MD Cyst Biopsy Asp-Paracentesis US 09/17/16 0000 Signed Impressions: Service Date/Time: Saturday, September 17, 2016 11:07 - CONCLUSION: Uncomplicated ultrasound guided paracentesis. Eliezer Sanders MD Chest X-Ray 09/16/16 0543 Signed Impressions: Service Date/Time: Friday, September 16, 2016 05:37 - CONCLUSION: 1. Cardiomegaly and findings of congestive heart failure. 2. Small effusions Maciel Araujo MD Liver Ultrasound 09/16/16 0000 Signed Impressions: Service Date/Time: Friday, September 16, 2016 14:53 - CONCLUSION: 1. Mild ascites with liver enlarged to 18.6 cm. Echogenic liver characteristic of hepatocellular disease or fatty infiltration. 2. Splenomegaly to 17.9 cm. Rl Uribe MD Objective Remarks GENERAL: Obese male appearing older than the stated age, in no acute distress. CARDIOVASCULAR: Normal rate and regular rhythm without murmurs, gallops, or rubs. RESPIRATORY: On NC. Decreased breath sounds. There is diffuse rhonchi and faint expiratory wheezing. GASTROINTESTINAL: Abdomen soft, non-tender, non-distended. Normal active bowel sounds MUSCULOSKELETAL: Bilateral lower extremity with 1+ edema. NEURO: Alert & Oriented x4 to person, place, time, situation. Moves all ext x4 PSYCH: Appropriate mood and affect. A/P Assessment and Plan 61-year-old male with a past medical history of CHF, cardiomegaly, coronary artery disease status post CABG, COPD who presented with respiratory failure Acute on chronic Respiratory failure with hypoxia. Resolving -Most likely secondary due to combination of COPD exacerbation and CHF exacerbation. -Patient improving. No longer requiring Bipap -See treatment as below. COPD exacerbation oxygen dependent pleural effusions -Patient does have increased sputum production from his baseline and continue to have rhonchi/wheezing. -On azithromycin. Chest x-ray suggests CHF. Sputum Gram stain and culture ordered. -Patient declined any treatment with steroids due to side effects and stated that since his breathing is improving he wants to hold off on any steroid treatment. -Continue DuoNeb for wheezing. To follow up as OP with pulm Bacteremia: noted blood cx positive staph coagulase 09/16/16. Will ask ID specialist for abx recommendations. Will repeat blood cx. 09/21. ID recommends azithromycin CHF exacerbation Pleural effusions -Patient has good urine output. Continue lasix, and aldactone -Strict ins and outs. -Continue to monitor closely. Melena -Status post EGD done on 09/18/16 showing gastric varices with short Mckinney's. Unable to do biopsy due to thrombocytopenia. Has gastric varices as well. -At the moment asymptomatic and hemoglobin is stable. -Monitor. Hepatitis C/liver cirrhosis with ascites -GI consulted -Status post paracentesis with peritoneal fluid culture so far negative. - Lasix and aldactone Anemia of chronic disease -Continue to monitor. -Stable. Continue to monitor H&H. Thrombocytopenia -Most likely secondary to liver disease. -Stable. -Continue to monitor. Type 2 diabetes complicated by peripheral neuropathy -on SSI ( Low scale) for glycemic control Peripheral neuropathy -Patient on gabapentin. Hypokalemia: Replace and monitor. Scheduled K replacement for Lasix Chronic pain syndrome Transverse process fracture -Patient on gabapentin, fentanyl patch, toradol, patient also with cirrhosis. Also on Klonopin, and Paxil. -Patient follows as OP with pain management. Adviced to follow up as OP Pulmonary hypertension/Cardiomegaly/CAD- S/P CABG 2/Coronary stent/Hypertension /history of CVA. -Continue to Monitor HR and BP keep MAP>65mmHg -04/09/16-ECHO PASP 53mmHg. ejection fraction 55% -Blood pressure improving with lisinopril and metoprolol. metoprolol to 50 mg by mouth twice a day. DVT Prophylaxis -Continue with SCDs. Discharge Planning Plan to DC to SNF. To follow up as OP with PCP and consultants Rosa Guo MD Sep 25, 2016 07:48
[2016-09-25 07:52] LABS: BICARBONATE 38.1 MEQ/L (21.0-32.0); MAGNESIUM 1.5 MG/DL (1.5-2.5); POTASSIUM 4.1 MEQ/L (3.5-5.1)
[2016-09-25 07:54] VITALS: O2SAT 98
[2016-09-25] MEDS: RESP: ALBUTEROL 2.5 MG/IPRATROPIUM 0.5 MG NEB (SCH) NEB ×2 (07:54→11:35)
[2016-09-25 08:00] VITALS: BP 120/59; PULSE 60; RESP 18; TEMP 96.6; O2SAT 94
[2016-09-25 08:22] LABS: PLATELET ESTIMATE SMEAR LOW (NORMAL); PLATELET MORPHOLOGY NORMAL (NORMAL); SCAN/DIFF AUTO DIFF CONFIRMED
[2016-09-25] MEDS: METOPROLOL TARTRATE 50 MG TAB PO SCH (08:47)
[2016-09-25] MEDS: PARoxetine HCL 20 MG TAB PO SCH (08:47)
[2016-09-25] MEDS: PANTOPRAZOLE SOD 40 MG DELAYED RELEASE TAB PO SCH (08:47)
[2016-09-25] MEDS: POTASSIUM CHLORIDE 20 MEQ CONTROLLED RELEASE TAB PO SCH (08:47)
[2016-09-25] MEDS: MAGNESIUM OXIDE 400 MG TAB PO SCH (08:47)
[2016-09-25] MEDS: VITAMIN B CMPLX/VITC/FOLIC AC CAP PO SCH (08:47)
[2016-09-25] MEDS: clonazePAM 1 MG TAB PO SCH (08:47)
[2016-09-25] MEDS: AZITHROMYCIN 250 MG TAB PO SCH (08:47)
[2016-09-25] MEDS: LISINOPRIL 10 MG TAB PO SCH (08:47)
[2016-09-25] MEDS: CHOLECALCIFEROL (VIT D3) 5000 UNIT CAP PO SCH (08:47)
[2016-09-25] MEDS: GABAPENTIN 400 MG CAP PO SCH (08:47)
[2016-09-25] MEDS: CYANOCOBALAMIN 1,000 MCG TAB PO SCH (08:47)
[2016-09-25] MEDS: SPIRONOLACTONE 100 MG TAB PO SCH (08:47)
[2016-09-25] MEDS: SODIUM CHLORIDE 0.9% FLUSH 10 ML FLUSH IV FLUSH SCH (08:48)
[2016-09-25] MEDS: FUROSEMIDE 40 MG/4 ML VIAL IV PUSH SCH (08:48)
[2016-09-25] MEDS ORDERED: MORPHINE SULFATE 4 MG/ML INJ IV PUSH PRN (09:00)
--- NOTE | 2016-09-25 09:38 | MB ---
cc: CATHERINEBEKAH DATE OF CONSULTATION 09/24/2016 REASON FOR CONSULTATION Lumbar transverse process fractures. HISTORY OF PRESENT ILLNESS A 61-year-old obese gentleman with multiple medical problems admitted on 09/16/2016 after presenting to the emergency room with dyspnea. He was found to have severe ascites which was tapped. He also relates chronic low back pain and informs us that he was diagnosed with ankylosing spondylitis. He also suffers from peripheral neuropathy and dysesthesias and paresthesias and numbness in his feet. He has had multiple falls the last few months and has chronic back pain. His main complaint is that he is not getting enough pain medications and states that he is taking Dilaudid at home regularly and they are giving me morphine sparingly in the hospital. He has cirrhosis along with severe thrombocytopenia and has had some GI bleeding also but is not a candidate for any intervention given his thrombocytopenia. Abdomen and pelvis CT scan obtained, also reviewed the spine and shows left L1, L2 and L3 transverse process fractures. The spinal alignment is maintained. No vertebral body or facet fractures are noted. Neurosurgery is consulted for the transverse process fractures. PAST MEDICAL HISTORY 1. Congestive heart failure. 2. Coronary artery disease. 3. COPD. Home C-PAP. 4. Ascites with liver failure. 5. Ankylosing spondylitis. 6. Diabetic peripheral neuropathy. 7. Diabetes mellitus. 8. Chronic lower extremity cellulitis. 9. Gastroesophageal reflux. CURRENT MEDICATIONS 1. Morphine 2 mg IV q. 12 hours p.r.n. 2. Protonix. 3. Albuterol. 4. Spironolactone. 5. Magnesium oxide. 6. Potassium chloride. 7. Zithromax. 8. Metoprolol. 9. Lasix. 10. Lisinopril. 11. Insulin sliding scale. 12. Fentanyl 25 mcg patch. 13. Tramadol p.r.n. 14. Klonopin. 15. Gabapentin. 16. Paxil. ALLERGIES CODEINE. HYDROCODONE. BACTRIM. MINOCIN. SULFA. TETRACYCLINE. VANCOMYCIN. LABORATORY FINDINGS White blood cell count 3.9, hemoglobin 11.1, platelet count 64. Sodium 134, potassium 4.1, BUN 22, creatinine 1.01, glucose 109. PHYSICAL EXAMINATION VITAL SIGNS: Temperature 97.7, pulse 58, rest rate 22, blood pressure 138/65, ox saturation 92% on 3 liters nasal cannula. HEAD: Normocephalic, atraumatic. NECK: Supple. CHEST: Scattered rhonchi and decreased bowel sounds. HEART: Regular rate and rhythm, normal S1 and S2. ABDOMEN: Distended although soft and nontender. EXTREMITIES: She has edema. NEUROLOGIC: He is awake, alert. Cranial nerves intact. Motor strength in the upper and lower extremities overall is 5/5. He is ambulating to the bathroom. Decreased sensation distally in a stocking format. Negative Babinski. Speech is fluent. IMPRESSION 1. Left L1, L2 and L3 transverse process fractures likely after a fall which is a stable injury. 2. Multiple medical comorbidities as mentioned above. PLAN The patient does not require any intervention for his lumbar transverse process fractures which is a stable injury. Recommend symptomatic management and would benefit from physical therapy and rehabilitation. Neurosurgery will sign off. MD ANA Johnson/BEBETO /8:29 AM /9:28 AM
[2016-09-25 12:00] VITALS: BP 136/63; PULSE 58; RESP 20; TEMP 97.3; O2SAT 95
== END 2016-09-25 13:48 | DRG 291 ==
LOC: NEPE 05:36 → NEDA 07:11 → HIMW 10:00 → HOCB 09-20 23:55
PROVIDERS: ADMIT Hospitalist; ATTEND Hospitalist
PROC: 5A09457 Assistance with Respiratory Ventilation, 24-96 Consecutive Hours, Continuous Positive Airway Pressure (ICD-10-PCS; 2016-09-16)
PROC: 0W9G3ZZ Drainage of Peritoneal Cavity, Percutaneous Approach (ICD-10-PCS; principal; 2016-09-17)
PROC: 0DJ08ZZ Inspection of Upper Intestinal Tract, Via Natural or Artificial Opening Endoscopic (ICD-10-PCS; 2016-09-18)
PROC: 0DJ08ZZ Inspection of Upper Intestinal Tract, Via Natural or Artificial Opening Endoscopic (ICD-10-PCS; 2016-09-18)
DX: I11.0 Hypertensive heart disease with heart failure (principal); J96.21 Acute and chronic respiratory failure with hypoxia; K76.7 Hepatorenal syndrome; R78.81 Bacteremia; S32.039A Unspecified fracture of third lumbar vertebra, initial encounter for closed fracture; K76.6 Portal hypertension; E87.2 Acidosis; E87.1 Hypo-osmolality and hyponatremia; J44.1 Chronic obstructive pulmonary disease with (acute) exacerbation; K92.1 Melena; L03.116 Cellulitis of left lower limb; L03.115 Cellulitis of right lower limb; Z68.41 Body mass index [BMI] 40.0-44.9, adult; E11.42 Type 2 diabetes mellitus with diabetic polyneuropathy; E11.40 Type 2 diabetes mellitus with diabetic neuropathy, unspecified; D69.6 Thrombocytopenia, unspecified; K76.81 Hepatopulmonary syndrome; G89.4 Chronic pain syndrome; I50.9 Heart failure, unspecified; I27.2 Other secondary pulmonary hypertension; Z99.81 Dependence on supplemental oxygen; I25.10 Atherosclerotic heart disease of native coronary artery without angina pectoris; B19.20 Unspecified viral hepatitis C without hepatic coma; D63.8 Anemia in other chronic diseases classified elsewhere; J45.909 Unspecified asthma, uncomplicated; M45.9 Ankylosing spondylitis of unspecified sites in spine; I86.4 Gastric varices; K21.9 Gastro-esophageal reflux disease without esophagitis; K22.70 Barrett's esophagus without dysplasia; K44.9 Diaphragmatic hernia without obstruction or gangrene; I25.2 Old myocardial infarction; K70.31 Alcoholic cirrhosis of liver with ascites; R16.1 Splenomegaly, not elsewhere classified; E87.6 Hypokalemia; G47.30 Sleep apnea, unspecified; F10.10 Alcohol abuse, uncomplicated; F32.9 Major depressive disorder, single episode, unspecified; F41.9 Anxiety disorder, unspecified; E66.9 Obesity, unspecified; R29.6 Repeated falls; Z72.0 Tobacco use; Z79.4 Long term (current) use of insulin; Z86.14 Personal history of Methicillin resistant Staphylococcus aureus infection; Z86.73 Personal history of transient ischemic attack (TIA), and cerebral infarction without residual deficits; Z88.1 Allergy status to other antibiotic agents; Z88.2 Allergy status to sulfonamides; Z88.5 Allergy status to narcotic agent; Z95.1 Presence of aortocoronary bypass graft; Z95.5 Presence of coronary angioplasty implant and graft
CPT/HCPCS: 36600; 49083; 71010; 74177; 76705; 76937; 80048; 80053; 80076; 81001; 82042; 82105; 82140; 82150; 82550; 82552; 82805; 82945; 82948; 83605; 83615; 83735; 83880; 84100; 84132; 84157; 84484; 85014; 85018; 85025; 85027; 85610; 85730; 86403; 86850; 86900; 86901; 87040; 87070; 87086; 87205; 87641; 88112; 88305; 89051; 93005; 94002; 94003; 94640; 94664; C1729; C9113; J0360; J1940; J2270; J3010; J3475; J3480; J7030; J7613; Q9963; Q9967

== ENCOUNTER 2016-11-11 21:43 | Inpatient (IN) | payer OTHER, MEDICARE ==
[~2016-11-11] VITALS: Ht 172.7 cm; Wt 104.0 kg
[~2016-11-11 21:43] MED LIST changes: +ALDA100T PO; +AZIT250T3 PO; +FENT25T T-DERMAL; -IMDU60TA PO; +LISI10TA3 PO; +MAGN400T2 PO
[2016-11-11 21:46] VITALS: BP 128/68; PULSE 100; RESP 14; O2SAT 100
[2016-11-11] MEDS ORDERED: FUROSEMIDE 100 MG/10 ML VIAL IV PUSH ONE (22:00)
[2016-11-11] MEDS ORDERED: SODIUM CHLORIDE 0.9% FLUSH 10 ML FLUSH IV FLUSH PRN (22:00)
[2016-11-11 22:11] VITALS: BP 171/81; PULSE 99; RESP 15; O2SAT 99
--- NOTE | 2016-11-11 22:22 | RADRPT ---
EXAM DATE/TIME: 11/11/2016 21:58 [facility] COMPARISON: CHEST SINGLE AP, April 09, 2016, 4:30. CHEST SINGLE AP, April 13, 2016, 2:57. CHEST SINGLE AP , September 16, 2016, 5:37. INDICATIONS : Short of breath MEDICAL HISTORY : Hypertension. Myocardial infarction. Diabetes mellitus type II. CVA. CHF. Coronary artery disease . Liver disease. Hepatitis. COPD SURGICAL HISTORY : CABG. Cardiac cath. Coronary stent. ENCOUNTER: Initial ACUITY: 1 day PAIN SCORE: 0/10 LOCATION: Bilateral chest FINDINGS: Stable cardiomegaly. The costophrenic angles are fairly well delineated. There is some patchy linea r opacities in the mid and lower lungs bilaterally similar to prior examination. Prior median sterno joss. CONCLUSION: No evidence of pleural effusion. Bilateral linear opacities in both lungs is similar to prior examin ation 09/16/16. Mati Mahajan MD on November 11, 2016 at 22:19 Board Certified Radiologist. This report was verified electronically.
[2016-11-11 22:35] LABS: AUTOMATED NEUTROPHIL # 3.6 TH/MM3 (1.8-7.7); BASOPHIL % 0.2 % (0.0-2.0); EOSINOPHIL % 0.4 % (0.0-4.0); HEMATOCRIT 29.9 % (39.0-51.0); LYMPH % 6.5 % (9.0-44.0); LYMPHOCYTE # 0.3 TH/MM3 (1.0-4.8); MEAN CELL VOLUME 90.1 FL (80.0-100.0); MEAN CORPUSCULAR HEMOGLOBIN 29.1 PG (27.0-34.0); MEAN CORPUSCULAR HGB CONC 32.3 % (32.0-36.0); MONO % 11.5 % (0.0-8.0); NEUT % 81.4 % (16.0-70.0); PLATELET COUNT 47 TH/MM3 (150-450); RED BLOOD COUNT 3.32 MIL/MM3 (4.50-5.90); RED CELL DISTRIBUTION WIDTH 21.1 % (11.6-17.2); WHITE BLOOD COUNT 4.4 TH/MM3 (4.0-11.0)
[2016-11-11 22:37] LABS: HEMO FLAGS AUTO DIFF
[2016-11-11 22:46] LABS: APTT (PATIENT) 28.2 SEC (24.3-30.1); INTERNATIONAL NORMALIZED RATIO 1.1 RATIO; PROTHROMBIN TIME - PATIENT 12.2 SEC (9.8-11.6)
[2016-11-11 23:03] LABS: ALT (GPT) 30 U/L (12-78); ANION GAP 10 MEQ/L (5-15); AST (GOT) 24 U/L (15-37); BICARBONATE 30.1 MEQ/L (21.0-32.0); BLOOD UREA NITROGEN 14 MG/DL (7-18); CHLORIDE 97 MEQ/L (98-107); GLOMERULAR FILTRATION RATE 96 ML/MIN (>89); POTASSIUM 3.9 MEQ/L (3.5-5.1); SODIUM (NA) 137 MEQ/L (136-145)
[2016-11-11 23:05] LABS: ALKALINE PHOSPHATASE 27 U/L (45-117); OVALOCYTES 1+ (NORMAL); PLATELET ESTIMATE SMEAR LOW (NORMAL); PLATELET MORPHOLOGY NORMAL (NORMAL); SCAN/DIFF AUTO DIFF CONFIRMED; TOTAL BILIRUBIN ADULT 1.7 MG/DL (0.2-1.0)
--- NOTE | 2016-11-11 23:58 | PD ---
HPI Chief Complaint: Respiratory Symptoms Time Seen by Provider: 21:54 Travel History International Travel<30 days: No Contact w/Intl Traveler<30days: No Traveled to known affect area: No History of Present Illness HPI Patient 61-year-old male with a history of CHF liver disease presents emergency Department with swelling in his leg swelling in his abdomen stating that he is short of breath. Patient states this happened to him before his had to be admitted to have his abdomen drained, states she's been following with his regular physicians and has not had any outpatient drainage. States taking his water pills as prescribed. He denies any chest pain denies any abdominal pain but complains of severe "ankylosing spondylitis" pain in his been taking ibuprofen at home without any relief. Denies any injuries. Denies any fevers. PFSH Past Medical History Hx Anticoagulant Therapy: No Arthritis: Yes Asthma: Yes Autoimmune Disease: No Blood Disorders: No Anxiety: Yes Depression: Yes Heart Rhythm Problems: Yes Cancer: No Cardiac Catheterization: Yes Cardiovascular Problems: Yes (CABG, MRSA) High Cholesterol: Yes Chemotherapy: No Chest Pain: Yes Congestive Heart Failure: Yes COPD: Yes Cerebrovascular Accident: Yes Coronary Artery Disease: Yes Diabetes: Yes (Type 2) Patient Takes Glucophage: No Diminished Hearing: No GERD: Yes Glaucoma: No Genitourinary: Yes (prostate) Headaches: No Hepatitis: Yes Hiatal Hernia: No Hypertension: Yes Kidney Stones: Yes Musculoskeletal: Yes Neurologic: Yes Psychiatric: Yes Respiratory: Yes (Pneumonia) Myocardial Infarction: Yes Pneumonia: Yes Radiation Therapy: No Renal Failure: No Seizures: Yes Sickle Cell Disease: No Sleep Apnea: Yes Thyroid Disease: No Ulcer: No Past Surgical History Abdominal Surgery: Yes (GALBLADDER) AICD: No Cardiac Surgery: Yes Cholecystectomy: Yes Coronary Artery Bypass Graft: Yes (x 2 with total 7 vessels) Coronary Stent: Yes (5) Ear Surgery: No Endocrine Surgery: No Eye Surgery: No Genitourinary Surgery: No Oral Surgery: No Pacemaker: No Thoracic Surgery: Yes Other Surgery: Yes (UVULA REMOVED PER PT) Social History Alcohol Use: No (ALCOHOLIC) Tobacco Use: Yes (4-5 cig daily) Substance Use: Yes Allergies-Medications (Allergen,Severity, Reaction): Coded Allergies: Bactrim (Verified Allergy, Severe, Hives, 04/07/16) Codeine (Verified Allergy, Severe, Hives, 04/07/16) Hydrocodone (Verified Allergy, Severe, ITCH, 04/07/16) Minocin (Verified Allergy, Severe, CLOSED THROAT, 04/07/16) Sulfa (Verified Allergy, Severe, Hives, 04/07/16) Vancomycin (Verified Allergy, Severe, Anaphylaxis, 04/07/16) Tetracycline (Verified Allergy, Unknown, Hives, 04/07/16) Reported Meds & Prescriptions Reported Meds & Active Scripts Active Magnesium Oxide 400 Mg Tab 400 Mg PO DAILY Aldactone (Spironolactone) 100 Mg Tab 100 Mg PO DAILY Lisinopril 10 Mg Tab 10 Mg PO DAILY Duragesic Patch 72 HR (Fentanyl) 25 Mcg/Hr Patch 1 Patch T-DERMAL Q3D Azithromycin 250 Mg Tab 250 Mg PO DAILY Ultram (Tramadol HCl) 50 Mg Tab 50 Mg PO Q8H PRN Klonopin (Clonazepam) 2 Mg Tab 2 Mg PO TID Oxygen tank (Oxygen) 1 Ea Tank 2 Liter [place]ALINA.CANULA CONTINUOUS Oxygen Concentrator Portable Gaseous 2 L/min via Nasal Cannula Continuous For 99 months Potassium Chloride ER (Potassium Chloride) 20 Meq Tab 20 Meq PO DAILY Prednisone 20 Mg Tab 20 Mg PO DAILY 7 Days Lasix (Furosemide) 40 Mg Tab 40 Mg PO DAILY 30 Days Reported Afrin Nasal Myrtle (Oxymetazoline HCl) 0.05 % Spr 2 Myrtle EACH NARE BID [place] Nasal Myrtle (Sodium Chloride) 0.65% Myrtle 1 Myrtle EACH NARE BID Aspirin 81 Mg Chew 81 Mg CHEW DAILY B-12 (Cyanocobalamin) 5,000 Mcg Cap 10,000 Mcg PO BID Vitamin D3 (Cholecalciferol) 10,000 Unit Cap 10,000 Units PO BID Super B-Complex (B-Complex W/Biotin & Folic Acid) 1 Tab 3 Tab PO TID Gabapentin 800 Mg Tab 800 Mg PO TID Paxil (Paroxetine HCl) 20 Mg Tab 20 Mg PO DAILY Novolin R Inj (Insulin Human Regular) 1,000 Unit/10 Ml Vial Unknown Dose SQ ACHS Max dose at bedtime:( )units; sugars less than 70,(0) units; sugars 150-199,(2)unit; sugars 200-249,(4)units; sugars 250-299,(7) units; sugars 300-349,(10)units; sugars greater than 349,(12)units Novolin 70-30 Inj (Insulin Human Isoph/Insulin Regular) 1,000 Unit/10 Ml Vial 45 Units SQ BID Omeprazole 20 Mg Tab 20 Mg PO BID Ipratropium Neb (Ipratropium [place]) 0.5 Mg/2.5 Ml Amp 0.5 Mg NEB Q4HR NEB MIX WITH ALBUTEROL Albuterol Neb (Albuterol Sulfate) 2.5 Mg/3 Ml Neb 2.5 Mg NEB Q4HR NEB MIX WITH IPRATROPIUM Sodium Chloride 1 Gm Tab 1 Gm PO DAILY Review of Systems Except as stated in HPI: all other systems reviewed are Neg Physical Exam Narrative GENERAL: Well-developed well-nourished no apparent distress. SKIN: No rash no wound, no jaundice. HEAD: Atraumatic. Normocephalic. EYES: Pupils equal and round. Minimal scleral icterus. No injection or drainage. ENT: No nasal bleeding or discharge. Mucous membranes pink and moist. NECK: Trachea midline. No JVD. CARDIOVASCULAR: Regular rate and rhythm. No murmur appreciated. 2+ bilateral equal pulses in all 4 extremities. RESPIRATORY: No accessory muscle use. Clear to auscultation. Breath sounds equal bilaterally. Minimally tachypneic GASTROINTESTINAL: Abdomen soft, massively distended but nontender. Positive fluid wave. Hepatic and splenic margins not palpable. MUSCULOSKELETAL: No obvious deformities. No clubbing. No cyanosis. Progressive edema bilateral lower extremities all the way to his proximal femur. NEUROLOGICAL: Awake and alert. No obvious cranial nerve deficits. Motor grossly within normal limits. Normal speech. PSYCHIATRIC: Appropriate mood and affect; insight and judgment normal. Data Data Last Documented VS Vital Signs Date Time Temp Pulse Resp B/P Pulse Ox O2 Delivery O2 Flow Rate FiO2 11/11/16 22:11 99 15 171/81 99 Nasal Cannula Orders Complete Blood Count With Diff (11/11/16 22:00) Comprehensive Metabolic Panel (11/11/16 22:00) Lipase (11/11/16 22:00) Prothrombin Time / Inr (Pt) (11/11/16 22:00) Act Partial Throm Time (Ptt) (11/11/16 22:00) Urinalysis - C+S If Indicated (11/11/16 22:00) Iv Access Insert/Monitor (11/11/16 22:00) Ecg Monitoring (11/11/16 22:00) Oximetry (11/11/16 22:00) Sodium Chloride 0.9% Flush (Ns Flush) (11/11/16 22:00) Electrocardiogram (11/11/16 22:00) Chest, Single Ap (11/11/16 22:00) Ammonia (11/11/16 22:00) Furosemide Inj (Lasix Inj) (11/11/16 22:00) Admit Order (Ed Use Only) (11/12/16 ) Labs Laboratory Tests Test 11/11/16 22:00 White Blood Count 4.4 TH/MM3 Red Blood Count 3.32 MIL/MM3 Hemoglobin 9.6 GM/DL Hematocrit 29.9 % Mean Corpuscular Volume 90.1 FL Mean Corpuscular Hemoglobin 29.1 PG Mean Corpuscular Hemoglobin 32.3 % Concent Red Cell Distribution Width 21.1 % Platelet Count 47 TH/MM3 Mean Platelet Volume 7.7 FL Neutrophils (%) (Auto) 81.4 % Lymphocytes (%) (Auto) 6.5 % Monocytes (%) (Auto) 11.5 % Eosinophils (%) (Auto) 0.4 % Basophils (%) (Auto) 0.2 % Neutrophils # (Auto) 3.6 TH/MM3 Lymphocytes # (Auto) 0.3 TH/MM3 Monocytes # (Auto) 0.5 TH/MM3 Eosinophils # (Auto) 0.0 TH/MM3 Basophils # (Auto) 0.0 TH/MM3 CBC Comment AUTO DIFF Differential Comment AUTO DIFF CONFIRMED Platelet Estimate LOW Platelet Morphology Comment NORMAL Ovalocytes 1+ Prothrombin Time 12.2 SEC Prothromb Time International 1.1 RATIO Ratio Activated Partial 28.2 SEC Thromboplast Time Sodium Level 137 MEQ/L Potassium Level 3.9 MEQ/L Chloride Level 97 MEQ/L Carbon Dioxide Level 30.1 MEQ/L Anion Gap 10 MEQ/L Blood Urea Nitrogen 14 MG/DL Creatinine 0.81 MG/DL Estimat Glomerular Filtration 96 ML/MIN Rate Random Glucose 144 MG/DL Calcium Level 8.7 MG/DL Total Bilirubin 1.7 MG/DL Aspartate Amino Transf 24 U/L (AST/SGOT) Alanine Aminotransferase 30 U/L (ALT/SGPT) Alkaline Phosphatase 27 U/L Ammonia 22 MCMOL/L Total Protein 6.2 GM/DL Albumin 2.9 GM/DL Lipase 75 U/L B-Type Natriuretic Peptide 448 PG/ML MDM Medical Decision Making Medical Screen Exam Complete: Yes Emergency Medical Condition: Yes Differential Diagnosis Anasarca, chronic liver failure, spontaneous bacterial peritonitis is unlikely, CHF exacerbation, electrolyte abnormality, chronic pain. Narrative Course Patient was roomed in the emergency department, workup was initiated and then the patient began complaining of pain in his neck. This was conveyed to me by nursing, I went to revisit the patient is sleeping soundly. When he is awoken I have offered ibuprofen and he declined. The patient is fairly fluid overloaded but does not not have indications for emergent paracentesis in patient would benefit from having a paracentesis done on a more controlled urgent setting in the interventional radiology suite. Neurologically he is stable to his oxygen saturations have been acceptable in the emergency department. Recommended him for admission for consideration of our drainage and medical management of his anasarca multiple medical Court morbidities and he is agreeable. Patient was discussed with Dr. Posada for admission. Patient after learning about his observation status became quite irate stating that he doesn't get taken care of well and he is on observation status. We have explained to him multiple times that unfortunately he does not meet full admission criteria ultimately he was agreeable. Diagnosis Primary Impression: Anasarca Additional Impressions: Chronic liver disease Neck pain Admitting Information Admitting Physician Requests: Observation Condition: Stable Eliezer Arroyo MD Nov 11, 2016 23:58
[2016-11-12] VITALS (9 sets, daily range): BP systolic 118–184; BP diastolic 58–90; PULSE 58–101; RESP 16–21; TEMP 97.6–98.6; O2SAT 94–100
[2016-11-12] MEDS ORDERED: BISACODYL 10 MG SUPP RECTAL PRN (00:30)
[2016-11-12] MEDS ORDERED: SODIUM CHLORIDE 0.9% FLUSH 10 ML FLUSH IV FLUSH PRN (00:30)
[2016-11-12] MEDS ORDERED: MAGNESIUM HYDROXIDE SUSP 30 ML CUP PO PRN (00:30)
[2016-11-12] MEDS ORDERED: ONDANSETRON HCL 4 MG/2 ML VIAL IVP PRN (00:30)
[2016-11-12] MEDS ORDERED: LACTULOSE SYRUP 20 GM/30 ML CUP PO PRN (00:30)
[2016-11-12] MEDS ORDERED: SENNOSIDES 8.6 MG TAB PO PRN (00:30)
--- NOTE | 2016-11-12 00:52 | HHI.HP ---
HPI Service [facility] Primary Care Physician Non-Staff Admission Diagnosis Anasarca, Chronic liver disease. Diagnoses: Chief Complaint: sob, edema Travel History International Travel<30 Days: No Contact w/Intl Traveler <30 Da: No Traveled to Known Affected Are: No History of Present Illness 61-year-old male with a past medical history of CAD, COPD, cirrhosis, anxiety, chronic hyponatremia, chronic lower extremity cellulitis, DM, GERD who presented with worsening bilateral lower extremity edema and associated sob. Says he usually has sob, however is worse today. He has a scant nonproductive cough. No n/v/d/c. No chest pain. He complaints of chronic back pain. Says he is also not able to ambulate much because of sob and his chronic pain. Denies fever or chills. No palpitations or lightheadedness. No urinary complaints. Says he id following with pain management for chronic pain. Review of Systems Except as stated in HPI: all other systems reviewed are Neg Past Family Social History Past Medical History CAD Chronic bronchitis Diabetes mellitus Cirrhosis and fatty liver disease Chronic lower extremity cellulitis GERD Anxiety/depression History of MRSA infection Chronic hyponatremia Past Surgical History 2 separate CABG surgeries Paracentesis Cholecystectomy Reported Medications Reported Meds & Active Scripts Active Magnesium Oxide 400 Mg Tab 400 Mg PO DAILY Aldactone (Spironolactone) 100 Mg Tab 100 Mg PO DAILY Lisinopril 10 Mg Tab 10 Mg PO DAILY Duragesic Patch 72 HR (Fentanyl) 25 Mcg/Hr Patch 1 Patch T-DERMAL Q3D Azithromycin 250 Mg Tab 250 Mg PO DAILY Ultram (Tramadol HCl) 50 Mg Tab 50 Mg PO Q8H PRN Klonopin (Clonazepam) 2 Mg Tab 2 Mg PO TID Oxygen tank (Oxygen) 1 Ea Tank 2 Liter CATALINA.CANULA CONTINUOUS Oxygen Concentrator Portable Gaseous 2 L/min via Nasal Cannula Continuous For 99 months Potassium Chloride ER (Potassium Chloride) 20 Meq Tab 20 Meq PO DAILY Prednisone 20 Mg Tab 20 Mg PO DAILY 7 Days Lasix (Furosemide) 40 Mg Tab 40 Mg PO DAILY 30 Days Reported Afrin Nasal [place] (Oxymetazoline HCl) 0.05 % Spr 2 [place] EACH NARE BID [place] Nasal [place] (Sodium Chloride) 0.65% [place] 1 [place] EACH NARE BID Aspirin 81 Mg Chew 81 Mg CHEW DAILY B-12 (Cyanocobalamin) 5,000 Mcg Cap 10,000 Mcg PO BID Vitamin D3 (Cholecalciferol) 10,000 Unit Cap 10,000 Units PO BID Super B-Complex (B-Complex W/Biotin & Folic Acid) 1 Tab 3 Tab PO TID Gabapentin 800 Mg Tab 800 Mg PO TID Paxil (Paroxetine HCl) 20 Mg Tab 20 Mg PO DAILY Novolin R Inj (Insulin Human Regular) 1,000 Unit/10 Ml Vial Unknown Dose SQ ACHS Max dose at bedtime:( )units; sugars less than 70,(0) units; sugars 150-199,(2)unit; sugars 200-249,(4)units; sugars 250-299,(7) units; sugars 300-349,(10)units; sugars greater than 349,(12)units Novolin 70-30 Inj (Insulin Human Isoph/Insulin Regular) 1,000 Unit/10 Ml Vial 45 Units SQ BID Omeprazole 20 Mg Tab 20 Mg PO BID Ipratropium Neb (Ipratropium [place]) 0.5 Mg/2.5 Ml Amp 0.5 Mg NEB Q4HR NEB MIX WITH ALBUTEROL Albuterol Neb (Albuterol Sulfate) 2.5 Mg/3 Ml Neb 2.5 Mg NEB Q4HR NEB MIX WITH IPRATROPIUM Sodium Chloride 1 Gm Tab 1 Gm PO DAILY Allergies: Coded Allergies: Bactrim (Verified Allergy, Severe, Hives, 04/07/16) Codeine (Verified Allergy, Severe, Hives, 04/07/16) Hydrocodone (Verified Allergy, Severe, ITCH, 04/07/16) Minocin (Verified Allergy, Severe, CLOSED THROAT, 04/07/16) Sulfa (Verified Allergy, Severe, Hives, 04/07/16) Vancomycin (Verified Allergy, Severe, Anaphylaxis, 04/07/16) Tetracycline (Verified Allergy, Unknown, Hives, 04/07/16) Family History Father with CAD Social History Continues to smoke Occasional alcohol use Denies illicit drug use Physical Exam Vital Signs Vital Signs Date Time Temp Pulse Resp B/P Pulse Ox O2 Delivery O2 Flow Rate FiO2 11/11/16 22:11 99 15 171/81 99 Nasal Cannula 11/11/16 21:46 100 14 128/68 100 Physical Exam GENERAL: This is a 61 yo male appearing older than the stated age, well- nourished, well-developed patient, sitting up in the bed, with some sob SKIN: No rashes, ecchymoses or lesions. Cool and dry. HEAD: Atraumatic. Normocephalic. No temporal or scalp tenderness. EYES: Pupils equal round and reactive. Extraocular motions intact. No scleral icterus. No injection or drainage. ENT: Nose without bleeding, purulent drainage or septal hematoma. Throat without erythema, tonsillar hypertrophy or exudate. Uvula midline. Airway patent. NECK: Trachea midline. No JVD or lymphadenopathy. Supple, nontender, no meningeal signs. CARDIOVASCULAR: Regular rate and rhythm without murmurs, gallops, or rubs. RESPIRATORY: Decreased breath sounds bilaterally, scattered crackles. No wheezes, rales, or rhonchi. GASTROINTESTINAL: Abdomen soft, non-tender, nondistended. No hepato-splenomegaly , or palpable masses. No guarding. MUSCULOSKELETAL: Extremities without clubbing, cyanosis. There is 3+ bilateral LE edema. No joint tenderness, effusion, or edema noted. No calf tenderness. Negative Homans sign bilaterally. NEUROLOGICAL: Awake and alert. Cranial nerves II through XII intact. Motor and sensory grossly within normal limits. Five out of 5 muscle strength in all muscle groups. Normal speech. Laboratory Laboratory Tests Test 11/11/16 22:00 White Blood Count 4.4 Red Blood Count 3.32 Hemoglobin 9.6 Hematocrit 29.9 Mean Corpuscular Volume 90.1 Mean Corpuscular Hemoglobin 29.1 Mean Corpuscular Hemoglobin 32.3 Concent Red Cell Distribution Width 21.1 Platelet Count 47 Mean Platelet Volume 7.7 Neutrophils (%) (Auto) 81.4 Lymphocytes (%) (Auto) 6.5 Monocytes (%) (Auto) 11.5 Eosinophils (%) (Auto) 0.4 Basophils (%) (Auto) 0.2 Neutrophils # (Auto) 3.6 Lymphocytes # (Auto) 0.3 Monocytes # (Auto) 0.5 Eosinophils # (Auto) 0.0 Basophils # (Auto) 0.0 CBC Comment AUTO DIFF Differential Comment AUTO DIFF CONFIRMED Platelet Estimate LOW Platelet Morphology Comment NORMAL Ovalocytes 1+ Prothrombin Time 12.2 Prothromb Time International 1.1 Ratio Activated Partial 28.2 Thromboplast Time Sodium Level 137 Potassium Level 3.9 Chloride Level 97 Carbon Dioxide Level 30.1 Anion Gap 10 Blood Urea Nitrogen 14 Creatinine 0.81 Estimat Glomerular Filtration 96 Rate Random Glucose 144 Calcium Level 8.7 Total Bilirubin 1.7 Aspartate Amino Transf 24 (AST/SGOT) Alanine Aminotransferase 30 (ALT/SGPT) Alkaline Phosphatase 27 Ammonia 22 Total Protein 6.2 Albumin 2.9 Lipase 75 Result Diagram: 11/11/16219911/11/162199 Imaging Last Impressions Chest X-Ray 11/11/162199 Signed Impressions: Service Date/Time: Friday, November 11, 2016 21:58 - CONCLUSION: No evidence of pleural effusion. Bilateral linear opacities in both lungs is similar to prior examination 09/16/16. Mati Mahajan MD Assessment and Plan Assessment and Plan 61-year-old male with a past medical history of CAD, COPD, cirrhosis, anxiety, chronic hyponatremia, chronic lower extremity cellulitis, DM, GERD who presented with worsening bilateral lower extremity edema and associated sob. CHF with preserved EF 50% (per ECHO 04/18) CHF with exacerbation BNP is 448 however improved comparing with previous. Start lasix 40 mg bid IV . Monitor closely UOP. Will check 2dECHO. COPD, chronic not with exacerbation at his time. As needed nebs. O2 as needed. Cirrhosis with ascites: continue lasix and spironolactone Hypertension: Continue home antihypertensives. Monitor BP. Diabetes mellitus: SSI with Accu-Cheks. Monitor and adjust as need. Thrombocytopenia: Chronic per patient. Secondary to cirrhosis/EtOH . Monitor. Other chronic medical conditions include CAD, anxiety, GERD: Stable of this time , continue home medications as indicated DVT prophylaxis: No chemical prophylaxis due to thrombocytopenia. Teds. Discussed Condition With patient, nurse, ED physician Rosa Guo MD Nov 12, 2016 00:52
[2016-11-12 02:21] LABS: BLOOD, URINE NEG (NEG); COMMENT (UR) CULT NOT INDICATED; CULTURE IF INDICATED CULT NOT INDICATED; GLUCOSE,URINE NEG (NEG); KETONE, URINE NEG (NEG); MUCUS URINE FEW /lpf (OCC); NITRITE,URINE NEG (NEG); SQUAMOUS EPITHELIAL CELL URINE <1 /hpf (0-5); URINE COLOR LIGHT-YELLOW (YELLW/STRAW)
[2016-11-12] MEDS ORDERED: DEXTROSE 50% IN WATER 50 ML VIAL(D50) IV PRN (02:30)
[2016-11-12] MEDS ORDERED: GLUCAGON 1 MG/ML VIAL OTHER PRN (02:30)
[2016-11-12] MEDS: MORPHINE SULFATE 4 MG/ML INJ IV PUSH PRN ×2 (02:42→06:46)
[2016-11-12] MEDS: fentaNYL 25 MCG/HR PATCH T-DERMAL SCH (02:53)
[2016-11-12] MEDS: RESP: ALBUTEROL 2.5 MG/IPRATROPIUM 0.5 MG NEB (PRN) NEB ×2 (04:19→07:30)
[2016-11-12] MEDS ORDERED: INSULIN ASPART SUPPLEMENTAL SCALE SQ SCH (07:00)
[2016-11-12] MEDS: GABAPENTIN 400 MG CAP PO SCH ×3 (09:41→17:47)
[2016-11-12] MEDS: SODIUM CHLORIDE 0.9% FLUSH 10 ML FLUSH IV FLUSH SCH ×2 (09:41→21:00)
[2016-11-12] MEDS: clonazePAM 1 MG TAB PO SCH ×3 (09:42→17:46)
[2016-11-12] MEDS: FUROSEMIDE 40 MG/4 ML VIAL IV PUSH SCH ×2 (09:42→17:47)
[2016-11-12] MEDS: DOCUSATE SODIUM 50 MG/SENNA 8.6 MG TAB PO SCH ×2 (09:42→20:57)
[2016-11-12] MEDS: POTASSIUM CHLORIDE 20 MEQ CONTROLLED RELEASE TAB PO SCH (09:42)
[2016-11-12] MEDS: LISINOPRIL 10 MG TAB PO SCH (09:42)
[2016-11-12 11:02] LABS: POTASSIUM 3.5 MEQ/L (3.5-5.1)
[2016-11-12] MEDS ORDERED: MORPHINE SULFATE 4 MG/ML INJ IM PRN (11:15)
--- NOTE | 2016-11-12 11:26 | HHI.PR ---
Subjective Remarks Follow-up for shortness of breath. The patient is been trying to ambulate in his room today and gets very dyspneic with even a few steps. Shortness of breath is improved with rest. He states that he had a recent admission for CHF exacerbation and had similar symptoms at that time. He is on 3-1/2 L of oxygen at home. He does not follow with a cartography/mapping technician. He does continue to smoke a few cigarettes daily. He feels like his legs have been swelling since his previous admission. He states his left leg is normally more swollen than his right, but his right is significantly larger at this time. Upon questioning, he does feel like his right calf has been painful. He does have chronic pain in his neck, back, hips, knees. He states she's been getting morphine IV and rather given IM because it could affect his breathing. His civil division deputy sheriff is Dr. Sanabria. Objective Vitals Vital Signs Date Time Temp Pulse Resp B/P Pulse Ox O2 Delivery O2 Flow Rate FiO2 11/12/16 08:26 98.0 92 18 169/79 94 11/12/16 07:34 99 Nasal Cannula 3.00 11/12/16 04:19 99 Nasal Cannula 3.00 11/12/16 04:10 99 Nasal Cannula 3.00 11/12/16 01:07 101 18 178/90 100 Room Air 11/11/16 22:11 99 15 171/81 99 Nasal Cannula 11/11/16 21:46 100 14 128/68 100 Result Diagram: 11/11/16 2200 11/12/16 1003 Other Results Laboratory Tests Test 11/11/16 11/12/16 11/12/16 22:00 01:10 10:03 White Blood Count 4.4 TH/MM3 Red Blood Count 3.32 MIL/MM3 Hemoglobin 9.6 GM/DL Hematocrit 29.9 % Mean Corpuscular Volume 90.1 FL Mean Corpuscular Hemoglobin 29.1 PG Mean Corpuscular Hemoglobin 32.3 % Concent Red Cell Distribution Width 21.1 % Platelet Count 47 TH/MM3 Mean Platelet Volume 7.7 FL Neutrophils (%) (Auto) 81.4 % Lymphocytes (%) (Auto) 6.5 % Monocytes (%) (Auto) 11.5 % Eosinophils (%) (Auto) 0.4 % Basophils (%) (Auto) 0.2 % Neutrophils # (Auto) 3.6 TH/MM3 Lymphocytes # (Auto) 0.3 TH/MM3 Monocytes # (Auto) 0.5 TH/MM3 Eosinophils # (Auto) 0.0 TH/MM3 Basophils # (Auto) 0.0 TH/MM3 CBC Comment AUTO DIFF Differential Comment AUTO DIFF CONFIRMED Platelet Estimate LOW Platelet Morphology Comment NORMAL Ovalocytes 1+ Prothrombin Time 12.2 SEC Prothromb Time International 1.1 RATIO Ratio Activated Partial 28.2 SEC Thromboplast Time Total Bilirubin 1.7 MG/DL Aspartate Amino Transf 24 U/L (AST/SGOT) Alanine Aminotransferase 30 U/L (ALT/SGPT) Alkaline Phosphatase 27 U/L Ammonia 22 MCMOL/L Total Protein 6.2 GM/DL Albumin 2.9 GM/DL Lipase 75 U/L B-Type Natriuretic Peptide 448 PG/ML Urine Color LIGHT-YELLOW Urine Turbidity CLEAR Urine pH 5.0 Urine Specific [place] 1.005 Urine Protein NEG mg/dL Urine Glucose (UA) NEG mg/dL Urine Ketones NEG mg/dL Urine Occult Blood NEG Urine Nitrite NEG Urine Bilirubin NEG Urine Urobilinogen LESS THAN 2.0 MG/DL Urine Leukocyte Esterase NEG Urine RBC 1 /hpf Urine WBC 1 /hpf Urine Squamous Epithelial <1 /hpf Cells Urine Mucus FEW /lpf Microscopic Urinalysis Comment CULT NOT INDICATED Sodium Level 135 MEQ/L Potassium Level 3.5 MEQ/L Chloride Level 97 MEQ/L Carbon Dioxide Level 31.0 MEQ/L Anion Gap 7 MEQ/L Blood Urea Nitrogen 22 MG/DL Creatinine 0.96 MG/DL Estimat Glomerular Filtration 79 ML/MIN Rate Random Glucose 270 MG/DL Calcium Level 8.7 MG/DL Imaging Last Impressions Chest X-Ray 11/11/16 2200 Signed Impressions: Service Date/Time: Friday, November 11, 2016 21:58 - CONCLUSION: No evidence of pleural effusion. Bilateral linear opacities in both lungs is similar to prior examination 09/16/16. Mati Mahajan MD Objective Remarks GENERAL: Well-developed well-nourished. Obese. In no acute distress. SKIN: Warm and dry. Multiple well-healed surgical scars of the chest, abdomen, lower extremity. HEENT: Normocephalic. Pupils equal and round. Mucous membranes pink and moist. CARDIOVASCULAR: Regular rate and rhythm. No murmur appreciated. RESPIRATORY: No accessory muscle use. Clear to auscultation. Occasional end expiratory wheezing, worse in the bases. No crackles. GASTROINTESTINAL: Abdomen soft, non-tender, nondistended. Bowel sounds x4. Umbilical hernia. MUSCULOSKELETAL: Bilateral lower extremity with 3+ pitting edema, R>L. TTP. No clubbing or cyanosis. NEUROLOGICAL: Awake and alert. No focal neurological deficits. Moves upper and lower extremities spontaneously. Normal speech. PSYCHIATRIC: Appropriate mood and affect; insight and judgment normal. Procedures No procedures. Medications and IVs Current Medications Medications (Trade) Dose Ordered Sig/Lyn Route Start Time Stop Time Status Last Admin (NS Flush) 2 ml UNSCH PRN IV FLUSH 11/12/16 00:30 (NS Flush) 2 ml BID IV FLUSH 11/12/16 09:00 11/12/16 09:41 (Tylenol) 650 mg Q4H PRN PO 11/12/16 00:30 (Zofran Inj) 4 mg Q6H PRN IVP 11/12/16 00:30 (Melissa-Colace) 1 tab BID PO 11/12/16 09:00 11/12/16 09:42 (Milk Of Magnesia Liq) 30 ml Q12H PRN PO 11/12/16 00:30 (Senokot) 17.2 mg Q12H PRN PO 11/12/16 00:30 (Dulcolax Supp) 10 mg DAILY PRN RECTAL 11/12/16 00:30 (Lactulose Liq) 30 ml DAILY PRN PO 11/12/16 00:30 (Lasix Inj) 40 mg BID@09,18 IV PUSH 11/12/16 09:00 11/12/16 09:42 (KlonoPIN) 2 mg TID PO 11/12/16 09:00 11/12/16 12:16 (Duragesic 25 Mcg Patch.72 Hr) 1 patch Q3D T-DERMAL 11/12/16 02:30 11/12/16 02:53 (Neurontin) 800 mg TID PO 11/12/16 09:00 11/12/16 12:16 (Prinivil) 10 mg DAILY PO 11/12/16 09:00 11/12/16 09:42 (KCl) 20 meq DAILY PO 11/12/16 09:00 11/12/16 09:42 (D50w (Vial) Inj) 50 ml UNSCH PRN IV 11/12/16 02:30 (Glucagon Inj) 1 mg UNSCH PRN OTHER 11/12/16 02:30 (Vasotec Inj) 2.5 mg Q6H PRN IV PUSH 11/12/16 02:45 (NovoLIN 70/30 INJ) 45 units BID SQ 11/12/16 21:00 (SoluMEDROL INJ) 40 mg Q8HR IV PUSH 11/12/16 14:00 11/12/16 14:00 (Msir) 7.5 mg Q6H PRN PO 11/12/16 13:45 Urinary Catheter: No Vascular Central Line Catheter: No A/P Assessment and Plan 61-year-old male with a past medical history of CAD, COPD, cirrhosis, anxiety, chronic hyponatremia, chronic lower extremity cellulitis, DM, GERD who presented with worsening bilateral lower extremity edema and associated sob. Acute exacerbation of chronic diastolic CHF. Preserved EF 50% (per ECHO 04/18) . BNP is 448 however improved compared with previous. Continue Lasix 40 mg bid IV and monitor I's and O. Check 2dECHO. Consult cardiology. Acute exacerbation of COPD with chronic respiratory failure: On 3/2 L O2 at home. Wheezing on exam. Chest x-ray reviewed and unremarkable. Scheduled and as needed nebs. IV Solu-Medrol. O2 as needed. Consult pulmonology. Cirrhosis with ascites/anasarca: Liver ultrasound 09/17 with hepatosplenomegaly and echogenic liver cannot receive penicillin disease or fatty infiltration. Bilirubin 1.7, previously 1.6 on 09/18/16. Continue lasix and spironolactone. Right lower extremity swelling: Possibly secondary to anasarca/ascites. Check Doppler to rule out DVT. Hypertension: Continue home antihypertensives. Monitor BP. Diabetes mellitus: With hyperglycemia. Increase sliding scale with steroid use. Resume home 70/30 twice daily. Check hemoglobin A1c. Monitor Accu-Cheks. Thrombocytopenia: Chronic. Platelets 47, previously 60 form 09/25/16. Secondary to cirrhosis/EtOH. Monitor. Chronic pain: Continue fentanyl patch and gabapentin. Morphine IM for breakthrough. Other chronic medical conditions include CAD, anxiety, GERD: Stable at this time , continue home medications as indicated. DVT prophylaxis: No chemical prophylaxis due to thrombocytopenia. Teds. Discharge Planning Monitor for clinical improvement and follow-up specialist recommendations. Attending Statement discussed with PA and evaluated the potassium low replaced and following. following specialist recommendations. Hawk Ang Nov 12, 2016 11:26 Filiberto Dan MD Nov 12, 2016 16:48
--- NOTE | 2016-11-12 12:11 | ECHRPT ---
Indication: Shortness of breath CONCLUSIONS Normal left ventricular size. Wall thickness is measured at the upper limits of normal. The left ventricular systolic function is normal with an estimated ejection fraction in the range of 55-60%. No regional wall motion abnormalities are present. Doppler parameters are consistent with impaired left ventricular relaxtion (grade 1 diastolic dysfun ction). The left atrial size is mildly dilated. Mild thickening of the mitral valve leaflets. [id number] mitral valve regurgitation. Moderate mitral annular calcification. No mitral valve stenosis. There is trace tricuspid valve regurgitation. Normal estimated pulmonary pressures. BP: 171 / 81 HR: 99 Rhythm: MEASUREMENTS (Male / Female) Normal Values Technical Quality:Good 2D ECHO LV Diastolic Diameter PLAX 5.6 cm 4.2 - 5.9 / 3.9 - 5.3 cm LV Systolic Diameter PLAX 4.1 cm IVS Diastolic Thickness 1.0 cm 0.6 - 1.0 / 0.6 - 0.9 cm LVPW Diastolic Thickness 1.3 cm 0.6 - 1.0 / 0.6 - 0.9 cm LV Relative Wall Thickness 0.4 RV Internal Dim ED PLAX 3.6 cm M-MODE Aortic Root Diameter MM 5.5 cm LA Systolic Diameter MM 3.5 cm LA Ao Ratio MM 0.6 AV Cusp Separation MM 2.0 cm DOPPLER Mitral E Point Velocity 86.9 cm/s Mitral A Point Velocity 100.0 cm/s Mitral E to A Ratio 0.9 LV E' Lateral Velocity 5.0 cm/s Mitral E to LV E' Lateral Ratio 17.5 LV E' Septal Velocity 5.9 cm/s Mitral E to LV E' Septal Ratio 14.9 TR Peak Velocity 213.0 cm/s TR Peak Gradient 18.1 mmHg FINDINGS LEFT VENTRICLE Normal left ventricular size. Wall thickness is measured at the upper limits of normal. The left ventricular systolic function is normal with an estimated ejection fraction in the range of 55-60%. No regional wall motion abnormalities are present. Doppler parameters are consistent with impaired left ventricular relaxtion (grade 1 diastolic dysfun ction). RIGHT VENTRICLE Normal right ventricular size and systolic function. LEFT ATRIUM The left atrial size is mildly dilated. RIGHT ATRIUM The right atrial size is normal. ATRIAL SEPTUM Normal atrial septal thickness without atrial level shunting by limited color doppler interrogation. AORTA The aortic root and proximal ascending aorta are not well visualized. The aortic root and proximal ascending aorta are normal in size on limited imaging. MITRAL VALVE Mild thickening of the mitral valve leaflets. [id number] mitral valve regurgitation. Moderate mitral annular calcification. No mitral valve stenosis. AORTIC VALVE Trileaflet aortic valve. TRICUSPID VALVE There is trace tricuspid valve regurgitation. Normal estimated pulmonary pressures. PULMONARY VALVE The pulmonary valve is not well visualized. VESSELS The inferior vena cava is normal in size. PERICARDIUM No pericardial effusion. Garret Quiles MD, FACC (Electronically Signed) Final Date:12 November 2016 12:11
--- NOTE | 2016-11-12 12:53 | RADRPT ---
EXAM DATE/TIME: 11/12/2016 12:22 [facility] COMPARISON: No previous studies available for comparison. INDICATIONS : Right leg swelling. MEDICAL HISTORY : Myocardial infarction. Congestive heart failure. Hypercholesterolemia. Cataract. CVA. Seizures. CA D. Chest pain. HTN. COPD. Asthma. Pneumonia. Sleep apnea. Dyspnea. Cirrhosis. GERD. Renal calculi. Ar thritis. Diabetes. Liver disease. Jaundice. Hepatitis. PTSD. Substance use. SURGICAL HISTORY : CABG Coronary artery stent. Cholecystectomy. Cardiac cath. Uvula removal. Blood transfusions. ENCOUNTER: Initial ACUITY: 4 - 6 days PAIN SCORE: 10/10 LOCATION: Right leg. TECHNIQUE: Venous ultrasound of the leg was performed from the inguinal ligament to the proximal calf. Real-isadora e, color Doppler and spectral tracing, compression and augmentation techniques were used. FINDINGS: There is normal compressibility of the deep venous system from the inguinal region to the proximal ca lf. No echogenic clot is seen in the lumen of the common femoral, femoral, popliteal, and posterior tibial veins. There is a normal response of the venous system to proximal and distal augmentation an d respiration. CONCLUSION: No evidence of deep venous thrombosis within the right lower extremity. Eliezer Sanders MD on November 12, 2016 at 12:47 Board Certified Radiologist. This report was verified electronically.
[2016-11-12] MEDS: RESP: ALBUTEROL 2.5 MG/IPRATROPIUM 0.5 MG NEB (SCH) NEB ×2 (13:46→21:23)
[2016-11-12] MEDS: methylPREDNISolone SOD SUCC 40 MG/1 ML VIAL IV PUSH SCH ×2 (14:00→23:51)
[2016-11-12] MEDS ORDERED: POTASSIUM CHLORIDE 20 MEQ CONTROLLED RELEASE TAB PO ONE (17:30)
[2016-11-12] MEDS: MORPHINE SULFATE 15 MG TAB PO PRN ×2 (17:47→23:52)
[2016-11-12] MEDS: INSULIN ASPART SUPPLEMENTAL SCALE SQ SCH ×2 (18:01→21:01)
--- NOTE | 2016-11-12 18:41 | EKG ---
Date Performed: 11/11/2016 Time Performed: 21:55:15 PTAGE: 61 years EKG: Sinus rhythm Since previous tracing, no significant change noted. NORMAL ECG PREVIOUS TRACING : 09/16/2016 05.42 DOCTOR: Alexy Drummond Interpretating Date/Time 11/12/2016 18:41:12
[2016-11-12 19:40] LABS: BLOOD GAS BASE EXCESS 6.4 mmol/L (-2-2); BLOOD GAS HCO3 30 mmol/L (22-26); BLOOD GAS METHEMOGLOBIN 0.5 % (0-2); BLOOD GAS O2 HGB SATURATION 95 % (90-100); BLOOD GAS OXYGEN CONTENT 12.7 Vol % (12.0-20.0); BLOOD GAS PCO2 39 mmHg (38-42); BLOOD GAS PO2 90 mmHG (61-120); BLOOD GAS TOTAL HGB 9.5 G/DL (12.0-16.0); CRITICAL VALUE NO; DRAW SITE RT RADIAL; LITER FLOW 3 L/M; NUMBER OF ARTERIAL PUNCTURES 2; OXYGEN DEVICE NASAL CANNULA; STAT YES; TEMP CORR TO 98.6; ULNAR PULSE PRESENT
[2016-11-12] MEDS: INSULIN HUMAN NPH/R 70/30 1,000 UNITS/10 ML VIAL SQ SCH (21:05)
[2016-11-12 22:16] LABS: HEMOGLOBIN LA1C 3.1 %; HEMOGLOBIN P3 4.5 %
[2016-11-12 22:27] LABS: HEMOGLOBIN A1a 1.7 %; HEMOGLOBIN A1b 1.9 %; HEMOGLOBIN Ao 82.2 %
[2016-11-13] VITALS (8 sets, daily range): BP systolic 142–197; BP diastolic 71–98; PULSE 79–96; RESP 18–22; TEMP 97.5–98.8; O2SAT 94–99
[2016-11-13 05:24] LABS: AUTOMATED NEUTROPHIL # 2.8 TH/MM3 (1.8-7.7); HEMATOCRIT 26.9 % (39.0-51.0); LYMPH % 4.3 % (9.0-44.0); LYMPHOCYTE # 0.1 TH/MM3 (1.0-4.8); MEAN CELL VOLUME 89.6 FL (80.0-100.0); MEAN CORPUSCULAR HGB CONC 33.5 % (32.0-36.0); MONO % 6.3 % (0.0-8.0); NEUT % 89.4 % (16.0-70.0); PLATELET COUNT 45 TH/MM3 (150-450); RED CELL DISTRIBUTION WIDTH 21.8 % (11.6-17.2); WHITE BLOOD COUNT 3.1 TH/MM3 (4.0-11.0)
[2016-11-13 05:26] LABS: HEMO FLAGS DIFF FINAL
[2016-11-13 05:34] LABS: ANION GAP 11 MEQ/L (5-15); AST (GOT) 20 U/L (15-37); BICARBONATE 30.4 MEQ/L (21.0-32.0); BLOOD UREA NITROGEN 30 MG/DL (7-18); CHLORIDE 93 MEQ/L (98-107); GLOMERULAR FILTRATION RATE 69 ML/MIN (>89); MAGNESIUM 1.3 MG/DL (1.5-2.5); POTASSIUM 3.8 MEQ/L (3.5-5.1); SODIUM (NA) 134 MEQ/L (136-145)
[2016-11-13 05:42] LABS: ALKALINE PHOSPHATASE 21 U/L (45-117); ALT (GPT) 29 U/L (12-78); TOTAL BILIRUBIN ADULT 0.8 MG/DL (0.2-1.0)
[2016-11-13] MEDS: RESP: ALBUTEROL 2.5 MG/IPRATROPIUM 0.5 MG NEB (PRN) NEB (06:08)
[2016-11-13] MEDS: MORPHINE SULFATE 15 MG TAB PO PRN ×3 (06:08→18:13)
[2016-11-13] MEDS: methylPREDNISolone SOD SUCC 40 MG/1 ML VIAL IV PUSH SCH ×3 (06:09→22:00)
--- NOTE | 2016-11-13 07:34 | MB ---
cc: [facility] [place] DATE OF CONSULTATION 11/12/[address] Rosa Guo REASON FOR CONSULTATION Shortness of breath. HISTORY OF PRESENT ILLNESS Mr. Badillo is a 61-year-old obese male with history of COPD, congestive heart failure and chronic sinusitis. He came to the hospital with worsening of his shortness of breath. He feels that he can barely walk 12 feet and starts getting short of breath and starts shaking because of his shortness of breath. He did not have any fever or chills, no night sweats. He feels that he has gained 20 pounds weight over the last few days. He denies any excess use of liquids or salt. Because of worsening of symptoms he came to the hospital. He had a workup done. He had an ultrasound of the lower extremity which shows no DVT. Chest x-ray shows no evidence of pleural effusion. He had similar linear opacities bilaterally, not changed. His CBC showed WBC count of 4.4, hemoglobin 9.6, hematocrit 29.9, MCV 90, platelet count 47. Sodium 135, potassium 3.55, chloride 97, CO2 31, BUN 22, creatinine 0.9. BNP 448. PAST MEDICAL HISTORY Significant for - 1. History of COPD. 2. Diabetes mellitus. 3. Coronary disease status post CABG. 4. Cirrhosis of the liver. 5. Chronic hyponatremia. 6. GERD. 7. Anxiety depression. 8. Cholecystectomy. MEDICATIONS He is currently taking - 1. Insulin 45 units twice a day. 2. Solu-Medrol 40 mg q. 8-hours. 3. Albuterol/Atrovent nebulizer treatment. 4. Morphine for pain. 5. Lasix 40 mg twice a day. 6. Clonazepam 2 mg three times a day. 7. Neurontin 800 mg three times. 8. Lisinopril 10 mg a day. 9. Potassium 20 mEq a day. 10. Enalapril p.r.n. ALLERGIES BACTRIM. CODEINE. HYDROCODONE. MINOCIN. SULFA. TETRACYCLINE. VANCOMYCIN. SOCIAL HISTORY He is . He has a lady friend with him. He has history of smoking which he has cut down to few cigarettes a day. He drinks wine occasionally. 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 FAMILY HISTORY He has three children. He lives alone. REVIEW OF SYSTEMS He walks only a short distance and he starts huffing and puffing and starts shaking. Occasional diaphoresis. No chest pain. No headache or dizziness. No malignancy. PHYSICAL EXAMINATION GENERAL: Obese male, mildly short of breath even at rest. VITAL SIGNS: Blood pressure 164/83, heart rate 92, respiration 18, temperature 98.6. HEENT EXAMINATION: Pupils are equal and reactive to light. Oral mucosa and nasal mucosa normal. NECK: Supple. JVP not raised. CHEST: He has decreased breath sounds at the bases and a few basilar rales. CV: S1 and S2 normal. ABDOMEN: Obese, nontender. Bowel sounds are present. EXTREMITIES: 2+ pedal edema with redness of the skin. IMPRESSION 1. COPD. 1. History of congestive heart failure. 2. Cellulitis. 3. Cirrhosis of liver. 4. Diabetes mellitus. 5. Coronary artery disease status post CABG. PLAN I will check his blood gas, supplement his oxygen, diurese him with Lasix. He is on IV Solu-Medrol. We will monitor his blood sugar. Further treatment will depend on the course in the hospital. Thank you Dr. Rosa Guo for this consult. Spring Novak MD ADA/SSB /7:13 PM /7:23 AM
[2016-11-13] MEDS: MAGNESIUM SULFATE 1 GM PREMIX 100 ML IV SCH ×2 (08:19→10:12)
[2016-11-13] MEDS: DOCUSATE SODIUM 50 MG/SENNA 8.6 MG TAB PO SCH ×2 (08:27→20:17)
[2016-11-13] MEDS: POTASSIUM CHLORIDE 20 MEQ CONTROLLED RELEASE TAB PO SCH (08:28)
[2016-11-13] MEDS: GABAPENTIN 400 MG CAP PO SCH ×3 (08:28→17:43)
[2016-11-13] MEDS: clonazePAM 1 MG TAB PO SCH ×3 (08:28→17:43)
[2016-11-13] MEDS: LISINOPRIL 10 MG TAB PO SCH (08:28)
[2016-11-13] MEDS: FUROSEMIDE 40 MG/4 ML VIAL IV PUSH SCH ×2 (08:29→17:44)
[2016-11-13] MEDS: SODIUM CHLORIDE 0.9% FLUSH 10 ML FLUSH IV FLUSH SCH ×2 (08:29→20:18)
[2016-11-13] MEDS: INSULIN ASPART SUPPLEMENTAL SCALE SQ SCH ×4 (08:35→21:07)
[2016-11-13] MEDS: INSULIN HUMAN NPH/R 70/30 1,000 UNITS/10 ML VIAL SQ SCH ×2 (08:40→17:49)
[2016-11-13] MEDS: RESP: ALBUTEROL 2.5 MG/IPRATROPIUM 0.5 MG NEB (SCH) NEB ×4 (08:45→19:57)
--- NOTE | 2016-11-13 09:12 | HHI.PR ---
Subjective Remarks Follow-up for shortness of breath. The patient denies any improvement in his shortness of breath today. He states that normally he gets nebulizers more frequently at home. He does report that the oral morphine has helped his back pain significantly, and is requesting a prescription until he can see his pain management physician. He reports good urine output overnight. He states that he is only able to walk a few steps still before he gets extremely dyspneic. He continues report lower extremity swelling. Objective Vitals Vital Signs Date Time Temp Pulse Resp B/P Pulse Ox O2 Delivery O2 Flow Rate FiO2 11/13/16 08:48 94 Nasal Cannula 3.00 11/13/16 07:48 97.5 87 22 166/86 95 11/13/16 00:23 16 11/13/16 00:08 98.7 93 18 142/71 96 11/12/16 21:26 97 Nasal Cannula 3.00 11/12/16 20:31 98.2 91 21 184/86 97 11/12/16 20:00 97.6 58 16 118/58 94 11/12/16 13:07 22 11/12/16 12:19 98.6 92 18 164/83 95 I/O 11/12/16 11/12/16 11/12/16 11/13/16 11/13/16 11/13/16 07:00 15:00 23:00 07:00 15:00 23:00 Intake Total 480 ml 300 ml 200 ml Output Total 1500 ml 500 ml Balance 480 ml -1200 ml -500 ml 200 ml Intake Oral 480 ml 300 ml 200 ml Output Urine Total 1500 ml 500 ml # Voids 3 Result Diagram: 11/13/16 0420 11/13/16 0420 Imaging Last Impressions Lower Extremity Ultrasound 11/12/16 0000 Signed Impressions: Service Date/Time: Saturday, November 12, 2016 12:22 - CONCLUSION: No evidence of deep venous thrombosis within the right lower extremity. Eliezer Sanders MD Chest X-Ray 11/11/160 Signed Impressions: Service Date/Time: Friday, November 11, 2016 21:58 - CONCLUSION: No evidence of pleural effusion. Bilateral linear opacities in both lungs is similar to prior examination 09/16/16. Mati Mahajan MD Objective Remarks GENERAL: Well-developed well-nourished. Obese. In no acute distress. SKIN: Warm and dry. Multiple well-healed surgical scars of the chest, abdomen, lower extremity. HEENT: Normocephalic. Pupils equal and round. Mucous membranes pink and moist. CARDIOVASCULAR: Regular rate and rhythm. No murmur appreciated. RESPIRATORY: No accessory muscle use. Clear to auscultation. Occasional expiratory wheezing with transmitted upper respiratory sounds. No crackles. GASTROINTESTINAL: Abdomen soft, non-tender, nondistended. Bowel sounds x4. Umbilical hernia. MUSCULOSKELETAL: Bilateral lower extremity with 3+ pitting edema, R>L. No clubbing or cyanosis. NEUROLOGICAL: Awake and alert. No focal neurological deficits. Moves upper and lower extremities spontaneously. Normal speech. PSYCHIATRIC: Appropriate mood and affect; insight and judgment normal. Procedures No procedures. A/P Assessment and Plan 61-year-old male with a past medical history of CAD, COPD, cirrhosis, anxiety, chronic hyponatremia, chronic lower extremity cellulitis, DM, GERD who presented with worsening bilateral lower extremity edema and associated sob. Acute exacerbation of chronic diastolic CHF. Echocardiogram reviewed with normal systolic function, EF 5560 %, and grade 1 diastolic dysfunction. BNP is elevated at 448 however improved compared with previous. Continue Lasix 40 mg bid IV and add albumin with diuresis. Replace electrolytes as needed, IV mag today. Monitor I's and O. Consulted cardiology, discussed with Dr. Drummond, recommended treating for cirrhosis with fluid restriction and treating COPD. Acute exacerbation of COPD with chronic respiratory failure: On 3.5 L O2 at home. Wheezing on exam. Chest x-ray reviewed and unremarkable. Scheduled and as needed nebs. IV Solu-Medrol, caution with hyperglycemia. O2 as needed. Consulted pulmonology who recommended ABG, steroids, and diuresis. ABG results reviewed. Cirrhosis with ascites/anasarca: Liver ultrasound 09/17 with hepatosplenomegaly and echogenic liver cannot receive penicillin disease or fatty infiltration. Bilirubin 1.3, previously 1.6 on 09/18/16. Continue lasix and spironolactone. Right lower extremity swelling: Likely secondary to anasarca/ascites. Ultrasound showed no DVT. Hypertension: Continue home antihypertensives. Monitor BP. Diabetes mellitus: With hyperglycemia on steroids. Well-controlled at home with A1c 6.4. Continue home 70/30 twice daily. SSI coverage. Monitor Accu- Cheks. Thrombocytopenia: Chronic. Platelets 45, previously 60 form 09/25/16. Secondary to cirrhosis/EtOH. Monitor. Chronic pain: Continue fentanyl patch and gabapentin. Oral morphine as needed for breakthrough. Instructed patient to follow-up with pain management discharge. Other chronic medical conditions include CAD, anxiety, GERD: Stable at this time , continue home medications as indicated. DVT prophylaxis: No chemical prophylaxis due to thrombocytopenia. Teds. Discharge Planning Monitor for continued clinical improvement and follow-up specialist recommendations. Continue ambulation with PT while admitted. The patient has a caregiver at home. May need HHC or SNF at discharge, discussed with case management. Attending Statement Stable discussed with [facility] will continue to replace her Electrolytes and follow following specialist recommendations. Hawk Ang Nov 13, 2016 09:12 Filiberto Dan MD Nov 13, 2016 17:11
[2016-11-13] MEDS: PARoxetine HCL 20 MG TAB PO SCH (10:00)
[2016-11-13] MEDS: ACETAMINOPHEN 325 MG TAB PO PRN ×2 (10:51→12:00)
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
[2016-11-13 12:25] LABS: AMPHETAMINE, URINE NEG (NEG); BARBITURATES, URINE NEG (NEG); COCAINE, URINE NEG (NEG)
[2016-11-13] MEDS: ALBUMIN HUMAN 5% 12.5 GM/250 ML BOTTLE IV SCH (17:44)
--- NOTE | 2016-11-13 20:16 | HHI.PR ---
Subjective Remarks 61 YOWM with Cirrhosis, COPD,CAD has sob Started IV Albumin Diureasing On VM Objective Vital Signs Vital Signs Date Time Temp Pulse Resp B/P Pulse Ox O2 Delivery O2 Flow Rate FiO2 11/13/16 19:59 99 Nasal Cannula 3.00 11/13/16 19:13 18 11/13/16 18:00 151/78 11/13/16 15:45 98.2 79 20 162/78 96 11/13/16 11:50 98.4 96 22 177/83 96 11/13/16 08:48 94 Nasal Cannula 3.00 11/13/16 07:48 97.5 87 22 166/86 95 11/13/16 00:08 98.7 93 18 142/71 96 11/12/16 21:26 97 Nasal Cannula 3.00 11/12/16 20:31 98.2 91 21 184/86 97 I/O 11/12/16 11/12/16 11/12/16 11/13/16 11/13/16 11/13/16 07:00 15:00 23:00 07:00 15:00 23:00 Intake Total 480 ml 300 ml 200 ml 900 ml Output Total 1500 ml 500 ml 1200 ml Balance 480 ml -1200 ml -500 ml 200 ml -300 ml Intake Oral 480 ml 300 ml 200 ml 500 ml IV Total 400 ml Output Urine Total 1500 ml 500 ml 1200 ml # Voids 3 6 Result Diagram: 11/13/1641911/13/16419 Objective Remarks GENERAL: WBWN Obese male, mild sob SKIN: Warm and dry. HEAD: Normocephalic. EYES: No scleral icterus. No injection or drainage. NECK: Supple, trachea midline. No JVD or lymphadenopathy. CARDIOVASCULAR: Regular rate and rhythm without murmurs, gallops, or rubs. RESPIRATORY: Breath sounds equal bilaterally. No accessory muscle use. basal rales GASTROINTESTINAL: Abdomen soft, non-tender, nondistended. MUSCULOSKELETAL: No cyanosis, ++ edema. BACK: Nontender without obvious deformity. No CVA tenderness. A/P Assessment and Plan COPD CAD Cirrhosis of Liver Cellulitis GERD PLAN: Aerosol nebs IV Solumedrol Diurease IV Albumin Supplement 02 to keep sat >90% Hector Jones MD Nov 13, 2016 20:16
[2016-11-14] VITALS (10 sets, daily range): BP systolic 141–182; BP diastolic 68–95; PULSE 74–87; RESP 18–20; TEMP 97.6–98.8; O2SAT 95–99
[2016-11-14] MEDS: ENALAPRILAT 2.5 MG/2 ML VIAL IV PUSH PRN ×3 (00:14→22:43)
[2016-11-14] MEDS: MORPHINE SULFATE 15 MG TAB PO PRN ×4 (00:56→18:18)
[2016-11-14] MEDS: RESP: ALBUTEROL 2.5 MG/IPRATROPIUM 0.5 MG NEB (PRN) NEB (03:40)
[2016-11-14] MEDS: methylPREDNISolone SOD SUCC 40 MG/1 ML VIAL IV PUSH SCH ×3 (06:24→22:43)
[2016-11-14 07:24] LABS: ANION GAP 9 MEQ/L (5-15); AST (GOT) 30 U/L (15-37); BICARBONATE 31.5 MEQ/L (21.0-32.0); BLOOD UREA NITROGEN 32 MG/DL (7-18); CHLORIDE 93 MEQ/L (98-107); GLOMERULAR FILTRATION RATE 89 ML/MIN (>89); MAGNESIUM 1.8 MG/DL (1.5-2.5); POTASSIUM 3.7 MEQ/L (3.5-5.1); SODIUM (NA) 133 MEQ/L (136-145)
[2016-11-14 07:25] LABS: ALT (GPT) 35 U/L (12-78)
[2016-11-14 07:26] LABS: ALKALINE PHOSPHATASE 20 U/L (45-117); TOTAL BILIRUBIN ADULT 0.8 MG/DL (0.2-1.0)
[2016-11-14] MEDS: RESP: ALBUTEROL 2.5 MG/IPRATROPIUM 0.5 MG NEB (SCH) NEB ×4 (07:45→19:41)
[2016-11-14] MEDS ORDERED: POTASSIUM CHLORIDE 20 MEQ CONTROLLED RELEASE TAB PO ONE (08:15)
[2016-11-14] MEDS: INSULIN HUMAN NPH/R 70/30 1,000 UNITS/10 ML VIAL SQ SCH ×2 (08:56→18:11)
[2016-11-14] MEDS: clonazePAM 1 MG TAB PO SCH ×3 (08:57→18:09)
[2016-11-14] MEDS: INSULIN ASPART SUPPLEMENTAL SCALE SQ SCH ×4 (08:57→22:46)
[2016-11-14] MEDS: DOCUSATE SODIUM 50 MG/SENNA 8.6 MG TAB PO SCH ×2 (08:58→22:43)
[2016-11-14] MEDS: LISINOPRIL 10 MG TAB PO SCH (08:58)
[2016-11-14] MEDS: MAGNESIUM OXIDE 400 MG TAB PO SCH (08:58)
[2016-11-14] MEDS: GABAPENTIN 400 MG CAP PO SCH ×3 (08:58→18:08)
[2016-11-14] MEDS: FUROSEMIDE 40 MG/4 ML VIAL IV PUSH SCH ×2 (08:59→18:09)
[2016-11-14] MEDS: PARoxetine HCL 20 MG TAB PO SCH (08:59)
[2016-11-14] MEDS: SODIUM CHLORIDE 0.9% FLUSH 10 ML FLUSH IV FLUSH SCH ×2 (08:59→22:42)
[2016-11-14] MEDS: ALBUMIN HUMAN 5% 12.5 GM/250 ML BOTTLE IV SCH (09:00)
[2016-11-14] MEDS: POTASSIUM CHLORIDE 20 MEQ CONTROLLED RELEASE TAB PO SCH (09:03)
--- NOTE | 2016-11-14 10:23 | HHI.PR ---
Subjective Remarks Follow up for shortness of breath. The patient states he's miserable today. He reports continued shortness of breath, productive cough, wheezing, and dyspnea on exertion. He reports only minimal improvement since his arrival to the ER. He reports continued bilateral leg swelling, not improved. He does not feel ready for discharge. He reports generalized weakness and states he needs rehab. He is requesting a decongestant for his cough and a nasal spray for his allergies. Objective Vitals Vital Signs Date Time Temp Pulse Resp B/P Pulse Ox O2 Delivery O2 Flow Rate FiO2 11/14/16 07:49 98.1 81 20 182/95 97 11/14/16 07:46 97 Nasal Cannula 3.00 11/14/16 07:27 98.4 74 18 141/68 98 11/14/16 02:51 16 11/14/16 00:00 98.0 74 18 167/88 97 11/13/16 20:00 98.8 88 18 197/98 98 11/13/16 19:59 99 Nasal Cannula 3.00 11/13/16 18:00 151/78 11/13/16 15:45 98.2 79 20 162/78 96 11/13/16 11:50 98.4 96 22 177/83 96 I/O 11/13/16 11/13/16 11/13/16 11/14/16 11/14/16 11/14/16 07:00 15:00 23:00 07:00 15:00 23:00 Intake Total 200 ml 1100 ml 200 ml Output Total 500 ml 1600 ml Balance -500 ml 200 ml -500 ml 200 ml Intake Oral 200 ml 700 ml 200 ml IV Total 400 ml Output Urine Total 500 ml 1600 ml # Voids 6 Result Diagram: 11/13/16 0420 11/14/16 0615 Imaging Last Impressions Lower Extremity Ultrasound 11/12/16 0000 Signed Impressions: Service Date/Time: Saturday, November 12, 2016 12:22 - CONCLUSION: No evidence of deep venous thrombosis within the right lower extremity. Eliezer Sanders MD Chest X-Ray 11/11/16 2200 Signed Impressions: Service Date/Time: Friday, November 11, 2016 21:58 - CONCLUSION: No evidence of pleural effusion. Bilateral linear opacities in both lungs is similar to prior examination 09/16/16. Mati Mahajan MD Objective Remarks GENERAL: Well-nourished, well-developed obese male patient in NAD. SKIN: Warm and dry. No rash. HEENT: Normocephalic. Atraumatic. Pupils equal and round. Mucous membranes pink and moist. NECK: Supple. Trachea midline. CARDIOVASCULAR: Regular rate and rhythm. S1, S2 noted. No murmur appreciated. RESPIRATORY: No accessory muscle use. Poor air movement throughout all lung lopez, with diffuse expiratory wheezing. Breath sounds equal bilaterally. GASTROINTESTINAL: Abdomen soft, non-tender, nondistended. Normoactive bowel sounds x4. MUSCULOSKELETAL: No obvious deformities. 3+ bilateral lower extremity pitting edema. NEUROLOGICAL: Awake and alert. No obvious cranial nerve deficits. Motor grossly within normal limits. Normal speech. PSYCHIATRIC: Appropriate mood and affect; insight and judgment normal. Procedures No procedures. Medications and IVs Current Medications Medications (Trade) Dose Ordered Sig/Lyn Route Start Time Stop Time Status Last Admin (NS Flush) 2 ml UNSCH PRN IV FLUSH 11/12/16 00:30 (NS Flush) 2 ml BID IV FLUSH 11/12/16 09:00 11/14/16 08:59 (Tylenol) 650 mg Q4H PRN PO 11/12/16 00:30 11/13/16 12:00 (Zofran Inj) 4 mg Q6H PRN IVP 11/12/16 00:30 (Melissa-Colace) 1 tab BID PO 11/12/16 09:00 11/14/16 08:58 (Milk Of Magnesia Liq) 30 ml Q12H PRN PO 11/12/16 00:30 (Senokot) 17.2 mg Q12H PRN PO 11/12/16 00:30 (Dulcolax Supp) 10 mg DAILY PRN RECTAL 11/12/16 00:30 (Lactulose Liq) 30 ml DAILY PRN PO 11/12/16 00:30 (Lasix Inj) 40 mg BID@,18 IV PUSH 11/12/16 09:00 11/14/16 08:59 (KlonoPIN) 2 mg TID PO 11/12/16 09:00 11/14/16 08:57 (Duragesic 25 Mcg Patch.72 Hr) 1 patch Q3D T-DERMAL 11/12/16 02:30 11/12/16 02:53 (Neurontin) 800 mg TID PO 11/12/16 09:00 11/14/16 08:58 (Prinivil) 10 mg DAILY PO 11/12/16 09:00 11/14/16 08:58 (KCl) 20 meq DAILY PO 11/12/16 09:00 11/14/16 09:03 (D50w (Vial) Inj) 50 ml UNSCH PRN IV 11/12/16 02:30 (Glucagon Inj) 1 mg UNSCH PRN OTHER 11/12/16 02:30 (Vasotec Inj) 2.5 mg Q6H PRN IV PUSH 11/12/16 02:45 11/14/16 00:14 (SoluMEDROL INJ) 40 mg Q8HR IV PUSH 11/12/16 14:00 11/14/16 06:24 (Msir) 7.5 mg Q6H PRN PO 11/12/16 13:45 11/14/16 07:14 (Mag-Ox) 400 mg DAILY PO 11/14/16 09:00 11/14/16 08:58 (Paxil) 20 mg DAILY PO 11/13/16 10:00 11/14/16 08:59 (Albumin 5% Inj) 12.5 gm BID@,18 IV 11/13/16 18:00 11/14/16 09:00 (NovoLIN 70/30 INJ) 45 units BIDAC SQ 11/13/16 16:00 11/14/16 08:56 (Mucinex Er) 600 mg BID PO 11/14/16 21:00 UNV (Mucinex Er) 600 mg ONCE ONCE PO 11/14/16 10:15 11/14/16 10:16 UNV (Flonase Phil Spr) 2 spray DAILY EACH NARE 11/14/16 10:15 UNV A/P Assessment and Plan 61-year-old male with a past medical history of CAD, COPD, cirrhosis, anxiety, chronic hyponatremia, chronic lower extremity cellulitis, DM, GERD who presented with worsening bilateral lower extremity edema and associated sob. Acute exacerbation of chronic diastolic CHF. Echocardiogram reviewed with normal systolic function, EF 5560 %, and grade 1 diastolic dysfunction. BNP elevated at 448 however improved compared with previous. Continue Lasix 40 mg bid IV and added albumin with diuresis. Replace electrolytes. Monitor I's & Os. Consulted cardiology, Dr. Drummond recommended treating for cirrhosis with fluid restriction and treating COPD. Acute exacerbation of COPD with chronic respiratory failure: On 3.5 L O2 at home. +Wheezing on exam. CXR reviewed and unremarkable. Scheduled and as needed nebs. IV Solu-Medrol, caution with hyperglycemia. O2 as needed. Consulted pulmonology who recommended ABG, steroids, and diuresis. ABG results reviewed. Check CT-PA to rule out pulmonary embolism as patient still significantly short of breath. Cirrhosis with ascites/anasarca: Liver ultrasound 09/16/16 with mild ascites, liver enlarged to 18.6cm, echogenic liver characteristic of hepatocellular disease or fatty infiltration; splenomegaly 17.9cm. \Bilirubin 1.3, previously 1.6 on 09/18/16. Continue lasix and spironolactone. Right lower extremity swelling: Likely secondary to anasarca/ascites. Doppler Ultrasound negative for DVT. Hypertension: Continue home lisinopril. Monitor BP. Still elevated today, will increase lisinopril to 20mg daily. Diabetes mellitus: With hyperglycemia on steroids. Well-controlled at home with A1c 6.4. Continue home 70/30 twice daily. SSI coverage. Monitor Accu- Cheks. Thrombocytopenia: Chronic. Platelets 45, previously 60 form 09/25/16. Secondary to cirrhosis/EtOH. Monitor. Chronic pain: Continue fentanyl patch and gabapentin. Oral morphine as needed for breakthrough. Instructed patient to follow-up with pain management discharge. Other chronic medical conditions include CAD, anxiety, GERD: Stable at this time , continue home medications as indicated. DVT prophylaxis: No chemical prophylaxis due to thrombocytopenia. Teds. Discharge Planning Not yet ready for discharge. Admit to inpatient. Failed 3days observation treatment. Likely needs SNF at discharge. Attending Statement Patient seen in his bedroom, discussed with [facility] Gabriella Neli Pham will add Spironolactone 50 mg daily. following specialist recommendations. Moderate Ascites, will follow for probable Paracentesis. Neli hPam PA-C Nov 14, 2016 10:23 Filiberto Dan MD Nov 14, 2016 17:00
[2016-11-14] MEDS ORDERED: guaiFENesin E.R. 600 MG TAB PO ONE (10:30)
[2016-11-14] MEDS: FLUTICASONE PROPIONATE 50 MCG/ACT 16 GM NASAL SPRAY EACH NARE SCH (12:43)
[2016-11-14] MEDS ORDERED: IOHEXOL 350 MG/ML 10 ML VIAL (for RAD DIAG) IV ONE (13:32)
--- NOTE | 2016-11-14 14:27 | RADRPT ---
EXAM DATE/TIME: 11/14/2016 13:32 [facility] COMPARISON: No previous studies available for comparison. INDICATIONS : Dyspnea. IV CONTRAST: 70 cc Omnipaque 350 (iohexol) IV RADIATION DOSE: 23.35 CTDIvol (mGy) MEDICAL HISTORY : Cardiovascular disease. Hypertension. SURGICAL HISTORY : CABG ENCOUNTER: Initial ACUITY: 1 day PAIN SCALE: 0/10 LOCATION: chest TECHNIQUE: Volumetric scanning of the chest was performed using a pulmonary embolism protocol MIP images were re constructed. Using automated exposure control and adjustment of the mA and/or kV according to patien t size, radiation dose was kept as low as reasonably achievable to obtain optimal diagnostic quality images. FINDINGS: There is cardiomegaly with evidence for previous bypass. There is no pericardial effusion identified . There is a small right pleural effusion with minimal pleural thickening evident. There is good vi sualization of the central pulmonary vessels. There is no evidence for central pulmonary emboli. Liver is small and shrunken with moderate ascites evident. CONCLUSION: 1. There is no evidence for central pulmonary emboli. 2. Small right pleural effusion. 3. Moderate ascites. 4. There is no adenopathy. Brendan Tripathi MD FACR on November 14, 2016 at 13:44 Board Certified Radiologist. This report was verified electronically.
[2016-11-14] MEDS ORDERED: LISINOPRIL 10 MG TAB PO ONE (16:30)
[2016-11-14] MEDS: ALBUMIN HUMAN 25% 12.5 GM/50 ML BAGP IV SCH (17:00)
[2016-11-14] MEDS ORDERED: SPIRONOLACTONE 50 MG TAB PO SCH (18:00)
--- NOTE | 2016-11-14 18:27 | HHI.PR ---
Subjective Remarks 61 YOWM with Cirrhosis, COPD,CAD has sob Started IV Albumin Diureasing On VM Had CTA, no PE, small Pl effusion Objective Vital Signs Vital Signs Date Time Temp Pulse Resp B/P Pulse Ox O2 Delivery O2 Flow Rate FiO2 11/14/16 18:26 148/78 11/14/16 15:54 97.9 84 20 168/80 95 11/14/16 14:35 97.8 82 18 152/74 96 11/14/16 12:26 97.6 87 20 180/79 97 11/14/16 07:49 98.1 81 20 182/95 97 11/14/16 07:46 97 Nasal Cannula 3.00 11/14/16 07:27 98.4 74 18 141/68 98 11/14/16 02:51 16 11/14/16 00:00 98.0 74 18 167/88 97 11/13/16 20:00 98.8 88 18 197/98 98 11/13/16 19:59 99 Nasal Cannula 3.00 I/O 11/13/16 11/13/16 11/13/16 11/14/16 11/14/16 11/14/16 07:00 15:00 23:00 07:00 15:00 23:00 Intake Total 200 ml 1100 ml 200 ml 600 ml Output Total 500 ml 1600 ml 3100 ml Balance -500 ml 200 ml -500 ml 200 ml -2500 ml Intake Oral 200 ml 700 ml 200 ml 600 ml IV Total 400 ml Output Urine Total 500 ml 1600 ml 3100 ml # Voids 6 Result Diagram: 11/13/16 0420 11/14/16 0615 Objective Remarks GENERAL: WBWN Obese male, mild sob SKIN: Warm and dry. HEAD: Normocephalic. EYES: No scleral icterus. No injection or drainage. NECK: Supple, trachea midline. No JVD or lymphadenopathy. CARDIOVASCULAR: Regular rate and rhythm without murmurs, gallops, or rubs. RESPIRATORY: Breath sounds equal bilaterally. No accessory muscle use. basal rales GASTROINTESTINAL: Abdomen soft, non-tender, nondistended. MUSCULOSKELETAL: No cyanosis, ++ edema. BACK: Nontender without obvious deformity. No CVA tenderness. A/P Assessment and Plan COPD CAD Cirrhosis of Liver Cellulitis GERD Pleural effusion PLAN: Aerosol nebs IV Solumedrol Diurease IV Albumin Supplement 02 to keep sat >90% Hector Jones MD Nov 14, 2016 18:27
[2016-11-14] MEDS: guaiFENesin E.R. 600 MG TAB PO SCH (22:43)
[2016-11-15] VITALS: BP 181/87; PULSE 88; RESP 18; TEMP 98; O2SAT 97
[2016-11-15] MEDS: MORPHINE SULFATE 15 MG TAB PO PRN ×2 (01:13→06:50)
[2016-11-15] MEDS: fentaNYL 25 MCG/HR PATCH T-DERMAL SCH (03:16)
[2016-11-15 04:00] VITALS: BP 191/90; PULSE 88; RESP 18; TEMP 98; O2SAT 96
[2016-11-15] MEDS: RESP: ALBUTEROL 2.5 MG/IPRATROPIUM 0.5 MG NEB (PRN) NEB (05:30)
[2016-11-15] MEDS: methylPREDNISolone SOD SUCC 40 MG/1 ML VIAL IV PUSH SCH (06:46)
[2016-11-15] MEDS: INSULIN ASPART SUPPLEMENTAL SCALE SQ SCH (06:49)
[2016-11-15] MEDS: INSULIN HUMAN NPH/R 70/30 1,000 UNITS/10 ML VIAL SQ SCH (06:50)
[2016-11-15] MEDS: RESP: ALBUTEROL 2.5 MG/IPRATROPIUM 0.5 MG NEB (SCH) NEB (07:44)
[2016-11-15 07:45] LABS: AUTOMATED NEUTROPHIL # 1.3 TH/MM3 (1.8-7.7); BASOPHIL % 0.4 % (0.0-2.0); HEMATOCRIT 29.1 % (39.0-51.0); LYMPH % 7.1 % (9.0-44.0); LYMPHOCYTE # 0.1 TH/MM3 (1.0-4.8); MEAN CELL VOLUME 90.6 FL (80.0-100.0); MEAN CORPUSCULAR HEMOGLOBIN 29.2 PG (27.0-34.0); MEAN CORPUSCULAR HGB CONC 32.2 % (32.0-36.0); MONO % 9.7 % (0.0-8.0); NEUT % 82.8 % (16.0-70.0); PLATELET COUNT 49 TH/MM3 (150-450); RED BLOOD COUNT 3.22 MIL/MM3 (4.50-5.90); RED CELL DISTRIBUTION WIDTH 20.8 % (11.6-17.2); WHITE BLOOD COUNT 1.6 TH/MM3 (4.0-11.0)
[2016-11-15 07:50] LABS: HEMO FLAGS AUTO DIFF
[2016-11-15] MEDS ORDERED: FURO1TAB60 PO (08:03)
[2016-11-15] MEDS ORDERED: guaiFENesin ER PO (08:04)
[2016-11-15] MEDS ORDERED: SENN1TAB PO (08:04)
[2016-11-15] MEDS ORDERED: ALBU0.08 NEB (08:04)
[2016-11-15] MEDS ORDERED: POTA-163 PO (08:04)
[2016-11-15] MEDS ORDERED: LISI10TA3 PO (08:04)
[2016-11-15] MEDS ORDERED: IPRASOL NEB (08:04)
[2016-11-15] MEDS ORDERED: PRED20 PO (08:04)
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
[2016-11-15 08:09] LABS: POTASSIUM 4.1 MEQ/L (3.5-5.1)
[2016-11-15] MEDS: ALBUMIN HUMAN 25% 12.5 GM/50 ML BAGP IV SCH (08:09)
[2016-11-15] MEDS: FLUTICASONE PROPIONATE 50 MCG/ACT 16 GM NASAL SPRAY EACH NARE SCH (08:10)
[2016-11-15] MEDS: GABAPENTIN 400 MG CAP PO SCH (08:14)
[2016-11-15] MEDS: guaiFENesin E.R. 600 MG TAB PO SCH (08:14)
--- NOTE | 2016-11-15 08:14 | HHI.DS ---
Discharge Summary Admission Date Nov 12, 2016 at 00:20 am Discharge Date: Nov 15, 2016 Admitting Diagnosis Anasarca, Chronic liver disease. (1) COPD exacerbation ICD Code: J44.1 Diagnosis: Principal (2) CHF exacerbation ICD Code: I50.9 Diagnosis: Secondary (3) Cirrhosis of liver with ascites ICD Code: K74.60 Diagnosis: Principal (4) Anasarca ICD Code: R60.1 Diagnosis: Principal (5) Diabetes ICD Code: E11.9 Diagnosis: Secondary (6) Pleural effusion ICD Code: J90 Diagnosis: Secondary (7) Chronic back pain ICD Code: M54.9 Diagnosis: Secondary (8) Benign hypertension ICD Code: I10 Diagnosis: Secondary (9) Chronic liver disease ICD Code: K76.9 Diagnosis: Secondary Procedures No procedures. Brief History - From Admission 61-year-old male with a past medical history of CAD, COPD, cirrhosis, anxiety, chronic hyponatremia, chronic lower extremity cellulitis, DM, GERD who presented with worsening bilateral lower extremity edema and associated sob. Says he usually has sob, however is worse today. He has a scant nonproductive cough. No n/v/d/c. No chest pain. He complaints of chronic back pain. Says he is also not able to ambulate much because of sob and his chronic pain. Denies fever or chills. No palpitations or lightheadedness. No urinary complaints. Says he id following with pain management for chronic pain. CBC/BMP: 11/15/16 0625 11/14/16 0615 Significant Findings Laboratory Tests Test 11/12/16 11/12/16 11/12/16 11/13/16 10:03 14:50 19:29 04:20 Sodium Level 135 MEQ/L 134 MEQ/L (136-145) (136-145) Chloride Level 97 MEQ/L 93 MEQ/L (98-107) (98-107) Blood Urea Nitrogen 22 MG/DL (7-18) 30 MG/DL (7-18) Estimat Glomerular Filtration 79 ML/MIN (>89) 69 ML/MIN (>89) Rate Random Glucose 270 MG/DL 233 MG/DL (74-106) (74-106) Hemoglobin A1c 6.4 % (4.3-6.0) Blood Gas HCO3 30 mmol/L (22-26) Blood Gas Base Excess 6.4 mmol/L (-2-2) Arterial Blood pH 7.49 (7.380-7.420) Blood Gas Hemoglobin 9.5 G/DL (12.0-16.0) White Blood Count 3.1 TH/MM3 (4.0-11.0) Red Blood Count 3.00 MIL/MM3 (4.50-5.90) Hemoglobin 9.0 GM/DL (13.0-17.0) Hematocrit 26.9 % (39.0-51.0) Red Cell Distribution Width 21.8 % (11.6-17.2) Platelet Count 45 TH/MM3 (150-450) Neutrophils (%) (Auto) 89.4 % (16.0-70.0) Lymphocytes (%) (Auto) 4.3 % (9.0-44.0) Lymphocytes # (Auto) 0.1 TH/MM3 (1.0-4.8) Calcium Level 8.4 MG/DL (8.5-10.1) Magnesium Level 1.3 MG/DL (1.5-2.5) Alkaline Phosphatase 21 U/L (45-117) Total Protein 6.2 GM/DL (6.4-8.2) Albumin 2.8 GM/DL (3.4-5.0) Test 11/14/16 11/15/16 06:15 06:25 Sodium Level 133 MEQ/L (136-145) Chloride Level 93 MEQ/L (98-107) Blood Urea Nitrogen 32 MG/DL (7-18) Random Glucose 165 MG/DL (74-106) Alkaline Phosphatase 20 U/L (45-117) Total Protein 6.0 GM/DL (6.4-8.2) Albumin 2.9 GM/DL (3.4-5.0) White Blood Count 1.6 TH/MM3 (4.0-11.0) Red Blood Count 3.22 MIL/MM3 (4.50-5.90) Hemoglobin 9.4 GM/DL (13.0-17.0) Hematocrit 29.1 % (39.0-51.0) Red Cell Distribution Width 20.8 % (11.6-17.2) Platelet Count 49 TH/MM3 (150-450) Neutrophils (%) (Auto) 82.8 % (16.0-70.0) Lymphocytes (%) (Auto) 7.1 % (9.0-44.0) Monocytes (%) (Auto) 9.7 % (0.0-8.0) Neutrophils # (Auto) 1.3 TH/MM3 (1.8-7.7) Lymphocytes # (Auto) 0.1 TH/MM3 (1.0-4.8) Imaging Last Impressions CT Angiography 11/14/16 0000 Signed Impressions: Service Date/Time: Monday, November 14, 2016 13:32 - CONCLUSION: 1. There is no evidence for central pulmonary emboli. 2. Small right pleural effusion. 3. Moderate ascites. 4. There is no adenopathy. Brendan Tripathi MD FACR Lower Extremity Ultrasound 11/12/16 0000 Signed Impressions: Service Date/Time: Saturday, November 12, 2016 12:22 - CONCLUSION: No evidence of deep venous thrombosis within the right lower extremity. Eliezer Sanders MD Chest X-Ray 11/11/16 2200 Signed Impressions: Service Date/Time: Friday, November 11, 2016 21:58 - CONCLUSION: No evidence of pleural effusion. Bilateral linear opacities in both lungs is similar to prior examination 09/16/16. Mati Mahajan MD PE at Discharge GENERAL: Well-nourished, well-developed obese male patient in [facility]. SKIN: Warm and dry. No rash. HEENT: Normocephalic. Atraumatic. Pupils equal and round. Mucous membranes pink and moist. NECK: Supple. Trachea midline. CARDIOVASCULAR: Regular rate and rhythm. S1, S2 noted. No murmur appreciated. RESPIRATORY: No accessory muscle use. Minimal expiratory wheezing, otherwise clear to auscultation. Breath sounds equal bilaterally. GASTROINTESTINAL: Abdomen soft, non-tender, nondistended. Normoactive bowel sounds x4. MUSCULOSKELETAL: No obvious deformities. 2+ bilateral lower extremity pitting edema. NEUROLOGICAL: Awake and alert. No obvious cranial nerve deficits. Motor grossly within normal limits. Normal speech. PSYCHIATRIC: Appropriate mood and affect; insight and judgment normal. Pt update on day of discharge Follow for COPD exacerbation, anasarca. Patient reports feeling much better today. He believes his breathing has improved. He reports less wheezing and coughing. O2 sat 96% on 3 L nasal cannula which is his baseline oxygen. His lower extremity edema has improved. He feels well to go to rehabilitation today. Hospital Course 61-year-old male with a past medical history of CAD, COPD, cirrhosis, anxiety, chronic hyponatremia, chronic lower extremity cellulitis, DM, GERD who presented with worsening bilateral lower extremity edema and associated sob. Acute exacerbation of chronic diastolic CHF. Echocardiogram reviewed with normal systolic function, EF 5560 %, and grade 1 diastolic dysfunction. BNP elevated at 448 however improved compared with previous. Continue Lasix 40 mg bid IV and added albumin with diuresis. Replace electrolytes. Monitor I's & Os. Consulted cardiology, Dr. Drummond recommended treating for cirrhosis with fluid restriction and treating COPD. Improved. Acute exacerbation of COPD with chronic respiratory failure: On 3.5 L O2 at home. +Wheezing on exam. CXR reviewed and unremarkable. Scheduled and as needed nebs. IV Solu-Medrol, caution with hyperglycemia. O2 as needed. Consulted pulmonology who recommended ABG, steroids, and diuresis. ABG results reviewed. CT-PA negative for PE. Breathing much improved, appears back to baseline. Cirrhosis with ascites/anasarca: Liver ultrasound 09/16/16 with mild ascites, liver enlarged to 18.6cm, echogenic liver characteristic of hepatocellular disease or fatty infiltration; splenomegaly 17.9cm. Bilirubin 1.3, previously 1.6 on 09/18/16. Continue lasix and spironolactone. Anasarca improving. Right lower extremity swelling: Likely secondary to anasarca/ascites. Doppler Ultrasound negative for DVT. Hypertension: Continue home lisinopril. Monitor BP. Still elevated today, increased lisinopril to 20mg daily. Diabetes mellitus: With hyperglycemia on steroids. Well-controlled at home with A1c 6.4. Continue home 70/30 twice daily. SSI coverage. Monitor Accu- Cheks. Thrombocytopenia: Chronic. Platelets 45, previously 60 form 09/25/16. Secondary to cirrhosis/EtOH. Monitor. Chronic pain: Continue fentanyl patch and gabapentin. Oral morphine as needed for breakthrough. Instructed patient to follow-up with pain management discharge. Other chronic medical conditions include CAD, anxiety, GERD: Stable at this time , continue home medications as indicated. DVT prophylaxis: No chemical prophylaxis due to thrombocytopenia. Teds. Patient stable on his chronic condition, discussed with PA . Neli Pham will discharge patient to Rehab and follow as per beef specialist and PCP as outpatient. The patient asked for Pain medicines and was refilled for one week. Pt Condition on Discharge: Stable Discharge Disposition: Discharge to SNF Discharge Time: > 30 minutes Discharge Instructions DIET: Follow Instructions for: Heart Healthy Diet, Diabetic Diet Activities you can perform: Regular-No Restrictions Follow up Referrals: PCP Follow-up - 2-3 Days Pulmonology - 1 Week with Hector Jones MD New Medications: Albuterol Neb (Albuterol Neb) 2.5 Mg/3 Ml Neb 2.5 MG NEB Q4HR NEB PRN SHORTNESS OF BREATH #60 Ref 0 NEBULE Clonazepam (Clonazepam) 1 Mg Tab 1 MG PO TID DO NOT TAKE THIS MEDICINE IF YOU WILL DRIVE A CAR OR USE A MACHINE, ONLY USE IT WHEN RESTING AT HOME. #20 Ref 0 TAB Prednisone (Prednisone) 20 Mg Tab 20 MG PO DIRECTED Take 40 MG twice a day x4days, then 20mg twice a day x4days , then 20mg once a day x4days COPD #28 Ref 0 TAB Ipratropium-Albuterol Neb (Duoneb) 0.5-2.5 Mg/3 Ml Neb 1 AMPULE NEB Q6HR NEB COPD #120 ML Lisinopril (Lisinopril) 10 Mg Tab 20 MG PO DAILY Blood Pressure Management #60 TAB Morphine IR (Morphine IR) 15 Mg Tab 7.5 MG PO Q6H do not take this medicine if you will drive a car or use a machine , only use it when resting at home. PRN PAIN #12 Ref 0 TAB Sennosides-Docusate Sodium (Senna Plus 8.6-50 mg) 1 Tab Tab 1 TAB PO BID Prevent Constipation #60 TAB ([guaiFENesin ER]) 600 MG TABCR 600 MG PO BID Chest Congestion/Cough #20 TAB.SR Changed Medications: Furosemide (Lasix) 40 Mg Tab 40 MG PO BID@09,18 ascites Days 30 TAB (Changed from: DAILY) Continued Medications: Aspirin (Aspirin) 81 Mg Chew 81 MG CHEW DAILY TAB B-Complex W/Biotin & Folic Acid (Super B-Complex) 1 Tab 3 TAB PO TID Cholecalciferol (Vitamin D3) 10,000 Unit Cap 68089 UNITS PO BID Nutritional Supplement Cyanocobalamin (B-12) 5,000 Mcg Cap 41032 MCG PO BID Nutritional Supplement Fentanyl Patch 72 HR (Duragesic Patch 72 HR) 25 Mcg/Hr Patch 1 PATCH T-DERMAL Q3D Pain Management #6 PATCH Gabapentin (Gabapentin) 800 Mg Tab 800 MG PO TID TAB Insulin Human Isophane-Regular 70-30 Inj (Novolin 70-30 Inj) 1,000 Unit/10 Ml Vial 45 UNITS SQ BID Blood Sugar Management ML Insulin Human Regular Inj (Novolin R Inj) 1,000 Unit/10 Ml Vial Unknown Dose SQ ACHS Max dose at bedtime:( )units; sugars less than 70,(0) units ; sugars 150-199,(2)unit; sugars 200-249,(4)units; sugars 250-299,(7) units; sugars 300-349,(10)units; sugars greater than 349,(12)units Blood Sugar Management ML Magnesium Oxide (Magnesium Oxide) 400 Mg Tab 400 MG PO DAILY Nutritional Supplement #7 Ref 0 TAB Omeprazole (Omeprazole) 20 Mg Tab 20 MG PO BID TAB Oxygen tank (Oxygen tank) 1 Ea Tank 2 LITER [place].CANULA CONTINUOUS Oxygen Concentrator Portable Gaseous 2 L/min via Nasal Cannula Continuous For 99 months HYPOXEMIA PREVENTION #1 CYLINDER Paroxetine (Paroxetine) 20 Mg Tab 20 MG PO DAILY Control Depression #30 Ref 0 TAB Potassium Chloride ER (Potassium Chloride ER) 20 Meq Tab 20 MEQ PO DAILY Electrolyte Replacement #30 Ref 0 TAB (This prescription has been renewed) Saline Nasal ([place] Nasal [place]) 0.65% [place] 1 SPRAY EACH NARE BID NASAL CONGESTION BOTTLE Spironolactone (Aldactone) 100 Mg Tab 100 MG PO DAILY ascites #30 Ref 0 TAB Discontinued Medications: Albuterol Neb (Albuterol Neb) 2.5 Mg/3 Ml Neb 2.5 MG NEB Q4HR NEB MIX WITH IPRATROPIUM NEBULE Azithromycin (Azithromycin) 250 Mg Tab 250 MG PO DAILY pna #5 TAB Clonazepam (Klonopin) 2 Mg Tab 2 MG PO TID Anxiety and/or Insomnia #20 TAB Ipratropium Neb (Ipratropium Neb) 0.5 Mg/2.5 Ml Amp 0.5 MG NEB Q4HR NEB MIX WITH ALBUTEROL NEBULE Lisinopril (Lisinopril) 10 Mg Tab 10 MG PO DAILY Blood Pressure Management #10 TAB Oxymetazoline Hcl (Afrin Nasal [place]) 0.05 % Spr 2 SPRAY EACH NARE BID Prednisone (Prednisone) 20 Mg Tab 20 MG PO DAILY copd Days 7 TAB Sodium Chloride (Sodium Chloride) 1 Gm Tab 1 GM PO DAILY Electrolyte Replacement TAB Tramadol (Ultram) 50 Mg Tab 50 MG PO Q8H PRN pain 5-10 #20 TAB Neli Pham PA-C Nov 15, 2016 8:14 am Filiebrto Dan MD Nov 15, 2016 9:13 am
[2016-11-15] MEDS: PARoxetine HCL 20 MG TAB PO SCH (08:15)
[2016-11-15] MEDS: clonazePAM 1 MG TAB PO SCH (08:15)
[2016-11-15] MEDS: DOCUSATE SODIUM 50 MG/SENNA 8.6 MG TAB PO SCH (08:15)
[2016-11-15] MEDS: MAGNESIUM OXIDE 400 MG TAB PO SCH (08:15)
[2016-11-15] MEDS: SODIUM CHLORIDE 0.9% FLUSH 10 ML FLUSH IV FLUSH SCH (08:16)
[2016-11-15] MEDS: POTASSIUM CHLORIDE 20 MEQ CONTROLLED RELEASE TAB PO SCH (08:18)
[2016-11-15] MEDS: FUROSEMIDE 40 MG/4 ML VIAL IV PUSH SCH (08:19)
[2016-11-15] MEDS ORDERED: MSIR15 PO (08:19)
[2016-11-15 08:37] LABS: BANDS 7 % (0-6); NEUTROPHIL # MANUAL DIFF 1.4 TH/MM3 (1.8-7.7); PLATELET ESTIMATE SMEAR LOW (NORMAL); PLATELET MORPHOLOGY NORMAL (NORMAL); POLYS (SEG NEUTROPHILS) 80 % (16-70); SCAN/DIFF FINAL DIFF MANUAL; WBC DIFF SAMPLE 100
[2016-11-15] MEDS ORDERED: LISINOPRIL 10 MG TAB PO SCH (09:00)
[2016-11-15] MEDS ORDERED: SPIRONOLACTONE 50 MG TAB PO SCH (09:00)
[2016-11-15 10:13] VITALS: BP 145/75; PULSE 93
[2016-11-15] MEDS ORDERED: CLON1TAB PO (12:13)
[2016-11-15] MEDS ORDERED: PARO20TA2 PO (12:26)
== END 2016-11-15 14:43 | disposition short-term general hospital (02) | DRG 292 ==
LOC: NEPC 21:43 → NEDA 11-12 00:21 → NEPGCP 11-12 02:11 → NEDH 11-13 09:38 → NEPGCP 11-13 09:40 → OBSVTOIN 11-14 10:07
PROVIDERS: ADMIT Internal Medicine; ATTEND Internal Medicine
DX: I11.0 Hypertensive heart disease with heart failure (principal); E87.1 Hypo-osmolality and hyponatremia; J96.10 Chronic respiratory failure, unspecified whether with hypoxia or hypercapnia; D69.59 Other secondary thrombocytopenia; R18.8 Other ascites; E11.65 Type 2 diabetes mellitus with hyperglycemia; K74.60 Unspecified cirrhosis of liver; J44.1 Chronic obstructive pulmonary disease with (acute) exacerbation; G89.29 Other chronic pain; G47.00 Insomnia, unspecified; J32.9 Chronic sinusitis, unspecified; E66.9 Obesity, unspecified; K22.70 Barrett's esophagus without dysplasia; I50.33 Acute on chronic diastolic (congestive) heart failure; F32.9 Major depressive disorder, single episode, unspecified; F41.9 Anxiety disorder, unspecified; I25.10 Atherosclerotic heart disease of native coronary artery without angina pectoris; K21.9 Gastro-esophageal reflux disease without esophagitis; F17.210 Nicotine dependence, cigarettes, uncomplicated; T38.0X5A Adverse effect of glucocorticoids and synthetic analogues, initial encounter; Z99.81 Dependence on supplemental oxygen; Z95.1 Presence of aortocoronary bypass graft; Z95.5 Presence of coronary angioplasty implant and graft; Z79.4 Long term (current) use of insulin; Z86.14 Personal history of Methicillin resistant Staphylococcus aureus infection; Z68.34 Body mass index [BMI] 34.0-34.9, adult
CPT/HCPCS: 36600; 71010; 71275; 76937; 80048; 80053; 80307; 81001; 82140; 82805; 82948; 83036; 83690; 83735; 83880; 84100; 85007; 85025; 85027; 85610; 85730; 93005; 93306; 93971; 94640; 94664; 96365; 96372; 96375; 96376; G0378; G8987-GP; G8988-GP; J1815; J1940; J2270; J2920; J3475; P9045; P9047; Q9967

== ENCOUNTER 2016-11-29 14:16 | Emergency (ER) | payer OTHER ==
[~2016-11-29] VITALS: Ht 172.7 cm; Wt 101.8 kg
[~2016-11-29 14:16] MED LIST changes: -AZIT250T3 PO; +CLON1TAB PO; -IPRA0.02 NEB; +IPRASOL NEB; -KLON2TAB PO; +MSIR15 PO; -OXYM.05%I EACH NARE; +PARO20TA2 PO; -PAXI20TA PO; +SENN1TAB PO; -SODI1TAB PO; -ULTR50TA5 PO; +guaiFENesin ER PO
[2016-11-29 14:36] VITALS: BP 154/74; PULSE 101; RESP 18; TEMP 98.6; O2SAT 94
--- NOTE | 2016-11-29 14:56 | PD ---
HPI Chief Complaint: Psychiatric Symptoms Time Seen by Provider: 14:56 Travel History International Travel<30 days: No Contact w/Intl Traveler<30days: No Traveled to known affect area: No History of Present Illness HPI Patient is a 61-year-old male that was brought into the emergency Department under [place] act. Patient allegedly was talking to the doctor's office on the phone and threatened to shoot up if he didn't get the medications that he wanted. He stated that he would blow his brains out. Patient admitted to making these statements but states he is [employer] and would never follow through on them. He states that he was frustrated because the medication was not prescribed correctly. Patient states he is normally on morphine 15 mg and was prescribed 7.5 milligrams and it doesn't come like this. He reports making multiple attempts to the doctor's office over the last few days and not making any progress. Patient states that he is in pain from his ankylosing spondylosis. He reports chronic neck, back and hip pain. He has no new physical complaints at this time. He denies any chest pain, shortness of breath , headaches, nausea, vomiting, suicidal ideations, homicidal ideations, visual or auditory hallucinations. PFSH Past Medical History Hx Anticoagulant Therapy: No Arthritis: Yes Asthma: Yes Autoimmune Disease: No Blood Disorders: No Anxiety: No Depression: No Heart Rhythm Problems: No Cancer: No Cardiac Catheterization: Yes Cardiovascular Problems: Yes High Cholesterol: Yes Chemotherapy: No Chest Pain: Yes Congestive Heart Failure: Yes COPD: Yes Cerebrovascular Accident: Yes Coronary Artery Disease: Yes Diabetes: Yes Diminished Hearing: No Endocrine: Yes GERD: Yes Glaucoma: No Genitourinary: No Headaches: No Hepatitis: Yes Hiatal Hernia: No Hypertension: Yes Immune Disorder: No Kidney Stones: Yes Musculoskeletal: Yes (ARTHRITIS) Neurologic: Yes (CVA) Psychiatric: Yes Reproductive: No Respiratory: Yes Myocardial Infarction: Yes Pneumonia: Yes Radiation Therapy: No Renal Failure: No Seizures: Yes Sickle Cell Disease: No Sleep Apnea: Yes Thyroid Disease: No Ulcer: No Past Surgical History Abdominal Surgery: Yes (GALBLADDER) AICD: No Body Medical Devices: STENTS Cardiac Surgery: Yes Cholecystectomy: Yes Coronary Artery Bypass Graft: Yes (x 2 with total 7 vessels) Coronary Stent: Yes (5) Ear Surgery: No Endocrine Surgery: No Eye Surgery: No Genitourinary Surgery: No Oral Surgery: No Pacemaker: No Thoracic Surgery: Yes Other Surgery: Yes (UVULA REMOVED PER PT) Social History Alcohol Use: No (ALCOHOLIC) Tobacco Use: Yes (4-5 cig daily) Substance Use: Yes Allergies-Medications (Allergen,Severity, Reaction): Coded Allergies: Bactrim (Verified Allergy, Severe, Hives, 04/07/16) Codeine (Verified Allergy, Severe, Hives, 04/07/16) Hydrocodone (Verified Allergy, Severe, ITCH, 04/07/16) Minocin (Verified Allergy, Severe, CLOSED THROAT, 04/07/16) Sulfa (Verified Allergy, Severe, Hives, 04/07/16) Vancomycin (Verified Allergy, Severe, Anaphylaxis, 04/07/16) Tetracycline (Verified Allergy, Unknown, Hives, 04/07/16) Reported Meds & Prescriptions Reported Meds & Active Scripts Active Paroxetine (Paroxetine HCl) 20 Mg Tab 20 Mg PO DAILY Clonazepam 1 Mg Tab 1 Mg PO TID DO NOT TAKE THIS MEDICINE IF YOU WILL DRIVE A CAR OR USE A MACHINE, ONLY USE IT WHEN RESTING AT HOME. Morphine IR (Morphine Sulfate) 15 Mg Tab 7.5 Mg PO Q6H PRN do not take this medicine if you will drive a car or use a machine, only use it when resting at home. Prednisone 20 Mg Tab 20 Mg PO DIRECTED Take 40 MG twice a day x4days, then 20mg twice a day x4days, then 20mg once a day x4days Albuterol Neb (Albuterol Sulfate) 2.5 Mg/3 Ml Neb 2.5 Mg NEB Q4HR NEB PRN Duoneb (Ipratropium-Albuterol Neb) 0.5-2.5 Mg/3 Ml Neb 1 Ampule NEB Q6HR NEB [guaiFENesin ER] 600 MG Tabcr 600 Mg PO BID Senna Plus 8.6-50 mg (Sennosides-Docusate Sodium) 1 Tab Tab 1 Tab PO BID Lisinopril 10 Mg Tab 20 Mg PO DAILY Potassium Chloride ER (Potassium Chloride) 20 Meq Tab 20 Meq PO DAILY Lasix (Furosemide) 40 Mg Tab 40 Mg PO BID@09,18 30 Days Magnesium Oxide 400 Mg Tab 400 Mg PO DAILY Aldactone (Spironolactone) 100 Mg Tab 100 Mg PO DAILY Duragesic Patch 72 HR (Fentanyl) 25 Mcg/Hr Patch 1 Patch T-DERMAL Q3D Oxygen tank (Oxygen) 1 Ea Tank 2 Liter [place].CANULA CONTINUOUS Oxygen Concentrator Portable Gaseous 2 L/min via Nasal Cannula Continuous For 99 months Reported [place] Nasal [place] (Sodium Chloride) 0.65% [place] 1 [place] EACH NARE BID Aspirin 81 Mg Chew 81 Mg CHEW DAILY B-12 (Cyanocobalamin) 5,000 Mcg Cap 10,000 Mcg PO BID Vitamin D3 (Cholecalciferol) 10,000 Unit Cap 10,000 Units PO BID Super B-Complex (B-Complex W/Biotin & Folic Acid) 1 Tab 3 Tab PO TID Gabapentin 800 Mg Tab 800 Mg PO TID Novolin R Inj (Insulin Human Regular) 1,000 Unit/10 Ml Vial Unknown Dose SQ ACHS Max dose at bedtime:( )units; sugars less than 70,(0) units; sugars 150-199,(2)unit; sugars 200-249,(4)units; sugars 250-299,(7) units; sugars 300-349,(10)units; sugars greater than 349,(12)units Novolin 70-30 Inj (Insulin Human Isoph/Insulin Regular) 1,000 Unit/10 Ml Vial 45 Units SQ BID Omeprazole 20 Mg Tab 20 Mg PO BID Review of Systems Except as stated in HPI: all other systems reviewed are Neg Psychiatric: Positive: Homicidal Ideation Physical Exam Narrative GENERAL: Overweight, alert male. Resting comfortably in no acute distress. SKIN: Focused skin assessment warm/dry. Chronic venous changes to bilateral lower extremities. HEAD: Atraumatic. Normocephalic. EYES: Pupils equal and round. No scleral icterus. No injection or drainage. ENT: No nasal bleeding or discharge. Mucous membranes pink and moist. NECK: Trachea midline. No JVD. CARDIOVASCULAR: Regular rate and rhythm. 2/6 systolic murmur appreciated. RESPIRATORY: No accessory muscle use. Clear to auscultation. Breath sounds equal bilaterally. GASTROINTESTINAL: Abdomen obese, soft, non-tender, nondistended. Hepatic and splenic margins not palpable. 2 cm umbilical hernia. Easily reducible. MUSCULOSKELETAL: No obvious deformities. No clubbing. No cyanosis. No edema. NEUROLOGICAL: Awake and alert. No obvious cranial nerve deficits. Motor grossly within normal limits. Normal speech. PSYCHIATRIC: Appropriate mood and affect; insight and judgment normal. Data Data Last Documented VS Vital Signs Date Time Temp Pulse Resp B/P Pulse Ox O2 Delivery O2 Flow Rate FiO2 11/29/16 14:36 98.6 101 18 154/74 94 Orders MDM Medical Decision Making Medical Screen Exam Complete: Yes Emergency Medical Condition: Yes Interpretation(s) Vital Signs Date Time Temp Pulse Resp B/P Pulse Ox O2 Delivery O2 Flow Rate FiO2 11/29/16 14:36 98.6 101 18 154/74 94 Differential Diagnosis Mood disorder versus substance abuse versus homicidal ideations or suicidal ideations versus chronic pain versus other Narrative Course Patient is a 61-year-old male presenting to emergency from under [place] act for making statements to the doctor's office that he would shoot up and would blow his own brains out. He admits to making these statements but states he was not feeling suicidal or homicidal, he was just frustrated. Patient denies any previous psychiatric history. Psychiatrist has evaluated patient in the ambulance all, [place] act has been lifted. Patient has no physical complaints at this time, he is advised to follow-up with his primary doctor. He was encouraged to return to emergency department for any new or worsening symptoms. Patient stable for discharge. Diagnosis Primary Impression: Medical clearance for psychiatric admission Referrals: Primary Care Physician Patient Instructions: General Instructions Additional Instructions: Follow-up with your primary doctor Return to emergency department for any new or worsening symptoms Med/Other Pt SpecificInfo: No Change to Meds Disposition: 01 DISCHARGE HOME Condition: Stable JonyRosemarie BRUNNER Nov 29, 2016 14:56
--- NOTE | 2016-11-29 15:14 | PD ---
History of Present Illness Chief Complaint: Psychiatric Symptoms Time Seen by Provider: 15:00 Travel History International Travel<30 Days: No Contact w/Intl Traveler<30days: No Known affected area: No Legal Status Legal Status: Gardner Act History of Present Illness: This is a 61-year-old male who was Gardner acted for allegedly making suicidal threats and threatening to shoot up the doctor's office. According to the Gardner act, initiated by law enforcement, the patient was upset and made these threats because he was unable to get the pain medications he wanted. Additionally, while in the presence of the business law teacher, the patient advised "oh, so I can fight in the war but can't commit suicide". This physician spoke to the patient, reviewed the emergency room clinicians note and spoke with the patient's nurse. Mr. Badillo is obviously calm and competent. He exhibits no psychotic symptoms and his cognition is intact. He denies any suicidal or homicidal ideation, plan or intent. He is verbally karla for safety and states he would never do anything to harm someone else. He is apparently upset because his dose of morphine has been cut in half. He takes pain medicine because of a history of ankylosing spondylitis. PFSH Past Medical History Hx Anticoagulant Therapy: No Arthritis: Yes Asthma: Yes Autoimmune Disease: No Blood Disorders: No Anxiety: No Depression: No Heart Rhythm Problems: No Cancer: No Cardiac Catheterization: Yes Cardiovascular Problems: Yes High Cholesterol: Yes Chemotherapy: No Chest Pain: Yes Congestive Heart Failure: Yes COPD: Yes Cerebrovascular Accident: Yes Coronary Artery Disease: Yes Diabetes: Yes Diminished Hearing: No Endocrine: Yes GERD: Yes Glaucoma: No Genitourinary: No Headaches: No Hepatitis: Yes Hiatal Hernia: No Hypertension: Yes Immune Disorder: No Kidney Stones: Yes Musculoskeletal: Yes (ARTHRITIS) Neurologic: Yes (CVA) Psychiatric: Yes Reproductive: No Respiratory: Yes Myocardial Infarction: Yes Pneumonia: Yes Radiation Therapy: No Renal Failure: No Seizures: Yes Sickle Cell Disease: No Sleep Apnea: Yes Thyroid Disease: No Ulcer: No Past Surgical History Abdominal Surgery: Yes (GALBLADDER) AICD: No Body Medical Devices: STENTS Cardiac Surgery: Yes Cholecystectomy: Yes Coronary Artery Bypass Graft: Yes (x 2 with total 7 vessels) Coronary Stent: Yes (5) Ear Surgery: No Endocrine Surgery: No Eye Surgery: No Genitourinary Surgery: No Oral Surgery: No Pacemaker: No Thoracic Surgery: Yes Other Surgery: Yes (UVULA REMOVED PER PT) Psychiatric History Psychiatric History Hx Psychiatric Treatment: Patient does not have a history of psychiatric treatment at this institution. History of Inpatient Treatment: No Guns or firearms in home: No Social History Hx Alcohol Use: No (ALCOHOLIC) Hx Tobacco Use: Yes (4-5 cig daily) Hx Substance Use: Yes Substance Use Type: Alcohol Hx of Substance Use Treatment: No Allergies-Medications (Allergen,Severity, Reaction): Coded Allergies: Bactrim (Verified Allergy, Severe, Hives, 04/07/16) Codeine (Verified Allergy, Severe, Hives, 04/07/16) Hydrocodone (Verified Allergy, Severe, ITCH, 04/07/16) Minocin (Verified Allergy, Severe, CLOSED THROAT, 04/07/16) Sulfa (Verified Allergy, Severe, Hives, 04/07/16) Vancomycin (Verified Allergy, Severe, Anaphylaxis, 04/07/16) Tetracycline (Verified Allergy, Unknown, Hives, 04/07/16) Reported Meds & Prescriptions Reported Meds & Active Scripts Active Paroxetine (Paroxetine HCl) 20 Mg Tab 20 Mg PO DAILY Clonazepam 1 Mg Tab 1 Mg PO TID DO NOT TAKE THIS MEDICINE IF YOU WILL DRIVE A CAR OR USE A MACHINE, ONLY USE IT WHEN RESTING AT HOME. Morphine IR (Morphine Sulfate) 15 Mg Tab 7.5 Mg PO Q6H PRN do not take this medicine if you will drive a car or use a machine, only use it when resting at home. Prednisone 20 Mg Tab 20 Mg PO DIRECTED Take 40 MG twice a day x4days, then 20mg twice a day x4days, then 20mg once a day x4days Albuterol Neb (Albuterol Sulfate) 2.5 Mg/3 Ml Neb 2.5 Mg NEB Q4HR NEB PRN Duoneb (Ipratropium-Albuterol Neb) 0.5-2.5 Mg/3 Ml Neb 1 Ampule NEB Q6HR NEB [guaiFENesin ER] 600 MG Tabcr 600 Mg PO BID Senna Plus 8.6-50 mg (Sennosides-Docusate Sodium) 1 Tab Tab 1 Tab PO BID Lisinopril 10 Mg Tab 20 Mg PO DAILY Potassium Chloride ER (Potassium Chloride) 20 Meq Tab 20 Meq PO DAILY Lasix (Furosemide) 40 Mg Tab 40 Mg PO BID@09,18 30 Days Magnesium Oxide 400 Mg Tab 400 Mg PO DAILY Aldactone (Spironolactone) 100 Mg Tab 100 Mg PO DAILY Duragesic Patch 72 HR (Fentanyl) 25 Mcg/Hr Patch 1 Patch T-DERMAL Q3D Oxygen tank (Oxygen) 1 Ea Tank 2 Liter CATALINA.CANULA CONTINUOUS Oxygen Concentrator Portable Gaseous 2 L/min via Nasal Cannula Continuous For 99 months Reported [place] Nasal [place] (Sodium Chloride) 0.65% [place] 1 [place] EACH NARE BID Aspirin 81 Mg Chew 81 Mg CHEW DAILY B-12 (Cyanocobalamin) 5,000 Mcg Cap 10,000 Mcg PO BID Vitamin D3 (Cholecalciferol) 10,000 Unit Cap 10,000 Units PO BID Super B-Complex (B-Complex W/Biotin & Folic Acid) 1 Tab 3 Tab PO TID Gabapentin 800 Mg Tab 800 Mg PO TID Novolin R Inj (Insulin Human Regular) 1,000 Unit/10 Ml Vial Unknown Dose SQ ACHS Max dose at bedtime:( )units; sugars less than 70,(0) units; sugars 150-199,(2)unit; sugars 200-249,(4)units; sugars 250-299,(7) units; sugars 300-349,(10)units; sugars greater than 349,(12)units Novolin 70-30 Inj (Insulin Human Isoph/Insulin Regular) 1,000 Unit/10 Ml Vial 45 Units SQ BID Omeprazole 20 Mg Tab 20 Mg PO BID Review of Systems Except as stated in HPI: all other systems reviewed are Neg Exam Alert: Yes [place]: Person, Place, Date, Situation Mood: Calm Affect: Appropriate Speech: Clear, Logical Eye Contact: Normal Memory Intact: Immediate, Recent, Remote Insight/Judgement Adequate MDM Medical Decision Making Medical Record Reviewed: Yes Assessment/Plan Although the patient made foolish remarks threatening to shoot the doctor's office and threatening to kill himself, he apparently made these remarks out of frustration because his opiate pain medicine was being halved. The chronic pain he experiences as a result of ankylosing spondylitis is what caused his adjustment disorder reaction. At the time he was evaluated by this physician he was no longer suicidal or homicidal. In fact, he was calm, pleasant and cooperative. Although he is at some risk for harm to self and others due to likely chronic pain and opiate addiction, least restrictive alternative implies the patient may be treated on an outpatient basis. This physician referred the patient to [facility] for antidepressant medication to assist with pain control. The patient can also seek treatment from a physician specializing in pain management. The patient does not currently meet criteria for Gardner act or for inpatient psychiatric hospitalization. Orders Psych Screen (11/29/16 15:02) Results Vital Signs Date Time Temp Pulse Resp B/P Pulse Ox O2 Delivery O2 Flow Rate FiO2 11/29/16 14:36 98.6 101 18 154/74 94 Diagnosis Primary Impression: Adjustment disorder with mixed disturbance of emotions and conduct Additional Impression: Ankylosing spondylitis Referrals: Primary Care Physician Departure Forms: Tests/Procedures Patient Instructions: General Instructions, Medical Clearance for Psychiatric Care (ED) Additional Instructions: Follow-up with your primary doctor Return to emergency department for any new or worsening symptoms Disposition: 01 DISCHARGE HOME Condition: Stable Problem Qualifiers Chester Zurita MD Nov 29, 2016 15:14
== END 2016-11-29 15:39 | disposition home or self-care (01) ==
LOC: NEDAMB 14:16
DX: F43.25 Adjustment disorder with mixed disturbance of emotions and conduct (principal); M45.9 Ankylosing spondylitis of unspecified sites in spine; M13.80 Other specified arthritis, unspecified site; J45.909 Unspecified asthma, uncomplicated; E78.00 Pure hypercholesterolemia, unspecified; I50.9 Heart failure, unspecified; J44.9 Chronic obstructive pulmonary disease, unspecified; I25.10 Atherosclerotic heart disease of native coronary artery without angina pectoris; E11.9 Type 2 diabetes mellitus without complications; I10 Essential (primary) hypertension
CPT/HCPCS: 99283

== ENCOUNTER 2016-12-26 17:25 | Inpatient (IN) | payer OTHER, MEDICARE ==
[~2016-12-26] VITALS: Ht 172.7 cm; Wt 102.7 kg
[2016-12-26] MEDS ORDERED: SODIUM CHLORIDE 0.9% FLUSH 10 ML FLUSH IV FLUSH PRN ×2 (17:45→20:15)
[2016-12-26] MEDS ORDERED: FUROSEMIDE 40 MG/4 ML VIAL IV PUSH ONE (17:45)
--- NOTE | 2016-12-26 17:52 | PD ---
HPI Chief Complaint: leg pain, abdominal distention Time Seen by Provider: 17:38 Travel History International Travel<30 days: No Contact w/Intl Traveler<30days: No Traveled to known affect area: No History of Present Illness HPI 60-year-old male smoker with history of cirrhosis, CHF, coronary artery disease , COPD, on 4 L oxygen at home, presents via EMS for evaluation. For the past 3 weeks he has had left leg pain, swelling, redness, wound on the anterior left cruz. Symptoms have been progressively worsening. Over the course of the past 5 days he has had abdominal pain, abdominal distention which has been progressing. He does admit that he quit taking his Lasix about 1 week ago because he was tired of getting up to go to the bathroom. He reports that he is currently prescribed Lasix 40 mg twice daily as well as spironolactone. He reports that recently his primary care physician quit prescribing him pain medication and so to cope with the pain he has been drinking more alcohol, approximately 3-4 shots of vodka a day. He endorses chronic dyspnea. He reports chills at home as well as nausea. Denies vomiting, diarrhea or constipation, chest pain, headache. He has no other complaints. PFSH Past Medical History Hx Anticoagulant Therapy: No Arthritis: Yes Asthma: Yes Autoimmune Disease: No Blood Disorders: No Anxiety: No Depression: No Heart Rhythm Problems: No Cancer: No Cardiac Catheterization: Yes Cardiovascular Problems: Yes High Cholesterol: Yes Chemotherapy: No Chest Pain: Yes Congestive Heart Failure: Yes COPD: Yes Cerebrovascular Accident: Yes Coronary Artery Disease: Yes Diabetes: Yes Diminished Hearing: No Endocrine: Yes GERD: Yes Glaucoma: No Genitourinary: No Headaches: No Hepatitis: Yes Hiatal Hernia: No Hypertension: Yes Immune Disorder: No Kidney Stones: Yes Musculoskeletal: Yes (ARTHRITIS) Neurologic: Yes (CVA) Psychiatric: Yes Reproductive: No Respiratory: Yes Myocardial Infarction: Yes Pneumonia: Yes Radiation Therapy: No Renal Failure: No Seizures: Yes Sickle Cell Disease: No Sleep Apnea: Yes Thyroid Disease: No Ulcer: No Past Surgical History Abdominal Surgery: Yes (GALBLADDER) AICD: No Body Medical Devices: STENTS Cardiac Surgery: Yes Cholecystectomy: Yes Coronary Artery Bypass Graft: Yes (x 2 with total 7 vessels) Coronary Stent: Yes (5) Ear Surgery: No Endocrine Surgery: No Eye Surgery: No Genitourinary Surgery: No Oral Surgery: No Pacemaker: No Thoracic Surgery: Yes Other Surgery: Yes (UVULA REMOVED PER PT) Social History Alcohol Use: No (ALCOHOLIC) Tobacco Use: Yes (4-5 cig daily) Substance Use: Yes Allergies-Medications (Allergen,Severity, Reaction): Coded Allergies: Bactrim (Verified Allergy, Severe, Hives, 04/07/16) Codeine (Verified Allergy, Severe, Hives, 04/07/16) Hydrocodone (Verified Allergy, Severe, ITCH, 04/07/16) Minocin (Verified Allergy, Severe, CLOSED THROAT, 04/07/16) Sulfa (Verified Allergy, Severe, Hives, 04/07/16) Vancomycin (Verified Allergy, Severe, Anaphylaxis, 04/07/16) Tetracycline (Verified Allergy, Unknown, Hives, 04/07/16) Reported Meds & Prescriptions Reported Meds & Active Scripts Active Paroxetine (Paroxetine HCl) 20 Mg Tab 20 Mg PO DAILY Clonazepam 1 Mg Tab 1 Mg PO TID DO NOT TAKE THIS MEDICINE IF YOU WILL DRIVE A CAR OR USE A MACHINE, ONLY USE IT WHEN RESTING AT HOME. Morphine IR (Morphine Sulfate) 15 Mg Tab 7.5 Mg PO Q6H PRN do not take this medicine if you will drive a car or use a machine, only use it when resting at home. Prednisone 20 Mg Tab 20 Mg PO DIRECTED Take 40 MG twice a day x4days, then 20mg twice a day x4days, then 20mg once a day x4days Albuterol Neb (Albuterol Sulfate) 2.5 Mg/3 Ml Neb 2.5 Mg NEB Q4HR NEB PRN Duoneb (Ipratropium-Albuterol Neb) 0.5-2.5 Mg/3 Ml Neb 1 Ampule NEB Q6HR NEB [guaiFENesin ER] 600 MG Tabcr 600 Mg PO BID Senna Plus 8.6-50 mg (Sennosides-Docusate Sodium) 1 Tab Tab 1 Tab PO BID Lisinopril 10 Mg Tab 20 Mg PO DAILY Potassium Chloride ER (Potassium Chloride) 20 Meq Tab 20 Meq PO DAILY Lasix (Furosemide) 40 Mg Tab 40 Mg PO BID@09,18 30 Days Magnesium Oxide 400 Mg Tab 400 Mg PO DAILY Aldactone (Spironolactone) 100 Mg Tab 100 Mg PO DAILY Duragesic Patch 72 HR (Fentanyl) 25 Mcg/Hr Patch 1 Patch T-DERMAL Q3D Oxygen tank (Oxygen) 1 Ea Tank 2 Liter [place].CANULA CONTINUOUS Oxygen Concentrator Portable Gaseous 2 L/min via Nasal Cannula Continuous For 99 months Reported [place] Nasal [place] (Sodium Chloride) 0.65% [place] 1 [place] EACH NARE BID Aspirin 81 Mg Chew 81 Mg CHEW DAILY B-12 (Cyanocobalamin) 5,000 Mcg Cap 10,000 Mcg PO BID Vitamin D3 (Cholecalciferol) 10,000 Unit Cap 10,000 Units PO BID Super B-Complex (B-Complex W/Biotin & Folic Acid) 1 Tab 3 Tab PO TID Gabapentin 800 Mg Tab 800 Mg PO TID Novolin R Inj (Insulin Human Regular) 1,000 Unit/10 Ml Vial Unknown Dose SQ ACHS Max dose at bedtime:( )units; sugars less than 70,(0) units; sugars 150-199,(2)unit; sugars 200-249,(4)units; sugars 250-299,(7) units; sugars 300-349,(10)units; sugars greater than 349,(12)units Novolin 70-30 Inj (Insulin Human Isoph/Insulin Regular) 1,000 Unit/10 Ml Vial 45 Units SQ BID Omeprazole 20 Mg Tab 20 Mg PO BID Review of Systems Except as stated in HPI: all other systems reviewed are Neg Physical Exam Narrative GENERAL: Chronically ill-appearing male in no acute distress. SKIN: Warm and dry. HEAD: Atraumatic. Normocephalic. EYES: Pupils equal and round. No scleral icterus. No injection or drainage. ENT: No nasal bleeding or discharge. Mucous membranes pink and moist. NECK: Trachea midline. No JVD. CARDIOVASCULAR: Regular rate and rhythm. No murmur appreciated. RESPIRATORY: No accessory muscle use.Wheezing bilaterally. GASTROINTESTINAL: Abdomen soft, markedly distended, generalized tenderness to palpation. MUSCULOSKELETAL: No obvious deformities. There is 1+ pitting edema right leg, 2 + pitting edema left leg. There is erythema, open wound on the anterior left cruz. Wound culture has been performed. NEUROLOGICAL: Awake and alert. No obvious cranial nerve deficits. Motor grossly within normal limits. Normal speech. PSYCHIATRIC: Appropriate mood and affect; insight and judgment normal. Data Data Last Documented VS Vital Signs Date Time Temp Pulse Resp B/P Pulse Ox O2 Delivery O2 Flow Rate FiO2 12/26/16 18:54 82 16 176/86 97 Room Air 12/26/16 18:41 98.0 Orders Furosemide Inj (Lasix Inj) (12/26/16 17:45) Complete Blood Count With Diff (12/26/16 17:44) Comprehensive Metabolic Panel (12/26/16 17:44) Lipase (12/26/16 17:44) Urinalysis - C+S If Indicated (12/26/16 17:44) Ct Abd/Pel W Iv Contrast(Rout) (12/26/16 17:44) Iv Access Insert/Monitor (12/26/16 17:44) Ecg Monitoring (12/26/16 17:44) Oximetry (12/26/16 17:44) Sodium Chloride 0.9% Flush (Ns Flush) (12/26/16 17:45) Electrocardiogram (12/26/16 17:44) Electrocardiogram (12/26/16 17:44) Lactic Acid Sepsis Protocol (12/26/16 17:44) Blood Culture (12/26/16 17:44) Wound Culture And Gram Stain (12/26/16 17:44) Chest, Single Ap (12/26/16 17:44) Act Partial Throm Time (Ptt) (12/26/16 17:44) Prothrombin Time / Inr (Pt) (12/26/16 17:44) Ammonia (12/26/16 17:44) Us Leg Venous Doppler (12/26/16 17:44) Iohexol 350 Inj (Omnipaque 350 Inj) (12/26/16 19:09) Clindamycin Inj (Cleocin Inj) (12/26/16 19:15) Piperacil-Tazo 3.375 Gm Premix (Zosyn 3. (12/26/16 19:15) Labs Laboratory Tests Test 12/26/16 12/26/16 17:45 18:30 White Blood Count 3.8 TH/MM3 Red Blood Count 3.37 MIL/MM3 Hemoglobin 10.2 GM/DL Hematocrit 30.5 % Mean Corpuscular Volume 90.4 FL Mean Corpuscular Hemoglobin 30.1 PG Mean Corpuscular Hemoglobin 33.3 % Concent Red Cell Distribution Width 21.8 % Platelet Count 77 TH/MM3 Mean Platelet Volume 7.8 FL Neutrophils (%) (Auto) 79.4 % Lymphocytes (%) (Auto) 7.7 % Monocytes (%) (Auto) 12.4 % Eosinophils (%) (Auto) 0.2 % Basophils (%) (Auto) 0.3 % Neutrophils # (Auto) 3.0 TH/MM3 Lymphocytes # (Auto) 0.3 TH/MM3 Monocytes # (Auto) 0.5 TH/MM3 Eosinophils # (Auto) 0.0 TH/MM3 Basophils # (Auto) 0.0 TH/MM3 CBC Comment AUTO DIFF Differential Comment AUTO DIFF CONFIRMED Platelet Estimate LOW Platelet Morphology Comment NORMAL Prothrombin Time 12.3 SEC Prothromb Time International 1.1 RATIO Ratio Activated Partial 28.3 SEC Thromboplast Time Sodium Level 129 MEQ/L Potassium Level 3.1 MEQ/L Chloride Level 91 MEQ/L Carbon Dioxide Level 29.9 MEQ/L Anion Gap 8 MEQ/L Blood Urea Nitrogen 9 MG/DL Creatinine 1.10 MG/DL Estimat Glomerular Filtration 68 ML/MIN Rate Random Glucose 200 MG/DL Lactic Acid Level 1.6 mmol/L Calcium Level 8.2 MG/DL Total Bilirubin 1.2 MG/DL Aspartate Amino Transf 38 U/L (AST/SGOT) Alanine Aminotransferase 33 U/L (ALT/SGPT) Alkaline Phosphatase 34 U/L Ammonia 25 MCMOL/L Total Protein 6.7 GM/DL Albumin 2.9 GM/DL Lipase 176 U/L Urine Color YELLOW Urine Turbidity CLEAR Urine pH 5.5 Urine Specific [place] 1.007 Urine Protein NEG mg/dL Urine Glucose (UA) NEG mg/dL Urine Ketones NEG mg/dL Urine Occult Blood NEG Urine Nitrite NEG Urine Bilirubin NEG Urine Urobilinogen LESS THAN 2.0 MG/DL Urine Leukocyte Esterase NEG Urine RBC LESS THAN 1 /hpf Urine WBC 1 /hpf Urine Hyaline Casts 2 /lpf Microscopic Urinalysis Comment CULT NOT INDICATED MDM Medical Decision Making Medical Screen Exam Complete: Yes Emergency Medical Condition: Yes Medical Record Reviewed: Yes Differential Diagnosis Cellulitis, medication noncompliance, CHF exacerbation, ascites, spontaneous bacterial peritonitis, anasarca Narrative Course 61-year-old male presents with 3 weeks of worsening cellulitic infection on the anterior left cruz. In addition over the past 5 days he has had worsening abdominal pain, distention. He does endorse noncompliance to his Lasix regimen. He reports chills at home. Plan is for basic lab work, CT abdomen and pelvis, Doppler ultrasound of the left leg, wound culture, blood cultures. He'll be given IV Lasix, DuoNeb therapy. Laboratory imaging studies of and reviewed. CT reveals large volume ascites. Potassium 3.1, hyponatremic with sodium of 129, chronic leukopenia and thrombocytopenia is noted. The patient has allergy to several antibiotics. The patient was given clindamycin and Zosyn. At this point in time the plan to be to admit the patient for observation for IV antibiotic therapy for cellulitis , possibly therapeutic paracentesis in the morning. Discussed with Dr. Matthews who is agreeable with admission. Discussed with case management manager who reports he meets observational status at this time. Diagnosis Primary Impression: Cirrhosis of liver with ascites Qualified Code: K74.60 - Cirrhosis of liver with ascites, unspecified hepatic cirrhosis type Additional Impression: Cellulitis of left lower extremity Admitting Information Admitting Physician Requests: Observation Titi Ca Dec 26, 2016 17:52 Titi Ca Dec 26, 2016 17:52
[2016-12-26 18:10] LABS: BASOPHIL % 0.3 % (0.0-2.0); EOSINOPHIL % 0.2 % (0.0-4.0); HEMATOCRIT 30.5 % (39.0-51.0); LYMPH % 7.7 % (9.0-44.0); LYMPHOCYTE # 0.3 TH/MM3 (1.0-4.8); MEAN CELL VOLUME 90.4 FL (80.0-100.0); MEAN CORPUSCULAR HEMOGLOBIN 30.1 PG (27.0-34.0); MEAN CORPUSCULAR HGB CONC 33.3 % (32.0-36.0); MONO % 12.4 % (0.0-8.0); NEUT % 79.4 % (16.0-70.0); PLATELET COUNT 77 TH/MM3 (150-450); RED BLOOD COUNT 3.37 MIL/MM3 (4.50-5.90); RED CELL DISTRIBUTION WIDTH 21.8 % (11.6-17.2); WHITE BLOOD COUNT 3.8 TH/MM3 (4.0-11.0)
--- NOTE | 2016-12-26 18:11 | RADRPT ---
EXAM DATE/TIME: 12/26/2016 17:46 [facility] COMPARISON: CHEST SINGLE AP, November 11, 2016, 21:58. INDICATIONS : Short of breath. MEDICAL HISTORY : Chronic obstructive pulmonary disease. Congestive heart failure. Myocardial infarction. SURGICAL HISTORY : CABG. ENCOUNTER: Initial ACUITY: 2 days PAIN SCORE: 0/10 LOCATION: Bilateral chest FINDINGS: Minimal linear opacities in the lower lobes bilaterally unchanged from prior exam. No new pleural or parenchymal opacities. Prior median sternotomy. Cardiac silhouette is enlarged but stable. Remainder of the exam is unchanged. CONCLUSION: 1. No acute abnormality or significant interval change. Adi Daniel MD on December 26, 2016 at 18:09 Board Certified Radiologist. This report was verified electronically.
[2016-12-26 18:15] VITALS: BP 167/85; PULSE 92; PULSE 95; RESP 18; TEMP 98; O2SAT 97
[2016-12-26 18:15] LABS: HEMO FLAGS AUTO DIFF
[2016-12-26 18:21] LABS: APTT (PATIENT) 28.3 SEC (24.3-30.1); INTERNATIONAL NORMALIZED RATIO 1.1 RATIO; PROTHROMBIN TIME - PATIENT 12.3 SEC (9.8-11.6)
[2016-12-26 18:24] LABS: ANION GAP 8 MEQ/L (5-15); AST (GOT) 38 U/L (15-37); BICARBONATE 29.9 MEQ/L (21.0-32.0); BLOOD UREA NITROGEN 9 MG/DL (7-18); CHLORIDE 91 MEQ/L (98-107); GLOMERULAR FILTRATION RATE 68 ML/MIN (>89); POTASSIUM 3.1 MEQ/L (3.5-5.1); SODIUM (NA) 129 MEQ/L (136-145)
[2016-12-26 18:25] LABS: ALT (GPT) 33 U/L (12-78)
[2016-12-26 18:27] LABS: ALKALINE PHOSPHATASE 34 U/L (45-117); TOTAL BILIRUBIN ADULT 1.2 MG/DL (0.2-1.0)
--- NOTE | 2016-12-26 18:30 | RADRPT ---
EXAM DATE/TIME: 12/26/2016 18:06 [facility] COMPARISON: No previous studies available for comparison. INDICATIONS : Left leg pain. MEDICAL HISTORY : Hypercholesterolemia. Gastroesophageal reflux disease. Chronic obstructive pulmonary disease. Cere brovascular accident. Seizures. Myocardial infarction. Congestive heart failure. Coronary artery disease. Cirrhosis. Hypertension. Kidney stones. Arthritis. Diabetes. SURGICAL HISTORY : CABG Cholecystectomy. Cardiac catheterization. Coronary stent. Uvula removal. ENCOUNTER: Initial ACUITY: 1 week PAIN SCORE: 6/10 LOCATION: Left leg. TECHNIQUE: Venous ultrasound of the leg was performed from the inguinal ligament to the proximal calf. Real-isadora e, color Doppler and spectral tracing, compression and augmentation techniques were used. FINDINGS: There is normal compressibility of the deep venous system from the inguinal region to the proximal ca lf. No echogenic clot is seen in the lumen of the common femoral, femoral, popliteal, and posterior tibial veins. There is a normal response of the venous system to proximal and distal augmentation an d respiration. CONCLUSION: Negative for deep venous thrombosis. Brendan Tripathi MD FACR on December 26, 2016 at 18:28 Board Certified Radiologist. This report was verified electronically.
[2016-12-26 18:41] VITALS: BP 167/85; PULSE 95; RESP 18; TEMP 98; O2SAT 97
[2016-12-26 18:54] VITALS: BP 176/86; PULSE 82; RESP 16; O2SAT 97
[2016-12-26 18:54] LABS: BLOOD, URINE NEG (NEG); COMMENT (UR) CULT NOT INDICATED; CULTURE IF INDICATED CULT NOT INDICATED; GLUCOSE,URINE NEG (NEG); HYALINE CAST, URINE 2 /lpf (RARE); KETONE, URINE NEG (NEG); NITRITE,URINE NEG (NEG); PH, URINE 5.5 (5.0-8.5); URINE COLOR YELLOW (YELLW/STRAW)
[2016-12-26 18:56] LABS: PLATELET ESTIMATE SMEAR LOW (NORMAL); PLATELET MORPHOLOGY NORMAL (NORMAL); SCAN/DIFF AUTO DIFF CONFIRMED
[2016-12-26] MEDS ORDERED: IOHEXOL 350 MG/ML 10 ML VIAL (for RAD DIAG) IV ONE (19:09)
[2016-12-26] MEDS ORDERED: CLINDAMYCIN INJ 600 MG in SODIUM CHLORIDE 0.9% INJ 100 ML IV ONE (19:15)
[2016-12-26] MEDS ORDERED: PIPERACIL-TAZO 3.375 GM PREMIX 50 ML IV ONE (19:15)
--- NOTE | 2016-12-26 19:24 | RADRPT ---
EXAM DATE/TIME: 12/26/2016 19:05 [facility] COMPARISON: No previous studies available for comparison. INDICATIONS : Abdomen pain with distention. IV CONTRAST: 95 cc Omnipaque 350 (iohexol) IV ORAL CONTRAST: No oral contrast ingested. RADIATION DOSE: 21.34 CTDIvol (mGy) MEDICAL HISTORY : Cardiovascular disease. Hypertension. Cirrhosis.Ascites. SURGICAL HISTORY : Cholecystectomy. Carotid stent. ENCOUNTER: Initial ACUITY: 1 day PAIN SCALE: 6/10 LOCATION: Bilateral abdomen TECHNIQUE: Volumetric scanning of the abdomen and pelvis was performed. Using automated exposure control and ad justment of the mA and/or kV according to patient size, radiation dose was kept as low as reasonably achievable to obtain optimal diagnostic quality images. DICOM format image data is available electro nically for review and comparison. FINDINGS: LOWER LUNGS: The visualized lower lungs are clear. LIVER: Cirrhotic appearing liver. There is no dilation of the biliary tree. Cholecystectomy. Large volume a scites. SPLEEN: Enlarged without lesion. PANCREAS: Within normal limits. KIDNEYS: Normal in size and shape. There is no mass, stone or hydronephrosis. ADRENAL GLANDS: Within normal limits. VASCULAR: There is no aortic aneurysm. BOWEL/MESENTERY: Extensive diverticulosis without diverticulitis. There is no free intraperitoneal air or fluid. ABDOMINAL WALL: Within normal limits. RETROPERITONEUM: There is no lymphadenopathy. BLADDER: No wall thickening or mass. REPRODUCTIVE: Within normal limits. INGUINAL: There is no lymphadenopathy or hernia. MUSCULOSKELETAL: Minimal anasarca. CONCLUSION: 1. Cirrhotic liver with splenomegaly. 2. Large volume ascites. 3. Diverticulosis. John Paul Robles MD on December 26, 2016 at 19:20 Board Certified Radiologist. This report was verified electronically.
[2016-12-26] MEDS ORDERED: MORPHINE SULFATE 4 MG/ML INJ IV PUSH ONE (20:00)
[2016-12-26] MEDS ORDERED: POTASSIUM CHLORIDE 20 MEQ CONTROLLED RELEASE TAB PO ONE (20:00)
[2016-12-26] MEDS ORDERED: NALOXONE HCL 0.4 MG/ML AMP IV PRN (20:15)
[2016-12-26] MEDS: SODIUM CHLORIDE 0.9% FLUSH 10 ML FLUSH IV FLUSH SCH (21:50)
[2016-12-26 22:25] VITALS: PULSE 96
[2016-12-26 22:53] VITALS: BP 175/79; PULSE 102; RESP 18; TEMP 97.3; O2SAT 99
--- NOTE | 2016-12-26 23:49 | HHI.HP ---
[facility] No Primary Care Physician Admission Diagnosis left leg cellulitis, ascites Diagnoses: (1) Cirrhosis of liver with ascites (2) Cellulitis of left lower extremity Chief Complaint: shortness of breath and abdominal distention Travel History International Travel<30 Days: No Contact w/Intl Traveler <30 Da: No Traveled to Known Affected Are: No History of Present Illness Written by Sebastián Holliday, acting as scribe for Dr. Matthews on 12/26/16 at 23:47. Shortness of breath and abdomen is distended - "it's three times the normal size ". 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 Review of Systems Except as stated in HPI: all other systems reviewed are Neg Past Family Social History Past Medical History CAD Chronic bronchitis Diabetes mellitus Cirrhotic liver Chronic lower extremity cellulitis GERD Anxiety/depression History of MRSA Chronic hyponatremia Chronic Pain EF 50% (per ECHO 04/18) COPD emphysema PE Denies DVTs . Past Surgical History CABG two different surgeries Paracentesis Cholecystectomy . Reported Medications Reported Meds & Active Scripts Active Paroxetine (Paroxetine HCl) 20 Mg Tab 20 Mg PO DAILY Clonazepam 1 Mg Tab 1 Mg PO TID DO NOT TAKE THIS MEDICINE IF YOU WILL DRIVE A CAR OR USE A MACHINE, ONLY USE IT WHEN RESTING AT HOME. Morphine IR (Morphine Sulfate) 15 Mg Tab 7.5 Mg PO Q6H PRN do not take this medicine if you will drive a car or use a machine, only use it when resting at home. Albuterol Neb (Albuterol Sulfate) 2.5 Mg/3 Ml Neb 2.5 Mg NEB Q4HR NEB PRN Duoneb (Ipratropium-Albuterol Neb) 0.5-2.5 Mg/3 Ml Neb 1 Ampule NEB Q6HR NEB [guaiFENesin ER] 600 MG Tabcr 600 Mg PO BID Lisinopril 10 Mg Tab 20 Mg PO DAILY Potassium Chloride ER (Potassium Chloride) 20 Meq Tab 20 Meq PO DAILY Lasix (Furosemide) 40 Mg Tab 40 Mg PO BID@09,18 30 Days Aldactone (Spironolactone) 100 Mg Tab 100 Mg PO DAILY Duragesic Patch 72 HR (Fentanyl) 25 Mcg/Hr Patch 1 Patch T-DERMAL Q3D Oxygen tank (Oxygen) 1 Ea Tank 2 Liter CATALINA.CANULA CONTINUOUS Oxygen Concentrator Portable Gaseous 2 L/min via Nasal Cannula Continuous For 99 months Reported [place] Nasal [place] (Sodium Chloride) 0.65% [place] 1 [place] EACH NARE BID Aspirin 81 Mg Chew 81 Mg CHEW DAILY Vitamin D3 (Cholecalciferol) 10,000 Unit Cap 10,000 Units PO BID Super B-Complex (B-Complex W/Biotin & Folic Acid) 1 Tab 3 Tab PO TID Gabapentin 800 Mg Tab 800 Mg PO TID Novolin R Inj (Insulin Human Regular) 1,000 Unit/10 Ml Vial Unknown Dose SQ ACHS Max dose at bedtime:( )units; sugars less than 70,(0) units; sugars 150-199,(2)unit; sugars 200-249,(4)units; sugars 250-299,(7) units; sugars 300-349,(10)units; sugars greater than 349,(12)units Novolin 70-30 Inj (Insulin Human Isoph/Insulin Regular) 1,000 Unit/10 Ml Vial 45 Units SQ BID Omeprazole 20 Mg Tab 20 Mg PO BID . Allergies: Coded Allergies: Bactrim (Verified Allergy, Severe, Hives, 04/07/16) Codeine (Verified Allergy, Severe, Hives, 04/07/16) Hydrocodone (Verified Allergy, Severe, ITCH, 04/07/16) Minocin (Verified Allergy, Severe, CLOSED THROAT, 04/07/16) Sulfa (Verified Allergy, Severe, Hives, 04/07/16) Vancomycin (Verified Allergy, Severe, Anaphylaxis, 04/07/16) Tetracycline (Verified Allergy, Unknown, Hives, 04/07/16) Active Ordered Medications Current Medications Furosemide (Lasix Inj) 40 mg ONCE ONCE IV PUSH Last administered on 12/26/16 18:02; Start 12/26/16 at 17:45; Stop 12/26/16 at 17:48; Status DC Sodium Chloride (NS Flush) 2 ml UNSCH PRN IV FLUSH FLUSH AFTER USING IV ACCESS ; Start 12/26/16 at 17:45; Stop 12/26/16 at 20:50; Status DC Iohexol 95 ml 95 ml STK-MED ONCE IV Last administered on 12/26/16 19:09; Start 12/26/16 at 19:09; Stop 12/26/16 at 19:10; Status DC Clindamycin Phosphate 600 mg/ Sodium Chloride 104 ml @ 208 mls/hr ONCE ONCE IV Last administered on 12/26/16 20:09; Start 12/26/16 at 19:15; Stop at 19:44; Status DC Piperacillin Sod/ Tazobactam Sod (Zosyn 3.375 Gm Premix) 50 ml @ 100 mls/hr ONCE ONCE IV Last administered on 12/26/16 19:38; Start 12/26/16 at 19:15; Stop 12/26/16 at 19:44; Status DC Morphine Sulfate (Morphine Inj) 3 mg ONCE ONCE IV PUSH Last administered on 20:09; Start 12/26/16 at 20:00; Stop 12/26/16 at 20:01; Status DC Potassium Chloride (KCl) 60 meq ONCE ONCE PO Last administered on 12/26/16 21 :07; Start 12/26/16 at 20:00; Stop 12/26/16 at 20:01; Status DC Sodium Chloride (NS Flush) 2 ml UNSCH PRN IV FLUSH FLUSH AFTER USING IV ACCESS ; Start 12/26/16 at 20:15 Sodium Chloride (NS Flush) 2 ml BID IV FLUSH Last administered on 12/26/16 21: 50; Start 12/26/16 at 21:00 Naloxone HCl 0.4 mg 0.4 mg UNSCH PRN IV SEE LABEL COMMENTS; Start 12/26/16 at 20:15 Clindamycin Phosphate 900 mg/ Sodium Chloride 106 ml @ 212 mls/hr Q6H IV ; Start 12/27/16 at 02:00 Piperacillin Sod/ Tazobactam Sod (Zosyn 4.5 Gm Premix) 100 ml @ 200 mls/hr Q6H IV ; Start 12/27/16 at 02:00 Lactobacillus Acidophilus (Lactinex) 1 tab TID PO ; Start 12/27/16 at 09:00 . Family History Cancer runs in family . Social History Tobacco: Alcohol: drinks alcohol Illicit Drugs: [place] . Physical Exam Vital Signs Vital Signs Date Time Temp Pulse Resp B/P Pulse Ox O2 Delivery O2 Flow Rate FiO2 12/26/16 22:53 97.3 102 18 175/79 99 12/26/16 22:25 96 12/26/16 18:54 82 16 176/86 97 Room Air 12/26/16 18:46 20 12/26/16 18:41 98.0 95 18 167/85 97 12/26/16 18:15 98.0 95 18 167/85 97 Room Air 12/26/16 18:15 92 18 167/85 97 Room Air Physical Exam GENERAL: This is a chronically-ill appearing male patient, in no apparent distress. SKIN: No rashes. Cool and dry. Left cruz with vertical wound with surrounding erythema and 2+ edema left knee to feet. HEAD: Atraumatic. Normocephalic. EYES: No scleral icterus. No injection or drainage. ENT: Nose without bleeding, purulent drainage. NECK: Trachea midline. No JVD. CARDIOVASCULAR: Regular rate and rhythm without murmurs, gallops, or rubs. RESPIRATORY: Clear to auscultation. Breath sounds equal bilaterally. No wheezes , rales, or rhonchi. GASTROINTESTINAL: Abdomen largely distended. No guarding. MUSCULOSKELETAL: Extremities without clubbing, cyanosis. No calf tenderness. NEUROLOGICAL: Awake and alert. Motor and sensory grossly within normal limits. Normal speech. . Laboratory Laboratory Tests Test 12/26/16 12/26/16 17:45 18:30 White Blood Count 3.8 Red Blood Count 3.37 Hemoglobin 10.2 Hematocrit 30.5 Mean Corpuscular Volume 90.4 Mean Corpuscular Hemoglobin 30.1 Mean Corpuscular Hemoglobin 33.3 Concent Red Cell Distribution Width 21.8 Platelet Count 77 Mean Platelet Volume 7.8 Neutrophils (%) (Auto) 79.4 Lymphocytes (%) (Auto) 7.7 Monocytes (%) (Auto) 12.4 Eosinophils (%) (Auto) 0.2 Basophils (%) (Auto) 0.3 Neutrophils # (Auto) 3.0 Lymphocytes # (Auto) 0.3 Monocytes # (Auto) 0.5 Eosinophils # (Auto) 0.0 Basophils # (Auto) 0.0 CBC Comment AUTO DIFF Differential Comment AUTO DIFF CONFIRMED Platelet Estimate LOW Platelet Morphology Comment NORMAL Prothrombin Time 12.3 Prothromb Time International 1.1 Ratio Activated Partial 28.3 Thromboplast Time Sodium Level 129 Potassium Level 3.1 Chloride Level 91 Carbon Dioxide Level 29.9 Anion Gap 8 Blood Urea Nitrogen 9 Creatinine 1.10 Estimat Glomerular Filtration 68 Rate Random Glucose 200 Lactic Acid Level 1.6 Calcium Level 8.2 Total Bilirubin 1.2 Aspartate Amino Transf 38 (AST/SGOT) Alanine Aminotransferase 33 (ALT/SGPT) Alkaline Phosphatase 34 Ammonia 25 Total Protein 6.7 Albumin 2.9 Lipase 176 Urine Color YELLOW Urine Turbidity CLEAR Urine pH 5.5 Urine Specific [place] 1.007 Urine Protein NEG Urine Glucose (UA) NEG Urine Ketones NEG Urine Occult Blood NEG Urine Nitrite NEG Urine Bilirubin NEG Urine Urobilinogen LESS THAN 2.0 Urine Leukocyte Esterase NEG Urine RBC LESS THAN 1 Urine WBC 1 Urine Hyaline Casts 2 Microscopic Urinalysis Comment CULT NOT INDICATED Date/Time Procedure Status Source Growth 12/26/16 18:00 Aerobic Blood Culture Received Blood Peripheral Pending 12/26/16 18:00 Anaerobic Blood Culture Received Blood Peripheral Pending 12/26/16 17:45 Gram Stain Received Wound Leg Pending 12/26/16 17:45 Wound Culture Received Wound Leg Pending Result Diagram: 12/26/16174412/26/161744 Imaging Last Impressions Lower Extremity Ultrasound 12/26/161743 Signed Impressions: Service Date/Time: Monday, December 26, 2016 18:06 - CONCLUSION: Negative for deep venous thrombosis. Brendan Tripathi MD FACR Chest X-Ray 12/26/161743 Signed Impressions: Service Date/Time: Monday, December 26, 2016 17:46 - CONCLUSION: 1. No acute abnormality or significant interval change. Adi Daniel MD Abdomen/Pelvis CT 12/26/161743 Signed Impressions: Service Date/Time: Monday, December 26, 2016 19:05 - CONCLUSION: 1. Cirrhotic liver with splenomegaly. 2. Large volume ascites. 3. Diverticulosis. John Paul Robles MD . Assessment and Plan Problem List: (1) Cirrhosis of liver with ascites ICD Code: K74.60 Status: Chronic (2) Cellulitis of left lower extremity ICD Code: L03.116 Status: Acute Assessment and Plan A 61-year-old male presented to the emergency department complaining of abdominal pain and shortness of breath: Cirrhosis with ascites - Therapeutic and diagnostic paracentesis - Restart home Lasix and Aldactone Left lower extremity cellulitis - Clindamycin 600 mg IV every 6 hours - Zosyn 4.5 g IV every 6 hours Hypokalemia - initial K+ level 3.1 - potassium replaced P.O. - recheck bmp in a.m. and follow potassium level - replace as needed Diabetes Mellitus - Accu-Cheks before meals and at bedtime with low-dose NovoLog sliding scale coverage - Hypoglycemia protocol - Monitor trends and blood glucose readings and adjust treatments as indicated DVT prophylaxis - Lovenox 40 mg subq q24h . This note was transcribed by latosha [Sebastián Holliday]. I, Dr. Ariel Matthews personally performed the history, physical exam, and medical decision making; and confirmed the accuracy of the information in the transcribed note. Authenticated by Dr. Ariel Matthews on 12/26/16 at 23:47. Discussed Condition With ER physician, patient, and RN Problem Qualifiers (1) Cirrhosis of liver with ascites: Qualified Code: K74.60 - Cirrhosis of liver with ascites, unspecified hepatic cirrhosis type Sebastián Holliday Dec 26, 2016 23:49 Ariel Matthews MD Jan 01, 2017 07:46
[2016-12-27] VITALS (9 sets, daily range): BP systolic 109–156; BP diastolic 53–84; PULSE 20–90; RESP 14–20; TEMP 97.5–99.1; O2SAT 93–100
[2016-12-27] MEDS: SODIUM CHLORIDE 0.65% NASAL SPRAY 45 ML BTL EACH NARE SCH ×3 (01:15→21:00)
[2016-12-27] MEDS ORDERED: DEXTROSE 50% IN WATER 50 ML VIAL(D50) IV PRN (01:30)
[2016-12-27] MEDS ORDERED: GLUCAGON 1 MG/ML VIAL OTHER PRN (01:30)
[2016-12-27] MEDS: PIPERACIL-TAZO 4.5 GM PREMIX 100 ML IV SCH ×4 (02:03→21:41)
[2016-12-27] MEDS: CLINDAMYCIN INJ 900 MG in SODIUM CHLORIDE 0.9% INJ 100 ML IV SCH ×4 (02:03→22:49)
[2016-12-27] MEDS: clonazePAM 1 MG TAB PO PRN ×2 (02:10→09:42)
[2016-12-27] MEDS: MORPHINE SULFATE 15 MG TAB PO PRN ×4 (02:10→23:48)
[2016-12-27] MEDS ORDERED: PILL SPLITTER OTHER PRN (02:15)
[2016-12-27] MEDS: INSULIN ASPART SUPPLEMENTAL SCALE SQ SCH ×4 (06:27→22:04)
[2016-12-27 07:28] LABS: AUTOMATED NEUTROPHIL # 1.6 TH/MM3 (1.8-7.7); BASOPHIL % 0.4 % (0.0-2.0); EOSINOPHIL % 0.8 % (0.0-4.0); HEMATOCRIT 26.4 % (39.0-51.0); LYMPH % 13.2 % (9.0-44.0); LYMPHOCYTE # 0.3 TH/MM3 (1.0-4.8); MEAN CELL VOLUME 90.5 FL (80.0-100.0); MEAN CORPUSCULAR HEMOGLOBIN 29.9 PG (27.0-34.0); MEAN CORPUSCULAR HGB CONC 33.1 % (32.0-36.0); MONO % 19.7 % (0.0-8.0); NEUT % 65.9 % (16.0-70.0); PLATELET COUNT 55 TH/MM3 (150-450); RED BLOOD COUNT 2.91 MIL/MM3 (4.50-5.90); RED CELL DISTRIBUTION WIDTH 21.2 % (11.6-17.2); WHITE BLOOD COUNT 2.4 TH/MM3 (4.0-11.0)
[2016-12-27 07:31] LABS: INTERNATIONAL NORMALIZED RATIO 1.2 RATIO; PROTHROMBIN TIME - PATIENT 13.3 SEC (9.8-11.6)
[2016-12-27 07:39] LABS: HEMO FLAGS AUTO DIFF
[2016-12-27] MEDS ORDERED: INSULIN ASPAR PROT 70/30 1,000 UNITS/10 ML VIAL SQ SCH (08:00)
[2016-12-27] MEDS: RESP: ALBUTEROL 2.5 MG/IPRATROPIUM 0.5 MG NEB (SCH) NEB ×3 (08:21→19:48)
[2016-12-27 08:28] LABS: BICARBONATE 34.1 MEQ/L (21.0-32.0)
[2016-12-27] MEDS: LACTOBACILLUS ACIDOPHILUS TAB PO SCH ×3 (08:41→18:25)
[2016-12-27 08:42] LABS: POTASSIUM 2.9 MEQ/L (3.5-5.1)
[2016-12-27] MEDS: GABAPENTIN 400 MG CAP PO SCH ×3 (08:43→18:25)
[2016-12-27] MEDS: POTASSIUM CHLORIDE 20 MEQ CONTROLLED RELEASE TAB PO SCH (08:43)
[2016-12-27] MEDS: PANTOPRAZOLE SOD 20 MG DELAYED RELEASE TAB PO SCH ×2 (08:44→21:42)
[2016-12-27] MEDS: PARoxetine HCL 20 MG TAB PO SCH (08:44)
[2016-12-27] MEDS: FUROSEMIDE 40 MG TAB PO SCH ×2 (08:44→18:25)
[2016-12-27 09:00] LABS: PLATELET ESTIMATE SMEAR LOW (NORMAL); SCAN/DIFF AUTO DIFF CONFIRMED
[2016-12-27] MEDS: SODIUM CHLORIDE 0.9% FLUSH 10 ML FLUSH IV FLUSH SCH ×2 (09:00→21:42)
[2016-12-27] MEDS: ENOXAPARIN SODIUM 40 MG/0.4 ML SYRINGE SQ SCH (09:00)
[2016-12-27 09:01] LABS: PLATELET MORPHOLOGY NORMAL (NORMAL)
[2016-12-27] MEDS: CHOLECALCIFEROL (VIT D3) 5000 UNIT CAP PO SCH ×2 (09:43→21:42)
[2016-12-27] MEDS: POTASSIUM CHLORIDE 25 MEQ EFFERVESCENT TAB PO SCH ×2 (09:43→13:02)
[2016-12-27] MEDS: SPIRONOLACTONE 100 MG TAB PO SCH (09:43)
[2016-12-27] MEDS ORDERED: ALBUMIN HUMAN 25% 50GM-W/12.5GM FOR 62.5GM IV ONE (11:45)
[2016-12-27] MEDS ORDERED: ALBUMIN HUMAN 25% 12.5GM-W/50GM FOR 62.5GM IV ONE (11:45)
[2016-12-27] MEDS ORDERED: LIDOCAINE HCL 1% PF 30 ML VIAL ONE (11:49)
--- NOTE | 2016-12-27 12:16 | RADRPT ---
EXAM DATE/TIME: 12/27/2016 10:10 [facility] COMPARISON: US GUIDED ABD PARACENTESIS, September 17, 2016, 11:07. INDICATIONS : Ascites. MEDICAL HISTORY : Congestive heart failure. Myocardial infarction. Hypercholesterolemia. Cataracts. CVA. Seizures. Pradip nary artery disease. Chest pain. HTN. COPD. Asthma. Pneumonia. Sleep apnea. Dyspnea. Cirrhosis. GERD. Arthritis. Renal calculi. Prosthesis. Diabetes. Jaundice. Hepatitis. MRSA. PTSD. Anxiety. Substance use. SURGICAL HISTORY : CABG Coronary artery stent. Cholecystectomy. Cardiac cath. Uvula removal. Blood transfusions. ENCOUNTER: Subsequent ACUITY: 3 months PAIN SCORE: 4/10 LOCATION: Right lower quadrant FLUID: Total volume of 9100 cc of clear, yellow fluid was removed. Fluid was sent to lab for ordered studies. Post procedure scanning reveals no hematoma or other complication. TECHNIQUE: 1. Ultrasound guidance for abdominal paracentesis. 2. Paracentesis. The risks, benefits, and alternatives to ultrasound guided paracentesis were explained to the patient in detail including the risk of bleeding and infection. Written and verbal informed consent was obt ained. With the patient on the ultrasound table, ultrasound imaging was used to select the most appropriate approach for paracentesis. Overlying skin was prepped and draped in the usual sterile fashion and wi th a local anesthetic, a dermatotomy was made with an 11 blade scalpel. A 6 [place] [id number] ca theter was introduced into the peritoneal cavity and fluid was collected. The patient tolerated the procedure well and left the ultrasound suite in stable condition. CONCLUSION: Uncomplicated ultrasound guided paracentesis. Cristiano Mclean MD on December 27, 2016 at 12:14 Board Certified Radiologist. This report was verified electronically.
--- NOTE | 2016-12-27 12:53 | EKG ---
Date Performed: 12/26/2016 Time Performed: 18:32:05 PTAGE: 61 years EKG: Sinus rhythm POSSIBLE LEFT ATRIAL ENLARGEMENT MARKED LEFT AXIS DEVIATION POSSIBLE RIGHT VENTRICULAR CONDUCTION DE LAY ABNORMAL ECG PREVIOUS TRACING : 11/11/2016 21.55 DOCTOR: Maurice Chase Interpretating Date/Time 12/27/2016 12:48:50
[2016-12-27] MEDS: MAGNESIUM SULFATE 1 GM PREMIX 100 ML IV SCH ×4 (13:01→18:25)
[2016-12-27 13:39] LABS: PERITONEAL HISTIOCYTES 8 %; PERITONEAL LYMPHS 34 %; PERITONEAL MESOTHELIAL 3 %; PERITONEAL MONOS 11 %; PERITONEAL POLYS(SEGS) 44 %; PERITONEAL WBC 220 /MM3 (0-10)
--- NOTE | 2016-12-27 17:29 | HHI.PR ---
Subjective Remarks Attempted to see patient. However, he was in radiology for paracentesis. Thus, patient was not seen today. Objective Vitals Vital Signs Date Time Temp Pulse Resp B/P Pulse Ox O2 Delivery O2 Flow Rate FiO2 12/27/16 16:36 98.9 90 18 141/66 98 12/27/16 12:56 99.1 86 14 109/53 100 12/27/16 08:21 98 Nasal Cannula 2.00 12/27/16 04:00 97.8 73 20 131/60 93 12/27/16 03:53 98.8 20 20 156/84 99 12/26/16 22:53 97.3 102 18 175/79 99 12/26/16 22:25 96 12/26/16 18:54 82 16 176/86 97 Room Air 12/26/16 18:46 20 12/26/16 18:41 98.0 95 18 167/85 97 12/26/16 18:15 98.0 95 18 167/85 97 Room Air 12/26/16 18:15 92 18 167/85 97 Room Air I/O 12/26/16 12/26/16 12/26/16 12/27/16 12/27/16 12/27/16 07:00 15:00 23:00 07:00 15:00 23:00 Output Total 200 ml Balance -200 ml Output Urine Total 200 ml # Voids 1 Result Diagram: 12/27/16 0643 12/27/16 0643 A/P Problem List: (1) Cirrhosis of liver with ascites ICD Code: K74.60 Status: Chronic (2) Cellulitis of left lower extremity ICD Code: L03.116 Status: Acute Problem Qualifiers (1) Cirrhosis of liver with ascites: Qualified Code: K74.60 - Cirrhosis of liver with ascites, unspecified hepatic cirrhosis type Trerie Contreras DO Dec 27, 2016 17:29
[2016-12-27 17:32] LABS: MAGNESIUM 1.3 MG/DL (1.5-2.5)
[2016-12-28] VITALS (11 sets, daily range): BP systolic 104–148; BP diastolic 52–72; PULSE 66–96; RESP 16–21; TEMP 97.4–99.7; O2SAT 97–100
[2016-12-28] MEDS: PIPERACIL-TAZO 4.5 GM PREMIX 100 ML IV SCH ×2 (02:15→08:32)
[2016-12-28] MEDS: CLINDAMYCIN INJ 900 MG in SODIUM CHLORIDE 0.9% INJ 100 ML IV SCH (02:34)
[2016-12-28] MEDS: INSULIN ASPART SUPPLEMENTAL SCALE SQ SCH ×4 (06:47→20:56)
[2016-12-28] MEDS: MORPHINE SULFATE 15 MG TAB PO PRN (06:52)
[2016-12-28] MEDS ORDERED: POTASSIUM CHLORIDE 20 MEQ CONTROLLED RELEASE TAB PO ONE ×2 (07:45→17:15)
[2016-12-28] MEDS: RESP: ALBUTEROL 2.5 MG/IPRATROPIUM 0.5 MG NEB (SCH) NEB ×4 (08:10→20:00)
[2016-12-28] MEDS: MAGNESIUM SULFATE 1 GM PREMIX 100 ML IV SCH ×2 (08:32→10:49)
[2016-12-28] MEDS: LACTOBACILLUS ACIDOPHILUS TAB PO SCH ×3 (08:33→17:23)
[2016-12-28] MEDS: SODIUM CHLORIDE 0.65% NASAL SPRAY 45 ML BTL EACH NARE SCH ×2 (08:33→22:45)
[2016-12-28] MEDS: ENOXAPARIN SODIUM 40 MG/0.4 ML SYRINGE SQ SCH (08:33)
[2016-12-28] MEDS: SODIUM CHLORIDE 0.9% FLUSH 10 ML FLUSH IV FLUSH SCH ×2 (08:33→20:53)
[2016-12-28] MEDS: PARoxetine HCL 20 MG TAB PO SCH (08:34)
[2016-12-28] MEDS: SPIRONOLACTONE 100 MG TAB PO SCH (08:34)
[2016-12-28] MEDS: GABAPENTIN 400 MG CAP PO SCH ×3 (08:34→17:23)
[2016-12-28] MEDS: CHOLECALCIFEROL (VIT D3) 5000 UNIT CAP PO SCH ×2 (08:35→22:45)
[2016-12-28] MEDS: PANTOPRAZOLE SOD 20 MG DELAYED RELEASE TAB PO SCH ×2 (08:35→20:52)
[2016-12-28] MEDS: FUROSEMIDE 40 MG TAB PO SCH ×2 (08:35→17:23)
[2016-12-28] MEDS ORDERED: RESP: ALBUTEROL 2.5 MG/IPRATROPIUM 0.5 MG NEB (PRN) NEB (09:45)
--- NOTE | 2016-12-28 10:13 | HHI.PR ---
Subjective Remarks Written by Hawk Ang, acting as scribe for Dr. Contreras on 12/28/16 at 9:50. This note was transcribed by ALLI Reyes. I, Dr. Kevin Contreras personally performed the history, physical exam, and medical decision making; and confirmed the accuracy of the information in the transcribed note. Authenticated by Dr. Kevin Contreras on 12/28/16 at 16:18. Follow-up for ascites and lower extremity wound. The patient had paracentesis yesterday, reports his abdominal distention has improved some. He does state that he takes Lasix at home, unsure if he takes spironolactone. His chief complaint today is chronic back pain for which she takes fentanyl, asking for fentanyl to be increased. He does follow with pain management, Dr. Michelle, as outpatient. He is feeling unsteady on his feet today, and doesn't feel like home health care has been very useful for him in the past. He reports occasional social alcohol use now, reports heavier alcohol use in the past. He does not know why he has liver failure. Objective Vitals Vital Signs Date Time Temp Pulse Resp B/P Pulse Ox O2 Delivery O2 Flow Rate FiO2 12/28/16 08:40 19 12/28/16 08:18 Nasal Cannula 3.50 12/28/16 07:32 99.1 77 18 141/67 97 12/28/16 04:04 84 12/28/16 04:00 66 12/28/16 03:49 99.7 78 19 108/54 100 12/28/16 00:35 99.2 85 21 125/59 100 12/28/16 00:02 96 12/28/16 00:00 78 12/27/16 20:24 84 12/27/16 20:03 97.5 88 20 148/65 97 12/27/16 20:01 78 12/27/16 19:50 99 Nasal Cannula 3.50 12/27/16 16:36 98.9 90 18 141/66 98 12/27/16 12:56 99.1 86 14 109/53 100 Result Diagram: 12/27/16 0643 12/27/16 1615 Imaging Last Impressions Cyst Biopsy Asp-Paracentesis US 12/27/16 0000 Signed Impressions: Service Date/Time: December 10:10 - CONCLUSION: Uncomplicated ultrasound guided paracentesis. Cristiano Mclean MD Lower Extremity Ultrasound 12/26/161743 Signed Impressions: Service Date/Time: Monday, December 26, 2016 18:06 - CONCLUSION: Negative for deep venous thrombosis. Brendan Tripathi MD FACR Chest X-Ray 12/26/161743 Signed Impressions: Service Date/Time: Monday, December 26, 2016 17:46 - CONCLUSION: 1. No acute abnormality or significant interval change. Adi Daniel MD Abdomen/Pelvis CT 12/26/161743 Signed Impressions: Service Date/Time: Monday, December 26, 2016 19:05 - CONCLUSION: 1. Cirrhotic liver with splenomegaly. 2. Large volume ascites. 3. Diverticulosis. John Paul Robles MD Objective Remarks GENERAL: Well-developed well-nourished morbidly obese. In no acute distress. SKIN: Warm and dry. Left lower extremity wound as below with chronic venous stasis changes. HEENT: Normocephalic. Pupils equal and round. Mucous membranes pink and moist. CARDIOVASCULAR: Regular rate and rhythm. No murmur appreciated. RESPIRATORY: No accessory muscle use. Clear to auscultation. Breath sounds equal bilaterally. GASTROINTESTINAL: Abdomen soft, non-tender, moderately distended. Bowel sounds x4. MUSCULOSKELETAL: Bilateral lower extremity trace edema. Left lower extremity with wound with. No clubbing or cyanosis. No edema. NEUROLOGICAL: Awake and alert. No focal neurological deficits. Moves upper and lower extremities spontaneously. Normal speech. Mildly tremulous. PSYCHIATRIC: Appropriate mood and affect; insight and judgment normal. A/P Problem List: (1) Cirrhosis of liver with ascites ICD Code: K74.60 Status: Chronic (2) Cellulitis of left lower extremity ICD Code: L03.116 Status: Acute Assessment and Plan 61-year-old male with a past medical history of cirrhosis, CHF, COPD, chronic pain, chronic lower extremity cellulitis who presented for abdominal distention Cirrhosis with ascites - Therapeutic and diagnostic paracentesis performed 12/27. Fluid studies appear benign. Follow-up culture. - Continue home Lasix and Aldactone Left lower extremity cellulitis: Wound culture growing sensitive Pseudomonas and group D enterococcus - Change antibiotics to PO Levaquin and PO Amoxicillin. - Monitor blood cultures which are so far negative. Hypokalemia/hypomagnesemia - Replaced orally and by IV - Follow up electrolyte levels today Diabetes Mellitus - Accu-Cheks before meals and at bedtime with low-dose NovoLog sliding scale coverage - Hypoglycemia protocol - Monitor trends and blood glucose readings and adjust treatments as indicated Chronic pain - Continue home or morphine as needed and scheduled fentanyl patch. Continue outpatient pain management follow-up. DVT prophylaxis - Lovenox 40 mg subq q24h Discharge Planning Follow-up the ascitic fluid culture. Problem Qualifiers (1) Cirrhosis of liver with ascites: Qualified Code: K74.60 - Cirrhosis of liver with ascites, unspecified hepatic cirrhosis type Hawk Ang Dec 28, 2016 10:13 Terrie Contreras DO Dec 28, 2016 16:19
[2016-12-28] MEDS: clonazePAM 1 MG TAB PO SCH ×2 (10:48→18:38)
[2016-12-28] MEDS: POTASSIUM CHLORIDE 20 MEQ CONTROLLED RELEASE TAB PO SCH (10:49)
[2016-12-28 11:59] LABS: AUTOMATED NEUTROPHIL # 1.4 TH/MM3 (1.8-7.7); BASOPHIL % 0.4 % (0.0-2.0); EOSINOPHIL % 1.3 % (0.0-4.0); HEMATOCRIT 24.4 % (39.0-51.0); LYMPH % 13.5 % (9.0-44.0); LYMPHOCYTE # 0.3 TH/MM3 (1.0-4.8); MEAN CELL VOLUME 91.9 FL (80.0-100.0); MEAN CORPUSCULAR HGB CONC 32.6 % (32.0-36.0); MONO % 19.9 % (0.0-8.0); NEUT % 64.9 % (16.0-70.0); PLATELET COUNT 48 TH/MM3 (150-450); RED BLOOD COUNT 2.66 MIL/MM3 (4.50-5.90); RED CELL DISTRIBUTION WIDTH 21.2 % (11.6-17.2); WHITE BLOOD COUNT 2.1 TH/MM3 (4.0-11.0)
[2016-12-28 12:09] LABS: HEMO FLAGS AUTO DIFF
[2016-12-28 12:29] LABS: BICARBONATE 32.6 MEQ/L (21.0-32.0); MAGNESIUM 1.6 MG/DL (1.5-2.5); POTASSIUM 3.2 MEQ/L (3.5-5.1)
[2016-12-28] MEDS: AMOXICILLIN 875 MG TAB PO SCH ×2 (13:15→22:45)
[2016-12-28] MEDS: fentaNYL 25 MCG/HR PATCH T-DERMAL SCH (13:17)
[2016-12-28 13:49] LABS: PLATELET ESTIMATE SMEAR LOW (NORMAL); PLATELET MORPHOLOGY NORMAL (NORMAL); SCAN/DIFF AUTO DIFF CONFIRMED
[2016-12-28] MEDS ORDERED: MAGNESIUM SULFATE 1 GM PREMIX 100 ML IV ONE (17:00)
[2016-12-28] MEDS ORDERED: clonazePAM 1 MG TAB PO ONE (19:30)
[2016-12-29] VITALS (8 sets, daily range): BP systolic 120–147; BP diastolic 56–70; PULSE 76–89; RESP 12–20; TEMP 97.3–99.6; O2SAT 97–99
[2016-12-29] MEDS: clonazePAM 1 MG TAB PO SCH ×4 (02:56→23:32)
[2016-12-29] MEDS: INSULIN ASPART SUPPLEMENTAL SCALE SQ SCH ×4 (06:06→23:31)
[2016-12-29] MEDS: LEVOFLOXACIN 750 MG TAB PO SCH (08:18)
[2016-12-29] MEDS: GABAPENTIN 400 MG CAP PO SCH ×3 (08:18→18:03)
[2016-12-29] MEDS: LACTOBACILLUS ACIDOPHILUS TAB PO SCH ×3 (08:18→18:03)
[2016-12-29] MEDS: PANTOPRAZOLE SOD 20 MG DELAYED RELEASE TAB PO SCH ×2 (08:19→23:27)
[2016-12-29] MEDS: PARoxetine HCL 20 MG TAB PO SCH (08:19)
[2016-12-29] MEDS: FUROSEMIDE 40 MG TAB PO SCH ×2 (08:19→18:03)
[2016-12-29] MEDS: POTASSIUM CHLORIDE 20 MEQ CONTROLLED RELEASE TAB PO SCH (08:19)
[2016-12-29] MEDS: CHOLECALCIFEROL (VIT D3) 5000 UNIT CAP PO SCH ×2 (08:19→23:27)
[2016-12-29] MEDS: ENOXAPARIN SODIUM 40 MG/0.4 ML SYRINGE SQ SCH (08:21)
[2016-12-29] MEDS: SODIUM CHLORIDE 0.9% FLUSH 10 ML FLUSH IV FLUSH SCH ×2 (08:21→23:28)
[2016-12-29] MEDS: SODIUM CHLORIDE 0.65% NASAL SPRAY 45 ML BTL EACH NARE SCH ×2 (08:22→23:28)
[2016-12-29] MEDS: RESP: ALBUTEROL 2.5 MG/IPRATROPIUM 0.5 MG NEB (SCH) NEB ×4 (09:01→20:31)
[2016-12-29] MEDS: SPIRONOLACTONE 100 MG TAB PO SCH (10:17)
--- NOTE | 2016-12-29 10:34 | HHI.PR ---
Subjective Remarks Follow up for liver cirrhosis, ascites. Patient is doing well. However, he complains of a bruise he noticed earlier on the lateral side of his left ankle. No bruise now. He complains of significant pain around the ankle area, however. No fever, chills. Objective Vitals Vital Signs Date Time Temp Pulse Resp B/P Pulse Ox O2 Delivery O2 Flow Rate FiO2 12/29/16 08:00 97.3 86 12 124/59 97 12/29/16 01:55 99 21 12/29/16 00:00 98.8 88 16 137/65 99 12/28/16 20:00 98.2 79 16 125/58 97 12/28/16 16:00 97.4 77 16 136/59 97 12/28/16 15:47 98.7 89 20 148/72 100 12/28/16 14:20 18 12/28/16 11:14 98.6 74 18 104/52 98 Result Diagram: 12/28/16 1125 12/28/16 1125 Imaging Last Impressions Ankle X-Ray 12/29/16 0000 Signed Impressions: Service Date/Time: Thursday, December 29, 2016 10:49 - CONCLUSION: Negative for an acute process. Brendan Tripathi MD FACR Cyst Biopsy Asp-Paracentesis US 12/27/16 0000 Signed Impressions: Service Date/Time: December 10:10 - CONCLUSION: Uncomplicated ultrasound guided paracentesis. Cristiano Mclean MD Lower Extremity Ultrasound 12/26/161743 Signed Impressions: Service Date/Time: Monday, December 26, 2016 18:06 - CONCLUSION: Negative for deep venous thrombosis. Brendan Tripathi MD FACR Chest X-Ray 12/26/161743 Signed Impressions: Service Date/Time: Monday, December 26, 2016 17:46 - CONCLUSION: 1. No acute abnormality or significant interval change. Adi Daniel MD Abdomen/Pelvis CT 12/26/161743 Signed Impressions: Service Date/Time: Monday, December 26, 2016 19:05 - CONCLUSION: 1. Cirrhotic liver with splenomegaly. 2. Large volume ascites. 3. Diverticulosis. John Paul Robles MD Objective Remarks GENERAL: AOx3, NAD. SKIN: Warm and dry. HEAD: Normocephalic. EYES: No scleral icterus. No injection or drainage. NECK: Supple, trachea midline. No JVD or lymphadenopathy. CARDIOVASCULAR: Regular rate and rhythm without murmurs, gallops, or rubs. RESPIRATORY: Breath sounds equal bilaterally. No accessory muscle use. GASTROINTESTINAL: Abdomen soft, non-tender, nondistended. MUSCULOSKELETAL: No cyanosis, or edema. BACK: Nontender without obvious deformity. No CVA tenderness. Procedures Paracentesis. A/P Problem List: (1) Cirrhosis of liver with ascites ICD Code: K74.60 Status: Chronic (2) Cellulitis of left lower extremity ICD Code: L03.116 Status: Acute Assessment and Plan 61-year-old male with a past medical history of cirrhosis, CHF, COPD, chronic pain, chronic lower extremity cellulitis who presented for abdominal distention Cirrhosis with ascites - Therapeutic and diagnostic paracentesis performed 12/27. Fluid studies appear benign. Follow-up culture. - Continue home Lasix and Aldactone Left lower extremity cellulitis - Changed antibiotics to PO Levaquin and PO Amoxicillin. - Wound culture is positive for Pseudomonas and E. Faecalis. - Left ankle pain - Xray done, shows no acute process. Hypokalemia/hypomagnesemia - Replaced orally and by IV - K+ 3.2 and Mg 1.6. Diabetes Mellitus - Accu-Cheks before meals and at bedtime with low-dose NovoLog sliding scale coverage - Hypoglycemia protocol - Blood glucose reasonably controlled. Chronic pain - Continue home or morphine as needed and scheduled fentanyl patch. Continue outpatient pain management follow-up. DVT prophylaxis - Lovenox 40 mg subq q24h Discharge plan: Probable discharge in 1-2 days. Problem Qualifiers (1) Cirrhosis of liver with ascites: Qualified Code: K74.60 - Cirrhosis of liver with ascites, unspecified hepatic cirrhosis type Terrie Contreras DO Dec 29, 2016 10:34
[2016-12-29] MEDS: AMOXICILLIN 875 MG TAB PO SCH ×2 (11:12→23:26)
--- NOTE | 2016-12-29 11:45 | RADRPT ---
EXAM DATE/TIME: 12/29/2016 10:49 [facility] COMPARISON: No previous studies available for comparison. INDICATIONS : Left ankle pain, inflammation, and bruising on lateral side after fall. MEDICAL HISTORY : Congestive heart failure. Myocardial infarction. Hypercholesterolemia. Cataracts. CVA. Seizures. Pradip nary artery disease. Chest pain. HTN. COPD. Asthma. Pneumonia. Sleep apnea. Dyspnea. Cirrhosis. GERD. Arthritis. Renal calculi. Prosthesis. Diabetes. Jaundice. Hepatitis. MRSA. PTSD. Anxiety. Substance use. SURGICAL HISTORY : CABG Coronary artery stent. Cholecystectomy. Cardiac cath. Uvula removal. ENCOUNTER: Subsequent ACUITY: 4 - 6 days PAIN SCORE: 9/10 LOCATION: Left lateral ankle FINDINGS: Three view exam was performed of the left ankle. The bony structures are in normal alignment. No ev idence of fracture, dislocation, or soft tissue swelling. Vascular calcifications are evident. The ankle mortise is intact. No radiopaque foreign bodies are seen. Bony mineralization is normal. CONCLUSION: Negative for an acute process. Brendan Tripathi MD FACR on December 29, 2016 at 11:42 Board Certified Radiologist. This report was verified electronically.
[2016-12-30] VITALS (7 sets, daily range): BP systolic 117–141; BP diastolic 55–76; PULSE 78–111; RESP 16–20; TEMP 96.2–99.5; O2SAT 94–98
[2016-12-30] MEDS: MORPHINE SULFATE 15 MG TAB PO PRN ×2 (06:28→18:37)
[2016-12-30] MEDS: INSULIN ASPART SUPPLEMENTAL SCALE SQ SCH ×4 (06:36→22:51)
[2016-12-30] MEDS: RESP: ALBUTEROL 2.5 MG/IPRATROPIUM 0.5 MG NEB (SCH) NEB ×4 (08:19→21:25)
[2016-12-30] MEDS: ENOXAPARIN SODIUM 40 MG/0.4 ML SYRINGE SQ SCH (08:33)
[2016-12-30] MEDS: CHOLECALCIFEROL (VIT D3) 5000 UNIT CAP PO SCH ×2 (08:34→22:43)
[2016-12-30] MEDS: SPIRONOLACTONE 100 MG TAB PO SCH (08:34)
[2016-12-30] MEDS: PANTOPRAZOLE SOD 20 MG DELAYED RELEASE TAB PO SCH ×2 (08:34→22:43)
[2016-12-30] MEDS: POTASSIUM CHLORIDE 20 MEQ CONTROLLED RELEASE TAB PO SCH (08:34)
[2016-12-30] MEDS: FUROSEMIDE 40 MG TAB PO SCH ×2 (08:34→17:24)
[2016-12-30] MEDS: LEVOFLOXACIN 750 MG TAB PO SCH (08:34)
[2016-12-30] MEDS: clonazePAM 1 MG TAB PO SCH ×3 (08:34→22:43)
[2016-12-30] MEDS: GABAPENTIN 400 MG CAP PO SCH ×3 (08:34→17:17)
[2016-12-30] MEDS: PARoxetine HCL 20 MG TAB PO SCH (08:35)
[2016-12-30] MEDS: LACTOBACILLUS ACIDOPHILUS TAB PO SCH ×3 (08:35→17:17)
[2016-12-30] MEDS: SODIUM CHLORIDE 0.65% NASAL SPRAY 45 ML BTL EACH NARE SCH ×2 (08:37→21:00)
[2016-12-30] MEDS: SODIUM CHLORIDE 0.9% FLUSH 10 ML FLUSH IV FLUSH SCH ×2 (08:38→22:53)
[2016-12-30] MEDS: AMOXICILLIN 875 MG TAB PO SCH ×2 (13:04→22:43)
--- NOTE | 2016-12-30 16:29 | HHI.PR ---
Subjective Remarks Follow up for liver cirrhosis, ascites. Patient is doing well. Still complains of left ankle pain. No fever, chills. Tolerating diet well. He wants to go to [place]. He has apparently used up all of his SNF benefits. Objective Vitals Vital Signs Date Time Temp Pulse Resp B/P Pulse Ox O2 Delivery O2 Flow Rate FiO2 12/30/16 12:00 96.7 83 16 134/66 98 12/30/16 08:22 94 Nasal Cannula 3.00 12/30/16 08:00 98.0 78 16 141/76 98 12/30/16 00:00 99.5 88 20 117/58 97 12/29/16 20:31 99 Nasal Cannula 3.00 12/29/16 20:00 97.6 87 20 135/70 97 I/O 12/29/16 12/29/16 12/29/16 12/30/16 12/30/16 12/30/16 07:00 15:00 23:00 07:00 15:00 23:00 Intake Total 720 ml 240 ml Balance 720 ml 240 ml Intake Oral 720 ml 240 ml # Voids 6 2 # Bowel Movements 4 Result Diagram: 12/28/16 1125 12/28/16 1125 Imaging Last Impressions Ankle X-Ray 12/29/16 0000 Signed Impressions: Service Date/Time: Thursday, December 29, 2016 10:49 - CONCLUSION: Negative for an acute process. Brendan Tripathi MD FACR Cyst Biopsy Asp-Paracentesis US 12/27/16 0000 Signed Impressions: Service Date/Time: December 10:10 - CONCLUSION: Uncomplicated ultrasound guided paracentesis. Cristiano Mclean MD Lower Extremity Ultrasound [id number]/[id number] Signed Impressions: Service Date/Time: Monday, December 26, 2016 18:06 - CONCLUSION: Negative for deep venous thrombosis. Brendan Tripathi MD FACR Chest X-Ray [id number]/161743 Signed Impressions: Service Date/Time: Monday, December 26, 2016 17:46 - CONCLUSION: 1. No acute abnormality or significant interval change. Adi Daniel MD Abdomen/Pelvis CT [id number] Signed Impressions: Service Date/Time: Monday, December 26, 2016 19:05 - CONCLUSION: 1. Cirrhotic liver with splenomegaly. 2. Large volume ascites. 3. Diverticulosis. John Paul Robles MD Objective Remarks GENERAL: AOx3, NAD. SKIN: Warm and dry. HEAD: Normocephalic. EYES: No scleral icterus. No injection or drainage. NECK: Supple, trachea midline. No JVD or lymphadenopathy. CARDIOVASCULAR: Regular rate and rhythm without murmurs, gallops, or rubs. RESPIRATORY: Breath sounds equal bilaterally. No accessory muscle use. GASTROINTESTINAL: Abdomen soft, non-tender, nondistended. MUSCULOSKELETAL: No cyanosis, or edema. BACK: Nontender without obvious deformity. No CVA tenderness. Procedures Paracentesis. A/P Problem List: (1) Cirrhosis of liver with ascites ICD Code: K74.60 Status: Chronic (2) Cellulitis of left lower extremity ICD Code: L03.116 Status: Acute Assessment and Plan 61-year-old male with a past medical history of cirrhosis, CHF, COPD, chronic pain, chronic lower extremity cellulitis who presented for abdominal distention Cirrhosis with ascites - Therapeutic and diagnostic paracentesis performed 12/27. Fluid studies appear benign. Follow-up culture. - Continue home Lasix and Aldactone Left lower extremity cellulitis - Changed antibiotics to PO Levaquin and PO Amoxicillin. - Wound culture is positive for Pseudomonas and E. Faecalis. - Left ankle pain - Xray done, shows no acute process. Hypokalemia/hypomagnesemia - Replaced orally and by IV - K+ 3.2 and Mg 1.6. - BMP in the AM. Diabetes Mellitus - Accu-Cheks before meals and at bedtime with low-dose NovoLog sliding scale coverage - Hypoglycemia protocol - Blood glucose reasonably controlled. Chronic pain - Continue home or morphine as needed and scheduled fentanyl patch. Continue outpatient pain management follow-up. DVT prophylaxis - Lovenox 40 mg subq q24h Discharge plan: If [facility] does not accept, then SNF could be an option. PT recommends home with home health which remains an option as well. Problem Qualifiers (1) Cirrhosis of liver with ascites: Qualified Code: K74.60 - Cirrhosis of liver with ascites, unspecified hepatic cirrhosis type Terrie Contreras DO Dec 30, 2016 4:29 pm
[2016-12-31] VITALS (7 sets, daily range): BP systolic 62–134; BP diastolic 58–63; PULSE 76–108; RESP 17–20; TEMP 97–98.9; O2SAT 96–100
[2016-12-31] MEDS: MORPHINE SULFATE 15 MG TAB PO PRN ×4 (01:23→22:13)
[2016-12-31] MEDS: INSULIN ASPART SUPPLEMENTAL SCALE SQ SCH ×4 (05:42→21:00)
[2016-12-31 07:17] LABS: BICARBONATE 30.5 MEQ/L (21.0-32.0); POTASSIUM 3.7 MEQ/L (3.5-5.1)
[2016-12-31] MEDS: GABAPENTIN 400 MG CAP PO SCH ×3 (08:39→17:56)
[2016-12-31] MEDS: SPIRONOLACTONE 100 MG TAB PO SCH (08:39)
[2016-12-31] MEDS: LEVOFLOXACIN 750 MG TAB PO SCH (08:39)
[2016-12-31] MEDS: ENOXAPARIN SODIUM 40 MG/0.4 ML SYRINGE SQ SCH ×2 (08:39→08:44)
[2016-12-31] MEDS: FUROSEMIDE 40 MG TAB PO SCH (08:39)
[2016-12-31] MEDS: clonazePAM 1 MG TAB PO SCH ×3 (08:40→23:51)
[2016-12-31] MEDS: PARoxetine HCL 20 MG TAB PO SCH (08:40)
[2016-12-31] MEDS: LACTOBACILLUS ACIDOPHILUS TAB PO SCH ×3 (08:40→17:56)
[2016-12-31] MEDS: CHOLECALCIFEROL (VIT D3) 5000 UNIT CAP PO SCH ×2 (08:40→22:06)
[2016-12-31] MEDS: PANTOPRAZOLE SOD 20 MG DELAYED RELEASE TAB PO SCH ×2 (08:40→22:06)
[2016-12-31] MEDS: POTASSIUM CHLORIDE 20 MEQ CONTROLLED RELEASE TAB PO SCH (08:40)
[2016-12-31] MEDS: SODIUM CHLORIDE 0.9% FLUSH 10 ML FLUSH IV FLUSH SCH ×2 (08:41→22:06)
[2016-12-31] MEDS: SODIUM CHLORIDE 0.65% NASAL SPRAY 45 ML BTL EACH NARE SCH ×2 (08:41→21:00)
[2016-12-31] MEDS: RESP: ALBUTEROL 2.5 MG/IPRATROPIUM 0.5 MG NEB (SCH) NEB ×4 (08:58→20:19)
[2016-12-31] MEDS ORDERED: REMOVE OLD DURAGESIC (FENTANYL) PATCH T-DERMAL SCH (11:00)
[2016-12-31] MEDS: AMOXICILLIN 875 MG TAB PO SCH ×2 (11:37→22:07)
[2016-12-31] MEDS: fentaNYL 25 MCG/HR PATCH T-DERMAL SCH (11:38)
--- NOTE | 2016-12-31 13:04 | HHI.PR ---
Subjective Remarks Follow up for liver cirrhosis, ascites. Patient is doing well. He complains of left ankle pain. Requests some sort of orthotics for left ankle. No fever, chills. Objective Vitals Vital Signs Date Time Temp Pulse Resp B/P Pulse Ox O2 Delivery O2 Flow Rate FiO2 12/31/16 12:00 98.7 76 20 100/58 98 12/31/16 08:58 98 Nasal Cannula 3.00 12/31/16 08:00 97.1 78 20 134/62 99 12/31/16 00:00 98.0 108 17 121/62 96 12/30/16 21:26 95 21 12/30/16 20:00 99.2 111 18 136/63 94 12/30/16 16:00 96.2 85 20 120/55 95 I/O 12/30/16 12/30/16 12/30/16 12/31/16 12/31/16 12/31/16 07:00 15:00 23:00 07:00 15:00 23:00 Intake Total 720 ml 240 ml 240 ml Balance 720 ml 240 ml 240 ml Intake Oral 720 ml 240 ml 240 ml # Voids 8 2 2 # Bowel Movements 2 Result Diagram: 12/28/16 1125 12/31/16 0600 Imaging Last Impressions Ankle X-Ray 12/29/16 0000 Signed Impressions: Service Date/Time: Thursday, December 29, 2016 10:49 - CONCLUSION: Negative for an acute process. Brendan Tripathi MD FACR Cyst Biopsy Asp-Paracentesis US 12/27/16 0000 Signed Impressions: Service Date/Time: December 10:10 - CONCLUSION: Uncomplicated ultrasound guided paracentesis. Cristiano Mclean MD Lower Extremity Ultrasound [id number] Signed Impressions: Service Date/Time: Monday, December 26, 2016 18:06 - CONCLUSION: Negative for deep venous thrombosis. Brendan Tripathi MD FACR Chest X-Ray [id number]/161743 Signed Impressions: Service Date/Time: Monday, December 26, 2016 17:46 - CONCLUSION: 1. No acute abnormality or significant interval change. Adi Daniel MD Abdomen/Pelvis CT [id number] Signed Impressions: Service Date/Time: Monday, December 26, 2016 19:05 - CONCLUSION: 1. Cirrhotic liver with splenomegaly. 2. Large volume ascites. 3. Diverticulosis. John Paul Robles MD Objective Remarks GENERAL: AOx3, NAD. SKIN: Warm and dry. HEAD: Normocephalic. EYES: No scleral icterus. No injection or drainage. NECK: Supple, trachea midline. No JVD or lymphadenopathy. CARDIOVASCULAR: Regular rate and rhythm without murmurs, gallops, or rubs. RESPIRATORY: Breath sounds equal bilaterally. No accessory muscle use. GASTROINTESTINAL: Abdomen soft, non-tender, nondistended. MUSCULOSKELETAL: No cyanosis, or edema. BACK: Nontender without obvious deformity. No CVA tenderness. Procedures Paracentesis. A/P Problem List: (1) Cirrhosis of liver with ascites ICD Code: K74.60 Status: Chronic (2) Cellulitis of left lower extremity ICD Code: L03.116 Status: Acute Assessment and Plan 61-year-old male with a past medical history of cirrhosis, CHF, COPD, chronic pain, chronic lower extremity cellulitis who presented for abdominal distention Cirrhosis with ascites - Therapeutic and diagnostic paracentesis performed 12/27. Fluid studies appear benign. - Continue home Lasix and Aldactone Left lower extremity cellulitis - Changed antibiotics to PO Levaquin and PO Amoxicillin. - Wound culture is positive for Pseudomonas and E. Faecalis. - Left ankle pain - Xray done, shows no acute process. Hypokalemia hypomagnesemia - Replaced orally and by IV - K+ 3.7 and Mg 1.6 --> 1.0. - Will replace with IV magnesium 6 g in divided doses. - BMP, Mg level in the AM. Diabetes Mellitus - Accu-Cheks before meals and at bedtime with low-dose NovoLog sliding scale coverage - Hypoglycemia protocol - Blood glucose reasonably controlled. Chronic pain - Continue home or morphine as needed and scheduled fentanyl patch. Continue outpatient pain management follow-up. DVT prophylaxis - Lovenox 40 mg subq q24h Discharge plan: [facility] will not accept patient. Patient will have copay for SNF as he has exhausted his SNF benefits. Moreover, PT recommends home with home PT. Likely discharge on 01/01/2017. Problem Qualifiers (1) Cirrhosis of liver with ascites: Qualified Code: K74.60 - Cirrhosis of liver with ascites, unspecified hepatic cirrhosis type Terrie Contreras DO Dec 31, 2016 13:04
[2016-12-31] MEDS: MAGNESIUM SULFATE 1 GM PREMIX 100 ML IV SCH ×4 (14:48→17:57)
[2016-12-31] MEDS ORDERED: INSULIN DETEMIR 100 UNITS/ML VIAL SQ SCH (21:00)
[2017-01-01] VITALS: BP 127/58; PULSE 96; RESP 20; TEMP 96; O2SAT 100
[2017-01-01] MEDS: MORPHINE SULFATE 15 MG TAB PO PRN (05:19)
[2017-01-01] MEDS: INSULIN ASPART SUPPLEMENTAL SCALE SQ SCH ×2 (06:02→11:46)
[2017-01-01 06:37] LABS: BICARBONATE 31.5 MEQ/L (21.0-32.0); MAGNESIUM 1.6 MG/DL (1.5-2.5); POTASSIUM 3.9 MEQ/L (3.5-5.1)
[2017-01-01 08:00] VITALS: BP 128/59; PULSE 86; RESP 20; TEMP 98.5; O2SAT 100
[2017-01-01 08:17] VITALS: O2SAT 98
[2017-01-01] MEDS: RESP: ALBUTEROL 2.5 MG/IPRATROPIUM 0.5 MG NEB (SCH) NEB ×2 (08:17→11:11)
[2017-01-01] MEDS: clonazePAM 1 MG TAB PO SCH (08:50)
[2017-01-01] MEDS: CHOLECALCIFEROL (VIT D3) 5000 UNIT CAP PO SCH (08:50)
[2017-01-01] MEDS: SODIUM CHLORIDE 0.65% NASAL SPRAY 45 ML BTL EACH NARE SCH (08:51)
[2017-01-01] MEDS: LACTOBACILLUS ACIDOPHILUS TAB PO SCH ×2 (08:51→11:47)
[2017-01-01] MEDS: PARoxetine HCL 20 MG TAB PO SCH (08:51)
[2017-01-01] MEDS: LEVOFLOXACIN 750 MG TAB PO SCH (08:51)
[2017-01-01] MEDS: SPIRONOLACTONE 100 MG TAB PO SCH (08:51)
[2017-01-01] MEDS: MAGNESIUM SULFATE 1 GM PREMIX 100 ML IV SCH ×2 (08:51→10:25)
[2017-01-01] MEDS: SODIUM CHLORIDE 0.9% FLUSH 10 ML FLUSH IV FLUSH SCH (08:51)
[2017-01-01] MEDS: PANTOPRAZOLE SOD 20 MG DELAYED RELEASE TAB PO SCH (08:51)
[2017-01-01] MEDS: GABAPENTIN 400 MG CAP PO SCH ×2 (08:51→11:47)
[2017-01-01] MEDS: ENOXAPARIN SODIUM 40 MG/0.4 ML SYRINGE SQ SCH (08:57)
[2017-01-01] MEDS ORDERED: TORSEMIDE 20 MG TAB PO SCH (09:00)
--- NOTE | 2017-01-01 10:10 | HHI.FF ---
Face to Face Verification Diagnosis: (1) Chronic liver disease (2) Back pain (3) Cellulitis of left lower extremity (4) Cirrhosis of liver with ascites Physical Therapy Order: Evaluate and Treat, Improve ambulation, Strength and gait training Home Health Nursing Order: Medical education Signs/symptoms of disease process Oxygen administration education Wound care and dressing changes Nursing assessment with vital signs I have seen patient Sawyer Badillo on 01/01/17. My clinical findings support the need for the requested home health care services because: Ltd mobility - disease progression Patient has SOB Deconditioned w/ increased weakness Limited ability to care for self Need for psychosocial assistance High risk of falls Infection w/ risk of complications I certify that my clinical findings support that this patient is homebound because: Unsteady gait/balance Unsafe to leave home unassisted Unable to use public transportation Terrie Contreras DO Jan 01, 2017 10:10 am
[2017-01-01] MEDS ORDERED: AMOX875T PO (10:15)
[2017-01-01] MEDS ORDERED: TORS1TAB12 PO (10:15)
[2017-01-01] MEDS ORDERED: CLON1 PO (10:15)
[2017-01-01] MEDS ORDERED: LEVA750T9 PO (10:15)
[2017-01-01] MEDS ORDERED: FENT25T T-DERMAL (10:15)
[2017-01-01] MEDS ORDERED: LACT PO (10:15)
--- NOTE | 2017-01-01 10:18 | HHI.DS ---
Discharge Summary Admission Date Dec 28, 2016 at 1:40 pm Discharge Date: Jan 01, 2017 Admitting Diagnosis left leg cellulitis, ascites (1) Cirrhosis of liver with ascites ICD Code: K74.60 Diagnosis: Principal (2) Cellulitis of left lower extremity ICD Code: L03.116 Diagnosis: Principal (3) Hypomagnesemia ICD Code: E83.42 (4) ETHEL (acute kidney injury) ICD Code: N17.9 (5) Hypokalemia ICD Code: E87.6 Procedures Paracentesis. 12/27/2016 Brief History - From Admission Written by Tara Holliday, acting as scribe for Dr. Matthews on 12/26/16 at 23:47. Shortness of breath and abdomen is distended - "it's three times the normal size ". 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 CBC/BMP: 12/28/16 1125 01/01/17 0539 Significant Findings Laboratory Tests Test 12/31/16 01/01/17 06:00 05:39 Sodium Level 133 MEQ/L 131 MEQ/L (136-145) (136-145) Chloride Level 91 MEQ/L 90 MEQ/L (98-107) (98-107) Estimat Glomerular Filtration 58 ML/MIN (>89) 56 ML/MIN (>89) Rate Random Glucose 185 MG/DL 113 MG/DL (74-106) (74-106) Magnesium Level 1.0 MG/DL (1.5-2.5) Imaging Last Impressions Ankle X-Ray 12/29/16 0000 Signed Impressions: Service Date/Time: Thursday, December 29, 2016 10:49 - CONCLUSION: Negative for an acute process. Brendan Tripathi MD FACR Cyst Biopsy Asp-Paracentesis US 12/27/16 0000 Signed Impressions: Service Date/Time: , December 27, 2016 10:10 - CONCLUSION: Uncomplicated ultrasound guided paracentesis. Cristiano Mclean MD Lower Extremity Ultrasound [id number] Signed Impressions: Service Date/Time: Saturday, December 26, 2016 18:06 - CONCLUSION: Negative for deep venous thrombosis. Brendan Tripathi MD FACR Chest X-Ray [id number]/161743 Signed Impressions: Service Date/Time: Monday, December 26, 2016 17:46 - CONCLUSION: 1. No acute abnormality or significant interval change. Adi Daniel MD Abdomen/Pelvis CT [id number] Signed Impressions: Service Date/Time: Monday, December 26, 2016 19:05 - CONCLUSION: 1. Cirrhotic liver with splenomegaly. 2. Large volume ascites. 3. Diverticulosis. John Paul Robles MD PE at Discharge GENERAL: AOx3, NAD. SKIN: Warm and dry. HEAD: Normocephalic. EYES: No scleral icterus. No injection or drainage. NECK: Supple, trachea midline. No JVD or lymphadenopathy. CARDIOVASCULAR: Regular rate and rhythm without murmurs, gallops, or rubs. RESPIRATORY: Breath sounds equal bilaterally. No accessory muscle use. GASTROINTESTINAL: Abdomen soft, non-tender, nondistended. MUSCULOSKELETAL: No cyanosis, or edema. BACK: Nontender without obvious deformity. No CVA tenderness. Pt update on day of discharge Patient is doing well. Received his left ankle brace. No acute concerns. Hospital Course 61-year-old male with a past medical history of cirrhosis, CHF, COPD, chronic pain, chronic lower extremity cellulitis who presented for abdominal distention Cirrhosis with ascites - Therapeutic and diagnostic paracentesis performed 12/27. Fluid studies appear benign. - Continue home Lasix and Aldactone Left lower extremity cellulitis - Changed antibiotics to PO Levaquin and PO Amoxicillin. - Wound culture is positive for Pseudomonas and E. Faecalis. - Left ankle pain - Xray done, shows no acute process. Hypokalemia hypomagnesemia - Replaced orally and by IV - K+ 3.7 and Mg 1.6 --> 1.0. - Replaced with IV magnesium 6 g in divided doses. Diabetes Mellitus - Accu-Cheks before meals and at bedtime with low-dose NovoLog sliding scale coverage - Hypoglycemia protocol - Blood glucose reasonably controlled. Chronic pain - Continue home or morphine as needed and scheduled fentanyl patch. Continue outpatient pain management follow-up. DVT prophylaxis - Lovenox 40 mg subq q24h Please note that Patient was given a rx for Clonazepam. I discussed with [facility] to correct the dosage - 2mg TID. Earlier in the day, I confirmed with [facility] and I was informed that patient takes 2 mg TID. I provided 10 day worth of Clonazepam. Pt Condition on Discharge: Good Discharge Disposition: Disch w/ Home Health Serv Discharge Time: > 30 minutes Discharge Instructions DIET: Follow Instructions for: Heart Healthy Diet Activities you can perform: Regular-No Restrictions Follow up Referrals: PCP Follow-up - 1 Week New Orders: BASIC METABOLIC PROF - 1 Week MAGNESIUM (MG) - 1 Week New Medications: Gabapentin (Gabapentin) 400 Mg Cap 400 CAP PO TID neuropathy pain #30 Ref 0 CAP Amoxicillin (Amoxicillin) 875 Mg Tab 875 MG PO Q12H Infection #14 TAB Clonazepam (Klonopin) 1 Mg Tab 2 MG PO Q8H Anxiety #30 TAB Lactobacillus Acidophilus (Acidophilus/l-Sporogenes) 1 Tab Tab 1 TAB PO TID Infection #42 TAB Levofloxacin (Levaquin) 750 Mg Tablet 750 MG PO DAILY Infection #7 TAB Torsemide (Demadex) 20 Mg Tab 20 MG PO DAILY Fluid #30 TAB Continued Medications: Albuterol Neb (Albuterol Neb) 2.5 Mg/3 Ml Neb 2.5 MG NEB Q4HR NEB PRN SHORTNESS OF BREATH #60 Ref 0 NEBULE Aspirin (Aspirin) 81 Mg Chew 81 MG CHEW DAILY TAB B-Complex W/Biotin & Folic Acid (Super B-Complex) 1 Tab 3 TAB PO TID Cholecalciferol (Vitamin D3) 10,000 Unit Cap 78480 UNITS PO BID Nutritional Supplement Fentanyl Patch 72 HR (Duragesic Patch 72 HR) 25 Mcg/Hr Patch 1 PATCH T-DERMAL Q3D Pain Management #7 PATCH (This prescription has been renewed) Insulin Human Isophane-Regular 70-30 Inj (Novolin 70-30 Inj) 1,000 Unit/10 Ml Vial 45 UNITS SQ BID Blood Sugar Management ML Insulin Human Regular Inj (Novolin R Inj) 1,000 Unit/10 Ml Vial Unknown Dose SQ ACHS Max dose at bedtime:( )units; sugars less than 70,(0) units ; sugars 150-199,(2)unit; sugars 200-249,(4)units; sugars 250-299,(7) units; sugars 300-349,(10)units; sugars greater than 349,(12)units Blood Sugar Management ML Ipratropium-Albuterol Neb (Duoneb) 0.5-2.5 Mg/3 Ml Neb 1 AMPULE NEB Q6HR NEB COPD #120 ML Morphine IR (Morphine IR) 15 Mg Tab 7.5 MG PO Q6H do not take this medicine if you will drive a car or use a machine , only use it when resting at home. PRN PAIN #12 Ref 0 TAB Omeprazole (Omeprazole) 20 Mg Tab 20 MG PO BID TAB Paroxetine (Paroxetine) 20 Mg Tab 20 MG PO DAILY Control Depression #30 Ref 0 TAB Saline Nasal ([place] Nasal [place]) 0.65% [place] 1 SPRAY EACH NARE BID NASAL CONGESTION BOTTLE Spironolactone (Aldactone) 100 Mg Tab 100 MG PO DAILY ascites #30 Ref 0 TAB ([guaiFENesin ER]) 600 MG TABCR 600 MG PO BID Chest Congestion/Cough #20 TAB.SR Discontinued Medications: Clonazepam (Clonazepam) 1 Mg Tab 1 MG PO TID DO NOT TAKE THIS MEDICINE IF YOU WILL DRIVE A CAR OR USE A MACHINE, ONLY USE IT WHEN RESTING AT HOME. #20 Ref 0 TAB Furosemide (Lasix) 40 Mg Tab 40 MG PO BID@09,18 ascites Days 30 TAB Gabapentin (Gabapentin) 800 Mg Tab 800 MG PO TID TAB Lisinopril (Lisinopril) 10 Mg Tab 20 MG PO DAILY Blood Pressure Management #60 TAB Potassium Chloride ER (Potassium Chloride ER) 20 Meq Tab 20 MEQ PO DAILY Electrolyte Replacement #30 Ref 0 TAB Terrie Contreras DO Jan 01, 2017 10:18
[2017-01-01] MEDS ORDERED: GABA400C5 PO (10:26)
[2017-01-01] MEDS: AMOXICILLIN 875 MG TAB PO SCH (10:26)
--- NOTE | 2017-01-01 10:42 | HHI.FF ---
Face to Face Verification Diagnosis: (1) Cirrhosis of liver with ascites (2) Hypomagnesemia (3) ETHEL (acute kidney injury) (4) Cellulitis Physical Therapy Order: Evaluate and Treat, Improve ambulation, Strength and gait training Home Health Nursing Order: Signs/symptoms of disease process Diabetic education Oxygen administration education Nursing assessment with vital signs I have seen patient Sawyer Badillo on 01/01/17. My clinical findings support the need for the requested home health care services because: Patient has SOB Deconditioned w/ increased weakness Need for psychosocial assistance Impaired cognition/judgement High risk of falls Infection w/ risk of complications I certify that my clinical findings support that this patient is homebound because: Unsteady gait/balance Unsafe to leave home unassisted Need for psychosocial assistance Unable to use public transportation Terrie Contreras DO Jan 01, 2017 10:42 am
--- NOTE | 2017-01-02 12:53 | PQ ---
Physician Query Response Document PATIENT: KIMBERLY ANNE : 1955 ADMIT DATE: 12/28/2016 1:40 PM DISCH DATE: 01/01/2017 12:20 PM RESPONDING PROVIDER #: [email or web address] QUERY TEXT: Present On Admission It is unclear whether a diagnosis was present on admission. Your help is needed. Please clarify the POA status Such as: -- Present on admission -- Not present on admission The patient's Clinical Indicators include: Acute kidney injury only mentioned in discharge summary. Query created by: Gt Suarez on 01/01/2017 11:34 AM RESPONSE TEXT: Acute kidney injury - present on admission (1.10), somewhat worsened during admission due to diuretic use. Patient is advised to repeat BMP in one week and follow up with PCP. Electronically signed by: Kevin Contreras DO 01/02/2017 12:50 PM
== END 2017-01-01 12:20 | disposition home health service (06) | DRG 433 ==
LOC: NEPC 17:25 → NEDA 19:39 → NEPGCP 21:38 → OBSVTOIN 12-28 13:40 → N07A 12-28 16:26
PROVIDERS: ADMIT Hospitalist; ATTEND Hospitalist
PROC: 0W9G3ZZ Drainage of Peritoneal Cavity, Percutaneous Approach (ICD-10-PCS; principal; 2016-12-28)
DX: K74.60 Unspecified cirrhosis of liver (principal); R18.8 Other ascites; N17.9 Acute kidney failure, unspecified; K72.90 Hepatic failure, unspecified without coma; D69.6 Thrombocytopenia, unspecified; I11.0 Hypertensive heart disease with heart failure; E87.1 Hypo-osmolality and hyponatremia; I50.9 Heart failure, unspecified; L03.116 Cellulitis of left lower limb; E87.6 Hypokalemia; E11.9 Type 2 diabetes mellitus without complications; Z86.14 Personal history of Methicillin resistant Staphylococcus aureus infection; K21.9 Gastro-esophageal reflux disease without esophagitis; D72.819 Decreased white blood cell count, unspecified; E83.42 Hypomagnesemia; E78.00 Pure hypercholesterolemia, unspecified; G47.30 Sleep apnea, unspecified; I25.10 Atherosclerotic heart disease of native coronary artery without angina pectoris; I25.2 Old myocardial infarction; J44.9 Chronic obstructive pulmonary disease, unspecified; K57.90 Diverticulosis of intestine, part unspecified, without perforation or abscess without bleeding; T50.2X5A Adverse effect of carbonic-anhydrase inhibitors, benzothiadiazides and other diuretics, initial encounter; G89.29 Other chronic pain; M54.5 Low back pain; Z72.0 Tobacco use; Z86.73 Personal history of transient ischemic attack (TIA), and cerebral infarction without residual deficits; Z87.442 Personal history of urinary calculi; Z91.19 Patient's noncompliance with other medical treatment and regimen; Z95.1 Presence of aortocoronary bypass graft; Z95.5 Presence of coronary angioplasty implant and graft
CPT/HCPCS: 49083; 71010; 73610; 74177; 80048; 80053; 81001; 82042; 82140; 82945; 82948; 83605; 83615; 83690; 83735; 84132; 84155; 84157; 85025; 85610; 85730; 87040; 87070; 87077; 87186; 87205; 89051; 93005; 93971; 94640; 94664; 96365; 96366; 96367; 96368; 96372; 96375; 96376; C1729; G0378; G8987-GP; G8988-GP; J1650; J1815; J1940; J2270; J2543; J3475; L1906; P9047; Q9967

== ENCOUNTER 2017-01-16 22:19 | Inpatient (IN) | payer OTHER, MEDICARE ==
[~2017-01-16] VITALS: Ht 182.9 cm; Wt 97.2 kg
[2017-01-16] VITALS (7 sets, daily range): BP systolic 168–189; BP diastolic 86–103; PULSE 98–107; RESP 15–16; TEMP 97.6; O2SAT 99–100
[~2017-01-16 22:19] MED LIST changes: +AMOX875T PO; +CLON1 PO; -CLON1TAB PO; -CYAN1CAP PO; -FURO1TAB60 PO; +GABA400C5 PO; -GABA800T PO; +LACT PO; +LEVA750T9 PO; -LISI10TA3 PO; -MAGN400T2 PO; -POTA-163 PO; -PRED20 PO; -SENN1TAB PO; +TORS1TAB12 PO
[2017-01-16] MEDS ORDERED: MAGNESIUM SULFATE 1 GM PREMIX 100 ML IV ONE (22:30)
[2017-01-16] MEDS ORDERED: SODIUM CHLORIDE 0.9% FLUSH 10 ML FLUSH IVF PRN (22:30)
[2017-01-16] MEDS ORDERED: methylPREDNISolone SOD SUCC 125 MG/2 ML VIAL IVP ONE (22:30)
--- NOTE | 2017-01-16 22:36 | PD ---
HPI Chief Complaint: Respiratory Distress Time Seen by Provider: 22:27 Travel History International Travel<30 days: No Contact w/Intl Traveler<30days: No Traveled to known affect area: No History of Present Illness HPI SOB WORSENING OVER LAST 2 DAYS, CURRENTLY EMS PLACED ON CPAP AND TOO DISTRESSED TO ANSWER QUESTIONS WELL PMSHX: NM, CHF, COPD, PNA, CIRRHOSIS, CABBG, STENT PFSH Past Medical History Hx Anticoagulant Therapy: No Arthritis: Yes Asthma: Yes Autoimmune Disease: No Blood Disorders: No Anxiety: Yes Depression: Yes Heart Rhythm Problems: No Cancer: No Cardiac Catheterization: Yes Cardiovascular Problems: Yes (CHF) High Cholesterol: Yes Chemotherapy: No Chest Pain: Yes Congestive Heart Failure: Yes COPD: Yes Cerebrovascular Accident: Yes Coronary Artery Disease: Yes Diabetes: Yes Diminished Hearing: No Endocrine: Yes GERD: Yes Glaucoma: No Genitourinary: No Headaches: No Hepatitis: Yes Hiatal Hernia: No Hypertension: Yes Immune Disorder: No Kidney Stones: Yes Musculoskeletal: Yes (ARTHRITIS) Neurologic: Yes (CVA) Psychiatric: Yes Reproductive: No Respiratory: Yes (COPD) Myocardial Infarction: Yes Pneumonia: Yes Radiation Therapy: No Renal Failure: No Seizures: Yes Sickle Cell Disease: No Sleep Apnea: Yes Thyroid Disease: No Ulcer: No Past Surgical History Abdominal Surgery: Yes (GALBLADDER) AICD: No Body Medical Devices: STENTS Cardiac Surgery: Yes Cholecystectomy: Yes Coronary Artery Bypass Graft: Yes (x 2 with total 7 vessels) Coronary Stent: Yes (5) Ear Surgery: No Endocrine Surgery: No Eye Surgery: No Genitourinary Surgery: No Oral Surgery: No Pacemaker: No Thoracic Surgery: Yes Other Surgery: Yes (UVULA REMOVED PER PT) Social History Alcohol Use: Yes Tobacco Use: Yes Substance Use: Yes (WEED) Allergies-Medications (Allergen,Severity, Reaction): Coded Allergies: Sulfa (Sulfonamide Antibiotics) (Verified Allergy, Severe, Hives, 01/16/17) codeine (Verified Allergy, Severe, Hives, 01/16/17) hydrocodone (Verified Allergy, Severe, ITCH, 01/16/17) sulfamethoxazole (Verified Allergy, Severe, Hives, 01/16/17) trimethoprim (Verified Allergy, Severe, Hives, 01/16/17) vancomycin (Verified Allergy, Severe, Anaphylaxis, 01/16/17) doxycycline (Verified Allergy, Unknown, Hives, 01/16/17) minocycline (Verified Allergy, Unknown, Hives, 01/16/17) tigecycline (Verified Allergy, Unknown, Hives, 01/16/17) Reported Meds & Prescriptions Reported Meds & Active Scripts Active Gabapentin 400 Mg Cap 400 Cap PO TID Demadex (Torsemide) 20 Mg Tab 20 Mg PO DAILY Levaquin (Levofloxacin) 750 Mg Tablet 750 Mg PO DAILY Acidophilus/l-Sporogenes (Lactobacillus Acidophilus) 1 Tab Tab 1 Tab PO TID Klonopin (Clonazepam) 1 Mg Tab 2 Mg PO Q8H Amoxicillin 875 Mg Tab 875 Mg PO Q12H Duragesic Patch 72 HR (Fentanyl) 25 Mcg/Hr Patch 1 Patch T-DERMAL Q3D Paroxetine (Paroxetine HCl) 20 Mg Tab 20 Mg PO DAILY Morphine IR (Morphine Sulfate) 15 Mg Tab 7.5 Mg PO Q6H PRN do not take this medicine if you will drive a car or use a machine, only use it when resting at home. Albuterol Neb (Albuterol Sulfate) 2.5 Mg/3 Ml Neb 2.5 Mg NEB Q4HR NEB PRN Duoneb (Ipratropium-Albuterol Neb) 0.5-2.5 Mg/3 Ml Neb 1 Ampule NEB Q6HR NEB [guaiFENesin ER] 600 MG Tabcr 600 Mg PO BID Aldactone (Spironolactone) 100 Mg Tab 100 Mg PO DAILY Oxygen tank (Oxygen) 1 Ea Tank 2 Liter [place].CANULA CONTINUOUS Oxygen Concentrator Portable Gaseous 2 L/min via Nasal Cannula Continuous For 99 months Reported Gordon Nasal [place] (Sodium Chloride) 0.65% [place] 1 [place] EACH NARE BID Aspirin 81 Mg Chew 81 Mg CHEW DAILY Vitamin D3 (Cholecalciferol) 10,000 Unit Cap 10,000 Units PO BID Novolin R Inj (Insulin Human Regular) 1,000 Unit/10 Ml Vial Unknown Dose SQ ACHS Max dose at bedtime:( )units; sugars less than 70,(0) units; sugars 150-199,(2)unit; sugars 200-249,(4)units; sugars 250-299,(7) units; sugars 300-349,(10)units; sugars greater than 349,(12)units Novolin 70-30 Inj (Insulin Human Isoph/Insulin Regular) 1,000 Unit/10 Ml Vial 45 Units SQ BID Omeprazole 20 Mg Tab 20 Mg PO BID Review of Systems ROS Limitations: Clinical Condition Except as stated in HPI: all other systems reviewed are Neg Respiratory: Positive: Shortness of Breath, Wheezing Physical Exam Exam Limitations: Clinical Condition Narrative GENERAL: SKIN: Warm and dry. 2 FENTANYL PATCHES ON SHOULDER HEAD: Atraumatic. Normocephalic. EYES: Pupils equal and round. No scleral icterus. No injection or drainage. ENT: No nasal bleeding or discharge. Mucous membranes pink and moist. NECK: Trachea midline. No JVD. CARDIOVASCULAR: TACHYCARDIC RESPIRATORY: accessory muscle use. BILATERAL WHEEZES, DECREASED TV, PURSED LIP BREATHING, TACHYPNEIC, PARADOXICAL GASTROINTESTINAL: Abdomen soft, non-tender, nondistended. Hepatic and splenic margins not palpable. MUSCULOSKELETAL: Extremities without clubbing, cyanosis, or PERIPHERAL 2+edema. No obvious deformities. NEUROLOGICAL: Awake and alert. No obvious cranial nerve deficits. Motor grossly within normal limits. Five out of 5 muscle strength in the arms and legs. Normal speech. PSYCHIATRIC: Appropriate mood and affect; insight and judgment normal. Data Data Last Documented VS Vital Signs Date Time Temp Pulse Resp B/P Pulse Ox O2 Delivery O2 Flow Rate FiO2 01/17/17 01:10 35 01/16/17 23:58 98 16 168/86 100 BiPAP 01/16/17 22:56 97.6 Orders Complete Blood Count With Diff (01/16/17 22:27) Comprehensive Metabolic Panel (01/16/17 22:27) B-Type Natriuretic Peptide (01/16/17 22:27) Act Partial Throm Time (Ptt) (01/16/17 22:27) Prothrombin Time / Inr (Pt) (01/16/17 22:27) Ckmb (Isoenzyme) Profile (01/16/17 22:27) Troponin I (01/16/17 22:27) Influenzae A/B Antigen (01/16/17 22:27) Blood Culture (01/16/17 22:27) Iv Access Insert/Monitor (01/16/17 22:27) Electrocardiogram (01/16/17 22:27) Ecg Monitoring (01/16/17 22:27) Oximetry (01/16/17 22:27) Oxygen Administration (01/16/17 22:27) Chest, Single Ap (01/16/17 22:27) Sodium Chloride 0.9% Flush (Ns Flush) (01/16/17 22:30) Methylprednisolone So Succ Inj (Solumedr (01/16/17 22:30) Albuterol Neb (Albuterol Neb) (01/16/17 22:30) Magnesium Sulfate 1 Gm Premix (Magnesium (01/16/17 22:30) Resp Bipap / Cpap Non Invas Vt (01/16/17 ) Levofloxacin 500 Mg Premix Inj (Levaquin (01/16/17 23:15) Arterial Blood Gas (Abg) (01/16/17 23:09) Aspirin Chew (Aspirin Chew) (01/16/17 23:45) Nitroglycerin 2% Oint (Nitroglycerin 2% (01/16/17 23:45) Enoxaparin Inj (Lovenox Inj) (01/16/17 23:45) Arterial Blood Gas (Abg) (01/17/17 00:01) Furosemide Inj (Lasix Inj) (01/17/17 00:45) Labs Laboratory Tests Test 01/16/17 01/16/17 01/17/17 22:35 23:09 00:01 White Blood Count 15.2 TH/MM3 Red Blood Count 3.59 MIL/MM3 Hemoglobin 10.3 GM/DL Hematocrit 31.3 % Mean Corpuscular Volume 87.1 FL Mean Corpuscular Hemoglobin 28.6 PG Mean Corpuscular Hemoglobin 32.9 % Concent Red Cell Distribution Width 18.6 % Platelet Count 196 TH/MM3 Mean Platelet Volume 7.3 FL Neutrophils (%) (Auto) 87.0 % Lymphocytes (%) (Auto) 4.1 % Monocytes (%) (Auto) 8.2 % Eosinophils (%) (Auto) 0.2 % Basophils (%) (Auto) 0.5 % Neutrophils # (Auto) 13.2 TH/MM3 Lymphocytes # (Auto) 0.6 TH/MM3 Monocytes # (Auto) 1.2 TH/MM3 Eosinophils # (Auto) 0.0 TH/MM3 Basophils # (Auto) 0.1 TH/MM3 CBC Comment DIFF FINAL Differential Comment Prothrombin Time 12.6 SEC Prothromb Time International 1.1 RATIO Ratio Activated Partial 27.3 SEC Thromboplast Time Sodium Level 126 MEQ/L Potassium Level 3.3 MEQ/L Chloride Level 88 MEQ/L Carbon Dioxide Level 26.2 MEQ/L Anion Gap 12 MEQ/L Blood Urea Nitrogen 7 MG/DL Creatinine 0.87 MG/DL Estimat Glomerular Filtration 89 ML/MIN Rate Random Glucose 217 MG/DL Calcium Level 8.4 MG/DL Total Bilirubin 0.9 MG/DL Aspartate Amino Transf 26 U/L (AST/SGOT) Alanine Aminotransferase 17 U/L (ALT/SGPT) Alkaline Phosphatase 35 U/L Total Creatine Kinase 66 U/L Troponin I 0.89 NG/ML Total Protein 6.8 GM/DL Albumin 3.2 GM/DL B-Type Natriuretic Peptide 1705 PG/ML Blood Gas Puncture Site LT RADIAL LT RADIAL Blood Gas Patient Temperature 98.6 98.6 Blood Gas HCO3 26 mmol/L 26 mmol/L Blood Gas Base Excess 0.0 mmol/L 0.8 mmol/L Blood Gas Oxygen Saturation 96 % 97 % Arterial Blood pH 7.28 7.31 Arterial Blood Partial 57 mmHg 54 mmHg Pressure CO2 Arterial Blood Partial 230 mmHG 235 mmHG Pressure O2 Arterial Blood Oxygen Content 13.7 Vol % 13.4 Vol % Arterial Blood 3.1 % 2.8 % Carboxyhemoglobin Arterial Blood Methemoglobin 0.6 % 0.3 % Blood Gas Hemoglobin 9.7 G/DL 9.4 G/DL Oxygen Delivery Device NPPV NPPV Blood Gas Ventilator Setting EPAP5/IPAP10 EPAP5/IPAP12 Blood Gas Inspired Oxygen 50 % 50 % MDM Medical Decision Making Medical Screen Exam Complete: Yes Emergency Medical Condition: Yes Medical Record Reviewed: Yes Interpretation(s) NSR 97, PVC'S, RBBB, NO STEMI PATTERN Differential Diagnosis COPD V CHF V PNA V PULM EDEMA FROM LIVER DZ Narrative Course PATIENT PRESENTED IN RESP DISTRESS, CONTINUED ON CPAP, GIVEN SOLUMEDROL/ HOURLONG NEB/MAGNESIUM/ABX...ON REEVALUATION ALTHOUGH PATIENT'S TACHYPNEA IMPROVED, ABG SHOWS PACO2 RETENTION AND RESP ACIDOSIS, WILL CHANGE IPAP FOR ADJUSTMENT, ALSO RECEIVED TROP .89 FROM LAB. PATIENT WILL BE GIVEN NTG/ASA/ LOVENOX SINGLE DOSE....AFTER BIPAP ADJUSTMENT, PATIENT'S MORE VERBAL AND REQUESTING PAIN MEDICATIONS FOR HIS CHRONIC HIP PAIN, NO LONGER SOMNOLENT, PATIENT WILL CONTINUE ON BIPAP AND PENDING ADMISSION BY [facility]. Critical Care Narrative CRITICAL CARE NOTE: With evaluation of the patient, labs, EKG, receipt of radiologic studies, administration of medications, reevaluation the patient and discussion of the patient with the admitting physicians, the total critical care time was [60] minutes. Time to perform other separately billable procedures was not included in the critical care time. Diagnosis Primary Impression: RESPIRATORY DISTRESS Additional Impressions: NONSTEMI Acute exacerbation of CHF (congestive heart failure) Qualified Code: I50.9 - Acute on chronic congestive heart failure, unspecified congestive heart failure type COPD EXACERBATION Admitting Information Admitting Physician Requests: Admit Isauro Lemus MD Jan 16, 2017 22:36
[2017-01-16] MEDS: RESP: ALBUTEROL 2.5 MG/3 ML NEB (SCH) INH (22:42)
[2017-01-16 23:02] LABS: AUTOMATED NEUTROPHIL # 13.2 TH/MM3 (1.8-7.7); BASOPHIL # 0.1 TH/MM3 (0-0.2); BASOPHIL % 0.5 % (0.0-2.0); EOSINOPHIL % 0.2 % (0.0-4.0); HEMATOCRIT 31.3 % (39.0-51.0); HEMO FLAGS DIFF FINAL; LYMPH % 4.1 % (9.0-44.0); LYMPHOCYTE # 0.6 TH/MM3 (1.0-4.8); MEAN CELL VOLUME 87.1 FL (80.0-100.0); MEAN CORPUSCULAR HEMOGLOBIN 28.6 PG (27.0-34.0); MEAN CORPUSCULAR HGB CONC 32.9 % (32.0-36.0); MONO % 8.2 % (0.0-8.0); PLATELET COUNT 196 TH/MM3 (150-450); RED BLOOD COUNT 3.59 MIL/MM3 (4.50-5.90); RED CELL DISTRIBUTION WIDTH 18.6 % (11.6-17.2); WHITE BLOOD COUNT 15.2 TH/MM3 (4.0-11.0)
--- NOTE | 2017-01-16 23:03 | RADRPT ---
EXAM DATE/TIME: 01/16/2017 22:40 [place] COMPARISON: CHEST SINGLE AP, December 26, 2016, 17:46. INDICATIONS : Shortness of breath. MEDICAL HISTORY : Congestive heart failure. Myocardial infarction. Hypercholesterolemia. Hypertension, coronary art celena disease, COPD, Asthma, Pneumonia SURGICAL HISTORY : Cardiac cath, stent. ENCOUNTER: Initial ACUITY: 1 day PAIN SCORE: Non-responsive. LOCATION: Bilateral chest FINDINGS: 2 frontal views were performed, one centered lower than the other. On the lower centered view, the l ower lungs are clear. There is mild blunting of the left costophrenic angle. Cardiomegaly similar t o prior. The central bronchopulmonary markings are well delineated. No definite infiltrates seen. Evidence of prior median sternotomy. CONCLUSION: Small left pleural effusion. No infiltrate seen. Stable cardiomegaly. Mati Mahajan MD on January 16, 2017 at 22:59 Board Certified Radiologist. This report was verified electronically.
[2017-01-16] MEDS ORDERED: LEVOFLOXACIN 500 MG PREMIX INJ 100 ML IV ONE (23:15)
[2017-01-16 23:19] LABS: APTT (PATIENT) 27.3 SEC (24.3-30.1); INTERNATIONAL NORMALIZED RATIO 1.1 RATIO; PROTHROMBIN TIME - PATIENT 12.6 SEC (9.8-11.6)
[2017-01-16 23:24] LABS: ANION GAP 12 MEQ/L (5-15); AST (GOT) 26 U/L (15-37); BICARBONATE 26.2 MEQ/L (21.0-32.0); BLOOD UREA NITROGEN 7 MG/DL (7-18); CHLORIDE 88 MEQ/L (98-107); GLOMERULAR FILTRATION RATE 89 ML/MIN (>89); POTASSIUM 3.3 MEQ/L (3.5-5.1); SODIUM (NA) 126 MEQ/L (136-145)
[2017-01-16 23:25] LABS: BLOOD GAS CARBOXYHEMOGLOBIN 3.1 % (0-4); BLOOD GAS HCO3 26 mmol/L (22-26); BLOOD GAS METHEMOGLOBIN 0.6 % (0-2); BLOOD GAS O2 HGB SATURATION 96 % (90-100); BLOOD GAS OXYGEN CONTENT 13.7 Vol % (12.0-20.0); BLOOD GAS PCO2 57 mmHg (38-42); BLOOD GAS PO2 230 mmHG (61-120); BLOOD GAS TOTAL HGB 9.7 G/DL (12.0-16.0); TEMP CORR TO 98.6
[2017-01-16 23:25] LABS: ALT (GPT) 17 U/L (12-78)
[2017-01-16 23:26] LABS: CRITICAL VALUE YES; DRAW SITE LT RADIAL; FIO2 50 %; NUMBER OF ARTERIAL PUNCTURES 1; OXYGEN DEVICE NPPV; STAT YES; ULNAR PULSE PRESENT; VENT SETTINGS EPAP5/IPAP10
[2017-01-16 23:29] LABS: ALKALINE PHOSPHATASE 35 U/L (45-117); TOTAL BILIRUBIN ADULT 0.9 MG/DL (0.2-1.0)
[2017-01-16 23:34] LABS: CREATINE KINASE 66 U/L (39-308)
[2017-01-16] MEDS ORDERED: ENOXAPARIN SODIUM 80 MG/0.8 ML SYRINGE SQ ONE (23:45)
[2017-01-16] MEDS ORDERED: ASPIRIN 81 MG CHEW TAB PO ONE (23:45)
[2017-01-16] MEDS ORDERED: NITROGLYCERIN 2% OINT 1 GM PACKET TOP ONE (23:45)
[2017-01-17] VITALS (16 sets, daily range): BP systolic 124–154; BP diastolic 73–93; PULSE 82–103; RESP 18–22; TEMP 97.6–98.6; O2SAT 92–100
[2017-01-17 00:18] LABS: BLOOD GAS BASE EXCESS 0.8 mmol/L (-2-2); BLOOD GAS CARBOXYHEMOGLOBIN 2.8 % (0-4); BLOOD GAS HCO3 26 mmol/L (22-26); BLOOD GAS METHEMOGLOBIN 0.3 % (0-2); BLOOD GAS O2 HGB SATURATION 97 % (90-100); BLOOD GAS OXYGEN CONTENT 13.4 Vol % (12.0-20.0); BLOOD GAS PCO2 54 mmHg (38-42); BLOOD GAS PO2 235 mmHG (61-120); BLOOD GAS TOTAL HGB 9.4 G/DL (12.0-16.0); CRITICAL VALUE YES; OXYGEN DEVICE NPPV; TEMP CORR TO 98.6
[2017-01-17 00:19] LABS: DRAW SITE LT RADIAL; FIO2 50 %; NUMBER OF ARTERIAL PUNCTURES 1; STAT YES; ULNAR PULSE PRESENT; VENT SETTINGS EPAP5/IPAP12
[2017-01-17] MEDS ORDERED: FUROSEMIDE 100 MG/10 ML VIAL IV PUSH ONE (00:45)
[2017-01-17] MEDS ORDERED: NALOXONE HCL 0.4 MG/ML AMP IV PRN (01:45)
[2017-01-17] MEDS ORDERED: SODIUM CHLORIDE 0.9% FLUSH 10 ML FLUSH IV FLUSH PRN (01:45)
[2017-01-17] MEDS ORDERED: RESP: ALBUTEROL 2.5 MG/3 ML NEB (SCH) NEB ONE (02:00)
[2017-01-17] MEDS: RESP: ALBUTEROL 2.5 MG/3 ML NEB (SCH) INH ×2 (02:01→02:02)
--- NOTE | 2017-01-17 05:26 | HHI.HP ---
[facility] Primary Care Physician Admission Diagnosis ACUTE CHF, RESP DISTRESS ON BIPAP, ELEV TROPONIN Diagnoses: Travel History International Travel<30 Days: No Contact w/Intl Traveler <30 Da: No Traveled to Known Affected Are: No History of Present Illness short of breath few days cough not able to expectorate c/o lower spine pain from ankylosing spondylitis last 4 days have been not moving around due to sob and swelling no chest pain no fever no nausea or vomitng does hae muddy stool Otherwise denies any chest pain/palpitations/syncopal episodes. Denies any hematemesis hematochezia/melena/hematuria. Only describes his stool as a muddy stool. Patient is known to me from his prior hospitalization dates. Review of Systems Constitutional: COMPLAINS OF: Change in appetite, DENIES: Diaphoretic episodes , Fatigue, Fever, Weight gain, Weight loss, Chills, Dizziness, Night Sweats Except as stated in HPI: all other systems reviewed are Neg Past Family Social History Past Medical History CAD Chronic bronchitis Diabetes mellitus Cirrhotic liver Chronic lower extremity cellulitis GERD Anxiety/depression History of MRSA Chronic hyponatremia Chronic Pain EF 50% (per ECHO 04/18) COPD emphysema PE Denies DVTs . Past Surgical History CABG two different surgeries Paracentesis Cholecystectomy Allergies: Coded Allergies: Sulfa (Sulfonamide Antibiotics) (Verified Allergy, Severe, Hives, 01/16/17) codeine (Verified Allergy, Severe, Hives, 01/16/17) hydrocodone (Verified Allergy, Severe, ITCH, 01/16/17) sulfamethoxazole (Verified Allergy, Severe, Hives, 01/16/17) trimethoprim (Verified Allergy, Severe, Hives, 01/16/17) vancomycin (Verified Allergy, Severe, Anaphylaxis, 01/16/17) doxycycline (Verified Allergy, Unknown, Hives, 01/16/17) minocycline (Verified Allergy, Unknown, Hives, 01/16/17) tigecycline (Verified Allergy, Unknown, Hives, 01/16/17) Family History cancer of various kinds Social History drinks occasionally Denies drug abuse. Ex-smoker. Physical Exam Vital Signs Vital Signs Date Time Temp Pulse Resp B/P Pulse Ox O2 Delivery O2 Flow Rate FiO2 01/17/17 04:20 100 35 01/17/17 02:32 96 19 140/86 100 BiPAP 35 01/17/17 01:49 99 35 01/17/17 01:10 35 01/16/17 23:58 98 16 168/86 100 BiPAP 50 01/16/17 23:30 99 50 01/16/17 22:56 97.6 104 15 189/103 100 BiPAP 50 01/16/17 22:40 100 BiPAP 50 01/16/17 22:40 BiPAP 01/16/17 22:28 100 BiPAP 50 01/16/17 22:27 100 50 01/16/17 22:23 107 179/95 100 01/16/17 22:15 100 50 Physical Exam GENERAL: This is a well-nourished, well-developed patient, in moderate distress from respiratory distress. On BiPAP. Quite anxious as well. SKIN: No rashes, ecchymoses or lesions. Cool and dry. HEAD: Atraumatic. Normocephalic. No temporal or scalp tenderness. EYES: No scleral icterus. No injection or drainage. ENT: Nose without bleeding, purulent drainage or septal hematoma. Airway patent. NECK: Trachea midline. No JVD or lymphadenopathy. Supple, nontender, no meningeal signs. CARDIOVASCULAR: Tachycardic, regular rhythm without murmurs, gallops, or rubs. Limited exam due to BiPAP sounds RESPIRATORY: Bilaterally decreased air entry. Similar scattered by BiPAP sounds as well. GASTROINTESTINAL: Abdomen soft, non-tender, nondistended. No hepato-splenomegaly , or palpable masses. No guarding. MUSCULOSKELETAL: Extremities without clubbing, cyanosis, or edema. Bilateral pain in the lower extremity joints. No calf asymmetry bilateral chronic skin changes due to venous stasis. NEUROLOGICAL: Awake and alert. Motor and sensory grossly within normal limits. Normal speech. Laboratory Laboratory Tests Test 01/16/17 01/16/17 01/17/17 22:35 23:09 00:01 White Blood Count 15.2 Red Blood Count 3.59 Hemoglobin 10.3 Hematocrit 31.3 Mean Corpuscular Volume 87.1 Mean Corpuscular Hemoglobin 28.6 Mean Corpuscular Hemoglobin 32.9 Concent Red Cell Distribution Width 18.6 Platelet Count 196 Mean Platelet Volume 7.3 Neutrophils (%) (Auto) 87.0 Lymphocytes (%) (Auto) 4.1 Monocytes (%) (Auto) 8.2 Eosinophils (%) (Auto) 0.2 Basophils (%) (Auto) 0.5 Neutrophils # (Auto) 13.2 Lymphocytes # (Auto) 0.6 Monocytes # (Auto) 1.2 Eosinophils # (Auto) 0.0 Basophils # (Auto) 0.1 CBC Comment DIFF FINAL Differential Comment Prothrombin Time 12.6 Prothromb Time International 1.1 Ratio Activated Partial 27.3 Thromboplast Time Sodium Level 126 Potassium Level 3.3 Chloride Level 88 Carbon Dioxide Level 26.2 Anion Gap 12 Blood Urea Nitrogen 7 Creatinine 0.87 Estimat Glomerular Filtration 89 Rate Random Glucose 217 Calcium Level 8.4 Total Bilirubin 0.9 Aspartate Amino Transf 26 (AST/SGOT) Alanine Aminotransferase 17 (ALT/SGPT) Alkaline Phosphatase 35 Total Creatine Kinase 66 Troponin I 0.89 Total Protein 6.8 Albumin 3.2 B-Type Natriuretic Peptide 1705 Blood Gas Puncture Site LT RADIAL LT RADIAL Blood Gas Patient Temperature 98.6 98.6 Blood Gas HCO3 26 26 Blood Gas Base Excess 0.0 0.8 Blood Gas Oxygen Saturation 96 97 Arterial Blood pH 7.28 7.31 Arterial Blood Partial 57 54 Pressure CO2 Arterial Blood Partial 230 235 Pressure O2 Arterial Blood Oxygen Content 13.7 13.4 Arterial Blood 3.1 2.8 Carboxyhemoglobin Arterial Blood Methemoglobin 0.6 0.3 Blood Gas Hemoglobin 9.7 9.4 Oxygen Delivery Device NPPV NPPV Blood Gas Ventilator Setting EPAP5/IPAP10 EPAP5/IPAP12 Blood Gas Inspired Oxygen 50 50 Date/Time Procedure Status Source Growth 01/16/17 22:35 Aerobic Blood Culture Received Blood Peripheral Pending 01/16/17 22:35 Anaerobic Blood Culture Received Blood Peripheral Pending Result Diagram: 01/16/17223401/16/172234 Imaging Last 48 hours Impressions Chest X-Ray 01/16/172226 Signed Impressions: Service Date/Time: Monday, January 16, 2017 22:40 - CONCLUSION: Small left pleural effusion. No infiltrate seen. Stable cardiomegaly. Mati Mahajan MD Assessment and Plan Assessment and Plan Impression: Acute hypoxemic respiratory failure CHF exacerbationacute on chronic Non-ST elevation PR Leukocytosis with left shift Plan: Genetics given Lasix 80 mg IV in ER. He was placed on BiPAP. Cardiology consult. He is symptomatically much better off BiPAP now. However he would immediately decompensate within about 30 minutes.. Therefore placed back on BiPAP. Continue Lasix at 40 mg IV every 12 hours. ABGresults reviewed. Respiratory acidosis with metabolic compensation. We'll start patient on Levaquin by mouth. Nebs when necessary. Hold long-acting insulin and oral hypoglycemics. Resume home meds. DVT prophylaxisLovenox therapeutic dose. We'll hold off on this morning's dose in case patient would go for angiogram. Discussed Condition With Patient, ER physician, patient's nurse Physician Certification 2 Midnight Certification Type: Admission for Inpatient Services Order for Inpatient Services The services are ordered in accordance with Medicare regulations or non- Medicare payer requirements, as applicable. In the case of services not specified as inpatient-only, they are appropriately provided as inpatient services in accordance with the 2-midnight benchmark. Estimated LOS (days): 4 days is the estimated time the patient will need to remain in the hospital, assuming treatment plan goals are met and no additional complications. Post-Hospital Plan: Not yet determined Ariel Matthews MD Jan 17, 2017 05:26
[2017-01-17] MEDS ORDERED: HYDROmorphone HCL PF 1 MG/ML VIAL IV PUSH ONE (05:30)
[2017-01-17] MEDS ORDERED: RESP: ALBUTEROL 2.5 MG/IPRATROPIUM 0.5 MG NEB (PRN) NEB (07:45)
[2017-01-17] MEDS ORDERED: DEXTROSE 50% IN WATER 50 ML VIAL(D50) IV PRN (08:00)
[2017-01-17] MEDS ORDERED: GLUCAGON 1 MG/ML VIAL OTHER PRN (08:00)
--- NOTE | 2017-01-17 08:57 | EKG ---
Date Performed: 01/17/2017 Time Performed: 05:12:34 PTAGE: 61 years EKG: Sinus rhythm MARKED LEFT AXIS DEVIATION INTRAVENTRICULAR CONDUCTION DELAY POSSIBLE LATERAL MYOCARDIAL INFARCTION ABNORMAL ECG NO PREVIOUS TRACING DOCTOR: Roberto Carlos Adams Interpretating Date/Time 01/17/2017 08:54:01
[2017-01-17] MEDS: FUROSEMIDE 40 MG/4 ML VIAL IV PUSH SCH ×2 (09:00→17:36)
[2017-01-17] MEDS: SODIUM CHLORIDE 0.9% FLUSH 10 ML FLUSH IV FLUSH SCH ×2 (09:00→21:07)
--- NOTE | 2017-01-17 09:05 | EKG ---
Date Performed: 01/16/2017 Time Performed: 22:41:16 PTAGE: 61 years EKG: Sinus rhythm WITH OCCASIONAL VENTRICULAR PREMATURE COMPLEXES POSSIBLE LEFT ATRIAL ENLARGEMENT BORDERLINE LEFT AXI S DEVIATION RIGHT BUNDLE BRANCH BLOCK ABNORMAL ECG PREVIOUS TRACING : 12/26/2016 18.32 Compared to prior tracing no significant change DOCTOR: Roberto Carlos Adams Interpretating Date/Time 01/17/2017 08:58:26
[2017-01-17] MEDS: clonazePAM 1 MG TAB PO SCH ×2 (09:28→17:36)
[2017-01-17] MEDS: SPIRONOLACTONE 100 MG TAB PO SCH (09:29)
[2017-01-17] MEDS: TORSEMIDE 20 MG TAB PO SCH (09:30)
[2017-01-17] MEDS: PARoxetine HCL 20 MG TAB PO SCH (09:31)
[2017-01-17] MEDS: ASPIRIN 81 MG CHEW TAB CHEW SCH (09:31)
[2017-01-17] MEDS: LACTOBACILLUS ACIDOPHILUS TAB PO SCH ×3 (09:32→17:36)
[2017-01-17] MEDS: PANTOPRAZOLE SOD 20 MG DELAYED RELEASE TAB PO SCH ×2 (09:32→21:07)
[2017-01-17] MEDS: methylPREDNISolone SOD SUCC 125 MG/2 ML VIAL IV PUSH SCH ×4 (10:19→21:07)
[2017-01-17] MEDS: RESP: ALBUTEROL 2.5 MG/IPRATROPIUM 0.5 MG NEB (SCH) NEB ×3 (10:20→19:52)
--- NOTE | 2017-01-17 11:29 | PD.CONS ---
HPI Consult Requested By Primary Care Physician No Primary Care Physician History of Present Illness 61 y/o M with known CAD s/p CABG and redo, PCI, HTN, HLD, DM, cirrhosis with multiple admission to [place] that presents with worsening SOB on exertion and associated abdominal and bilateral lower extremity edema. In the ER he was started on CPAP becuase of respiratory distress and given IV diuresis. BNP 1705 and troponin elevated 0.89, 1.30. Echo 11/2016 showed preserved LV systolic function with estimated EF 60%. Cardiology consulted for management and evaluation. Review of Systems Consitutional: COMPLAINS OF: Fatigue, DENIES: Fever, Chills, Weight gain, Weight loss Eyes: DENIES: Amaurosis F[place], Change in vision HEENT: DENIES: Lightheadedness, Change in hearing Respiratory: COMPLAINS OF: Shortness of breath, DENIES: See HPI, Cough, Snoring, Wheezing, Sputum production Cardiovascular: DENIES: See HPI, Chest pain, Palpitations, Syncope, Tachycardia Gastrointestinal: DENIES: Nausea, Vomiting, Change in bowel habits, Reflux, Bloody stools, Melena Genitourinary: DENIES: Urinary incontinence, Difficulty voiding Integumentary: DENIES: Rash Neurologic: DENIES: Tingling or numbness, Memory problems, Poor Balance, Stroke symptoms Musculoskeletal: DENIES: Joint pain, Muscle pain, Limited range of motion, Back pain Psychiatric: DENIES: Anxiety, Depression, Sleep disturbances Hematologic: DENIES: Bruising tendencies, Bleeding tendencies Endocrine: DENIES: Weight gain, Weight loss, Thyroid disease Past Family Social History Allergies: Coded Allergies: Sulfa (Sulfonamide Antibiotics) (Verified Allergy, Severe, Hives, 01/16/17) codeine (Verified Allergy, Severe, Hives, 01/16/17) hydrocodone (Verified Allergy, Severe, ITCH, 01/16/17) sulfamethoxazole (Verified Allergy, Severe, Hives, 01/16/17) trimethoprim (Verified Allergy, Severe, Hives, 01/16/17) vancomycin (Verified Allergy, Severe, Anaphylaxis, 01/16/17) doxycycline (Verified Allergy, Unknown, Hives, 01/16/17) minocycline (Verified Allergy, Unknown, Hives, 01/16/17) tigecycline (Verified Allergy, Unknown, Hives, 01/16/17) Past Medical History CAD Chronic bronchitis Diabetes mellitus Cirrhotic liver Chronic lower extremity cellulitis GERD Anxiety/depression History of MRSA Chronic hyponatremia Chronic Pain EF 50% (per ECHO 04/18) COPD emphysema PE Past Surgical History CABG +redo Paracentesis Cholecystectomy Reported Medications Reported Meds & Active Scripts Active Gabapentin 400 Mg Cap 400 Cap PO TID Demadex (Torsemide) 20 Mg Tab 20 Mg PO DAILY Levaquin (Levofloxacin) 750 Mg Tablet 750 Mg PO DAILY Acidophilus/l-Sporogenes (Lactobacillus Acidophilus) 1 Tab Tab 1 Tab PO TID Klonopin (Clonazepam) 1 Mg Tab 2 Mg PO Q8H Amoxicillin 875 Mg Tab 875 Mg PO Q12H Duragesic Patch 72 HR (Fentanyl) 25 Mcg/Hr Patch 1 Patch T-DERMAL Q3D Paroxetine (Paroxetine HCl) 20 Mg Tab 20 Mg PO DAILY Morphine IR (Morphine Sulfate) 15 Mg Tab 7.5 Mg PO Q6H PRN do not take this medicine if you will drive a car or use a machine, only use it when resting at home. Albuterol Neb (Albuterol Sulfate) 2.5 Mg/3 Ml Neb 2.5 Mg NEB Q4HR NEB PRN Duoneb (Ipratropium-Albuterol Neb) 0.5-2.5 Mg/3 Ml Neb 1 Ampule NEB Q6HR NEB [guaiFENesin ER] 600 MG Tabcr 600 Mg PO BID Aldactone (Spironolactone) 100 Mg Tab 100 Mg PO DAILY Oxygen tank (Oxygen) 1 Ea Tank 2 Liter [place].CANULA CONTINUOUS Oxygen Concentrator Portable Gaseous 2 L/min via Nasal Cannula Continuous For 99 months Reported [place] Nasal [place] (Sodium Chloride) 0.65% [place] 1 [place] EACH NARE BID Aspirin 81 Mg Chew 81 Mg CHEW DAILY Vitamin D3 (Cholecalciferol) 10,000 Unit Cap 10,000 Units PO BID Novolin R Inj (Insulin Human Regular) 1,000 Unit/10 Ml Vial Unknown Dose SQ ACHS Max dose at bedtime:( )units; sugars less than 70,(0) units; sugars 150-199,(2)unit; sugars 200-249,(4)units; sugars 250-299,(7) units; sugars 300-349,(10)units; sugars greater than 349,(12)units Novolin 70-30 Inj (Insulin Human Isoph/Insulin Regular) 1,000 Unit/10 Ml Vial 45 Units SQ BID Omeprazole 20 Mg Tab 20 Mg PO BID Active Ordered Medications Current Medications Medications (Trade) Dose Ordered Sig/Lyn Route Start Time Stop Time Status Last Admin (NS Flush) 2 ml UNSCH PRN IV FLUSH 01/17/17 01:45 (NS Flush) 2 ml BID IV FLUSH 01/17/17 09:00 (Narcan Inj) 0.4 mg UNSCH PRN IV 01/17/17 01:45 (Lasix Inj) 40 mg BID@18 IV PUSH 01/17/17 09:00 (Levaquin) 750 mg Q24H PO 01/17/17 23:00 (Aspirin Chew) 81 mg DAILY CHEW 01/17/17 09:00 01/17/17 09:31 (KlonoPIN) 2 mg Q8H PO 01/17/17 09:00 01/17/17 09:28 (Lactinex) 1 tab TID PO 01/17/17 09:00 01/17/17 09:32 (Paxil) 20 mg DAILY PO 01/17/17 09:00 01/17/17 09:31 (Aldactone) 100 mg DAILY PO 01/17/17 09:00 01/17/17 09:29 (Demadex) 20 mg DAILY PO 01/17/17 09:00 01/17/17 09:30 (Protonix) 20 mg BID PO 01/17/17 09:00 01/17/17 09:32 (D50w (Vial) Inj) 50 ml UNSCH PRN IV 01/17/17 08:00 (Glucagon Inj) 1 mg UNSCH PRN OTHER 01/17/17 08:00 (SoluMEDROL INJ) 125 mg Q8HR IV PUSH 01/17/17 10:00 01/17/17 10:22 Physical Exam Vital Signs Vital Signs Date Time Temp Pulse Resp B/P Pulse Ox O2 Delivery O2 Flow Rate FiO2 01/17/17 07:33 100 35 01/17/17 07:29 103 20 154/93 100 BiPAP 35 01/17/17 04:20 100 35 01/17/17 02:32 96 19 140/86 100 BiPAP 35 01/17/17 01:49 99 35 01/17/17 01:10 35 01/16/17 23:58 98 16 168/86 100 BiPAP 50 01/16/17 23:30 99 50 01/16/17 22:56 97.6 104 15 189/103 100 BiPAP 50 01/16/17 22:40 100 BiPAP 50 01/16/17 22:40 BiPAP 01/16/17 22:28 100 BiPAP 50 01/16/17 22:27 100 50 01/16/17 22:23 107 179/95 100 01/16/17 22:15 100 50 Physical Exam GENERAL: Well-nourished, well-developed patient. SKIN: Warm and dry. HEAD: Normocephalic. EYES: No scleral icterus. No injection or drainage. NECK: Supple, trachea midline. No JVD or lymphadenopathy. CARDIOVASCULAR: Regular rate and rhythm without murmurs, gallops, or rubs. RESPIRATORY: +accessory muscle use, bilateral rales GASTROINTESTINAL: Abdomen distended, non-tender, +BS EXTREMITIES: No cyanosis, or ++edema. NEUROLOGICAL: Awake, alert, and oriented x 3. Non-focal. Laboratory Laboratory Tests Test 01/16/17 01/16/17 01/17/17 01/17/17 22:35 23:09 00:01 05:00 White Blood Count 15.2 Red Blood Count 3.59 Hemoglobin 10.3 Hematocrit 31.3 Mean Corpuscular Volume 87.1 Mean Corpuscular Hemoglobin 28.6 Mean Corpuscular Hemoglobin 32.9 Concent Red Cell Distribution Width 18.6 Platelet Count 196 Mean Platelet Volume 7.3 Neutrophils (%) (Auto) 87.0 Lymphocytes (%) (Auto) 4.1 Monocytes (%) (Auto) 8.2 Eosinophils (%) (Auto) 0.2 Basophils (%) (Auto) 0.5 Neutrophils # (Auto) 13.2 Lymphocytes # (Auto) 0.6 Monocytes # (Auto) 1.2 Eosinophils # (Auto) 0.0 Basophils # (Auto) 0.1 CBC Comment DIFF FINAL Differential Comment Prothrombin Time 12.6 Prothromb Time International 1.1 Ratio Activated Partial 27.3 Thromboplast Time Sodium Level 126 Potassium Level 3.3 Chloride Level 88 Carbon Dioxide Level 26.2 Anion Gap 12 Blood Urea Nitrogen 7 Creatinine 0.87 Estimat Glomerular Filtration 89 Rate Random Glucose 217 Calcium Level 8.4 Total Bilirubin 0.9 Aspartate Amino Transf 26 (AST/SGOT) Alanine Aminotransferase 17 (ALT/SGPT) Alkaline Phosphatase 35 Total Creatine Kinase 66 52 Troponin I 0.89 1.30 Total Protein 6.8 Albumin 3.2 B-Type Natriuretic Peptide 1705 Blood Gas Puncture Site LT RADIAL LT RADIAL Blood Gas Patient Temperature 98.6 98.6 Blood Gas HCO3 26 26 Blood Gas Base Excess 0.0 0.8 Blood Gas Oxygen Saturation 96 97 Arterial Blood pH 7.28 7.31 Arterial Blood Partial 57 54 Pressure CO2 Arterial Blood Partial 230 235 Pressure O2 Arterial Blood Oxygen Content 13.7 13.4 Arterial Blood 3.1 2.8 Carboxyhemoglobin Arterial Blood Methemoglobin 0.6 0.3 Blood Gas Hemoglobin 9.7 9.4 Oxygen Delivery Device NPPV NPPV Blood Gas Ventilator Setting EPAP5/IPAP10 EPAP5/IPAP12 Blood Gas Inspired Oxygen 50 50 Date/Time Procedure Status Source Growth 01/16/17 22:35 Aerobic Blood Culture Received Blood Peripheral Pending 01/16/17 22:35 Anaerobic Blood Culture Received Blood Peripheral Pending Result Diagram: 01/16/17223401/16/172234 Imaging Last Impressions Chest X-Ray 01/16/172226 Signed Impressions: Service Date/Time: Saturday, January 16, 2017 22:40 - CONCLUSION: Small left pleural effusion. No infiltrate seen. Stable cardiomegaly. Mati Mahajan MD Assessment and Plan Problem List: (1) Acute exacerbation of CHF (congestive heart failure) Assessment and Plan: 61 y/o M with acute on chronic CHF exacerbation and troponin elevation/NSTEMI. Complaint of abd distension. He remains severely SOB not able to lay down in bed , on CPAP. Denies chest pain, fever or chills. Given known CAD a LHC would b e appropriate, however patient needs to be optimized from HF standpoint first before LHC. Recommendations: - Heparin drip - Aspirin - Plavix - Statins - ACEi - IV diuresis - Strict I&O's - Low salt diet - GI consult - Paracentesis Further management to be determine (2) Hyponatremia (3) Hypoxemia (4) Thrombocytopenia (5) Coronary artery disease (6) Respiratory distress (7) Anasarca (8) Diabetes (9) COPD exacerbation (10) CHF exacerbation (11) Cirrhosis of liver with ascites (12) Chronic liver disease Problem Qualifiers (1) Acute exacerbation of CHF (congestive heart failure): Qualified Code: I50.33 - Acute on chronic diastolic congestive heart failure Maurice Chase MD Jan 17, 2017 11:28
[2017-01-17] MEDS: ATORVASTATIN 40 MG TAB PO SCH ×2 (12:00→21:07)
[2017-01-17] MEDS ORDERED: HYDROmorphone HCL PF 1 MG/ML VIAL IV PUSH PRN (12:15)
[2017-01-17] MEDS: CLOPIDOGREL 75 MG TAB PO SCH (13:00)
[2017-01-17] MEDS: INSULIN ASPART SUPPLEMENTAL SCALE SQ SCH ×3 (13:05→21:34)
[2017-01-17] MEDS: LISINOPRIL 5 MG TAB PO SCH (14:03)
[2017-01-17] MEDS: LIDOCAINE HCL 5% PATCH T-DERMAL SCH (16:00)
[2017-01-17] MEDS ORDERED: ALBUMIN HUMAN 25% 25 GM/100 ML BAGP IV ONE (16:00)
[2017-01-17] MEDS: fentaNYL 25 MCG/HR PATCH T-DERMAL SCH (16:02)
[2017-01-17] MEDS: HEPARIN-D5W 25,000 U/250 ML 250 ML IV SCH (17:46)
[2017-01-17] MEDS ORDERED: HEPARIN SODIUM - IV 10,000 UNITS/10 ML VIAL IV PRN ×2 (18:00)
[2017-01-17 19:48] LABS: HEMATOCRIT 25.7 % (39.0-51.0); MEAN CELL VOLUME 87.9 FL (80.0-100.0); MEAN CORPUSCULAR HEMOGLOBIN 28.1 PG (27.0-34.0); PLATELET COUNT 79 TH/MM3 (150-450); RED BLOOD COUNT 2.93 MIL/MM3 (4.50-5.90); RED CELL DISTRIBUTION WIDTH 19.7 % (11.6-17.2); WHITE BLOOD COUNT 3.8 TH/MM3 (4.0-11.0)
[2017-01-17 19:58] LABS: APTT (PATIENT) 32.7 SEC (24.3-30.1); INTERNATIONAL NORMALIZED RATIO 1.3 RATIO; PROTHROMBIN TIME - PATIENT 14.6 SEC (9.8-11.6)
[2017-01-17 20:05] LABS: REVIEW FLAG FINAL
[2017-01-17] MEDS: LEVOFLOXACIN 750 MG TAB PO SCH (21:33)
[2017-01-17] MEDS ORDERED: GABAPENTIN 400 MG CAP PO ONE (21:45)
[2017-01-18] VITALS (28 sets, daily range): BP systolic 119–152; BP diastolic 63–86; PULSE 66–105; RESP 16–22; TEMP 98–99.4; O2SAT 93–98
[2017-01-18] MEDS: clonazePAM 1 MG TAB PO SCH ×4 (00:28→23:52)
[2017-01-18 01:27] LABS: APTT (PATIENT) 34.6 SEC (24.3-30.1)
[2017-01-18] MEDS: RESP: ALBUTEROL 2.5 MG/IPRATROPIUM 0.5 MG NEB (SCH) NEB ×4 (03:25→20:17)
[2017-01-18] MEDS: methylPREDNISolone SOD SUCC 125 MG/2 ML VIAL IV PUSH SCH ×3 (04:57→23:07)
[2017-01-18] MEDS: INSULIN ASPART SUPPLEMENTAL SCALE SQ SCH ×4 (06:05→20:09)
[2017-01-18 07:53] LABS: AUTOMATED NEUTROPHIL # 3.6 TH/MM3 (1.8-7.7); HEMATOCRIT 25.7 % (39.0-51.0); LYMPH % 4.6 % (9.0-44.0); LYMPHOCYTE # 0.2 TH/MM3 (1.0-4.8); MEAN CELL VOLUME 86.7 FL (80.0-100.0); MEAN CORPUSCULAR HEMOGLOBIN 28.7 PG (27.0-34.0); MEAN CORPUSCULAR HGB CONC 33.1 % (32.0-36.0); MONO % 5.2 % (0.0-8.0); NEUT % 90.2 % (16.0-70.0); PLATELET COUNT 80 TH/MM3 (150-450); RED BLOOD COUNT 2.97 MIL/MM3 (4.50-5.90); RED CELL DISTRIBUTION WIDTH 19.4 % (11.6-17.2)
[2017-01-18 07:54] LABS: HEMO FLAGS AUTO DIFF
[2017-01-18] MEDS: CLOPIDOGREL 75 MG TAB PO SCH (08:13)
[2017-01-18] MEDS: TORSEMIDE 20 MG TAB PO SCH (08:13)
[2017-01-18] MEDS: LACTOBACILLUS ACIDOPHILUS TAB PO SCH ×3 (08:13→16:54)
[2017-01-18] MEDS: SODIUM CHLORIDE 0.9% FLUSH 10 ML FLUSH IV FLUSH SCH ×2 (08:14→20:03)
[2017-01-18] MEDS: ASPIRIN 81 MG CHEW TAB CHEW SCH (08:14)
[2017-01-18] MEDS: SPIRONOLACTONE 100 MG TAB PO SCH (08:14)
[2017-01-18] MEDS: PANTOPRAZOLE SOD 20 MG DELAYED RELEASE TAB PO SCH ×2 (08:14→20:04)
[2017-01-18] MEDS: FUROSEMIDE 40 MG/4 ML VIAL IV PUSH SCH ×2 (08:14→16:54)
[2017-01-18] MEDS: PARoxetine HCL 20 MG TAB PO SCH (08:14)
[2017-01-18] MEDS: LISINOPRIL 5 MG TAB PO SCH (08:14)
[2017-01-18] MEDS: LIDOCAINE HCL 5% PATCH T-DERMAL SCH (08:15)
[2017-01-18 08:22] LABS: ALKALINE PHOSPHATASE 21 U/L (45-117); ALT (GPT) 15 U/L (12-78); ANION GAP 4 MEQ/L (5-15); AST (GOT) 16 U/L (15-37); BICARBONATE 34.6 MEQ/L (21.0-32.0); BLOOD UREA NITROGEN 23 MG/DL (7-18); CHLORIDE 88 MEQ/L (98-107); GLOMERULAR FILTRATION RATE 71 ML/MIN (>89); POTASSIUM 3.5 MEQ/L (3.5-5.1); SODIUM (NA) 127 MEQ/L (136-145); TOTAL BILIRUBIN ADULT 0.7 MG/DL (0.2-1.0)
--- NOTE | 2017-01-18 08:25 | RADRPT ---
EXAM DATE/TIME: 01/17/2017 14:52 [facility] COMPARISON: US GUIDED ABD PARACENTESIS, December 27, 2016, 10:10. INDICATIONS : Ascites. MEDICAL HISTORY : Congestive heart failure. Myocardial infarction. Hypercholesterolemia. Cataracts. CVA. Seizures. Pradip nary artery disease. Chest pain. HTN. COPD. Asthma. Pneumonia. Sleep apnea. Dyspnea. Cirrhosis. Renal calculi. Arthritis. Diabetes. Jaundice. Hepatitis. PTSD. Substance use. MRSA. SURGICAL HISTORY : CABG Coronary artery stent. Cholecystectomy. Cardiac cath. Paracentesis. Blood transfusions. Uvula re moval. ENCOUNTER: Subsequent ACUITY: 3 weeks PAIN SCORE: 10/10 LOCATION: Left lower quadrant FLUID: Total volume of 6,400 cc of clear, yellow fluid was removed. Fluid was discarded. Paracentesis was therapeutic only. Post procedure scanning reveals no hematoma or other complication. TECHNIQUE: 1. Ultrasound guidance for abdominal paracentesis. 2. Paracentesis. The risks, benefits, and alternatives to ultrasound guided paracentesis were explained to the patient in detail including the risk of bleeding and infection. Written and verbal informed consent was obt ained. With the patient on the ultrasound table, ultrasound imaging was used to select the most appropriate approach for paracentesis. Overlying skin was prepped and draped in the usual sterile fashion and wi th a local anesthetic, a dermatotomy was made with an 11 blade scalpel. A 6 Russian [id number] ca theter was introduced into the peritoneal cavity and fluid was collected. The patient tolerated the procedure well and left the ultrasound suite in stable condition. CONCLUSION: Uncomplicated ultrasound guided paracentesis. Eliezer Sanders MD on January 18, 2017 at 8:24 Board Certified Radiologist. This report was verified electronically.
--- NOTE | 2017-01-18 09:17 | EKG ---
Date Performed: 01/17/2017 Time Performed: 10:53:04 PTAGE: 61 years EKG: Sinus rhythm RIGHT BUNDLE BRANCH BLOCK LEFT ANTERIOR FASCICULAR BLOCK ABNORMAL ECG PREVIOUS TRACING : 01/17/2017 05.12 Compared to prior tracing no significant change DOCTOR: Maciel Muhammad Interpretating Date/Time 01/18/2017 09:16:09
[2017-01-18 09:44] LABS: PLATELET ESTIMATE SMEAR LOW (NORMAL); PLATELET MORPHOLOGY NORMAL (NORMAL); SCAN/DIFF AUTO DIFF CONFIRMED
[2017-01-18] MEDS ORDERED: PNEUMOCOCCAL POLYVALENT INJ 25 MCG/0.5 ML SYR IM ONE (10:00)
[2017-01-18] MEDS ORDERED: INFLUENZA VIRUS VACCINE (QUADRIVALENT) 0.5 ML SYR IM ONE (10:00)
--- NOTE | 2017-01-18 10:29 | HHI.PR ---
Subjective Remarks F/u on resp distress and chest pain. Patient reports that his chest pain is better and that he feels that his breathing is back down to normal. Says that he still has substantial pain from his ankylosing spondylitis in his back that the 0.2 mg of Dilaudid is not helping as much as desired. Tolerated paracentesis well yesterday with 6.4 L drained Objective Vital Signs Date Time Temp Pulse Resp B/P Pulse Ox O2 Delivery O2 Flow Rate FiO2 01/18/17 09:16 85 01/18/17 08:50 95 Nasal Cannula 01/18/17 08:38 85 01/18/17 07:00 98.6 87 16 152/86 98 01/18/17 06:00 84 01/18/17 05:00 87 01/18/17 04:00 98.3 92 16 136/79 97 01/18/17 04:00 84 01/18/17 03:00 86 01/18/17 02:00 83 01/18/17 01:00 89 01/18/17 00:00 92 01/18/17 00:00 99.4 96 18 124/73 97 01/17/17 23:00 90 01/17/17 22:00 102 01/17/17 21:00 90 01/17/17 20:00 89 01/17/17 20:00 97.6 93 18 124/73 99 01/17/17 19:00 86 01/17/17 18:49 89 01/17/17 17:55 92 01/17/17 17:55 98.0 89 22 133/79 92 01/17/17 16:25 88 01/17/17 15:51 94 01/17/17 13:30 98.6 82 22 152/86 95 01/17/17 11:21 103 20 134/75 96 Nasal Cannula 4 I/O 01/17/17 01/17/17 01/17/17 01/18/17 01/18/17 01/18/17 06:59 14:59 22:59 06:59 14:59 22:59 Intake Total 700 ml 585 ml Output Total 1400 ml Balance 700 ml -815 ml Intake Oral 700 ml 480 ml IV Total 105 ml Output Urine Total 1400 ml # Voids 3 1 # Bowel Movements 0 0 Result Diagram: 01/18/1773401/18/17734 Objective Remarks GENERAL: Resting in bed, using nasal cannula CARDIOVASCULAR: Regular rate and rhythm without murmurs, gallops, or rubs. RESPIRATORY: Expiratory wheezes heard with slightly diminished breath sounds bilaterally GASTROINTESTINAL: Abdomen soft, non-tender, minimal distention diffusely MUSCULOSKELETAL: No cyanosis, or edema. A/P Problem List: (1) Acute exacerbation of CHF (congestive heart failure) ICD Code: I50.9 (2) COPD exacerbation ICD Code: J44.1 (3) Ankylosing spondylitis ICD Code: M45.9 (4) Diabetes ICD Code: E11.9 (5) Hyponatremia ICD Code: E87.1 (6) Chronic liver disease ICD Code: K76.9 (7) Chest pain ICD Code: R07.9 Assessment and Plan Acute hypoxemic resp failure - resolved COPD exacerbation - O2 demand back down to baseline at 3 L (home supply). Continue antibiotic, decrease Solu-Medrol dose, adding on Symbicort, continue albuterol nebs CHF - continue lisinopril, spironolactone, torsemide. Ordering echo. Chest pain - improved, cardiology following, will reassess for heart catheter given elevated troponins upon admission Ascites 2/2 cirrhotic liver - improved s/p paracentesis. Ankylosing spondylitis - should incidentally improve with steroid administration , but ultimately will need to become more ambulatory/mobile as heart condition tolerates, we'll increase Dilaudid dosing Diabetes - grading from low-dose to medium dose NovoLog sliding scale Overall patient has been stabilized for possible left heart catheter pending cardiology's input. Problem Qualifiers (1) Acute exacerbation of CHF (congestive heart failure): Qualified Code: I50.33 - Acute on chronic diastolic congestive heart failure (2) Chest pain: Christiano Friedman MD Jan 18, 2017 10:29
[2017-01-18 11:18] LABS: APTT (PATIENT) 36.3 SEC (24.3-30.1)
[2017-01-18] MEDS: BUDESONIDE-FORMOTEROL 160/4.5 MCG INHALER INH SCH ×2 (12:00→20:03)
[2017-01-18] MEDS: GABAPENTIN 400 MG CAP PO SCH ×3 (12:48→16:54)
[2017-01-18] MEDS: HEPARIN-D5W 25,000 U/250 ML 250 ML IV SCH (12:50)
[2017-01-18] MEDS: HYDROmorphone HCL PF 1 MG/ML VIAL IV PUSH PRN ×2 (12:54→23:52)
--- NOTE | 2017-01-18 13:43 | PD.CARD.PN ---
Subjective Subjective Remarks Doing better No CV complaints Objective Medications Current Medications Medications (Trade) Dose Ordered Sig/Lyn Route Start Time Stop Time Status Last Admin (NS Flush) 2 ml UNSCH PRN IV FLUSH 01/17/17 01:45 (NS Flush) 2 ml BID IV FLUSH 01/17/17 09:00 01/18/17 08:14 (Narcan Inj) 0.4 mg UNSCH PRN IV 01/17/17 01:45 (Lasix Inj) 40 mg BID@,18 IV PUSH 01/17/17 09:00 01/18/17 08:14 (Levaquin) 750 mg Q24H PO 01/17/17 23:00 01/17/17 21:33 (Aspirin Chew) 81 mg DAILY CHEW 01/17/17 09:00 01/18/17 08:14 (KlonoPIN) 2 mg Q8H PO 01/17/17 09:00 01/18/17 08:13 (Lactinex) 1 tab TID PO 01/17/17 09:00 01/18/17 12:47 (Paxil) 20 mg DAILY PO 01/17/17 09:00 01/18/17 08:14 (Aldactone) 100 mg DAILY PO 01/17/17 09:00 01/18/17 08:14 (Demadex) 20 mg DAILY PO 01/17/17 09:00 01/18/17 08:13 (Protonix) 20 mg BID PO 01/17/17 09:00 01/18/17 08:14 (D50w (Vial) Inj) 50 ml UNSCH PRN IV 01/17/17 08:00 (Glucagon Inj) 1 mg UNSCH PRN OTHER 01/17/17 08:00 (Prinivil) 5 mg DAILY PO 01/17/17 13:00 01/18/17 08:14 (Plavix) 75 mg DAILY PO 01/17/17 13:00 01/18/17 08:13 (Heparin Inj) 5,000 units UNSCH PRN IV 01/17/17 18:00 Heparin Sodium (Porcine) 2500 units 2,500 units UNSCH PRN IV 01/17/17 18:00 (Heparin-D5W Inj) 250 ml @ 0 mls/hr TITRATE IV 01/17/17 12:00 01/18/17 12:50 (Lipitor) 40 mg HS PO 01/17/17 12:00 01/17/17 21:07 (Lidoderm 5% Patch.12 Hr) 1 patch DAILY T-DERMAL 01/17/17 16:00 01/18/17 08:15 (Duragesic 25 Mcg Patch.72 Hr) 1 patch Q3D T-DERMAL 01/17/17 16:00 01/17/17 16:02 (Neurontin) 400 mg TID PO 01/18/17 10:00 01/18/17 13:00 (Dilaudid Pf Inj) 1 mg Q4H PRN IV PUSH 01/18/17 12:15 01/18/17 12:54 (Symbicort 160-4.5 Inh) 2 puff Q12HR INH 01/18/17 12:00 (SoluMEDROL INJ) 62.5 mg Q8HR IV PUSH 01/18/17 14:00 01/18/17 12:47 Vital Signs / I&O Vital Signs Date Time Temp Pulse Resp B/P Pulse Ox O2 Delivery O2 Flow Rate FiO2 01/18/17 13:17 86 01/18/17 12:25 88 01/18/17 11:01 98.0 87 16 123/63 93 01/18/17 11:00 94 01/18/17 10:37 89 01/18/17 09:16 85 01/18/17 08:50 95 Nasal Cannula 01/18/17 08:38 85 01/18/17 07:00 98.6 87 16 152/86 98 01/18/17 06:00 84 01/18/17 05:00 87 01/18/17 04:00 98.3 92 16 136/79 97 01/18/17 04:00 84 01/18/17 03:00 86 01/18/17 02:00 83 01/18/17 01:00 89 01/18/17 00:00 92 01/18/17 00:00 99.4 96 18 124/73 97 01/17/17 23:00 90 01/17/17 22:00 102 01/17/17 21:00 90 01/17/17 20:00 89 01/17/17 20:00 97.6 93 18 124/73 99 01/17/17 19:00 86 01/17/17 18:49 89 01/17/17 17:55 92 01/17/17 17:55 98.0 89 22 133/79 92 01/17/17 16:25 88 01/17/17 15:51 94 I/O 01/17/17 01/17/17 01/17/17 01/18/17 01/18/17 01/18/17 07:00 15:00 23:00 07:00 15:00 23:00 Intake Total 700 ml 585 ml Output Total 1400 ml Balance 700 ml -815 ml Intake Oral 700 ml 480 ml IV Total 105 ml Output Urine Total 1400 ml # Voids 3 1 # Bowel Movements 0 0 Laboratory Laboratory Tests Test 01/17/17 01/18/17 01/18/17 01/18/17 19:11 01:00 07:35 10:59 White Blood Count 3.8 TH/MM3 4.0 TH/MM3 Red Blood Count 2.93 MIL/MM3 2.97 MIL/MM3 Hemoglobin 8.2 GM/DL 8.5 GM/DL Hematocrit 25.7 % 25.7 % Mean Corpuscular Volume 87.9 FL 86.7 FL Mean Corpuscular Hemoglobin 28.1 PG 28.7 PG Mean Corpuscular Hemoglobin 32.0 % 33.1 % Concent Red Cell Distribution Width 19.7 % 19.4 % Platelet Count 79 TH/MM3 80 TH/MM3 Mean Platelet Volume 6.9 FL 7.2 FL Prothrombin Time 14.6 SEC Prothromb Time International 1.3 RATIO Ratio Activated Partial 32.7 SEC 34.6 SEC 36.3 SEC Thromboplast Time Neutrophils (%) (Auto) 90.2 % Lymphocytes (%) (Auto) 4.6 % Monocytes (%) (Auto) 5.2 % Eosinophils (%) (Auto) 0.0 % Basophils (%) (Auto) 0.0 % Neutrophils # (Auto) 3.6 TH/MM3 Lymphocytes # (Auto) 0.2 TH/MM3 Monocytes # (Auto) 0.2 TH/MM3 Eosinophils # (Auto) 0.0 TH/MM3 Basophils # (Auto) 0.0 TH/MM3 CBC Comment AUTO DIFF Differential Comment AUTO DIFF CONFIRMED Platelet Estimate LOW Platelet Morphology Comment NORMAL Sodium Level 127 MEQ/L Potassium Level 3.5 MEQ/L Chloride Level 88 MEQ/L Carbon Dioxide Level 34.6 MEQ/L Anion Gap 4 MEQ/L Blood Urea Nitrogen 23 MG/DL Creatinine 1.05 MG/DL Estimat Glomerular Filtration 71 ML/MIN Rate Random Glucose 194 MG/DL Calcium Level 7.8 MG/DL Total Bilirubin 0.7 MG/DL Aspartate Amino Transf 16 U/L (AST/SGOT) Alanine Aminotransferase 15 U/L (ALT/SGPT) Alkaline Phosphatase 21 U/L Total Protein 5.8 GM/DL Albumin 2.8 GM/DL Imaging Last Impressions Cyst Biopsy Asp-Paracentesis US 01/17/17 0000 Signed Impressions: Service Date/Time: January 14:52 - CONCLUSION: Uncomplicated ultrasound guided paracentesis. Eliezer Sanders MD Chest X-Ray 01/16/177 Signed Impressions: Service Date/Time: Monday, January 16, 2017 22:40 - CONCLUSION: Small left pleural effusion. No infiltrate seen. Stable cardiomegaly. Mati Mahajan MD Assessment and Plan Problem List: (1) Acute exacerbation of CHF (congestive heart failure) Assessment and Plan: Doing better after IV diuresis and paracentesis. No CV complaints. Elevated troponin likely from CAD however significant drop in H&H this am of unclear source, thus not a candidate for LHC/PCI at this time. Recommendations: Continue aggressive medical management for CAD. (2) Hyponatremia (3) Hypoxemia (4) Thrombocytopenia (5) Coronary artery disease (6) Respiratory distress (7) Anasarca (8) Diabetes (9) COPD exacerbation (10) CHF exacerbation (11) Cirrhosis of liver with ascites (12) Chronic liver disease Problem Qualifiers (1) Acute exacerbation of CHF (congestive heart failure): Qualified Code: I50.33 - Acute on chronic diastolic congestive heart failure Maurice Chase MD Jan 18, 2017 13:43
[2017-01-18 20:04] LABS: APTT (PATIENT) 35.7 SEC (24.3-30.1)
[2017-01-18] MEDS: ATORVASTATIN 40 MG TAB PO SCH (20:04)
[2017-01-18] MEDS: LEVOFLOXACIN 750 MG TAB PO SCH (23:07)
[2017-01-19] VITALS (32 sets, daily range): BP systolic 116–130; BP diastolic 65–82; PULSE 75–96; RESP 18–20; TEMP 97.8–98.7; O2SAT 94–99
[2017-01-19] MEDS: RESP: ALBUTEROL 2.5 MG/IPRATROPIUM 0.5 MG NEB (SCH) NEB ×4 (03:26→21:55)
[2017-01-19] MEDS: methylPREDNISolone SOD SUCC 125 MG/2 ML VIAL IV PUSH SCH ×2 (05:40→13:13)
[2017-01-19] MEDS: HEPARIN-D5W 25,000 U/250 ML 250 ML IV SCH (05:43)
[2017-01-19] MEDS: INSULIN ASPART SUPPLEMENTAL SCALE SQ SCH ×4 (05:44→21:00)
--- NOTE | 2017-01-19 09:44 | PD.CARD.PN ---
Subjective Subjective Remarks Stable dyspnea, no chest pain Objective Medications Administered Medications Medications (Trade) Dose Ordered Sig/Lyn Route PRN Reason Start Time Stop Time Status Last Admin Dose Admin Sodium Chloride (NS Flush) 2 ml BID IV FLUSH 01/17/17 09:00 01/18/17 20:03 Furosemide (Lasix Inj) 40 mg BID@09,18 IV PUSH 01/17/17 09:00 01/18/17 16:54 Levofloxacin (Levaquin) 750 mg Q24H PO 01/17/17 23:00 01/18/17 23:07 Aspirin (Aspirin Chew) 81 mg DAILY CHEW 01/17/17 09:00 01/18/17 08:14 Clonazepam (KlonoPIN) 2 mg Q8H PO 01/17/17 09:00 01/18/17 23:52 Lactobacillus Acidophilus (Lactinex) 1 tab TID PO 01/17/17 09:00 01/18/17 16:54 Paroxetine HCl (Paxil) 20 mg DAILY PO 01/17/17 09:00 01/18/17 08:14 Spironolactone (Aldactone) 100 mg DAILY PO 01/17/17 09:00 01/18/17 08:14 Torsemide (Demadex) 20 mg DAILY PO 01/17/17 09:00 01/18/17 08:13 Pantoprazole Sodium (Protonix) 20 mg BID PO 01/17/17 09:00 01/18/17 20:04 Lisinopril (Prinivil) 5 mg DAILY PO 01/17/17 13:00 01/18/17 08:14 Clopidogrel Bisulfate 75 mg 75 mg DAILY PO 01/17/17 13:00 01/18/17 08:13 Heparin Sodium/ Dextrose (Heparin-D5W Inj) 250 ml @ 0 mls/hr TITRATE IV 01/17/17 12:00 01/19/17 05:43 Atorvastatin Calcium (Lipitor) 40 mg HS PO 01/17/17 12:00 01/18/17 20:04 Lidocaine HCl (Lidoderm 5% Patch.12 Hr) 1 patch DAILY T-DERMAL 01/17/17 16:00 01/18/17 08:15 Fentanyl (Duragesic 25 Mcg Patch.72 Hr) 1 patch Q3D T-DERMAL 01/17/17 16:00 8/17/17 16:02 Gabapentin (Neurontin) 400 mg TID PO 01/18/17 10:00 01/18/17 16:54 Hydromorphone HCl (Dilaudid Pf Inj) 1 mg Q4H PRN IV PUSH pain 01/18/17 12:15 01/18/17 23:52 Budesonide/ Formoterol Fumarate (Symbicort 160-4.5 Inh) 2 puff Q12HR INH 01/18/17 12:00 01/18/17 20:03 Methylprednisolone Sodium Succinate (SoluMEDROL INJ) 62.5 mg Q8HR IV PUSH 01/18/17 14:00 01/19/17 05:40 Vital Signs / I&O Vital Signs Date Time Temp Pulse Resp B/P Pulse Ox O2 Delivery O2 Flow Rate FiO2 01/19/17 09:37 99 Nasal Cannula 3.00 01/19/17 06:06 78 01/19/17 05:48 97.9 91 20 125/65 01/19/17 05:06 82 01/19/17 04:11 82 01/19/17 03:27 98 Nasal Cannula 3.00 01/19/17 03:11 86 01/19/17 03:00 98.7 75 20 116/79 97 01/19/17 02:14 85 01/19/17 01:27 84 01/19/17 00:13 90 01/18/17 23:30 89 01/18/17 22:09 93 01/18/17 21:33 89 01/18/17 20:49 84 01/18/17 20:20 97 Nasal Cannula 3.00 01/18/17 20:00 98.7 84 20 119/71 98 01/18/17 18:18 83 01/18/17 16:30 94 01/18/17 15:31 99.4 66 18 140/83 93 01/18/17 15:30 96 01/18/17 14:12 94 01/18/17 13:17 86 01/18/17 12:25 88 01/18/17 11:01 98.0 87 16 123/63 93 01/18/17 11:00 94 01/18/17 10:37 89 I/O 8/18/17 8/18/17 8/18/17 8/19/17 8/19/17 8/19/17 07:00 15:00 23:00 07:00 15:00 23:00 Intake Total 585 ml 1000 ml 240 ml Output Total 1400 ml 1025 ml 1000 ml Balance -815 ml -25 ml -760 ml Intake Oral 480 ml 860 ml 240 ml IV Total 105 ml 140 ml Output Urine Total 1400 ml 1025 ml 1000 ml # Voids 1 # Bowel Movements 0 0 Physical Exam GENERAL: This is a well-nourished, well-developed patient, in no apparent distress. CARDIOVASCULAR: Regular rate and rhythm without murmurs, gallops, or rubs. RESPIRATORY: Clear to auscultation. Breath sounds equal bilaterally. No wheezes , rales, or rhonchi. GASTROINTESTINAL: Abdomen soft, non-tender, nondistended. Normal active bowel sounds MUSCULOSKELETAL: Extremities without clubbing, cyanosis, or edema. NEURO: Alert & Oriented x4 to person, place, time, situation. Moves all ext x4 Laboratory Laboratory Tests Test 01/18/17 01/18/17 01/19/17 10:59 18:46 03:38 Activated Partial 36.3 SEC 35.7 SEC 42.0 SEC Thromboplast Time Imaging Last Impressions Cyst Biopsy Asp-Paracentesis US 01/17/17 0000 Signed Impressions: Service Date/Time: January 14:52 - CONCLUSION: Uncomplicated ultrasound guided paracentesis. Eliezer Sanders MD Chest X-Ray 01/16/172226 Signed Impressions: Service Date/Time: Monday, January 16, 2017 22:40 - CONCLUSION: Small left pleural effusion. No infiltrate seen. Stable cardiomegaly. Mati Mahajan MD Assessment and Plan Problem List: (1) Acute exacerbation of CHF (congestive heart failure) Assessment and Plan: Doing better after IV diuresis and paracentesis. No CV complaints. Elevated troponin likely from CAD however significant drop in H&H this am of unclear source, thus not a candidate for LHC/PCI at this time. Recommendations: Continue aggressive medical management for CAD; for now will continue heparin ggt but need to see if platelets stabilized, ordered HIT lab (2) Hyponatremia (3) Hypoxemia (4) Thrombocytopenia (5) Coronary artery disease (6) Respiratory distress (7) Anasarca (8) Diabetes (9) COPD exacerbation (10) CHF exacerbation (11) Cirrhosis of liver with ascites (12) Chronic liver disease Problem Qualifiers (1) Acute exacerbation of CHF (congestive heart failure): Qualified Code: I50.33 - Acute on chronic diastolic congestive heart failure Ben Almendarez MD Jan 19, 2017 09:44
[2017-01-19] MEDS: SODIUM CHLORIDE 0.9% FLUSH 10 ML FLUSH IV FLUSH SCH ×2 (09:51→21:00)
[2017-01-19] MEDS: LIDOCAINE HCL 5% PATCH T-DERMAL SCH (09:51)
[2017-01-19] MEDS: BUDESONIDE-FORMOTEROL 160/4.5 MCG INHALER INH SCH ×2 (09:52→21:00)
[2017-01-19] MEDS: clonazePAM 1 MG TAB PO SCH ×3 (09:52→23:40)
[2017-01-19] MEDS: FUROSEMIDE 40 MG/4 ML VIAL IV PUSH SCH ×2 (09:53→16:55)
[2017-01-19] MEDS: PANTOPRAZOLE SOD 20 MG DELAYED RELEASE TAB PO SCH ×2 (09:53→21:06)
[2017-01-19] MEDS: SPIRONOLACTONE 100 MG TAB PO SCH (09:53)
[2017-01-19] MEDS: GABAPENTIN 400 MG CAP PO SCH ×3 (09:54→16:55)
[2017-01-19] MEDS: CLOPIDOGREL 75 MG TAB PO SCH (09:54)
[2017-01-19] MEDS: LACTOBACILLUS ACIDOPHILUS TAB PO SCH ×3 (09:54→16:55)
[2017-01-19] MEDS: LISINOPRIL 5 MG TAB PO SCH (09:55)
[2017-01-19] MEDS: PARoxetine HCL 20 MG TAB PO SCH (09:55)
[2017-01-19] MEDS: TORSEMIDE 20 MG TAB PO SCH (09:55)
[2017-01-19] MEDS: ASPIRIN 81 MG CHEW TAB CHEW SCH (09:55)
[2017-01-19] MEDS: HYDROmorphone HCL PF 1 MG/ML VIAL IV PUSH PRN ×4 (10:02→23:40)
[2017-01-19 11:01] LABS: AUTOMATED NEUTROPHIL # 2.5 TH/MM3 (1.8-7.7); HEMATOCRIT 25.7 % (39.0-51.0); LYMPH % 4.4 % (9.0-44.0); LYMPHOCYTE # 0.1 TH/MM3 (1.0-4.8); MEAN CELL VOLUME 86.6 FL (80.0-100.0); MEAN CORPUSCULAR HEMOGLOBIN 29.1 PG (27.0-34.0); MEAN CORPUSCULAR HGB CONC 33.6 % (32.0-36.0); MONO % 6.2 % (0.0-8.0); NEUT % 89.4 % (16.0-70.0); PLATELET COUNT 79 TH/MM3 (150-450); RED BLOOD COUNT 2.97 MIL/MM3 (4.50-5.90); RED CELL DISTRIBUTION WIDTH 19.5 % (11.6-17.2); WHITE BLOOD COUNT 2.8 TH/MM3 (4.0-11.0)
[2017-01-19 11:04] LABS: HEMO FLAGS AUTO DIFF
[2017-01-19 11:10] LABS: APTT (PATIENT) 44.4 SEC (24.3-30.1)
[2017-01-19 11:17] LABS: BICARBONATE 36.5 MEQ/L (21.0-32.0)
[2017-01-19 11:59] LABS: PLATELET ESTIMATE SMEAR LOW (NORMAL); PLATELET MORPHOLOGY NORMAL (NORMAL); SCAN/DIFF AUTO DIFF CONFIRMED
[2017-01-19 12:32] LABS: RETIC % 3.5 % (0.4-3.0)
[2017-01-19 12:33] LABS: REVIEW FLAG FINAL
[2017-01-19 12:41] LABS: FERRITIN 36 NG/ML (26-388)
[2017-01-19] MEDS: IRON SUCROSE INJ 200 MG in SODIUM CHLORIDE 0.9% INJ 100 ML IV SCH (14:26)
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
[2017-01-19] MEDS: POTASSIUM CHLORIDE 10 MEQ CONTROLLED RELEASE TAB PO SCH (18:16)
[2017-01-19] MEDS: ATORVASTATIN 40 MG TAB PO SCH (21:00)
[2017-01-19] MEDS ORDERED: SILVER SULFADIAZINE 1% CR 50 GM JAR TOPICAL SCH (21:00)
[2017-01-19] MEDS: LEVOFLOXACIN 750 MG TAB PO SCH (21:06)
[2017-01-20] VITALS (26 sets, daily range): BP systolic 109–138; BP diastolic 60–82; PULSE 66–116; RESP 16–22; TEMP 97.8–98.3; O2SAT 91–100
[2017-01-20] MEDS: RESP: ALBUTEROL 2.5 MG/IPRATROPIUM 0.5 MG NEB (SCH) NEB ×4 (02:56→22:03)
[2017-01-20] MEDS: HYDROmorphone HCL PF 1 MG/ML VIAL IV PUSH PRN ×5 (03:15→20:57)
[2017-01-20 05:00] LABS: AUTOMATED NEUTROPHIL # 2.2 TH/MM3 (1.8-7.7); BASOPHIL % 0.3 % (0.0-2.0); EOSINOPHIL % 0.1 % (0.0-4.0); HEMATOCRIT 24.4 % (39.0-51.0); LYMPH % 5.1 % (9.0-44.0); LYMPHOCYTE # 0.1 TH/MM3 (1.0-4.8); MEAN CELL VOLUME 86.3 FL (80.0-100.0); MEAN CORPUSCULAR HEMOGLOBIN 28.3 PG (27.0-34.0); MEAN CORPUSCULAR HGB CONC 32.8 % (32.0-36.0); NEUT % 79.5 % (16.0-70.0); PLATELET COUNT 71 TH/MM3 (150-450); RED BLOOD COUNT 2.82 MIL/MM3 (4.50-5.90); RED CELL DISTRIBUTION WIDTH 19.2 % (11.6-17.2); WHITE BLOOD COUNT 2.8 TH/MM3 (4.0-11.0)
[2017-01-20 05:08] LABS: HEMO FLAGS AUTO DIFF
[2017-01-20 05:24] LABS: BICARBONATE 36.3 MEQ/L (21.0-32.0)
[2017-01-20 05:36] LABS: POTASSIUM 2.9 MEQ/L (3.5-5.1)
[2017-01-20] MEDS ORDERED: POTASSIUM CHLORIDE 10 MEQ CONTROLLED RELEASE TAB PO ONE (06:00)
[2017-01-20] MEDS: INSULIN ASPART SUPPLEMENTAL SCALE SQ SCH ×4 (06:02→21:14)
[2017-01-20 06:12] LABS: PLATELET ESTIMATE SMEAR LOW (NORMAL); PLATELET MORPHOLOGY NORMAL (NORMAL); SCAN/DIFF AUTO DIFF CONFIRMED
[2017-01-20] MEDS ORDERED: MAGNESIUM SULFATE 1 GM PREMIX 100 ML IV ONE (08:00)
[2017-01-20] MEDS: GABAPENTIN 400 MG CAP PO SCH ×3 (09:00→17:45)
[2017-01-20] MEDS: POTASSIUM CHLORIDE 10 MEQ CONTROLLED RELEASE TAB PO SCH (09:00)
[2017-01-20] MEDS: ASPIRIN 81 MG CHEW TAB CHEW SCH (09:00)
[2017-01-20] MEDS: LIDOCAINE HCL 5% PATCH T-DERMAL SCH (09:00)
[2017-01-20] MEDS: LACTOBACILLUS ACIDOPHILUS TAB PO SCH ×3 (09:00→17:45)
[2017-01-20] MEDS: FUROSEMIDE 40 MG/4 ML VIAL IV PUSH SCH ×2 (09:00→17:46)
[2017-01-20] MEDS: predniSONE 50 MG TAB PO SCH (09:00)
[2017-01-20] MEDS: PANTOPRAZOLE SOD 20 MG DELAYED RELEASE TAB PO SCH ×2 (09:00→20:56)
[2017-01-20] MEDS: clonazePAM 1 MG TAB PO SCH ×2 (09:00→16:20)
[2017-01-20] MEDS: SODIUM CHLORIDE 0.9% FLUSH 10 ML FLUSH IV FLUSH SCH ×2 (09:00→20:57)
[2017-01-20] MEDS: LISINOPRIL 5 MG TAB PO SCH (09:00)
[2017-01-20] MEDS: SPIRONOLACTONE 100 MG TAB PO SCH (09:00)
[2017-01-20] MEDS: TORSEMIDE 20 MG TAB PO SCH (09:00)
[2017-01-20] MEDS: PARoxetine HCL 20 MG TAB PO SCH (09:00)
[2017-01-20] MEDS: PANTOPRAZOLE SOD 40 MG DELAYED RELEASE TAB PO SCH (09:00)
[2017-01-20] MEDS: BUDESONIDE-FORMOTEROL 160/4.5 MCG INHALER INH SCH ×2 (09:00→21:07)
[2017-01-20] MEDS: CLOPIDOGREL 75 MG TAB PO SCH (09:00)
[2017-01-20] MEDS: IRON SUCROSE INJ 200 MG in SODIUM CHLORIDE 0.9% INJ 100 ML IV SCH (09:00)
[2017-01-20] MEDS ORDERED: MAGNESIUM SULFATE 1 GM PREMIX 100 ML ONE (09:03)
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
[2017-01-20 14:41] LABS: HEPARIN AB OD 0.091 O.D. (0.000-0.300); HEPARIN INDUCED PLATELET AB NEGATIVE (NEGATIVE)
[2017-01-20] MEDS ORDERED: PEG (High)/E-LYTE SOLN 4000 ML BTL PO ONE (16:15)
[2017-01-20] MEDS: fentaNYL 25 MCG/HR PATCH T-DERMAL SCH (16:20)
[2017-01-20] MEDS: MUPIROCIN 2% CREAM 15 GM TOPICAL SCH (17:45)
[2017-01-20 17:49] LABS: APTT (PATIENT) 30.1 SEC (24.3-30.1)
[2017-01-20] MEDS: ATORVASTATIN 40 MG TAB PO SCH (20:56)
[2017-01-21] VITALS (21 sets, daily range): BP systolic 115–138; BP diastolic 56–74; PULSE 72–115; RESP 18–20; TEMP 97.8–98.6; O2SAT 94–100
[2017-01-21] MEDS: HYDROmorphone HCL PF 1 MG/ML VIAL IV PUSH PRN ×4 (00:32→08:40)
[2017-01-21] MEDS: LEVOFLOXACIN 750 MG TAB PO SCH ×2 (00:32→21:56)
[2017-01-21] MEDS: clonazePAM 1 MG TAB PO SCH ×3 (00:32→17:19)
[2017-01-21] MEDS: RESP: ALBUTEROL 2.5 MG/IPRATROPIUM 0.5 MG NEB (SCH) NEB ×2 (04:26→09:16)
[2017-01-21] MEDS: INSULIN ASPART SUPPLEMENTAL SCALE SQ SCH ×4 (05:38→21:00)
[2017-01-21 06:53] LABS: AUTOMATED NEUTROPHIL # 2.7 TH/MM3 (1.8-7.7); BASOPHIL % 0.2 % (0.0-2.0); BICARBONATE 36.7 MEQ/L (21.0-32.0); HEMATOCRIT 25.6 % (39.0-51.0); LYMPH % 8.4 % (9.0-44.0); LYMPHOCYTE # 0.3 TH/MM3 (1.0-4.8); MAGNESIUM 1.3 MG/DL (1.5-2.5); MEAN CELL VOLUME 87.6 FL (80.0-100.0); MEAN CORPUSCULAR HEMOGLOBIN 28.5 PG (27.0-34.0); MEAN CORPUSCULAR HGB CONC 32.5 % (32.0-36.0); MONO % 13.1 % (0.0-8.0); NEUT % 78.3 % (16.0-70.0); PLATELET COUNT 67 TH/MM3 (150-450); POTASSIUM 3.1 MEQ/L (3.5-5.1); RED BLOOD COUNT 2.92 MIL/MM3 (4.50-5.90); RED CELL DISTRIBUTION WIDTH 19.5 % (11.6-17.2); WHITE BLOOD COUNT 3.5 TH/MM3 (4.0-11.0)
[2017-01-21 07:04] LABS: HEMO FLAGS AUTO DIFF
[2017-01-21 08:20] LABS: OVALOCYTES 1+ (NORMAL); PLATELET ESTIMATE SMEAR LOW (NORMAL); PLATELET MORPHOLOGY NORMAL (NORMAL); SCAN/DIFF AUTO DIFF CONFIRMED; TEARDROP RBCS 1+ (NORMAL)
[2017-01-21] MEDS ORDERED: MAGNESIUM SULFATE 1 GM PREMIX 100 ML IV ONE (08:45)
[2017-01-21] MEDS: predniSONE 50 MG TAB PO SCH (09:00)
[2017-01-21] MEDS: IRON SUCROSE INJ 200 MG in SODIUM CHLORIDE 0.9% INJ 100 ML IV SCH (09:00)
[2017-01-21] MEDS: MUPIROCIN 2% CREAM 15 GM TOPICAL SCH ×3 (09:00→17:20)
[2017-01-21] MEDS: SODIUM CHLORIDE 0.9% FLUSH 10 ML FLUSH IV FLUSH SCH ×2 (09:00→21:57)
[2017-01-21] MEDS: BUDESONIDE-FORMOTEROL 160/4.5 MCG INHALER INH SCH ×2 (09:00→21:57)
[2017-01-21] MEDS: FUROSEMIDE 40 MG/4 ML VIAL IV PUSH SCH ×2 (09:00→17:19)
--- NOTE | 2017-01-21 10:15 | GIPROC ---
[facility] [address] [facility]. [facility], [address] EGD PROCEDURE REPORT EXAM DATE: 01/21/2017 PATIENT NAME: Sawyer Badillo MR #: [id number] BIRTHDATE: 1955 ATTENDING: Graciela Espinoza MD ORDER #: [id number] SHEEP OR CALF GRADER: Martinez Armenta and Bella Jay STATUS: inpatient INDICATIONS: The patient is a 61 yr old male here for an EGD due to anemia PROCEDURE PERFORMED: EGD, diagnostic MEDICATIONS: None and Per Anesthesia. TOPICAL ANESTHETIC: none CONSENT: The patient understands the risks and benefits of the procedure and understands that these risks include, but are not limited to: sedation, allergic reaction, infection, perforation and/or bleeding. Alternative means of evaluation and treatment include, among others: physical exam, x-rays, and/or surgical intervention. The patient elects to proceed with this endoscopic procedure. medical equipment was checked for proper function. Hand hygiene and appropriate measures for infection prevention was taken. After the risks, benefits and alternatives of the procedure were thoroughly explained, Informed consent was verified, confirmed and timeout was successfully executed by the treatment team. The patient was anesthetized with topical anesthesia and the EC-3490Li (Pedi C) endoscope was introduced through the mouth and advanced to the second portion of the duodenum. Retroflexion was performed and was normal The gastroscope was then slowly withdrawn and removed. ESOPHAGUS: There was a 2cm segment of suspected Mckinney's esophagus found in the distal esophagus, no biopsies obtained secondary to coagulopathy. There was no nodular mucosa noted in the Mckinney's segment. STOMACH: A few arteriovenous malformations measuring 2mm and smaller in size were found in the gastric body. Prominant gastric folds and no Gastric Varices. DUODENUM: The duodenal mucosa appeared normal in the 2nd part of the duodenum and duodenal bulb. ADVERSE EVENTS: There were no complications. IMPRESSIONS: 1. There was ultrashort segment of suspected Mckinney's esophagus found in the distal esophagus, biopsies not taken secondary to coagulopathy 2. Few arteriovenous malformations measuring smaller than 2mm in size were found in the gastric body 3. Prominant gastric folds and no Gastric Varices 4. Normal duodenal mucosa in the 2nd part of the duodenum and duodenal bulb RECOMMENDATIONS: No treatment PATIENT CONDITION: stable DISPOSITION: Observation REPEAT EXAM: Return as needed for EGD Graciela Espinoza MD eSigned: Graciela Espinoza MD 01/21/2017 10:15 AM cc: PATIENT NAME: Sawyer Badillo MR#: [id number]
--- NOTE | 2017-01-21 10:21 | GIPROC ---
[facility] [address] [facility]. [facility], [address] COLONOSCOPY PROCEDURE REPORT EXAM DATE: 01/21/2017 PATIENT NAME: Sawyer Badillo MR #: [id number] BIRTHDATE: 1955 ENDOSCOPIST: Graciela Espinoza MD ORDER #: [id number] INVESTIGATIONS CONSULTANT: Martinez Armenta and Bella Jay STATUS: inpatient INDICATIONS: The patient is a 61 yr old male here for a colonoscopy due to anemia, non-specific PROCEDURE PERFORMED: Colonoscopy with ablation MEDICATIONS: None and Per Anesthesia. PREP QUALITY: poor PREP TYPE:GoLytely ESTIMATED BLOOD LOSS: None CONSENT: The patient understands the risks and benefits of the procedure and understands that these risks include, but are not limited to: sedation, allergic reaction, infection, perforation and/or bleeding. Alternative means of evaluation and treatment include, among others: physical exam, x-rays, and/or surgical intervention. The patient elects to proceed with this endoscopic procedure. medical equipment was checked for proper function. Hand hygiene and appropriate measures for infection prevention was taken. After the risks, benefits and alternatives of the procedure were thoroughly explained, Informed consent was verified, confirmed and timeout was successfully executed by the treatment team. A digital exam was performed The Pentax EC-3490Li endoscope was introduced through the anus and advanced to the cecum, which was identified by both the appendix and ileocecal valve. The instrument was then slowly withdrawn as the colon was fully examined. COLON FINDINGS: There was severe diverticulosis noted in the sigmoid colon and descending colon with associated tortuosity, muscular hypertrophy and luminal narrowing. Large angiodysplastic lesion was found at the cecum and in the ascending colon. Destruction of lesion via ablation was done. There was no blood loss from maneuver. Argon plasma coagulation was used. Care was given to ensure that the lumen was suctioned well. Retroflexed views revealed internal hemorrhoids and Retroflexed views revealed medium internal hemorrhoids The scope was then completely withdrawn from the patient and the procedure terminated. PROCEDURE WITHDRAWAL TIME:15minutes ADVERSE EVENTS: There were no complications. IMPRESSIONS: 1. There was severe diverticulosis noted in the sigmoid colon and descending colon 2. Large angiodysplastic lesion, at the cecum, and in the ascending colon; Destruction of lesion via ablation was done using APC 3. Retroflexed views revealed medium internal hemorrhoids RECOMMENDATIONS: High fiber diet RECALL: Return 1 year Colonoscopy Graciela Espinoza MD eSigned: Graciela Espinoza MD 01/21/2017 10:21 AM cc: PATIENT NAME: Sawyer Badillo MR#: [id number]
[2017-01-21] MEDS ORDERED: DO NOT ADM ANY ANTICOAGULANT DRUGS PRN (10:39)
[2017-01-21] MEDS ORDERED: PHENYLEPH/NS 1000 MCG/10 ML SYR IV ONE (12:00)
[2017-01-21] MEDS: TORSEMIDE 20 MG TAB PO SCH (12:05)
[2017-01-21] MEDS: LACTOBACILLUS ACIDOPHILUS TAB PO SCH ×3 (12:05→17:19)
[2017-01-21] MEDS: PARoxetine HCL 20 MG TAB PO SCH (12:05)
[2017-01-21] MEDS: ASPIRIN 81 MG CHEW TAB CHEW SCH (12:05)
[2017-01-21] MEDS: POTASSIUM CHLORIDE 10 MEQ CONTROLLED RELEASE TAB PO SCH ×2 (12:06→21:56)
[2017-01-21] MEDS: PANTOPRAZOLE SOD 40 MG DELAYED RELEASE TAB PO SCH (12:06)
[2017-01-21] MEDS: LIDOCAINE HCL 5% PATCH T-DERMAL SCH (12:07)
[2017-01-21] MEDS: LISINOPRIL 5 MG TAB PO SCH (12:07)
[2017-01-21] MEDS: SPIRONOLACTONE 100 MG TAB PO SCH (12:07)
[2017-01-21] MEDS: GABAPENTIN 400 MG CAP PO SCH ×3 (12:08→17:20)
[2017-01-21] MEDS: PANTOPRAZOLE SOD 20 MG DELAYED RELEASE TAB PO SCH ×2 (12:08→21:57)
[2017-01-21] MEDS: CLOPIDOGREL 75 MG TAB PO SCH (12:08)
[2017-01-21] MEDS ORDERED: PROPOFOL 200 MG/20 ML AMP IV ONE (17:08)
[2017-01-21] MEDS ORDERED: LACTATED RINGER'S 1000 ML INJ 1,000 ML IV ONE (17:12)
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
[2017-01-21] MEDS: ATORVASTATIN 40 MG TAB PO SCH (21:56)
[2017-01-22] VITALS (21 sets, daily range): BP systolic 101–135; BP diastolic 66–79; PULSE 73–106; RESP 17–20; TEMP 97.7–98.3; O2SAT 93–99
[2017-01-22] MEDS: clonazePAM 1 MG TAB PO SCH ×3 (00:50→17:51)
[2017-01-22] MEDS: HYDROmorphone HCL PF 1 MG/ML VIAL IV PUSH PRN ×2 (00:51→05:38)
[2017-01-22] MEDS: INSULIN ASPART SUPPLEMENTAL SCALE SQ SCH ×3 (06:26→16:00)
[2017-01-22] MEDS: BUDESONIDE-FORMOTEROL 160/4.5 MCG INHALER INH SCH (08:14)
[2017-01-22] MEDS: GABAPENTIN 400 MG CAP PO SCH ×3 (08:16→17:51)
[2017-01-22] MEDS: LACTOBACILLUS ACIDOPHILUS TAB PO SCH ×3 (08:16→17:51)
[2017-01-22] MEDS: TORSEMIDE 20 MG TAB PO SCH (08:17)
[2017-01-22] MEDS: predniSONE 50 MG TAB PO SCH (08:18)
[2017-01-22] MEDS: SPIRONOLACTONE 100 MG TAB PO SCH (08:18)
[2017-01-22] MEDS: POTASSIUM CHLORIDE 10 MEQ CONTROLLED RELEASE TAB PO SCH (08:20)
[2017-01-22] MEDS: PARoxetine HCL 20 MG TAB PO SCH (08:26)
[2017-01-22] MEDS: PANTOPRAZOLE SOD 40 MG DELAYED RELEASE TAB PO SCH (08:26)
[2017-01-22] MEDS: MUPIROCIN 2% CREAM 15 GM TOPICAL SCH ×3 (08:26→18:00)
[2017-01-22] MEDS: LISINOPRIL 5 MG TAB PO SCH (08:26)
[2017-01-22] MEDS: PANTOPRAZOLE SOD 20 MG DELAYED RELEASE TAB PO SCH (08:28)
[2017-01-22] MEDS: LIDOCAINE HCL 5% PATCH T-DERMAL SCH (08:28)
[2017-01-22] MEDS: SODIUM CHLORIDE 0.9% FLUSH 10 ML FLUSH IV FLUSH SCH (08:28)
[2017-01-22] MEDS ORDERED: HYDROmorphone HCL PF 1 MG/ML VIAL IV PUSH PRN (10:45)
[2017-01-22] MEDS: CLOPIDOGREL 75 MG TAB PO SCH (10:52)
[2017-01-22] MEDS: ASPIRIN 81 MG CHEW TAB CHEW SCH (10:52)
[2017-01-22] MEDS: HYDROmorphone HCL PF 2 MG/ML VIAL IV PUSH PRN ×2 (10:56→15:00)
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
--- NOTE | 2017-01-22 16:28 | HHI.DCPOC ---
Discharge Care Plan Goals to Promote Your Health * To prevent worsening of your condition and complications * To maintain your health at the optimal level Do not drive, do not operate any heavy machinery, do not attempt to ambulate without the presence of another adult nearby that could assist you if needed given that you are at risk of falling and bleeding since he will be on blood thinners. Directions to Meet Your Goals Take your medications as prescribed Follow your dietary instruction Follow activity as directed Keep your appointments as scheduled Take your immunizations and boosters as scheduled If your symptoms worsen call your PCP, if no PCP go to Urgent Care Center or Emergency Room Smoking is Dangerous to Your Health. Avoid second hand smoke Call the 24-hour hour crisis hotline for domestic abuse at Christiano Friedman MD Jan 22, 2017 16:28
[2017-01-22] MEDS ORDERED: OXYGENDME NAS.CANULA (17:30)
[2017-01-22] MEDS ORDERED: ALDA100T PO (17:32)
[2017-01-22] MEDS ORDERED: OCEA0.653 EACH NARE (17:32)
[2017-01-22] MEDS ORDERED: CLON1 PO (17:32)
[2017-01-22] MEDS ORDERED: ASPI81CH CHEW (17:32)
[2017-01-22] MEDS ORDERED: OMEP20TA PO (17:32)
[2017-01-22] MEDS ORDERED: FENT25T T-DERMAL (17:32)
[2017-01-22] MEDS ORDERED: IPRASOL NEB (17:32)
[2017-01-22] MEDS ORDERED: PARO20TA2 PO (17:32)
[2017-01-22] MEDS ORDERED: SYMB160A INH (17:33)
[2017-01-22] MEDS ORDERED: LIDO5DIS5 T-DERMAL (17:33)
[2017-01-22] MEDS ORDERED: POTA-243 PO (17:33)
[2017-01-22] MEDS ORDERED: LISI-519 PO (17:33)
[2017-01-22] MEDS ORDERED: PRED10PA2 PO (17:33)
[2017-01-22] MEDS ORDERED: GABA400C5 PO (17:33)
[2017-01-22] MEDS ORDERED: PLAV75TA29 PO (17:33)
[2017-01-22] MEDS ORDERED: MUPI2%T TOPICAL (17:33)
[2017-01-22] MEDS ORDERED: ATOR40TA16 PO (17:33)
[2017-01-22] MEDS ORDERED: TORS1TAB12 PO (17:33)
[2017-01-22] MEDS ORDERED: guaiFENesin ER PO (17:46)
[2017-01-22] MEDS ORDERED: MSIR15 PO (17:46)
[2017-01-22] MEDS ORDERED: NITR1SUB2 SL (17:46)
[2017-01-22] MEDS ORDERED: MAGN400T2 PO (17:50)
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
[2017-01-23] MEDS ORDERED: POTA-245 PO (15:53)
== END 2017-01-22 18:29 | disposition home or self-care (01) | DRG 280 ==
LOC: NEPC 22:19 → NEDA 01-17 01:48 → NEDH 01-17 06:31 → HCIS 01-17 13:20
PROVIDERS: ADMIT Hospitalist; ATTEND Hospitalist
PROC: 0W9G3ZZ Drainage of Peritoneal Cavity, Percutaneous Approach (ICD-10-PCS; 2017-01-17)
PROC: 0DJ08ZZ Inspection of Upper Intestinal Tract, Via Natural or Artificial Opening Endoscopic (ICD-10-PCS; 2017-01-21)
PROC: 0D5K8ZZ Destruction of Ascending Colon, Via Natural or Artificial Opening Endoscopic (ICD-10-PCS; principal; 2017-01-21 09:18)
PROC: 0D5H8ZZ Destruction of Cecum, Via Natural or Artificial Opening Endoscopic (ICD-10-PCS; 2017-01-21 09:18)
DX: I21.4 Non-ST elevation (NSTEMI) myocardial infarction (principal); J96.01 Acute respiratory failure with hypoxia; I50.33 Acute on chronic diastolic (congestive) heart failure; E87.1 Hypo-osmolality and hyponatremia; R18.8 Other ascites; D69.6 Thrombocytopenia, unspecified; J44.1 Chronic obstructive pulmonary disease with (acute) exacerbation; F41.9 Anxiety disorder, unspecified; K74.60 Unspecified cirrhosis of liver; F32.9 Major depressive disorder, single episode, unspecified; K22.70 Barrett's esophagus without dysplasia; K31.819 Angiodysplasia of stomach and duodenum without bleeding; Z86.73 Personal history of transient ischemic attack (TIA), and cerebral infarction without residual deficits; Z95.1 Presence of aortocoronary bypass graft; Z95.5 Presence of coronary angioplasty implant and graft; G89.29 Other chronic pain; K21.9 Gastro-esophageal reflux disease without esophagitis; Z87.891 Personal history of nicotine dependence; K55.20 Angiodysplasia of colon without hemorrhage; M45.9 Ankylosing spondylitis of unspecified sites in spine; K75.81 Nonalcoholic steatohepatitis (NASH); K57.30 Diverticulosis of large intestine without perforation or abscess without bleeding; K64.8 Other hemorrhoids; I86.4 Gastric varices; K44.9 Diaphragmatic hernia without obstruction or gangrene; E87.6 Hypokalemia; E83.42 Hypomagnesemia; D50.9 Iron deficiency anemia, unspecified; E11.9 Type 2 diabetes mellitus without complications; E78.5 Hyperlipidemia, unspecified; I11.0 Hypertensive heart disease with heart failure
CPT/HCPCS: 36600; 49083; 71010; 80048; 80053; 82550; 82728; 82805; 82948; 83540; 83735; 83880; 84484; 85025; 85027; 85044; 85610; 85730; 86022; 86403; 87040; 87640; 87641; 90732; 93005; 94003; 94640; 94664; 96365; 96367; 96372; 96375; C1729; J1170; J1644; J1650; J1756; J1815; J1940; J1956; J2370; J2930; J3010; J3475; J7120; J7512; J7613; P9047